=== PATIENT | female | born 1975 | race Hispanic/Latino ===

== ENCOUNTER 2017-09-20 08:55 | Emergency (ER) | payer BC ==
[~2017-09-20] VITALS: Ht 157.5 cm; Wt 117.9 kg
[~2017-09-20 08:55] MED LIST: CLOTRIMAZOLE15 GM TOP; CYMBALTA30 MG PO; Insulin Detemir SQ; LOSARTAN POTAS100 MG PO; LOVASTATIN10 MG PO; METOPROLOL SUCC50 MG PO; NIFEDIPINE ER30 M1 PO; PROTONIX40 MG/ML PO
[2017-09-20] MEDS ORDERED: ONDANSETRON HCL INJ 2 MG/ML VIAL IV STA (08:57)
[2017-09-20] MEDS ORDERED: SODIUM CHLORIDE 0.9% 1000ML 1,000 ML IV STA (08:57)
[2017-09-20] MEDS ORDERED: FAMOTIDINE 20 MG/2 ML VIAL IV STA (08:57)
[2017-09-20] MEDS ORDERED: DONNATAL/LIDOCAINE/MAALOX 30 ML SUSP PO ONE (09:00)
[2017-09-20 09:55] LABS: BASOPHILS % 0.5 % (0.0-1.0); EOSINOPHILS # (AUTO) 0.2 (0.0-0.4); EOSINOPHILS % 2.1 % (0.0-6.0); HEMATOCRIT 42.7 % (34.2-44.1); HEMOGLOBIN 14.6 g/dL (12.0-16.0); LYMPHOCYTES # (AUTO) 1.9 (1.0-3.2); LYMPHOCYTES % 24.4 % (18.0-39.1); MEAN CORPUSCULAR HEMOGLOBIN 31.9 pg (28-32); MEAN CORPUSCULAR HGB CONC 34.2 g/dL (31-35); MEAN CORPUSCULAR VOLUME 93.4 fL (81-99); MONOCYTES # (AUTO) 0.4 (0.2-0.8); MONOCYTES % 4.9 % (4.4-11.3); NEUTROPHILS # (AUTO) 5.2 (2.1-6.9); NEUTROPHILS % 67.5 % (38.7-80.0); PLATELET COUNT 241 x10e3/uL (140-360); RED BLOOD COUNT 4.57 x10e6/uL (3.6-5.1); RED CELL DISTRIBUTION WIDTH 13.2 % (11.7-14.4)
[2017-09-20 10:16] LABS: ALBUMIN/GLOBULIN RATIO 0.7 (0.8-2.0); ANION GAP 26.5 mmol/L (8-16); CALCIUM 8.9 mg/dL (8.4-10.2); CREATININE, SERUM 1.09 mg/dL (0.57-1.11); POTASSIUM 3.5 mmol/L (3.5-5.1)
[2017-09-20 10:42] LABS: BILIRUBIN,URINE NEGATIVE (NEGATIVE); CLARITY,URINE CLEAR (CLEAR); COLOR,URINE YELLOW (YELLOW); KETONES,URINE NEGATIVE (NEGATIVE); LEUKOCYTE ESTERASE ,URINE NEGATIVE (NEGATIVE); NITRITE,URINE NEGATIVE (NEGATIVE); PROTEIN,URINE DIPSTICK 2+ (NEGATIVE); URINE UROBILINOGEN 0.2 mg/dL (0.2 - 1)
[2017-09-20 10:43] LABS: PREGNANCY TEST, URINE NEGATIVE (NEGATIVE)
[2017-09-20 10:48] LABS: BACTERIA,URINE FEW /HPF; EPITHELIAL CELLS,URINE MODERATE /LPF; WBC,URINE (MAN) 0-5 /HPF (0-5)
[2017-09-20] MEDS ORDERED: PEPCID20 MG PO (10:52)
[2017-09-20 11:18] VITALS: BP 199/101
== END 2017-09-20 11:15 | disposition home or self-care (01) ==
LOC: ER 10:51
DX: R10.13 Epigastric pain (principal); R11.0 Nausea
CPT/HCPCS: 36415; 80053; 81001; 81025; 83690; 85025; 99283; J2405; J7030

== ENCOUNTER 2017-11-24 23:20 | Emergency (ER) | payer BC, OTHER ==
[~2017-11-24] VITALS: Ht 157.5 cm; Wt 117.9 kg
[~2017-11-24 23:20] MED LIST changes: +PEPCID20 MG PO
--- OUTSIDE RECORDS SUMMARY | 2017-11-24 23:23 | XMS REPORT | Clinical Summary ---
Author Author [facility] Organization [facility] Address Unknown Phone Unavailable Care Team Providers Care Dna Analyst Name Role Phone Asked, No Pcp PCP Unavailable Allergies Active Allergy Reactions Severity Noted Date Comments Fish Containing Products Rash Low 03/23/2017 Grapefruit Swelling 03/23/2017 Tongue and body swelling Shellfish Derived 01/10/2017 Tomato Hives 11/24/2017 Current Medications Prescription Sig. Disp. Refills Start End Date Status Date metoprolol succinate XL Take 50 mg by mouth Active (TOPROL-XL) 50 mg 24 hr daily. tablet losartan (COZAAR) 100 MG Take 100 mg by mouth Active tablet daily. lovastatin (MEVACOR) 20 Take 60 mg by mouth Active MG tablet daily. insulin regular Infuse 10 Units into a Active (HumuLIN-R, NovoLIN-R) venous catheter 3 (three) 100 unit/mL injection times a day before meals. metFORMIN (GLUCOPHAGE) Take 500 mg by mouth 2 Active 500 mg tablet (two) times a day with meals. FLUoxetine (PROzac) 10 MG Take 20 mg by mouth Active capsule daily. insulin detemir U-100 Inject 15 Units under the 9 mL 6 11/09/19 12/09/19 Active (LEVEMIR) 100 unit/mL skin 2 (two) times a day 18 18 injection for 30 days. Morning and night NIFEdipine XL (PROCARDIA Take 1 tablet (60 mg 60 tablet 3 11/09/19 12/09/19 Active XL) 60 MG 24 hr tablet total) by mouth 2 (two) 18 18 times a day for 30 days. sucralfate (CARAFATE) 1 Take 1 tablet (1 g total) 120 tablet 0 11/09/19 12/09/19 Active gram tablet by mouth 4 (four) times a 18 18 day before meals and nightly for 30 days. pantoprazole (PROTONIX) Take 1 tablet (40 mg 30 tablet 0 11/09/19 12/09/19 Active 40 MG EC tablet total) by mouth daily for 18 18 30 days. traMADol (ULTRAM) 50 mg Take 1 tablet (50 mg 60 tablet 0 11/09/19 11/29/19 Active tablet total) by mouth every 8 18 18 (eight) hours as needed for moderate pain for up to 20 days. etodolac (LODINE) 500 MG Take 1 tablet (500 mg 20 tablet 0 01/11/20 01/21/20 tablet total) by mouth 2 (two) 17 17 times a day as needed (pain) for up to 10 days. cyclobenzaprine Take 10 mg by mouth 04/10/19 Discontin (FLEXERIL) 10 mg tablet nightly. 18 ued traMADol (ULTRAM) 50 mg Take 50 mg by mouth 2 04/07/19 Discontin tablet (two) times a day as 18 ued needed for moderate pain. NIFEdipine CC (ADALAT CC) Take 60 mg by mouth 11/09/19 Discontin 60 MG 24 hr tablet daily. 18 ued insulin detemir (LEVEMIR) Inject 12 Units under the 11/09/19 Discontin 100 unit/mL injection skin 2 (two) times a day. 18 ued Morning and night traMADol (ULTRAM) 50 mg Take 1 tablet (50 mg 60 tablet 0 04/07/19 04/21/19 tablet total) by mouth every 6 18 18 (six) hours as needed for moderate pain for up to 14 days. acetaminophen-codeine Take 1-2 tablets by mouth 60 tablet 0 04/07/19 04/21/19 (TYLENOL WITH CODEINE #3) every 4 (four) hours as 18 18 300-30 mg per tablet needed for moderate pain for up to 14 days. celecoxib (CeleBREX) 100 Take 1 capsule (100 mg 60 capsule 0 04/07/19 05/07/19 MG capsule total) by mouth 2 (two) 18 18 times a day for 30 days. traMADol (ULTRAM) 50 mg Take 2 tablets (100 mg 60 tablet 0 04/10/19 04/24/19 Discontin tablet total) by mouth every 6 18 18 ued (six) hours as needed for moderate pain for up to 14 days. acetaminophen-codeine Take 1-2 tablets by mouth 60 tablet 0 04/10/19 04/24/19 Discontin (TYLENOL WITH CODEINE #3) every 4 (four) hours as 18 18 ued 300-30 mg per tablet needed for moderate pain for up to 14 days. celecoxib (CeleBREX) 100 Take 1 capsule (100 mg 28 capsule 0 04/10/19 04/24/19 MG capsule total) by mouth 2 (two) 18 18 times a day for 14 days. methocarbamol (ROBAXIN) Take 1 tablet (500 mg 60 tablet 0 04/10/19 04/24/19 500 MG tablet total) by mouth 4 (four) 18 18 times a day as needed for muscle spasms for up to 14 days. traMADol (ULTRAM) 50 mg Take 2 tablets (100 mg 60 tablet 0 04/24/19 04/24/19 Discontin tabletIndications: Acute total) by mouth every 6 18 18 ued pain of right shoulder (six) hours as needed for moderate pain for up to 14 days. acetaminophen-codeine Take 1-2 tablets by mouth 60 tablet 0 04/24/19 04/24/19 Discontin (TYLENOL WITH CODEINE #3) every 4 (four) hours as 18 18 ued 300-30 mg per needed for moderate pain tabletIndications: Acute for up to 14 days. pain of right shoulder acetaminophen-codeine Take 1-2 tablets by mouth 60 tablet 0 04/24/19 04/25/19 Discontin (TYLENOL WITH CODEINE #3) every 4 (four) hours as 18 18 ued 300-30 mg per needed for moderate pain tabletIndications: Acute for up to 14 days. pain of right shoulder traMADol (ULTRAM) 50 mg Take 2 tablets (100 mg 60 tablet 0 04/24/19 04/25/19 Discontin tabletIndications: Acute total) by mouth every 6 18 18 ued pain of right shoulder (six) hours as needed for moderate pain for up to 14 days. acetaminophen-codeine Take 1-2 tablets by mouth 60 tablet 0 04/25/19 05/06/19 Discontin (TYLENOL WITH CODEINE #3) every 4 (four) hours as 18 18 ued 300-30 mg per needed for moderate pain tabletIndications: Acute for up to 14 days. pain of right shoulder traMADol (ULTRAM) 50 mg Take 2 tablets (100 mg 60 tablet 0 04/25/19 05/10/19 Discontin tabletIndications: Acute total) by mouth every 6 18 18 ued pain of right shoulder (six) hours as needed for moderate pain for up to 14 days. acetaminophen-codeine Take 2 tablets by mouth 60 tablet 0 20 05/08/19 Discontin (TYLENOL WITH CODEINE #3) every 4 (four) hours as 18 18 ued 300-30 mg per needed for moderate pain tabletIndications: Acute for up to 60 days. pain of right shoulder acetaminophen-codeine Take 2 tablets by mouth 60 tablet 0 05/08/19 05/29/19 Discontin (TYLENOL WITH CODEINE #3) every 4 (four) hours as 18 18 ued 300-30 mg per needed for moderate pain tabletIndications: Acute for up to 60 days. pain of right shoulder traMADol (ULTRAM) 50 mg TAKE 2 TABLETS BY MOUTH 60 tablet 0 07/01/19 08/30/19 tabletIndications: Acute EVERY 6 HOURS NEEDED 18 18 pain of right shoulder FOR MODERATE PAIN FOR UP TO 14 DAYS traMADol (ULTRAM) 50 mg Take 1 tablet (50 mg 70 tablet 0 05/12/19 05/29/19 Discontin tabletIndications: Acute total) by mouth every 4 18 18 ued pain of right shoulder (four) hours as needed for moderate pain for up to 30 days. acetaminophen-codeine TAKE 2 TABLETS BY MOUTH 60 tablet 0 07/01/19 07/31/19 (TYLENOL WITH CODEINE #3) EVERY 4 HOURS NEEDED 18 18 300-30 mg per FOR MODERATE RODRIGUEZ FOR tabletIndications: Acute UP TO 60 DAYS pain of right shoulder acetaminophen-codeine Take 2 tablets by mouth 60 tablet 0 05/29/19 06/07/19 Discontin (TYLENOL WITH CODEINE #3) every 4 (four) hours as 18 18 ued 300-30 mg per needed for moderate pain tabletIndications: Acute for up to 60 days. pain of right shoulder traMADol (ULTRAM) 50 mg Take 1 tablet (50 mg 70 tablet 0 05/29/19 06/07/19 Discontin tabletIndications: Acute total) by mouth every 4 18 18 ued pain of right shoulder (four) hours as needed for moderate pain for up to 30 days. acetaminophen-codeine Take 2 tablets by mouth 60 tablet 0 06/07/19 06/28/19 Discontin (TYLENOL WITH CODEINE #3) every 4 (four) hours as 18 18 ued 300-30 mg per needed for moderate pain tabletIndications: Acute for up to 60 days. pain of right shoulder traMADol (ULTRAM) 50 mg Take 1 tablet (50 mg 70 tablet 0 06/07/19 06/28/19 Discontin tabletIndications: Acute total) by mouth every 4 18 18 ued pain of right shoulder (four) hours as needed for moderate pain for up to 30 days. acetaminophen-codeine Take 2 tablets by mouth 60 tablet 0 06/28/19 07/18/19 Discontin (TYLENOL WITH CODEINE #3) every 4 (four) hours as 18 18 ued 300-30 mg per needed for moderate pain tabletIndications: Acute for up to 60 days. pain of right shoulder traMADol (ULTRAM) 50 mg Take 1 tablet (50 mg 70 tablet 0 06/28/19 07/18/19 Discontin tabletIndications: Acute total) by mouth every 4 18 18 ued pain of right shoulder (four) hours as needed for moderate pain for up to 30 days. traMADol (ULTRAM) 50 mg Take 1 tablet (50 mg 70 tablet 0 07/18/19 08/02/19 Discontin tabletIndications: Acute total) by mouth every 4 18 18 ued pain of right shoulder (four) hours as needed for moderate pain for up to 30 days. acetaminophen-codeine Take 2 tablets by mouth 60 tablet 0 07/18/19 08/02/19 Discontin (TYLENOL WITH CODEINE #3) every 4 (four) hours as 18 18 ued 300-30 mg per needed for moderate pain tabletIndications: Acute for up to 60 days. pain of right shoulder acetaminophen-codeine Take 2 tablets by mouth 60 tablet 0 08/02/19 10/01/19 (TYLENOL WITH CODEINE #3) every 4 (four) hours as 18 18 300-30 mg per needed for moderate pain tabletIndications: Acute for up to 60 days. pain of right shoulder traMADol (ULTRAM) 50 mg Take 1 tablet (50 mg 70 tablet 0 08/02/19 09/01/19 tabletIndications: Acute total) by mouth every 4 18 18 pain of right shoulder (four) hours as needed for moderate pain for up to 30 days. traMADol (ULTRAM) 50 mg Take 1 tablet (50 mg 70 tablet 0 09/07/19 10/07/19 tabletIndications: Acute total) by mouth every 4 18 18 pain of right shoulder (four) hours as needed for moderate pain for up to 30 days. Active Problems Problem Noted Date Hypertension 11/07/2017 Dyspnea 04/06/2017 Encounters Date Type Specialty Care Team Description 11/24/2017 Emergency Emergency Medicine Senthil Mcgrath, 11/06/2017 Emergency General Internal Medicine Jett Booth Hypertension, unspecified - MD Jeremie type (Primary Dx); 11/08/2017 Xavier Gomez MD Epigastric pain Hari Rivas MD 09/06/2017 Orders Only Orthopedic Surgery Amy Ocasio MA Acute pain of right shoulder (Primary Dx) 08/02/2017 Telephone Orthopedic Joby Walsh MD 08/02/2017 Telephone Orthopedic Surgery Joby Ramos MD 08/01/2017 Orders Only Orthopedic Surgery Amy Ocasio MA Acute pain of right shoulder 07/30/2017 Telephone Orthopedic Joyb Walsh MD 07/17/2017 Abstract Orthopedic Joby Walsh MD 07/17/2017 Orders Only Orthopedic Surgery Amy Ocasio MA Acute pain of right shoulder 07/16/2017 Telephone Orthopedic Joby Walsh MD 06/27/2017 Orders Only Orthopedic Surgery Amy Ocasio MA Acute pain of right shoulder 06/26/2017 Refill Orthopedic Joby Walsh MD Acute pain of right shoulder 06/25/2017 Telephone Orthopedic Joby Walsh MD 06/06/2017 Orders Only Orthopedic Surgery Amy Ocasio MA Acute pain of right shoulder 06/06/2017 Telephone Orthopedic Joby Walsh MD 05/28/2017 Refill Orthopedic Joby Walsh MD Acute pain of right shoulder 05/28/2017 Orders Only Orthopedic Surgery Amy Ocasio MA Acute pain of right shoulder 05/23/2017 Telephone Orthopedic Joby Walsh MD 05/21/2017 Refill Orthopedic Surgery Joby Ramos MD Acute pain of right shoulder 05/11/2017 Orders Only Orthopedic Surgery Amy Ocasio MA Acute pain of right shoulder (Primary Dx) 05/10/2017 Telephone Orthopedic Surgery Joby Ramos MD 05/09/2017 Refill Orthopedic Surgery Joby Ramos MD Acute pain of right shoulder 05/07/2017 Orders Only Orthopedic Surgery Amy Ocasio MA 05/07/2017 Orders Only Orthopedic Surgery Amy Ocasio MA Acute pain of right shoulder 05/07/2017 Telephone Orthopedic Joby Walsh MD 05/05/2017 Refill Orthopedic Surgery Joby Ramos MD Acute pain of right shoulder 04/25/2017 Telephone Orthopedic Joby Walsh MD 04/24/2017 Abstract Orthopedic Surgery Joby Ramos MD 04/24/2017 Orders Only Orthopedic Surgery Amy Ocasio MA Acute pain of right shoulder 04/23/2017 Orders Only Orthopedic Surgery Amy Ocasio MA Acute pain of right shoulder (Primary Dx) 04/10/2017 Abstract Orthopedic Surgery Joby Ramos MD 04/10/2017 Telephone Orthopedic Surgery Joby Ramos MD 04/07/2017 Procedure Pass Orthopedic Surgery 04/06/2017 Hospital Orthopedic Surgery Joby Ramos MD - Encounter 04/09/2017 04/06/2017 Procedure Pass Orthopedic Surgery 04/06/2017 Surgery Orthopedic Surgery Joby Ramos MD RIGHT SHOULDER ARTHROSCOPY, ROTATOR CUFF REPAIR, SUBACROMIAL DECOMPRESSION, Biceps tenodesis 03/23/2017 Pre-Admit Pre-Admission Testing Joby Ramos MD Preop testing (Primary Testing Dx) Appointment 03/23/2017 Anesthesia Orthopedic Surgery Hugo Ramirez APRN Event 03/22/2017 Abstract Orthopedic Surgery Joby Ramos MD 01/10/2017 Emergency Emergency Medicine Bolivar Jennings III, Shoulder right fisher MD initial encounter (Primary Dx) after 11/23/2016 Immunizations Name Dates Previously Given Next Due Pneumococcal 11/07/2017 Polysaccharide Social History Tobacco Use Types Packs/Day Years Used Date Former Smoker Cigarettes 2 10 Quit: 2008 Smokeless Tobacco: Never Used Alcohol Use Drinks/Week oz/Week Comments No Sex Assigned at Date Recorded Not on file Last Filed Vital Signs Vital Sign Reading Time Taken Blood Pressure 202/112 11/24/2017 7:56 PM CDT Pulse 75 11/24/2017 7:56 PM CDT Temperature 36.9 C (98.4 F) 11/24/2017 7:56 PM CDT Respiratory Rate 22 11/24/2017 7:56 PM CDT Oxygen Saturation 96% 11/24/2017 7:56 PM CDT Inhaled Oxygen - - Concentration Weight 119 kg (262 lb 12.8 oz) 11/08/2017 4:04 AM CDT Height 160 cm (5' 3") 11/24/2017 7:56 PM CDT Body Mass Index 46.55 11/08/2017 4:04 AM CDT Plan of Treatment Health Maintenance Due Date Last Done Comments CERVICAL CANCER SCREENING 1994 INFLUENZA VACCINE 09/05/2017 Implants Implanted Type Area Salesperson Burial Plots Device Expiration Model / Identifier Date Serial / Lot Mini Open Kit Implant, Cannula, And Arthroscop Right: [employer] 08/29/2021 [id number] Drill Bit y System & Shoulder / Implanted: Qty: 1 on 04/06/2017 by Roberto [id number] / Joby Ramos MD s [id number] Iconix 2 Tape With Intellibrai - IPM Right: JAIRON 01/10/2019 [id number] IMPLANT Shoulder ORTHOPEDICS / Implanted: 04/06/2017 (Quantity not DEVICES / on file) [id number] 4.5 [employer]x Peek Robbins - [id number] IPM Right: JAIRON 02/19/2019 [id number] Implanted: 04/06/2017 (Quantity not IMPLANT Shoulder ORTHOPEDICS 062 / on file) DEVICES / [id number] 4.5 [employer]elx Peek Robbins - [id number] IPM Right: JAIRON 02/19/2019 [id number] Implanted: 04/06/2017 (Quantity not IMPLANT Shoulder ORTHOPEDICS 062 / on file) DEVICES / [id number] Procedures Procedure Name Priority Date/Time Associated Diagnosis Comments HCG QUALITATIVE, URINE STAT 11/24/2017 Results for this SCREEN 8:03 PM CDT procedure are in the results section. URINALYSIS SCREEN AND STAT 11/24/2017 Results for this MICROSCOPY, WITH REFLEX 8:03 PM CDT procedure are in the TO CULTURE results section. URINE CULTURE STAT 11/24/2017 Results for this 8:03 PM CDT procedure are in the results section. POC GLUCOSE Routine 11/08/2017 Results for this 12:04 PM CDT procedure are in the results section. POC GLUCOSE Routine 11/08/2017 Results for this 8:30 AM CDT procedure are in the results section. AMYLASE LEVEL Routine 11/08/2017 Results for this 4:30 AM CDT procedure are in the results section. ESTIMATED GFR Routine 11/08/2017 Results for this 4:30 AM CDT procedure are in the results section. LIPASE LEVEL Routine 11/08/2017 Results for this 4:30 AM CDT procedure are in the results section. HEPATIC FUNCTION PANEL Routine 11/08/2017 Results for this 4:30 AM CDT procedure are in the results section. PHOSPHORUS LEVEL Routine 11/08/2017 Results for this 4:30 AM CDT procedure are in the results section. MAGNESIUM LEVEL Routine 11/08/2017 Results for this 4:30 AM CDT procedure are in the results section. BASIC METABOLIC PANEL Routine 11/08/2017 Results for this 4:30 AM CDT procedure are in the results section. C-REACTIVE PROTEIN Routine 11/08/2017 Results for this 4:30 AM CDT procedure are in the results section. HC COMPLETE BLD COUNT Routine 11/08/2017 Results for this W/AUTO DIFF 4:30 AM CDT procedure are in the results section. TOTAL BILIRUBIN Routine 11/08/2017 Results for this 12:30 AM CDT procedure are in the results section. AST (SGOT) Routine 11/08/2017 Results for this 12:30 AM CDT procedure are in the results section. ALKALINE PHOSPHATASE Routine 11/08/2017 Results for this 12:30 AM CDT procedure are in the results section. POTASSIUM LEVEL Routine 11/08/2017 Results for this 12:30 AM CDT procedure are in the results section. ALT (SGPT) Routine 11/08/2017 Results for this 12:30 AM CDT procedure are in the results section. POC GLUCOSE Routine 11/07/2017 Results for this 8:52 PM CDT procedure are in the results section. US HEPATIC Today 11/07/2017 Results for this 8:15 PM CDT procedure are in the results section. POC GLUCOSE Routine 11/07/2017 Results for this 5:29 PM CDT procedure are in the results section. POC GLUCOSE Routine 11/07/2017 Results for this 12:16 PM CDT procedure are in the results section. POC GLUCOSE Routine 11/07/2017 Results for this 8:14 AM CDT procedure are in the results section. ESTIMATED GFR Routine 11/07/2017 Results for this 4:00 AM CDT procedure are in the results section. TROPONIN Routine 11/07/2017 Results for this 4:00 AM CDT procedure are in the results section. HEMOGLOBIN A1C Routine 11/07/2017 Results for this 4:00 AM CDT procedure are in the results section. HC COMPLETE BLD COUNT Routine 11/07/2017 Results for this W/AUTO DIFF 4:00 AM CDT procedure are in the results section. HEPATITIS ACUTE PANEL Routine 11/07/2017 Results for this 4:00 AM CDT procedure are in the results section. AMYLASE LEVEL Routine 11/07/2017 Results for this 4:00 AM CDT procedure are in the results section. LIPASE LEVEL Routine 11/07/2017 Results for this 4:00 AM CDT procedure are in the results section. COMPREHENSIVE METABOLIC Routine 11/07/2017 Results for this PANEL 4:00 AM CDT procedure are in the results section. POC GLUCOSE Routine 11/07/2017 Results for this 2:20 AM CDT procedure are in the results section. CT ABDOMEN PELVIS W STAT 11/07/2017 Results for this CONTRAST 1:11 AM CDT procedure are in the results section. HCG QUALITATIVE, URINE STAT 11/06/2017 Results for this SCREEN 10:43 PM CDT procedure are in the results section. URINALYSIS SCREEN AND STAT 11/06/2017 Results for this MICROSCOPY, WITH REFLEX 10:43 PM CDT procedure are in the TO CULTURE results section. URINE CULTURE STAT 11/06/2017 Results for this 10:43 PM CDT procedure are in the results section. ESTIMATED GFR STAT 11/06/2017 Results for this 9:32 PM CDT procedure are in the results section. LIPASE LEVEL STAT 11/06/2017 Results for this 9:32 PM CDT procedure are in the results section. COMPREHENSIVE METABOLIC STAT 11/06/2017 Results for this PANEL 9:32 PM CDT procedure are in the results section. HC COMPLETE BLD COUNT STAT 11/06/2017 Results for this W/AUTO DIFF 9:32 PM CDT procedure are in the results section. POC GLUCOSE Routine 04/09/2017 Results for this 11:49 AM AGRICULTURE TEACHER procedure are in the results section. POC GLUCOSE Routine 04/09/2017 Results for this 7:09 AM AGRICULTURE TEACHER procedure are in the results section. POC GLUCOSE Routine 04/08/2017 Results for this 8:14 PM AGRICULTURE TEACHER procedure are in the results section. POC GLUCOSE Routine 04/08/2017 Results for this 5:47 PM AGRICULTURE TEACHER procedure are in the results section. POC GLUCOSE Routine 04/08/2017 Results for this 11:00 AM AGRICULTURE TEACHER procedure are in the results section. MRI LUMBAR SPINE WO Routine 04/08/2017 Results for this CONTRAST 9:47 AM AGRICULTURE TEACHER procedure are in the results section. POC GLUCOSE Routine 04/08/2017 Results for this 7:57 AM AGRICULTURE TEACHER procedure are in the results section. POC GLUCOSE Routine 04/07/2017 Results for this 5:47 PM AGRICULTURE TEACHER procedure are in the results section. POC GLUCOSE Routine 04/07/2017 Results for this 11:29 AM AGRICULTURE TEACHER procedure are in the results section. POC GLUCOSE Routine 04/07/2017 Results for this 8:00 AM AGRICULTURE TEACHER procedure are in the results section. HC COMPLETE BLD COUNT Routine 04/07/2017 Results for this W/AUTO DIFF 5:15 AM AGRICULTURE TEACHER procedure are in the results section. ZZESTIMATED GFR Routine 04/07/2017 Results for this 4:00 AM AGRICULTURE TEACHER procedure are in the results section. BASIC METABOLIC PANEL Routine 04/07/2017 Results for this 4:00 AM AGRICULTURE TEACHER procedure are in the results section. POC GLUCOSE Routine 04/06/2017 Results for this 8:00 PM AGRICULTURE TEACHER procedure are in the results section. XR CHEST 1 VW PORTABLE Routine 04/06/2017 Results for this 7:22 PM AGRICULTURE TEACHER procedure are in the results section. POC GLUCOSE Routine 04/06/2017 Results for this 6:32 PM AGRICULTURE TEACHER procedure are in the results section. REPAIR, ROTATOR CUFF, 04/06/2017 RIGHT SHOULDER ROTATOR ARTHROSCOPIC 2:35 PM AGRICULTURE TEACHER CUFF TEAR M75.101, ROTATOR CUFF IMPINGEMENT Special Needs EST 1.5HRS, INTERSCALE NE BLOCK WITH PAIN PUMP, BEACH CHAIR POSITION, SHOULDER ULTRASLING Jose texted-MR TX AN PERIPHERAL BLOCK Routine 04/06/2017 POST-OP PAIN 12:27 PM AGRICULTURE TEACHER Procedure Note - Marlene Mccallum MD - 04/06/2017 12:27 PM AGRICULTURE TEACHER Peripheral Block Performed by: MARLENE MCCALLUM Authorized by: MARLENE MCCALLUM Patient Location: Pre-op Start Time: 04/06/2017 12:18 PM End Time: 04/06/2017 12:25 PM Reason for Block: at surgeon's request, post-op pain management Staff: Anesthesio logist: MARLENE MCCALLUM Performed by: Anesthesio logist Preprocedu re: patient identified , IV checked, site and side verified, risks and benefits discussed, procedure verified, surgical consent complete, patient position confirmed, monitors and equipment checked, pre-op evaluation complete and site marked Time Out Performed: 04/06/2017 12:05 PM Peripheral Nerve Block: Patient Position: Left lateral decubitus Prep: ChloraPrep Monitoring : Blood pressure monitoring , continuous pulse oximetry and heart rate Block Type: Brachial plexus and interscale ne Laterality : Right Injection Technique: Catheter insertion Procedures : ultrasound guided and nerve stimulator Ultrasound documentat ion: Images saved on hard disk and printed/pl aced in chart Local Infiltrati on (See MAR for details): Lidocaine Loss of Twitch: 0.4 mA Needle: Needle Type: Pajunk Needle Gauge: 19 G Needle Length: 10 cm Catheter at Skin Depth: 8 cm Assessment : Injection Assessment : Visualized needle/loc al anesthetic surroundin g nerve, intermitte nt aspiration during local anesthetic administra tion, visualized pertinent vascular structures and nerves, no symptoms of intraneura l/intraven ous injection and needle tip visualized at all times during injection of medication Paresthesi a Pain: None Heart Rate Change: No Slow Fractionat ed Injection: Yes Block outcome: No apparent complicati ons, patient comfortabl e and patient tolerated procedure well TYPE AND SCREEN Routine 04/06/2017 Results for this 10:10 AM AGRICULTURE TEACHER procedure are in the results section. POC GLUCOSE Routine 04/06/2017 Results for this 10:07 AM AGRICULTURE TEACHER procedure are in the results section. PARTIAL THROMBOPLASTIN Routine 03/23/2017 Preop testing Results for this TIME (PTT) 2:30 PM A[employer]ICULTURE TEACHER procedure are in the results section. PROTHROMBIN TIME WITH INR Routine 03/23/2017 Preop testing Results for this 2:30 PM AGRICULTURE TEACHER procedure are in the results section. HC COMPLETE BLD COUNT Routine 03/23/2017 Preop testing Results for this W/AUTO DIFF 2:30 PM A[employer]ICULTURE TEACHER procedure are in the results section. URINALYSIS SCREEN AND Routine 03/23/2017 Preop testing Results for this MICROSCOPY, WITH REFLEX 2:25 PM AGRICULTURE TEACHER procedure are in the TO CULTURE results section. URINE CULTURE Routine 03/23/2017 Results for this 2:25 PM AGRICULTURE TEACHER procedure are in the results section. ECG 12-LEAD Routine 03/23/2017 Preop testing Results for this 2:23 PM AGRICULTURE TEACHER procedure are in the results section. ZZESTIMATED GFR Routine 03/23/2017 Results for this 2:05 PM A[employer]ICULTURE TEACHER procedure are in the results section. COMPREHENSIVE METABOLIC Routine 03/23/2017 Preop testing Results for this PANEL 2:05 PM AGRICULTURE TEACHER procedure are in the results section. SPLINT APPLICATION Routine 01/10/2017 Results for this 11:15 PM AGRICULTURE TEACHER procedure are in the results section. after 11/23/2016 Results * Urinalysis screen and microscopy, with reflex to culture (11/24/2017 8:03 PM) Only the most recent of 3 results within the time period is included. Specimen site Clean catch [facility] DEPARTMENT OF PATHOLOGY AND GENOMIC MEDICINE Color, UA Straw [facility] DEPARTMENT OF PATHOLOGY AND GENOMIC MEDICINE Appearance, [facility] Clear [facility] [facility] DEPARTMENT OF PATHOLOGY AND GENOMIC MEDICINE Specific gravity, UA 1.014 1.001 - 1.035 [facility] DEPARTMENT OF PATHOLOGY AND GENOMIC MEDICINE pH, UA 6.0 5.0 - 8.5 [facility] DEPARTMENT OF PATHOLOGY AND GENOMIC MEDICINE Protein, UA 2+ (A) Negative [facility] DEPARTMENT OF PATHOLOGY AND GENOMIC MEDICINE Glucose, UA 3+ (A) Negative [facility] DEPARTMENT OF PATHOLOGY AND GENOMIC MEDICINE Ketones, UA Negative Negative [facility] DEPARTMENT OF PATHOLOGY AND GENOMIC MEDICINE Bilirubin, UA Negative Negative [facility] DEPARTMENT OF PATHOLOGY AND GENOMIC MEDICINE Blood, UA Negative Negative [facility] DEPARTMENT OF PATHOLOGY AND GENOMIC MEDICINE Nitrite, UA Negative Negative [facility] DEPARTMENT OF PATHOLOGY AND GENOMIC MEDICINE Urobilinogen, UA <2.0 <2.0 [facility] DEPARTMENT OF PATHOLOGY AND GENOMIC MEDICINE Leukocyte esterase, UA Negative Negative [facility] DEPARTMENT OF PATHOLOGY AND GENOMIC MEDICINE Epithelial cells, UA 5 /HPF [facility] DEPARTMENT OF PATHOLOGY AND GENOMIC MEDICINE WBC, UA 1 0 - 4 /HPF [facility] DEPARTMENT OF PATHOLOGY AND GENOMIC MEDICINE RBC, UA 1 0 - 5 /HPF [facility] DEPARTMENT OF PATHOLOGY AND GENOMIC MEDICINE Bacteria, UA None seen None seen [facility] DEPARTMENT OF PATHOLOGY AND GENOMIC MEDICINE Yeast, UA None seen [facility] DEPARTMENT OF PATHOLOGY AND GENOMIC MEDICINE Yeast with pseudohyphae, None seen [facility] DEPARTMENT OF UA PATHOLOGY AND GENOMIC MEDICINE Specimen Urine Performing Organization Address City/State/Zipcode Phone Number [facility] DEPARTMENT OF [address] [place] [address] PATHOLOGY AND GENOMIC MEDICINE * hCG qualitative, urine screen (11/24/2017 8:03 PM) Only the most recent of 2 results within the time period is included. [facility] qualitative, urine NegativeComment: Sensitivity [facility] DEPARTMENT OF of HCG test: 25 mIU/mL PATHOLOGY AND GENOMIC MEDICINE Specimen Urine Performing Organization Address City/[facility] [place] [address] PATHOLOGY AND GENOMIC MEDICINE * Urine culture (11/24/2017 8:03 PM) Only the most recent of 3 results within the time period is included. Urine culture SEE COMMENTComment: [facility] DEPARTMENT OF Bacteriuria screen negative. PATHOLOGY AND GENOMIC MEDICINE Performing Organization Address City/[facility] [place] [address] PATHOLOGY AND GENOMIC MEDICINE * POC glucose (11/08/2017 12:04 PM) Only the most recent of 19 results within the time period is included. POC glucose 179 (H) 65 - 99 mg/dL [facility] DEPARTMENT OF Comment: PATHOLOGY AND [facility] Notified RN GENOMIC MEDICINE Meter ID: [id number] Dock Loader: Anisha Quinteros Performing Organization Address City/[facility] Centercode Phone Number [facility] [place] [place] [address] PATHOLOGY AND GENOMIC MEDICINE * Estimated GFR (11/08/2017 4:30 AM) Only the most recent of 3 results within the time period is included. Estimated GFR 62 mL/min/1.73 m2 [facility] DEPARTMENT OF Comment: PATHOLOGY AND CatergoryUnitsInte GENOMIC MEDICINE rpretation G1 >=90 Normal or high G2 60-89Mildly decreased [id number] Mildly to moderately decreased [id number] Moderately to severely decreased G4 15-29Severely decreased G5 <15Kidney failure The eGFR was calculated using the Chronic Kidney Disease Epidemiology Collaboration (CKD-EPI) equation. Interpretation is based on recommendations of the National Kidney Foundation-Kidney Disease Outcomes Quality Initiative (NKF-KDOQI) published in 2014. Specimen Plasma specimen Performing Organization Address City/[facility]ode Phone Number [facility] [place] [place] [address] PATHOLOGY AND GENOMIC MEDICINE * CBC with platelet and differential (11/08/2017 4:30 AM) Only the most recent of 5 results within the time period is included. WBC 8.12 4.50 - 11.00 k/uL [facility] DEPARTMENT OF PATHOLOGY AND GENOMIC MEDICINE RBC 4.32 4.20 - 5.50 m/uL [facility] DEPARTMENT OF PATHOLOGY AND GENOMIC MEDICINE HGB 14.4 12.0 - 16.0 g/dL [facility] DEPARTMENT OF PATHOLOGY AND GENOMIC MEDICINE HCT 40.2 37.0 - 47.0 % [facility] DEPARTMENT OF PATHOLOGY AND GENOMIC MEDICINE MCV 93.1 82.0 - 100.0 fL [facility] DEPARTMENT OF PATHOLOGY AND GENOMIC MEDICINE MCH 33.3 27.0 - 34.0 pg [facility] DEPARTMENT OF PATHOLOGY AND GENOMIC MEDICINE MCHC 35.8 31.0 - 37.0 g/dL [facility] DEPARTMENT OF PATHOLOGY AND GENOMIC MEDICINE RDW - SD 45.5 37.0 - 55.0 fL [facility] DEPARTMENT OF PATHOLOGY AND GENOMIC MEDICINE MPV 11.8 8.8 - 13.2 fL [facility] DEPARTMENT OF PATHOLOGY AND GENOMIC MEDICINE Platelet count 272 150 - 400 k/uL [facility] DEPARTMENT OF PATHOLOGY AND GENOMIC MEDICINE Nucleated RBC 0.00 /100 WBC [facility] DEPARTMENT OF PATHOLOGY AND GENOMIC MEDICINE Neutrophils 60.1 39.0 - 69.0 % [facility] DEPARTMENT OF PATHOLOGY AND GENOMIC MEDICINE Lymphocytes 31.8 25.0 - 45.0 % [facility] DEPARTMENT OF PATHOLOGY AND GENOMIC MEDICINE Monocytes 4.8 0.0 - 10.0 % [facility] DEPARTMENT OF PATHOLOGY AND GENOMIC MEDICINE Eosinophils 2.2 0.0 - 5.0 % [facility] DEPARTMENT OF PATHOLOGY AND GENOMIC MEDICINE Basophils 0.5 0.0 - 1.0 % [facility] DEPARTMENT OF PATHOLOGY AND GENOMIC MEDICINE Immature granulocytes 0.6Comment: "Immature 0.0 - 1.0 % [facility] DEPARTMENT OF granulocytes" (promyelocytes, PATHOLOGY AND myelocytes, metamyelocytes) GENOMIC MEDICINE Specimen Blood Performing Organization Address City/[facility] [place] [address] PATHOLOGY AND GENOMIC MEDICINE * C-reactive protein (11/08/2017 4:30 AM) CRP 1.77 (H) 0.00 - 0.50 mg/dL [facility] DEPARTMENT OF PATHOLOGY AND GENOMIC MEDICINE Specimen Plasma specimen Performing Organization Address City/[facility] [place] [address] PATHOLOGY AND GENOMIC MEDICINE * Phosphorus level (11/08/2017 4:30 AM) Phosphorus 3.7 2.4 - 4.5 mg/dL [facility] DEPARTMENT OF PATHOLOGY AND GENOMIC MEDICINE Specimen Plasma specimen Performing Organization Address City/[facility] [place] [address] PATHOLOGY AND GENOMIC MEDICINE * Magnesium level (11/08/2017 4:30 AM) Magnesium 2.0 1.6 - 2.6 mg/dL [facility] DEPARTMENT OF PATHOLOGY AND GENOMIC MEDICINE Specimen Plasma specimen Performing Organization Address [facility] Phone Number [facility] [place] [place] [address] PATHOLOGY AND GENOMIC MEDICINE * Lipase level (11/08/2017 4:30 AM) Only the most recent of 3 results within the time period is included. Lipase 40 13 - 60 U/L [facility] DEPARTMENT OF PATHOLOGY AND GENOMIC MEDICINE Specimen Plasma specimen Performing Organization Address [facility] Phone Number [facility] [place] [place] [address] PATHOLOGY AND GENOMIC [facility] * Amylase level (11/08/2017 4:30 AM) Only the most recent of 2 results within the time period is included. Amylase 40 28 - 100 U/L [facility] DEPARTMENT OF PATHOLOGY AND GENOMIC MEDICINE Specimen Plasma specimen Performing Organization Address [facility] Phone Number [facility] [place] [address] PATHOLOGY AND GENOMIC MEDICINE * Hepatic function panel (11/08/2017 4:30 AM) Albumin 2.8 (L) 3.5 - 5.0 g/dL [facility] DEPARTMENT OF PATHOLOGY AND GENOMIC MEDICINE Total bilirubin <0.2 0.0 - 1.2 mg/dL [facility] DEPARTMENT OF PATHOLOGY AND GENOMIC MEDICINE Bilirubin direct Footnote 0.0 - 0.3 mg/dL [facility] DEPARTMENT OF PATHOLOGY AND GENOMIC MEDICINE Alkaline phosphatase Footnote 35 - 104 U/L [facility] DEPARTMENT OF PATHOLOGY AND GENOMIC MEDICINE Protein 6.5 6.3 - 8.3 g/dL [facility] DEPARTMENT OF Comment: PATHOLOGY AND GENOMIC MEDICINE 4.6-7.0 g/dL 1 week 4.4-7.6 g/dL 7 months-1year 5.1-7.3 g/dL 1-2 years5.6-7 .5 g/dL >3 years6.0-8 .0 g/dL 18-150 6.3-8.3 g/dL ALT Footnote 5 - 50 U/L [facility] DEPARTMENT OF PATHOLOGY AND GENOMIC MEDICINE AST Footnote 10 - 35 U/L [facility] DEPARTMENT OF PATHOLOGY AND GENOMIC MEDICINE Specimen Plasma specimen Performing Organization Address City/[facility]/Zipcode Phone Number [facility] OF [address] [phone] PATHOLOGY AND GENOMIC MEDICINE * Basic metabolic panel (11/08/2017 4:30 AM) Only the most recent of 2 results within the time period is included. Sodium 130 (L) 135 - 148 mEq/L [facility] DEPARTMENT OF PATHOLOGY AND GENOMIC MEDICINE Potassium Footnote 3.5 - 5.0 mEq/L [facility] DEPARTMENT OF Comment: PATHOLOGY AND _K\\AST\\ALT\\DBILI\\ALP results GENOMIC MEDICINE called to and read back by SAMINA CULP\\[email or web address] (name/location) at105:58 ___ (date/time) by _LSB. Chloride 95 (L) 98 - 112 mEq/L [facility] DEPARTMENT OF PATHOLOGY AND GENOMIC MEDICINE CO2 19 (L) 24 - 31 mEq/L [facility] DEPARTMENT OF PATHOLOGY AND GENOMIC MEDICINE Anion gap 16@ANIO (H) 7 - 15 mEq/L [facility] DEPARTMENT OF PATHOLOGY AND GENOMIC MEDICINE BUN 23 (H) 6 - 20 mg/dL [facility] DEPARTMENT OF PATHOLOGY AND GENOMIC MEDICINE Creatinine 1.09 (H) 0.50 - 0.90 mg/dL [facility] DEPARTMENT OF PATHOLOGY AND GENOMIC MEDICINE Glucose 266 (H) 65 - 99 mg/dL [facility] DEPARTMENT OF PATHOLOGY AND GENOMIC MEDICINE Calcium 8.5 8.3 - 10.2 mg/dL [facility] DEPARTMENT OF PATHOLOGY AND GENOMIC MEDICINE Specimen Plasma specimen Performing Organization Address City/[facility]/Zipcode Phone Number [facility] DEPARTMENT OF [address] [place] [address] PATHOLOGY AND GENOMIC MEDICINE * ALT (SGPT) (11/08/2017 12:30 AM) ALT SEE COMMENTComment: 5 - 50 U/L [facility] DEPARTMENT OF Footnote--------- PATHOLOGY AND GENOMIC MEDICINE Specimen Plasma specimen Narrative Performed At Unable to perform testing, specimen is HEMOLYZED.Recollect [facility] DEPARTMENT OF requested for K/AST/ALT/ALP(tests). CALOS COREAS/Davy(name/location) notified PATHOLOGY AND by 11/08/201707:59 (tech ID) at LS2(date/time). Credit issued. GENOMIC MEDICINE Performing Organization Address City/State/Zipcode Phone Number [facility] [place] [address] PATHOLOGY AND GENOMIC MEDICINE * AST (SGOT) (11/08/2017 12:30 AM) AST SEE COMMENTComment: 10 - 35 U/L [facility] DEPARTMENT OF Footnote--------- PATHOLOGY AND GENOMIC MEDICINE Specimen Plasma specimen Narrative Performed At Unable to perform testing, specimen is HEMOLYZED.Recollect [facility] DEPARTMENT OF requested for K/AST/ALT/ALP(tests). CALOS COREAS/Davy(name/location) notified PATHOLOGY AND by 11/08/201707:59 (tech ID) at LS2(date/time). Credit issued. GENOMIC MEDICINE Performing Organization Address [facility] Phone Number [facility] [place] [address] PATHOLOGY AND GENOMIC MEDICINE * Potassium level (11/08/2017 12:30 AM) Potassium SEE COMMENT 3.5 - 5.0 mEq/L [facility] DEPARTMENT OF Comment: PATHOLOGY AND Footnote--------- GENOMIC MEDICINE Unable to perform testing, specimen is HEMOLYZED.Recollect requested for K/AST/ALT/ALP(tests). CALOS JOSS/Davy(name/location) notified by 11/08/201707:59 (tech ID) at LS2(date/time). Credit issued. Specimen Plasma specimen Narrative Performed At Unable to perform testing, specimen is HEMOLYZED.Recollect [facility] DEPARTMENT OF requested for K/AST/ALT/ALP(tests). CALOS COREAS/Davy(name/location) notified PATHOLOGY AND by 11/08/201707:59 (tech ID) at LS2(date/time). Credit issued. GENOMIC MEDICINE Performing Organization Address City/State/Zipcode Phone Number [facility] [place] [address] PATHOLOGY AND GENOMIC MEDICINE * Alkaline phosphatase (11/08/2017 12:30 AM) Alkaline phosphatase SEE COMMENTComment: 35 - 104 U/L [facility] DEPARTMENT OF Footnote--------- PATHOLOGY AND GENOMIC MEDICINE Specimen Plasma specimen Narrative Performed At Unable to perform testing, specimen is HEMOLYZED.Recollect [facility] DEPARTMENT OF requested for K/AST/ALT/ALP(tests). CALOS COREAS/J11(name/location) notified PATHOLOGY AND by 11/08/201707:59 (tech ID) at LS2(date/time). Credit issued. GENOMIC MEDICINE Performing Organization Address [facility]/Zipcode Phone Number [facility] DEPARTMENT OF [address] [place] [address] PATHOLOGY AND GENOMIC MEDICINE * Total bilirubin (11/08/2017 12:30 AM) Total bilirubin <0.2 0.0 - 1.2 mg/dL [facility] DEPARTMENT OF PATHOLOGY AND GENOMIC MEDICINE Specimen Plasma specimen Performing Organization Address [facility] Phone Number [facility] DEPARTMENT OF [address] [place] [phone] PATHOLOGY AND GENOMIC MEDICINE * US Hepatic (11/07/2017 8:15 PM) Narrative Performed At EXAMINATION:US HEPATIC [facility] CLINICAL HISTORY:acute pancreatitis COMPARISON:None. FINDINGS: 1.Liver is enlarged measuring 21 cm in length and appears somewhat heterogeneous and increasing echogenicity. No definite focal hepatic lesions are seen. Portal vein is patent measuring 1 cm with antegrade flow. Status post cholecystectomy. Common duct is 7 mm. IMPRESSION: Hepatomegaly with fatty infiltration. [facility]-[id number] Procedure Note Interface, Radiology Results Incoming - 11/07/2017 11:10 PM CDT EXAMINATION: US HEPATIC CLINICAL HISTORY: acute pancreatitis COMPARISON: None. FINDINGS: 1. Liver is enlarged measuring 21 cm in length and appears somewhat heterogeneous and increasing echogenicity. No definite focal hepatic lesions are seen. Portal vein is patent measuring 1 cm with antegrade flow. Status post cholecystectomy. Common duct is 7 mm. IMPRESSION: Hepatomegaly with fatty infiltration. [facility]-[id number] Performing Organization Address [facility]/Zipcode Phone Number [facility] [address] [place] [phone] * Troponin (11/07/2017 4:00 AM) Troponin <0.30 0.00 - 0.30 ng/mL [facility] DEPARTMENT OF Comment: PATHOLOGY AND 0.30 - 1.49 GENOMIC MEDICINE ng/mlMay indicate increased risk of acute coronary syndrome. >=1.5 ng/ml Consistent with acute myocardial infarction. The diagnostic value of a single normal or non-diagnostic result is questionable.Serial samples at 2-6 hour intervals are required to rule out acute myocardial injury. Specimen Plasma specimen Performing Organization Address City/[facility] [place] [address] PATHOLOGY AND [employer] MEDICINE * Hepatitis acute panel (11/07/2017 4:00 AM) Hepatitis A IgM Non-reactive Non-reactive [facility] DEPARTMENT OF PATHOLOGY AND GENOMIC MEDICINE Hepatitis B core IgM Non-reactive Non-reactive [facility] DEPARTMENT OF PATHOLOGY AND GENOMIC MEDICINE Hepatitis B surface Ag Non-reactive Non-reactive [facility] DEPARTMENT OF PATHOLOGY AND [employer] MEDICINE Hepatitis C Ab Non-reactive Non-reactive [facility] DEPARTMENT OF PATHOLOGY AND [employer] MEDICINE Specimen Serum Performing Organization Address [facility] [place] [address] PATHOLOGY AND [employer] MEDICINE * Hemoglobin A1c (11/07/2017 4:00 AM) Hemoglobin A1C 8.6 (H) 4.0 - 5.6 % [facility] DEPARTMENT OF Comment: PATHOLOGY AND HbA1c cutoffs for diagnosing [facility] MEDICINE diabetes: 4.0% - 5.6%=normal 5.7% - 6.4%=increased risk for diabetes (prediabetes) >=6.5%=diabetes Goals for glycemic control (ADA 2016) < 7.0%Target for non adults with diabetes. More or less stringent targets may be appropriate for individual patients. <7.5% Target for Children and adolescents with type 1 diabetes. Specimen Blood Performing Organization Address City/[facility] [place] [address] PATHOLOGY AND [employer] [facility] * Comprehensive metabolic panel (11/07/2017 4:00 AM) Only the most recent of 3 results within the time period is included. Sodium 135 135 - 148 mEq/L [facility] DEPARTMENT OF PATHOLOGY AND GENOMIC MEDICINE Potassium 3.9 3.5 - 5.0 mEq/L [facility] DEPARTMENT OF PATHOLOGY AND GENOMIC MEDICINE Chloride 98 98 - 112 mEq/L [facility] DEPARTMENT OF PATHOLOGY AND GENOMIC MEDICINE CO2 19 (L) 24 - 31 mEq/L [facility] DEPARTMENT OF PATHOLOGY AND GENOMIC MEDICINE Anion gap 18@ANIO (H) 7 - 15 mEq/L [facility] DEPARTMENT OF PATHOLOGY AND GENOMIC MEDICINE BUN 21 (H) 6 - 20 mg/dL [facility] DEPARTMENT OF PATHOLOGY AND GENOMIC MEDICINE Creatinine 0.99 (H) 0.50 - 0.90 mg/dL [facility] DEPARTMENT OF PATHOLOGY AND GENOMIC MEDICINE Glucose 160 (H) 65 - 99 mg/dL [facility] DEPARTMENT OF PATHOLOGY AND GENOMIC MEDICINE Calcium 9.1 8.3 - 10.2 mg/dL [facility] DEPARTMENT OF PATHOLOGY AND GENOMIC MEDICINE Protein 6.9 6.3 - 8.3 g/dL [facility] DEPARTMENT OF Comment: PATHOLOGY AND GENOMIC MEDICINE 4.6-7.0 g/dL 1 week 4.4-7.6 g/dL 7 months-1year 5.1-7.3 g/dL 1-2 years5.6-7 .5 g/dL >3 years6.0-8 .0 g/dL 18-150 6.3-8.3 g/dL Albumin 3.2 (L) 3.5 - 5.0 g/dL [facility] DEPARTMENT OF PATHOLOGY AND GENOMIC MEDICINE A/G ratio 0.9 0.7 - 3.8 [facility] DEPARTMENT OF PATHOLOGY AND GENOMIC MEDICINE Alkaline phosphatase 95 35 - 104 U/L [facility] DEPARTMENT OF PATHOLOGY AND GENOMIC MEDICINE AST 19 10 - 35 U/L [facility] DEPARTMENT OF PATHOLOGY AND GENOMIC MEDICINE ALT 18 5 - 50 U/L [facility] DEPARTMENT OF PATHOLOGY AND GENOMIC MEDICINE Total bilirubin <0.2 0.0 - 1.2 mg/dL [facility] DEPARTMENT OF PATHOLOGY AND GENOMIC MEDICINE Specimen Plasma specimen Performing Organization Address City/State/Zipcode Phone Number [facility] DEPARTMENT OF [address] [place] [address] PATHOLOGY AND GENOMIC MEDICINE * CT Abdomen Pelvis W Contrast (11/07/2017 1:11 AM) Narrative Performed At Examination:CT ABDOMEN PELVIS W CONTRAST [facility] Clinical History: Abd painunspecified, epigastric Comparison: None. Findings: CT scans are performed using radiation dose reduction techniques.Technical factors are evaluated and adjusted to ensure appropriate moderation of exposure.Automated dose management technology is applied to adjust radiation exposure while achieving a diagnostic quality image. CT scan of abdomen and pelvis was performed after intravenous contrast. The liver is slightly low in density. The spleen, pancreas, and adrenal glands are unremarkable. The patient is status post cholecystectomy. The kidneys are within normal limits without hydronephrosis. The appendix is visualized and unremarkable. Anterior abdominal wall umbilical hernia is noted which contains only fat. The hernia extends inferiorly. There is mild bowel wall prominence or thickening noted of the proximal small bowel loops but are not grossly distended. No bowel thickening or fat stranding is seen. No bowel dilatation is seen. No free air or fluid is seen. Urinary bladder is unremarkable. The graft the visualized lung bases are clear. IMPRESSION: 1. Mild fatty liver. 2. Umbilical hernia contains only fat. 3. There is mild bowel wall prominence with thickening noted of the proximal small bowel loops may represent gastroenteritis. [facility]-[id number] Procedure Note Interface, Radiology Results Incoming - 11/07/2017 1:30 AM CDT Examination: CT ABDOMEN PELVIS W CONTRAST Clinical History: Abd pain unspecified, epigastric Comparison: None. Findings: CT scans are performed using radiation dose reduction techniques. Technical factors are evaluated and adjusted to ensure appropriate moderation of exposure. Automated dose management technology is applied to adjust radiation exposure while achieving a diagnostic quality image. CT scan of abdomen and pelvis was performed after intravenous contrast. The liver is slightly low in density. The spleen, pancreas, and adrenal glands are unremarkable. The patient is status post cholecystectomy. The kidneys are within normal limits without hydronephrosis. The appendix is visualized and unremarkable. Anterior abdominal wall umbilical hernia is noted which contains only fat. The hernia extends inferiorly. There is mild bowel wall prominence or thickening noted of the proximal small bowel loops but are not grossly distended. No bowel thickening or fat stranding is seen. No bowel dilatation is seen. No free air or fluid is seen. Urinary bladder is unremarkable. The graft the visualized lung bases are clear. IMPRESSION: 1. Mild fatty liver. 2. Umbilical hernia contains only fat. 3. There is mild bowel wall prominence with thickening noted of the proximal small bowel loops may represent gastroenteritis. [facility]-[id number] Performing Organization Address City/State/Zipcode Phone Number [facility] [address] [place] [address] * MRI Lumbar Spine Wo Contrast (04/08/2017 9:47 AM) Narrative Performed At [facility] EXAM:MRI LUMBAR SPINE WO CONTRAST COMPARISON: None. CLINICAL HISTORY: right leg weaknessparesthesias TECHNIQUE: Multiplanar multisequence examination was performedWithout contrast. FINDINGS: Sagittal images demonstrate mild degenerative desiccation of the L5-S1 disc. There is relative preservation of the disc space height. L5-S1: There is a broad-based left paracentral/subarticular disc protrusion impinging on the thecal sac and left S1 nerve root. There is no significant stenosis. L4-5: There are minimal facet joint degenerative changes. L3-4: There is no significant abnormality. L2-3: There is no significant abnormality. L1-2: There is no significant abnormality. IMPRESSION: Left paracentral/subarticular disc protrusion at L5-S1 impinging on the thecal sac and the left S1 nerve root. 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 CLINICAL HISTORY: right leg weakness paresthesias TECHNIQUE: Multiplanar multisequence examination was performed Without contrast. FINDINGS: Sagittal images demonstrate mild degenerative desiccation of the L5-S1 disc. There is relative preservation of the disc space height. L5-S1: There is a broad-based left paracentral/subarticular disc protrusion impinging on the thecal sac and left S1 nerve root. There is no significant stenosis. L4-5: There are minimal facet joint degenerative changes. L3-4: There is no significant abnormality. L2-3: There is no significant abnormality. L1-2: There is no significant abnormality. IMPRESSION: Left paracentral/subarticular disc protrusion at L5-S1 impinging on the thecal sac and the left S1 nerve root. [facility]-[id number] Performing Organization Address City/State/Zipcode Phone Number [facility] [address] [place] [address] * Estimated GFR (04/07/2017 4:00 AM) Only the most recent of 2 results within the time period is included. GFR Non Af Amer 60 mL/min/1.73 m2 [facility] DEPARTMENT OF PATHOLOGY AND GENOMIC MEDICINE GFR Af Amer 73 mL/min/1.73 m2 [facility] DEPARTMENT OF Comment: PATHOLOGY AND Chronic kidney disease: <60 GENOMIC MEDICINE mL/min/1.73m2 Kidney failure: <15 mL/min/1.73m2 The estimated GFR is calculated from the IDMS-traceable Modification of Diet in Renal Disease Equation. The accuracy of the calculation is poor when the creatinine is normal. Calculated values >90 mL/min/1.73m2 are not reported. This equation has not been validated in children (<18 years), women, the elderly (>70 years), or ethnic groups other than Caucasians and Americans. Specimen Plasma specimen Performing Organization Address City/[facility]/Zipcode Phone Number [facility] [place] [address] PATHOLOGY AND GENOMIC MEDICINE * XR Chest 1 Vw Portable (04/06/2017 7:22 PM) Narrative Performed At EXAMINATION:XR CHEST 1 VW PORTABLE [facility] CLINICAL HISTORY:SHORTNESS OF BREATH COMPARISON:December 04, 2014 chest IMPRESSION: Moderate patchy atelectasis right base with mild elevation right hemidiaphragm Overall hypoinflation compared to previous Cardiac silhouette top normal size. No congestion or effusion. 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 No congestion or effusion. No pneumothorax Single view chest [facility]-[id number] Performing Organization Address [facility] [place] [facility]/Zipcode Phone Number [facility] [address] [place] [address] * Type and screen (04/06/2017 10:10 AM) ABO grouping O [facility] DEPARTMENT OF PATHOLOGY AND GENOMIC MEDICINE Rh type POS [facility] DEPARTMENT OF PATHOLOGY AND GENOMIC MEDICINE Antibody screen (gel) NEG [facility] DEPARTMENT OF PATHOLOGY AND GENOMIC MEDICINE Specimen Blood Performing Organization Address [facility] [place] [address] PATHOLOGY AND GENOMIC MEDICINE * Partial thromboplastin time, activated (03/23/2017 2:30 PM) PTT 27.7 23.0 - 36.0 sec [facility] DEPARTMENT OF Comment: PATHOLOGY AND PTT therapeutic range for [facility] MEDICINE unfractionated heparin is 61.0-112.0 seconds which corresponds to Anti-Xa 0.3-0.7 U/ml. Specimen Blood Performing Organization Address [facility] [place] [facility]/[place] [address] PATHOLOGY AND GENOMIC MEDICINE * Prothrombin time with INR (03/23/2017 2:30 PM) Prothrombin time 12.7 12.0 - 15.0 sec [facility] DEPARTMENT OF PATHOLOGY AND GENOMIC MEDICINE INR 0.9 [facility] DEPARTMENT OF Comment: PATHOLOGY AND The International Normalized GENOMIC MEDICINE Ratio (INR) is a therapeutic monitoring tool for patients who are stable on oral anticoagulant therapy. An INR of 2.0-3.0 is suggested for deep vein thrombosis/pulmonary embolism. Specimen Blood Performing Organization Address [facility] [place] [facility] Cent[facility]ode Phone Number [facility] DEPARTMENT OF [address] [place] [address] PATHOLOGY AND GENOMIC MEDICINE * ECG 12 lead (03/23/2017 2:23 PM) Ventricular rate 82 [facility] MUSE Atrial rate 82 [facility] MUSE TX interval 162 [facility] MUSE QRSD interval 102 [facility] MUSE QT interval 394 [facility] MUSE QTC interval 460 [facility] MUSE P axis 1 6 [facility] MUSE QRS axis 1 89 [facility] MUSE T wave axis 26 [facility] MUSE EKG impression Normal sinus rhythm-Normal [facility] MUSE ECG-In automated comparison with ECG of 04-DEC-2014 20:10,-Criteria for Septal infarct are no longer present- Performing Organization Address [facility] [place] [facility] Phone Number [facility] [address] [place] [address] * SPLINT APPLICATION (01/10/2017 11:15 PM) Narrative Performed At Bolivar Jennings MD 01/10/2017 11:15 PM Splint Application Performed by: CELESTINE MORA Authorized by: BOLIVAR JENNINGS Consent: Consent obtained:Verbal Consent given by:Patient Alternatives discussed:No treatment Pre-procedure details: Sensation:Normal Procedure details: Laterality:Right Location:Arm Supplies:Sling Post-procedure details: Pain:Improved Sensation:Normal Patient tolerance of procedure:Tolerated well, no immediate complications after 11/23/2016 Insurance Payer Benefit Subscriber ID Type Phone Address Plan / Group [facility] xxxxxxxxx HMO PLAN [facility] ANI WORKERS COMP MISC xxxxxx Workers WORKER'S Comp COMP BCBS ANTHEM xxxxxxxxxxxx PPO BLUE CROSS [id number] Workers Employer Home: [address] [place] [address]
[2017-11-24] MEDS ORDERED: SODIUM CHLORIDE 0.9% 1000ML 1,000 ML IV STA (23:48)
[2017-11-24 23:56] LABS: BASOPHILS # (AUTO) 0.1 (0.0-0.1); BASOPHILS % 0.7 % (0.0-1.0); EOSINOPHILS # (AUTO) 0.3 (0.0-0.4); EOSINOPHILS % 2.6 % (0.0-6.0); HEMATOCRIT 43.5 % (34.2-44.1); HEMOGLOBIN 14.8 g/dL (12.0-16.0); LYMPHOCYTES # (AUTO) 3.7 (1.0-3.2); LYMPHOCYTES % 35.3 % (18.0-39.1); MEAN CORPUSCULAR HEMOGLOBIN 31.4 pg (28-32); MEAN CORPUSCULAR VOLUME 92.4 fL (81-99); MONOCYTES # (AUTO) 0.5 (0.2-0.8); MONOCYTES % 4.9 % (4.4-11.3); NEUTROPHILS # (AUTO) 5.8 (2.1-6.9); NEUTROPHILS % 55.7 % (38.7-80.0); PLATELET COUNT 321 x10e3/uL (140-360); RED BLOOD COUNT 4.71 x10e6/uL (3.6-5.1); RED CELL DISTRIBUTION WIDTH 13.2 % (11.7-14.4)
[2017-11-25 00:10] LABS: ALANINE AMINOTRANSFERASE 20 IU/L (0-55); ALBUMIN 3.5 g/dL (3.5-5.0); ALBUMIN/GLOBULIN RATIO 0.7 (0.8-2.0); ALKALINE PHOSPHATASE 91 IU/L (40-150); AMYLASE 31 U/L (25-125); ANION GAP 20.6 mmol/L (8-16); BLOOD UREA NITROGEN 21 mg/dL (7-26); BUN/CREATININE RATIO 21 (6-25); CALCIUM 8.7 mg/dL (8.4-10.2); CARBON DIOXIDE 15 mmol/L (22-29); CHLORIDE 103 mmol/L (98-107); CREATININE, SERUM 0.98 mg/dL (0.57-1.11); EST GLOMERULAR FILTRATION RATE > 60 ML/MIN (60-); GLUCOSE 189 mg/dL (74-118); LIPASE 35 U/L (8-78); SODIUM 133 mmol/L (136-145)
[2017-11-25 00:12] LABS: POTASSIUM 5.6 mmol/L (3.5-5.1)
[2017-11-25] MEDS ORDERED: PANTOPRAZOLE 40 MG 10ML VIAL IV STA (00:22)
[2017-11-25] MEDS ORDERED: BELLADONNA ALK/PHENOBARBITAL 5 ML UDC PO STA (00:22)
[2017-11-25] MEDS ORDERED: MAGNESIUM/ALUMINUM/SIMETHICONE 30 ML UDC PO ONE (00:30)
[2017-11-25] MEDS ORDERED: LIDOCAINE VISC 2% SOLN 15 ML UDC PO ONE (00:30)
[2017-11-25] MEDS ORDERED: MORPHINE SULFATE 2 MG/ML SYR IV STA (01:24)
[2017-11-25] MEDS ORDERED: ONDANSETRON HCL INJ 2 MG/ML VIAL IV STA (01:24)
== END 2017-11-25 02:01 | disposition home or self-care (01) ==
LOC: ER 23:20
DX: R10.13 Epigastric pain (principal); R11.0 Nausea; K29.50 Unspecified chronic gastritis without bleeding
CPT/HCPCS: 36415; 80053; 82150; 83605; 83690; 85025; 96374; 99284; J2270; J2405; J7030

== ENCOUNTER 2017-12-19 12:38 | Emergency (ER) | payer OTHER ==
[~2017-12-19] VITALS: Ht 157.5 cm; Wt 113.4 kg
--- OUTSIDE RECORDS SUMMARY | 2017-12-19 12:42 | XMS REPORT | Clinical Summary ---
Author Author [facility] Organization [facility] Address Unknown Phone Unavailable Care Team Providers Care Lumber Loader Name Role Phone Asked, No Pcp PCP Unavailable Allergies Comments Active Allergy Reactions Severity Noted Date itching Fish Containing Products Hives, Rash Low 03/23/2017 Tongue and body swelling and shortness of breath Grapefruit Anaphylaxis High 03/23/2017 Shellfish Derived Hives 01/10/2017 Tomato sauce, tongue and lips swelling Tomato Swelling 11/24/2017 Medications End Date Status Medication Sig Dispensed Refills Start Date Active metoprolol succinate XL Take 50 mg by 0 (TOPROL-XL) 50 mg 24 hr mouth daily. tablet Active losartan (COZAAR) 100 MG Take 100 mg 0 tablet by mouth daily. Active lovastatin (MEVACOR) 20 Take 60 mg by 0 MG tablet mouth daily. Active metFORMIN (GLUCOPHAGE) Take 500 mg 0 500 mg tablet by mouth 2 (two) times a day with meals. Active FLUoxetine (PROzac) 10 MG Take 20 mg by 0 capsule mouth nightly. Active empagliflozin (JARDIANCE) Take 25 mg by 0 25 mg tablet mouth daily. 01/03/2018 Active metoclopramide (REGLAN) Take 1 tablet 30 tablet 0 10 MG tablet (10 mg total) 8 by mouth every 6 (six) hours for 30 days. 01/20/2017 etodolac (LODINE) 500 MG Take 1 tablet 20 tablet 0 tablet (500 mg 7 total) by mouth 2 (two) times a day as needed (pain) for up to 10 days. 04/09/2017 Discontinued cyclobenzaprine Take 10 mg by 0 (FLEXERIL) 10 mg tablet mouth nightly. 04/06/2017 Discontinued traMADol (ULTRAM) 50 mg Take 50 mg by 0 tablet mouth 2 (two) times a day as needed for moderate pain. 11/08/2017 Discontinued NIFEdipine CC (ADALAT CC) Take 60 mg by 0 60 MG 24 hr tablet mouth daily. 11/08/2017 Discontinued insulin detemir (LEVEMIR) Inject 12 0 100 unit/mL injection Units under the skin 2 (two) times a day. Morning and night 12/04/2017 Discontinued insulin regular Infuse 10 0 (HumuLIN-R, NovoLIN-R) Units into a 100 unit/mL injection venous catheter 3 (three) times a day before meals. 04/20/2017 traMADol (ULTRAM) 50 mg Take 1 tablet 60 tablet 0 04/06/ tablet (50 mg total) 8 by mouth every 6 (six) hours as needed for moderate pain for up to 14 days. 04/20/2017 acetaminophen-codeine Take 1-2 60 tablet 0 (TYLENOL WITH CODEINE #3) tablets by 8 300-30 mg per tablet mouth every 4 (four) hours as needed for moderate pain for up to 14 days. 05/06/2017 celecoxib (CeleBREX) 100 Take 1 60 capsule 0 201 MG capsule capsule (100 8 mg total) by mouth 2 (two) times a day for 30 days. 04/23/2017 Discontinued traMADol (ULTRAM) 50 mg Take 2 60 tablet 0 04/09/201 tablet tablets (100 8 mg total) by mouth every 6 (six) hours as needed for moderate pain for up to 14 days. 04/23/2017 Discontinued acetaminophen-codeine Take 1-2 60 tablet 0 (TYLENOL WITH CODEINE #3) tablets by 8 300-30 mg per tablet mouth every 4 (four) hours as needed for moderate pain for up to 14 days. 04/23/2017 celecoxib (CeleBREX) 100 Take 1 28 capsule 0 201 MG capsule capsule (100 8 mg total) by mouth 2 (two) times a day for 14 days. 04/23/2017 methocarbamol (ROBAXIN) Take 1 tablet 60 tablet 0 500 MG tablet (500 mg 8 total) by mouth 4 (four) times a day as needed for muscle spasms for up to 14 days. 04/23/2017 Discontinued traMADol (ULTRAM) 50 mg Take 2 60 tablet 0 tabletIndications: Acute tablets (100 8 pain of right shoulder mg total) by mouth every 6 (six) hours as needed for moderate pain for up to 14 days. 04/23/2017 Discontinued acetaminophen-codeine Take 1-2 60 tablet 0 (TYLENOL WITH CODEINE #3) tablets by 8 300-30 mg per mouth every 4 tabletIndications: Acute (four) hours pain of right shoulder as needed for moderate pain for up to 14 days. 04/24/2017 Discontinued acetaminophen-codeine Take 1-2 60 tablet 0 (TYLENOL WITH CODEINE #3) tablets by 8 300-30 mg per mouth every 4 tabletIndications: Acute (four) hours pain of right shoulder as needed for moderate pain for up to 14 days. 04/24/2017 Discontinued traMADol (ULTRAM) 50 mg Take 2 60 tablet 0 tabletIndications: Acute tablets (100 8 pain of right shoulder mg total) by mouth every 6 (six) hours as needed for moderate pain for up to 14 days. 05/05/2017 Discontinued acetaminophen-codeine Take 1-2 60 tablet 0 (TYLENOL WITH CODEINE #3) tablets by 8 300-30 mg per mouth every 4 tabletIndications: Acute (four) hours pain of right shoulder as needed for moderate pain for up to 14 days. 05/09/2017 Discontinued traMADol (ULTRAM) 50 mg Take 2 60 tablet 0 tabletIndications: Acute tablets (100 8 pain of right shoulder mg total) by mouth every 6 (six) hours as needed for moderate pain for up to 14 days. 05/07/2017 Discontinued acetaminophen-codeine Take 2 60 tablet 0 (TYLENOL WITH CODEINE #3) tablets by 8 300-30 mg per mouth every 4 tabletIndications: Acute (four) hours pain of right shoulder as needed for moderate pain for up to 60 days. 05/28/2017 Discontinued acetaminophen-codeine Take 2 60 tablet 0 (TYLENOL WITH CODEINE #3) tablets by 8 300-30 mg per mouth every 4 tabletIndications: Acute (four) hours pain of right shoulder as needed for moderate pain for up to 60 days. 08/29/2017 traMADol (ULTRAM) 50 mg TAKE 2 60 tablet 0 tabletIndications: Acute TABLETS BY 8 pain of right shoulder MOUTH EVERY 6 HOURS NEEDED FOR MODERATE PAIN FOR UP TO 14 DAYS 05/28/2017 Discontinued traMADol (ULTRAM) 50 mg Take 1 tablet 70 tablet 0 tabletIndications: Acute (50 mg total) 8 pain of right shoulder by mouth every 4 (four) hours as needed for moderate pain for up to 30 days. 07/30/2017 acetaminophen-codeine TAKE 2 60 tablet 0 (TYLENOL WITH CODEINE #3) TABLETS BY 8 300-30 mg per MOUTH EVERY 4 tabletIndications: Acute HOURS pain of right shoulder NEEDED FOR MODERATE RODRIGUEZ FOR UP TO 60 DAYS 06/06/2017 Discontinued acetaminophen-codeine Take 2 60 tablet 0 (TYLENOL WITH CODEINE #3) tablets by 8 300-30 mg per mouth every 4 tabletIndications: Acute (four) hours pain of right shoulder as needed for moderate pain for up to 60 days. 06/06/2017 Discontinued traMADol (ULTRAM) 50 mg Take 1 tablet 70 tablet 0 tabletIndications: Acute (50 mg total) 8 pain of right shoulder by mouth every 4 (four) hours as needed for moderate pain for up to 30 days. 06/27/2017 Discontinued acetaminophen-codeine Take 2 60 tablet 0 (TYLENOL WITH CODEINE #3) tablets by 8 300-30 mg per mouth every 4 tabletIndications: Acute (four) hours pain of right shoulder as needed for moderate pain for up to 60 days. 06/27/2017 Discontinued traMADol (ULTRAM) 50 mg Take 1 tablet 70 tablet 0 tabletIndications: Acute (50 mg total) 8 pain of right shoulder by mouth every 4 (four) hours as needed for moderate pain for up to 30 days. 07/17/2017 Discontinued acetaminophen-codeine Take 2 60 tablet 0 (TYLENOL WITH CODEINE #3) tablets by 8 300-30 mg per mouth every 4 tabletIndications: Acute (four) hours pain of right shoulder as needed for moderate pain for up to 60 days. 07/17/2017 Discontinued traMADol (ULTRAM) 50 mg Take 1 tablet 70 tablet 0 tabletIndications: Acute (50 mg total) 8 pain of right shoulder by mouth every 4 (four) hours as needed for moderate pain for up to 30 days. 08/01/2017 Discontinued traMADol (ULTRAM) 50 mg Take 1 tablet 70 tablet 0 tabletIndications: Acute (50 mg total) 8 pain of right shoulder by mouth every 4 (four) hours as needed for moderate pain for up to 30 days. 08/01/2017 Discontinued acetaminophen-codeine Take 2 60 tablet 0 (TYLENOL WITH CODEINE #3) tablets by 8 300-30 mg per mouth every 4 tabletIndications: Acute (four) hours pain of right shoulder as needed for moderate pain for up to 60 days. 09/30/2017 acetaminophen-codeine Take 2 60 tablet 0 (TYLENOL WITH CODEINE #3) tablets by 8 300-30 mg per mouth every 4 tabletIndications: Acute (four) hours pain of right shoulder as needed for moderate pain for up to 60 days. 08/31/2017 traMADol (ULTRAM) 50 mg Take 1 tablet 70 tablet 0 tabletIndications: Acute (50 mg total) 8 pain of right shoulder by mouth every 4 (four) hours as needed for moderate pain for up to 30 days. 10/06/2017 traMADol (ULTRAM) 50 mg Take 1 tablet 70 tablet 0 tabletIndications: Acute (50 mg total) 8 pain of right shoulder by mouth every 4 (four) hours as needed for moderate pain for up to 30 days. 12/08/2017 insulin detemir U-100 Inject 15 9 mL 6 (LEVEMIR) 100 unit/mL Units under 8 injection the skin 2 (two) times a day for 30 days. Morning and night 12/08/2017 NIFEdipine XL (PROCARDIA Take 1 tablet 60 tablet 3 XL) 60 MG 24 hr tablet (60 mg total) 8 by mouth 2 (two) times a day for 30 days. 12/08/2017 sucralfate (CARAFATE) 1 Take 1 tablet 120 tablet 0 gram tablet (1 g total) 8 by mouth 4 (four) times a day before meals and nightly for 30 days. 12/08/2017 pantoprazole (PROTONIX) Take 1 tablet 30 tablet 0 40 MG EC tablet (40 mg total) 8 by mouth daily for 30 days. 11/28/2017 traMADol (ULTRAM) 50 mg Take 1 tablet 60 tablet 0 tablet (50 mg total) 8 by mouth every 8 (eight) hours as needed for moderate pain for up to 20 days. 12/14/2017 acetaminophen-codeine Take 1-2 20 tablet 0 (TYLENOL WITH CODEINE #3) tablets by 8 300-30 mg per tablet mouth every 6 (six) hours as needed for moderate pain for up to 10 days. Active Problems Problem Noted Date Hypertension 11/07/2017 Dyspnea 04/06/2017 Encounters Care Team Description Date Type Specialty Kirti Rae MD Gastroparesis (Primary Dx) 12/04/2017 Emergency Emergency Medicine Senthil Mcgrath DO 11/24/2017 Emergency Emergency Medicine Jett Booth MD Arriaga, Michael, MD Thai, Ryan T., MD Hypertension, unspecified type (Primary Dx); Epigastric pain 11/06/2017 Emergency General Internal Medicine - 11/08/2017 Amy Ocasio MA Acute pain of right shoulder (Primary Dx) 09/06/2017 Orders Only Orthopedic Surgery Joby Ramos MD 08/02/2017 Telephone Orthopedic Joby Walsh MD 08/02/2017 Telephone Orthopedic Surgery Amy Ocasio MA Acute pain of right shoulder 08/01/2017 Orders Only Orthopedic Joby Walsh MD 07/30/2017 Telephone Orthopedic Joby Walsh MD 07/17/2017 Abstract Orthopedic Surgery Amy Ocasio MA Acute pain of right shoulder 07/17/2017 Orders Only Orthopedic Joby Walsh MD 07/16/2017 Telephone Orthopedic Surgery Amy Ocasio MA Acute pain of right shoulder 06/27/2017 Orders Only Orthopedic Joby Walsh MD Acute pain of right shoulder 06/26/2017 Refill Orthopedic Joby Walsh MD 06/25/2017 Telephone Orthopedic Surgery Amy Ocasio MA Acute pain of right shoulder 06/06/2017 Orders Only Orthopedic Joby Walsh MD 06/06/2017 Telephone Orthopedic Surgery Joby Ramos MD Acute pain of right shoulder 05/28/2017 Refill Orthopedic Surgery Amy Ocasio MA Acute pain of right shoulder 05/28/2017 Orders Only Orthopedic Surgery Joby Ramos MD 05/23/2017 Telephone Orthopedic Surgery Joby Ramos MD Acute pain of right shoulder 05/21/2017 Refill Orthopedic Surgery Amy Ocasio MA Acute pain of right shoulder (Primary Dx) 05/11/2017 Orders Only Orthopedic Surgery Joby Ramos MD 05/10/2017 Telephone Orthopedic Surgery Joby Ramos MD Acute pain of right shoulder 05/09/2017 Refill Orthopedic Surgery Amy Ocasio MA 05/07/2017 Orders Only Orthopedic Surgery Amy Ocasio MA Acute pain of right shoulder 05/07/2017 Orders Only Orthopedic Surgery Joby Ramos MD 05/07/2017 Telephone Orthopedic Surgery Joby Ramos MD Acute pain of right shoulder 05/05/2017 Refill Orthopedic Surgery Joby Ramos MD 04/25/2017 Telephone Orthopedic Surgery Joby Ramos MD 04/24/2017 Abstract Orthopedic Surgery Amy Ocasio MA Acute pain of right shoulder 04/24/2017 Orders Only Orthopedic Surgery Amy Ocasio MA Acute pain of right shoulder (Primary Dx) 04/23/2017 Orders Only Orthopedic Surgery Joby Ramos MD 04/10/2017 Abstract Orthopedic Surgery Joby Ramos MD 04/10/2017 Telephone Orthopedic Surgery Joby Ramos MD RIGHT SHOULDER ARTHROSCOPY, ROTATOR CUFF REPAIR, SUBACROMIAL DECOMPRESSION, Biceps tenodesis 04/06/2017 Surgery Orthopedic Surgery Hugo aRmirez APRN 04/06/2017 Anesthesia Orthopedic Surgery Event Joby Ramos MD 04/06/2017 Hospital Orthopedic Surgery - Encounter 04/09/2017 Joby Ramos MD Preop testing (Primary Dx) 03/23/2017 Pre-Admit Pre-Admission Testing Testing Appointment Joby Ramos MD 03/22/2017 Abstract Orthopedic Surgery Bolivar Jennings III, MD Shoulder strain, right, initial encounter (Primary Dx) 01/10/2017 Emergency Emergency Medicine after 12/18/2016 Immunizations Name Dates Previously Given Next Due Pneumococcal 11/07/2017 Polysaccharide Social History Date Tobacco Use Types Packs/Day Years Used Quit: 2008 Former Smoker Cigarettes 2 10 Smokeless Tobacco: Never Used Alcohol Use Drinks/Week oz/Week Comments No Sex Assigned at Date Recorded Not on file Industry Job Start Date Occupation Not on file Not on file Not on file Travel End Travel History Travel Start No recent travel history available. Last Filed Vital Signs Time Taken Vital Sign Reading 12/04/2017 4:30 PM CDT Blood Pressure 157/83 12/04/2017 4:30 PM CDT Pulse 76 12/04/2017 12:24 PM CDT Temperature 37.1 C (98.8 F) 12/04/2017 4:30 PM CDT Respiratory Rate 18 12/04/2017 4:30 PM CDT Oxygen Saturation 96% - Inhaled Oxygen - Concentration 11/08/2017 4:04 AM CDT Weight 119 kg (262 lb 12.8 oz) 12/04/2017 12:24 PM CDT Height 160 cm (5' 3") 11/08/2017 4:04 AM CDT Body Mass Index 46.55 Plan of Treatment Health Maintenance Due Date Last Done Comments MMR VACCINES (1 of - 1974 Standard series) VARICELLA VACCINES (1 of 1986 2 - 2-dose adolescent series) CERVICAL CANCER SCREENING 1994 INFLUENZA VACCINE 09/05/2017 HEPATITIS B VACCINES Aged Out No longer eligible based on patient's age to complete this topic IPV VACCINES Aged Out No longer eligible based on patient's age to complete this topic MENINGOCOCCAL VACCINE Aged Out No longer eligible based on patient's age to complete this topic Implants Device Identifier Shelf Expiration Date Model / Serial / Lot Implanted Type Area Manufactur er 08/29/2021 [id number] / [id number] / [id number] Mini Open Kit Implant, Cannula, And Arthroscop Right: Shoulder BIOMET, Drill Bit [employer] Implanted: Qty: 1 on 04/06/2017 by Joby Up MD s 01/10/2019 [id number] / / [id number] Iconix 2 Tape With Intellibrai - IPM Right: Shoulder JAIRON [id number] IMPLANT ORTHOPEDIC Implanted: 04/06/2017 (Quantity not DEVICES S on file) 02/19/2019 [id number] / / [id number] 4.5 [employer] [place] - [id number] IPM Right: Shoulder JAIRON Implanted: 04/06/2017 (Quantity not IMPLANT ORTHOPEDIC on file) DEVICES S 02/19/2019 [id number] / / [id number] 4.5 [employer] [place] - [id number] IPM Right: Shoulder JAIRON Implanted: 04/06/2017 (Quantity not IMPLANT ORTHOPEDIC on file) DEVICES S Procedures Comments Procedure Name Priority Date/Time Associated Diagnosis ECG ED PRELIMINARY Routine 12/04/2017 INTERPRETATION 1:02 PM CDT URINE CULTURE STAT 12/04/2017 12:58 PM CDT HCG QUALITATIVE, URINE STAT 12/04/2017 SCREEN 12:39 PM CDT URINALYSIS SCREEN AND STAT 12/04/2017 MICROSCOPY, WITH REFLEX 12:39 PM CDT TO CULTURE ECG 12-LEAD STAT 12/04/2017 12:29 PM CDT ESTIMATED GFR STAT 12/04/2017 12:26 PM CDT LIPASE LEVEL STAT 12/04/2017 12:26 PM CDT COMPREHENSIVE METABOLIC STAT 12/04/2017 PANEL 12:26 PM CDT HC COMPLETE BLD COUNT STAT 12/04/2017 W/AUTO DIFF 12:26 PM CDT HCG QUALITATIVE, URINE STAT 11/24/2017 SCREEN 8:03 PM CDT URINALYSIS SCREEN AND STAT 11/24/2017 MICROSCOPY, WITH REFLEX 8:03 PM CDT TO CULTURE URINE CULTURE STAT 11/24/2017 8:03 PM CDT POC GLUCOSE Routine 11/08/2017 12:04 PM CDT POC GLUCOSE Routine 11/08/2017 8:30 AM CDT AMYLASE LEVEL Routine 11/08/2017 4:30 AM CDT ESTIMATED GFR Routine 11/08/2017 4:30 AM CDT LIPASE LEVEL Routine 11/08/2017 4:30 AM CDT HEPATIC FUNCTION PANEL Routine 11/08/2017 4:30 AM CDT PHOSPHORUS LEVEL Routine 11/08/2017 4:30 AM CDT MAGNESIUM LEVEL Routine 11/08/2017 4:30 AM CDT BASIC METABOLIC PANEL Routine 11/08/2017 4:30 AM CDT C-REACTIVE PROTEIN Routine 11/08/2017 4:30 AM CDT HC COMPLETE BLD COUNT Routine 11/08/2017 W/AUTO DIFF 4:30 AM CDT TOTAL BILIRUBIN Routine 11/08/2017 12:30 AM CDT AST (SGOT) Routine 11/08/2017 12:30 AM CDT ALKALINE PHOSPHATASE Routine 11/08/2017 12:30 AM CDT POTASSIUM LEVEL Routine 11/08/2017 12:30 AM CDT ALT (SGPT) Routine 11/08/2017 12:30 AM CDT POC GLUCOSE Routine 11/07/2017 8:52 PM CDT US HEPATIC Today 11/07/2017 8:15 PM CDT POC GLUCOSE Routine 11/07/2017 5:29 PM CDT POC GLUCOSE Routine 11/07/2017 12:16 PM CDT POC GLUCOSE Routine 11/07/2017 8:14 AM CDT ESTIMATED GFR Routine 11/07/2017 4:00 AM CDT TROPONIN Routine 11/07/2017 4:00 AM CDT HEMOGLOBIN A1C Routine 11/07/2017 4:00 AM CDT HC COMPLETE BLD COUNT Routine 11/07/2017 W/AUTO DIFF 4:00 AM CDT HEPATITIS ACUTE PANEL Routine 11/07/2017 4:00 AM CDT AMYLASE LEVEL Routine 11/07/2017 4:00 AM CDT LIPASE LEVEL Routine 11/07/2017 4:00 AM CDT COMPREHENSIVE METABOLIC Routine 11/07/2017 PANEL 4:00 AM CDT POC GLUCOSE Routine 11/07/2017 2:[address] ABDOMEN PELVIS W STAT 11/07/2017 CONTRAST 1:11 AM CDT HCG QUALITATIVE, URINE STAT 11/06/2017 SCREEN 10:43 PM CDT URINALYSIS SCREEN AND STAT 11/06/2017 MICROSCOPY, WITH REFLEX 10:43 PM CDT TO CULTURE URINE CULTURE STAT 11/06/2017 10:43 PM CDT ESTIMATED GFR STAT 11/06/2017 9:32 PM CDT LIPASE LEVEL STAT 11/06/2017 9:32 PM CDT COMPREHENSIVE METABOLIC STAT 11/06/2017 PANEL 9:32 PM CDT HC COMPLETE BLD COUNT STAT 11/06/2017 W/AUTO DIFF 9:32 PM CDT POC GLUCOSE Routine 04/09/2017 11:49 AM AUTO CRANE DRIVER POC GLUCOSE Routine 04/09/2017 7:09 AM AUTO CRANE DRIVER POC GLUCOSE Routine 04/08/2017 8:14 PM AUTO CRANE DRIVER POC GLUCOSE Routine 04/08/2017 5:47 PM AUTO CRANE DRIVER POC GLUCOSE Routine 04/08/2017 11:00 AM AUTO CRANE DRIVER MRI LUMBAR SPINE WO Routine 04/08/2017 CONTRAST 9:47 AM AUTO CRANE DRIVER POC GLUCOSE Routine 04/08/2017 7:57 AM AUTO CRANE DRIVER POC GLUCOSE Routine 04/07/2017 5:47 PM AUTO CRANE DRIVER POC GLUCOSE Routine 04/07/2017 11:29 AM AUTO CRANE DRIVER POC GLUCOSE Routine 04/07/2017 8:00 AM AUTO CRANE DRIVER HC COMPLETE BLD COUNT Routine 04/07/2017 W/AUTO DIFF 5:15 AM AUTO CRANE DRIVER ZZESTIMATED GFR Routine 04/07/2017 4:00 AM AUTO CRANE DRIVER BASIC METABOLIC PANEL Routine 04/07/2017 4:00 AM AUTO CRANE DRIVER POC GLUCOSE Routine 04/06/2017 8:00 PM AUTO CRANE DRIVER XR CHEST 1 VW PORTABLE Routine 04/06/2017 7:22 PM AUTO CRANE DRIVER POC GLUCOSE Routine 04/06/2017 6:32 PM AUTO CRANE DRIVER REPAIR, ROTATOR CUFF, 04/06/2017 RIGHT SHOULDER ROTATOR ARTHROSCOPIC 2:35 PM AUTO CRANE DRIVER CUFF TEAR M75.101, ROTATOR CUFF IMPINGEMENT Special Needs EST 1.5HRS, INTERSCALE NE BLOCK WITH PAIN PUMP, BEACH CHAIR POSITION, SHOULDER ULTRASLING Jose texted-MR [place] AN PERIPHERAL BLOCK Routine 04/06/2017 POST-OP PAIN 12:27 PM AUTO CRANE DRIVER Procedure Note - Marlene Mccallum MD - 04/06/2017 12:27 PM AUTO CRANE DRIVER Peripheral Block Performed by: MARLENE MCCALLUM Authorized [...] procedure well TYPE AND SCREEN Routine 04/06/2017 10:10 AM AUTO CRANE DRIVER POC GLUCOSE Routine 04/06/2017 10:07 AM AUTO CRANE DRIVER PARTIAL THROMBOPLASTIN Routine 03/23/2017 Preop testing TIME (PTT) 2:30 PM AUTO CRANE DRIVER PROTHROMBIN TIME WITH INR Routine 03/23/2017 Preop testing 2:30 PM AUTO CRANE DRIVER HC COMPLETE BLD COUNT Routine 03/23/2017 Preop testing W/AUTO DIFF 2:30 PM AUTO CRANE DRIVER URINALYSIS SCREEN AND Routine 03/23/2017 Preop testing MICROSCOPY, WITH REFLEX 2:25 PM AUTO CRANE DRIVER TO CULTURE URINE CULTURE Routine 03/23/2017 2:25 PM AUTO CRANE DRIVER ECG 12-LEAD Routine 03/23/2017 Preop testing 2:23 PM AUTO CRANE DRIVER ZZESTIMATED GFR Routine 03/23/2017 2:05 PM AUTO CRANE DRIVER COMPREHENSIVE METABOLIC Routine 03/23/2017 Preop testing PANEL 2:05 PM AUTO CRANE DRIVER SPLINT APPLICATION Routine 01/10/2017 11:15 PM AUTO CRANE DRIVER after 12/18/2016 Results * ECG ED Preliminary Interpretation - NOT AN ORDER (12/04/2017 1:02 PM CDT) Narrative Performed At Kirti Rae MD 12/04/20178:41 PM ECG ED Preliminary Interpretation - Not an Order Performed by: KIRTI RAE Authorized by: KIRTI RAE ECG reviewed by ED Physician in the absence of a estate agent: yes Previous ECG: Previous ECG:Compared to current Comparison ECG info:03/23/2017 Similarity:No change Interpretation: Interpretation: normal Rate: ECG rate:87 ECG rate assessment: normal Rhythm: Rhythm: sinus rhythm Ectopy: Ectopy: none QRS: QRS axis:Normal QRS intervals:Normal Conduction: Conduction: normal ST segments: ST segments:Normal T waves: T waves: normal * Urine culture (12/04/2017 12:58 PM CDT) Only the most recent of 4 results within the time period is included. Urine culture SEE COMMENTComment: [facility] Bacteriuria screen negative. PATHOLOGY AND GENOMIC MEDICINE Performing Organization Address City/State/[facility] Phone Number [facility] [address] [place] [address] PATHOLOGY AND GENOMIC MEDICINE * Urinalysis screen and microscopy, with reflex to culture (12/04/2017 12:39 PM CDT) Only the most recent of 4 results within the time period is included. Specimen site Clean catch [facility] OF PATHOLOGY AND GENOMIC MEDICINE Color, UA Yellow [facility] PATHOLOGY AND GENOMIC MEDICINE Appearance, UA Clear [facility] PATHOLOGY AND GENOMIC MEDICINE Specific gravity, UA 1.032 1.001 - 1.035 [facility] PATHOLOGY AND GENOMIC MEDICINE pH, UA 6.0 5.0 - 8.5 [facility] PATHOLOGY AND GENOMIC MEDICINE Protein, UA 3+ (A) Negative [facility] PATHOLOGY AND GENOMIC MEDICINE Glucose, UA 3+ (A) Negative [facility] PATHOLOGY AND GENOMIC MEDICINE Ketones, UA Negative Negative [facility] PATHOLOGY AND GENOMIC MEDICINE Bilirubin, UA Negative Negative [facility] PATHOLOGY AND GENOMIC MEDICINE Blood, UA Small (A) Negative [facility] OF PATHOLOGY AND GENOMIC MEDICINE Nitrite, UA Negative Negative [facility] OF PATHOLOGY AND GENOMIC MEDICINE Urobilinogen, UA <2.0 <[address]0 [facility] OF PATHOLOGY AND GENOMIC MEDICINE Leukocyte esterase, UA Negative Negative [facility] OF PATHOLOGY AND GENOMIC MEDICINE Epithelial cells, UA 7 /HPF [facility] OF PATHOLOGY AND GENOMIC MEDICINE WBC, UA 3 0 - 4 /HPF [facility] OF PATHOLOGY AND GENOMIC MEDICINE RBC, UA 2 0 - 5 /HPF [facility] OF PATHOLOGY AND GENOMIC MEDICINE Bacteria, UA None seen None seen [facility] OF PATHOLOGY AND GENOMIC MEDICINE Yeast, UA None seen [facility] OF PATHOLOGY AND GENOMIC MEDICINE Yeast with pseudohyphae, None seen [facility] OF UA PATHOLOGY AND GENOMIC MEDICINE Hyaline casts, UA 5 /LPF [facility] OF PATHOLOGY AND GENOMIC MEDICINE Specimen Urine Performing Organization Address City/[facility] [place] [address] PATHOLOGY AND GENOMIC MEDICINE * hCG qualitative, urine screen (12/04/2017 12:39 PM CDT) Only the most recent of 3 results within the time period is included. hCG qualitative, urine NegativeComment: Sensitivity [facility] OF of HCG test: 25 mIU/mL PATHOLOGY AND GENOMIC MEDICINE Specimen Urine Performing Organization Address City/[facility] Centercode Phone Number [facility] DEPART[facility] OF [address] [place] [address] PATHOLOGY AND GENOMIC MEDICINE * ECG 12 lead (12/04/2017 12:29 PM CDT) Only the most recent of 2 results within the time period is included. Ventricular rate 87 [facility] Atrial rate 87 [facility] [place] interval 154 [facility] QRSD interval 106 [facility] MUSE QT interval 392 [facility] QTC interval [address] [facility] P axis 1 13 [facility] QRS axis [address] [facility] T wave axis 37 [facility] EKG impression Normal sinus rhythm-Normal [facility] ECG-In automated comparison with ECG of -MAR-2017 14:23,-No significant change was found- Performing Organization Address City/[facility] Centercode Phone Number [address] [phone] * Estimated GFR (12/04/2017 12:26 PM CDT) Only the most recent of 4 results within the time period is included. Estimated GFR 63 mL/min/1.[address] [facility] DEPARTMENT OF Comment: PATHOLOGY AND [employer]oryUnitsInte GENOMIC MEDICINE rpretation G1 >=90 Normal or high G2 60-89Mildly decreased [id number] Mildly to moderately decreased N2e69-90 Moderately to severely decreased G4 15-29Severely decreased G5 <15Kidney failure The eGFR was calculated using the Chronic Kidney Disease Epidemiology Collaboration (CKD-EPI) equation. Interpretation is based on recommendations of the National Kidney Foundation-Kidney Disease Outcomes Quality Initiative (NKF-KDOQI) published in 2014. Specimen Plasma specimen Performing Organization Address City/State/Zipcode Phone Number [facility] DEPARTMENT OF [address] [place] [address] PATHOLOGY AND GENOMIC MEDICINE * CBC with platelet and differential (12/04/2017 12:26 PM CDT) Only the most recent of 6 results within the time period is included. WBC 8.85 4.50 - 11.00 k/uL [facility] DEPARTMENT OF PATHOLOGY AND GENOMIC MEDICINE RBC 4.79 4.20 - 5.50 m/uL [facility] DEPARTMENT OF PATHOLOGY AND GENOMIC MEDICINE HGB 14.7 12.0 - 16.0 g/dL [facility] DEPARTMENT OF PATHOLOGY AND GENOMIC MEDICINE HCT 43.8 37.0 - 47.0 % [facility] DEPARTMENT OF PATHOLOGY AND GENOMIC MEDICINE MCV 91.4 82.0 - 100.[address] [facility] DEPARTMENT OF PATHOLOGY AND GENOMIC MEDICINE MCH 30.7 27.0 - 34.[address] [facility] DEPARTMENT OF PATHOLOGY AND GENOMIC MEDICINE MCHC 33.6 31.0 - 37.0 g/dL [facility] DEPARTMENT OF PATHOLOGY AND GENOMIC MEDICINE RDW - SD 43.5 37.0 - 55.[address] [facility] DEPARTMENT OF PATHOLOGY AND GENOMIC MEDICINE MPV 10.4 8.8 - 13.[address] [facility] DEPARTMENT OF PATHOLOGY AND GENOMIC MEDICINE Platelet count 275 150 - 400 k/uL [facility] DEPARTMENT OF PATHOLOGY AND GENOMIC MEDICINE Nucleated RBC 0.00 /[address] [facility] DEPARTMENT OF PATHOLOGY AND GENOMIC MEDICINE Neutrophils 63.7 39.0 - 69.0 % [facility] DEPARTMENT OF PATHOLOGY AND GENOMIC MEDICINE Lymphocytes 27.6 25.0 - 45.0 % [facility] DEPARTMENT OF PATHOLOGY AND GENOMIC MEDICINE Monocytes 5.1 0.0 - 10.0 % [facility] DEPARTMENT OF PATHOLOGY AND GENOMIC MEDICINE Eosinophils 2.3 0.0 - 5.0 % [facility] DEPARTMENT OF PATHOLOGY AND GENOMIC MEDICINE Basophils 0.3 0.0 - 1.0 % [facility] DEPARTMENT OF PATHOLOGY AND GENOMIC MEDICINE Immature granulocytes 1.0Comment: "Immature 0.0 - 1.0 % [facility] DEPARTMENT OF granulocytes" (promyelocytes, PATHOLOGY AND myelocytes, metamyelocytes) GENOMIC MEDICINE Specimen Blood Performing Organization Address City/State/[place] [address] PATHOLOGY AND GENOMIC MEDICINE * Lipase level (12/04/2017 12:26 PM CDT) Only the most recent of 4 results within the time period is included. Lipase 36 13 - 60 U/L [facility] DEPARTMENT OF PATHOLOGY AND GENOMIC MEDICINE Specimen Plasma specimen Performing Organization Address City/[facility]/[place] [address] PATHOLOGY AND GENOMIC MEDICINE * Comprehensive metabolic panel (12/04/2017 12:26 PM CDT) Only the most recent of 4 results within the time period is included. Sodium 139 135 - 148 mEq/L [facility] DEPARTMENT OF PATHOLOGY AND GENOMIC MEDICINE Potassium 3.5 3.5 - 5.0 mEq/L [facility] DEPARTMENT OF PATHOLOGY AND GENOMIC MEDICINE Chloride 104 98 - 112 mEq/L [facility] DEPARTMENT OF PATHOLOGY AND GENOMIC MEDICINE CO2 19 (L) 24 - 31 mEq/L [facility] DEPARTMENT OF PATHOLOGY AND GENOMIC MEDICINE Anion gap 16@ANIO (H) 7 - 15 mEq/L [facility] DEPARTMENT OF PATHOLOGY AND GENOMIC MEDICINE BUN 21 (H) 6 - 20 mg/dL [facility] DEPARTMENT OF PATHOLOGY AND GENOMIC MEDICINE Creatinine 1.07 (H) 0.50 - 0.90 mg/dL [facility] DEPARTMENT OF PATHOLOGY AND GENOMIC MEDICINE Glucose 210 (H) 65 - 99 mg/dL [facility] DEPARTMENT OF PATHOLOGY AND GENOMIC MEDICINE Calcium 9.1 8.3 - 10.2 mg/dL [facility] DEPARTMENT OF PATHOLOGY AND GENOMIC MEDICINE Protein 6.7 6.3 - 8.3 g/dL [facility] DEPARTMENT OF Comment: PATHOLOGY AND [place] GENOMIC MEDICINE 4.6-7.0 g/dL 1 week 4.4-7.6 g/dL 7 months-1year 5.1-7.3 g/dL 1-2 years5.6-7 .5 g/dL >3 years6.0-8 .0 g/dL 18-150 6.3-8.3 g/dL Albumin 3.3 (L) 3.5 - 5.0 g/dL [facility] DEPARTMENT OF PATHOLOGY AND GENOMIC MEDICINE A/G ratio 1.0 0.7 - 3.8 [facility] DEPARTMENT OF PATHOLOGY AND GENOMIC MEDICINE Alkaline phosphatase 93 35 - 104 U/L [facility] DEPARTMENT OF PATHOLOGY AND GENOMIC MEDICINE AST 16 10 - 35 U/L [facility] DEPARTMENT OF PATHOLOGY AND GENOMIC MEDICINE ALT 13 5 - 50 U/L [facility] DEPARTMENT OF PATHOLOGY AND GENOMIC MEDICINE Total bilirubin 0.3 0.0 - 1.2 mg/dL [facility] DEPARTMENT OF PATHOLOGY AND GENOMIC MEDICINE Specimen Plasma specimen Performing Organization Address City/[facility] Cent[facility]ode Phone Number [place] [place] [address] PATHOLOGY AND GENOMIC MEDICINE * POC glucose (11/08/2017 12:04 PM CDT) Only the most recent of 19 results within the time period is included. POC glucose 179 (H) 65 - 99 mg/dL [facility] DEPARTMENT OF Comment: PATHOLOGY AND [facility] Notified RN GENOMIC MEDICINE Meter ID: [id number] Psychiatric Orderly: Anisha Quinteros Performing Organization Address City/[facility] Centercode Phone Number [place] [place] [address] PATHOLOGY AND GENOMIC MEDICINE * C-reactive protein (11/08/2017 4:30 AM CDT) CRP 1.77 (H) 0.00 - 0.50 mg/dL [facility] DEPARTMENT OF PATHOLOGY AND GENOMIC MEDICINE Specimen Plasma specimen Performing Organization Address [facility] [place] [address] PATHOLOGY AND GENOMIC MEDICINE * Phosphorus level (11/08/2017 4:30 AM CDT) Phosphorus 3.7 2.4 - 4.5 mg/dL [facility] DEPARTMENT OF PATHOLOGY AND GENOMIC MEDICINE Specimen Plasma specimen Performing Organization Address City/[facility] [place] [address] PATHOLOGY AND GENOMIC MEDICINE * Magnesium level (11/08/2017 4:30 AM CDT) Magnesium 2.0 1.6 - 2.6 mg/dL [facility] DEPARTMENT OF PATHOLOGY AND GENOMIC MEDICINE Specimen Plasma specimen Performing Organization Address City/[facility] Cent[facility]ode Phone Number [place] [place] [address] PATHOLOGY AND GENOMIC MEDICINE * Amylase level (11/08/2017 4:30 AM CDT) Only the most recent of 2 results within the time period is included. Amylase 40 28 - 100 U/L [facility] DEPARTMENT OF PATHOLOGY AND GENOMIC MEDICINE Specimen Plasma specimen Performing Organization Address City/[facility] [place] [address] PATHOLOGY AND GENOMIC MEDICINE * Hepatic function panel (11/08/2017 4:30 AM CDT) Albumin 2.8 (L) 3.5 - 5.0 g/dL [facility] DEPARTMENT OF PATHOLOGY AND GENOMIC MEDICINE Total bilirubin <0.2 0.0 - 1.2 mg/dL [facility] DEPARTMENT OF PATHOLOGY AND GENOMIC MEDICINE Bilirubin direct Footnote 0.0 - 0.3 mg/dL [facility] DEPARTMENT OF PATHOLOGY AND GENOMIC MEDICINE Alkaline phosphatase Footnote 35 - 104 U/L [facility] DEPARTMENT OF PATHOLOGY AND GENOMIC MEDICINE Protein 6.5 6.3 - 8.3 g/dL [facility] DEPARTMENT OF Comment: PATHOLOGY AND GENOMIC MEDICINE 4.6-7.0 g/dL 1 week 4.4-7.6 g/dL 7 months-1year 5.1-7.3 g/dL 1-2 years5.6-7 .5 g/dL >3 years6.0-8 .0 g/dL 18-150 6.3-8.3 g/dL ALT Footnote 5 - 50 U/L [facility] DEPARTMENT OF PATHOLOGY AND GENOMIC MEDICINE AST Footnote 10 - 35 U/L [facility] DEPARTMENT OF PATHOLOGY AND GENOMIC MEDICINE Specimen Plasma specimen Performing Organization Address [facility] [place] [address] PATHOLOGY AND GENOMIC MEDICINE * Basic metabolic panel (11/08/2017 4:30 AM CDT) Only the most recent of 2 results within the time period is included. Sodium 130 (L) 135 - 148 mEq/L [facility] DEPARTMENT OF PATHOLOGY AND GENOMIC MEDICINE Potassium Footnote 3.5 - 5.0 mEq/L [facility] DEPARTMENT OF Comment: PATHOLOGY AND _K\\AST\\ALT\\DBILI\\ALP results [facility] MED[facility] called to and read back by RN SHIRIN [email or web address] (name/location) 11/08/201705:58 ___ (date/time) by _LSB. Chloride 95 (L) 98 - 112 mEq/L [facility] DEPARTMENT OF PATHOLOGY AND GENOMIC MEDICINE CO2 19 (L) 24 - 31 mEq/L [facility] DEPARTMENT OF PATHOLOGY AND GENOMIC MEDICINE Anion gap 16@ANIO (H) 7 - 15 mEq/L [facility] DEPARTMENT OF PATHOLOGY AND GENOMIC MEDICINE BUN 23 (H) 6 - 20 mg/dL [facility] DEPARTMENT OF PATHOLOGY AND GENOMIC MEDICINE Creatinine 1.09 (H) 0.50 - 0.90 mg/dL [facility] DEPARTMENT OF PATHOLOGY AND GENOMIC MEDICINE Glucose 266 (H) 65 - 99 mg/dL [facility] DEPARTMENT OF PATHOLOGY AND GENOMIC MEDICINE Calcium 8.5 8.3 - 10.2 mg/dL [facility] DEPARTMENT OF PATHOLOGY AND GENOMIC MEDICINE Specimen Plasma specimen Performing Organization Address City/State/Zipcode Phone Number [place] [place] [address] PATHOLOGY AND GENOMIC MEDICINE * ALT (SGPT) (11/08/2017 12:30 AM CDT) ALT SEE COMMENTComment: 5 - 50 U/L [facility] DEPARTMENT OF Footnote--------- PATHOLOGY AND GENOMIC MEDICINE Specimen Plasma specimen Narrative Performed At Unable to perform testing, specimen is HEMOLYZED.Recollect [facility] DEPARTMENT OF requested for K/AST/ALT/ALP(tests). CALOS COREAS/Davy(name/location) notified PATHOLOGY AND by 11/08/201707:59 (tech ID) at LS2(date/time). Credit issued. GENOMIC MEDICINE Performing Organization Address City/[facility]/Zipcode Phone Number [facility] DEPARTMENT OF [address] [place] [address] PATHOLOGY AND GENOMIC MEDICINE * AST (SGOT) (11/08/2017 12:30 AM CDT) AST SEE COMMENTComment: 10 - 35 U/L [facility] DEPARTMENT OF Footnote--------- PATHOLOGY AND GENOMIC MEDICINE Specimen Plasma specimen Narrative Performed At Unable to perform testing, specimen is HEMOLYZED.Recollect [facility] DEPARTMENT OF requested for K/AST/ALT/ALP(tests). CALOS COREAS/[email or web address](name/location) notified PATHOLOGY AND by 11/08/201707:59 (tech ID) at LS2(date/time). Credit issued. GENOMIC MEDICINE Performing Organization Address [facility]/State/Zipcode Phone Number [place] [place] [address] PATHOLOGY AND GENOMIC MEDICINE * Potassium level (11/08/2017 12:30 AM CDT) Potassium SEE COMMENT 3.5 - 5.0 mEq/L [facility] DEPARTMENT OF Comment: PATHOLOGY AND Footnote--------- GENOMIC MEDICINE Unable to perform testing, specimen is HEMOLYZED.Recollect requested for K/AST/ALT/ALP(tests). CALOS DOSHI(name/location) notified by 11/08/201707:59 (tech ID) at LS2(date/time). Credit issued. Specimen Plasma specimen Narrative Performed At Unable to perform testing, specimen is HEMOLYZED.Recollect [facility] DEPARTMENT OF requested for K/AST/ALT/ALP(tests). CALOS DOSHI(name/location) notified PATHOLOGY AND by 11/08/201707:59 (tech ID) at LS2(date/time). Credit issued. GENOMIC MEDICINE Performing Organization Address City/[facility]/Zipcode Phone Number [place] [address] PATHOLOGY AND GENOMIC MEDICINE * Alkaline phosphatase (11/08/2017 12:30 AM CDT) Alkaline phosphatase SEE COMMENTComment: 35 - 104 U/L [facility] DEPARTMENT OF Footnote--------- PATHOLOGY AND GENOMIC MEDICINE Specimen Plasma specimen Narrative Performed At Unable to perform testing, specimen is HEMOLYZED.Recollect [facility] DEPARTMENT OF requested for K/AST/ALT/ALP(tests). CALOS DOSHI(name/location) notified PATHOLOGY AND by 11/08/201707:59 (tech ID) at LS2(date/time). Credit issued. GENOMIC MEDICINE Performing Organization Address City/State/[place] [address] PATHOLOGY AND GENOMIC MEDICINE * Total bilirubin (11/08/2017 12:30 AM CDT) Total bilirubin <0.2 0.0 - 1.2 mg/dL [facility] DEPARTMENT OF PATHOLOGY AND GENOMIC MEDICINE Specimen Plasma specimen Performing Organization Address City/State/Zipcode Phone Number [place] [address] PATHOLOGY AND GENOMIC MEDICINE * US Hepatic (11/07/2017 8:15 PM CDT) Narrative Performed At EXAMINATION:US HEPAT[facility] CLINICAL HISTORY:acute pancreatitis COMPARISON:None. FINDINGS: 1.Liver is enlarged measuring 21 cm in length and appears somewhat heterogeneous and increasing echogenicity. No definite focal hepatic lesions are seen. Portal vein is patent measuring 1 cm with antegrade flow. Status post cholecystectomy. Common duct is 7 mm. IMPRESSION: Hepatomegaly with fatty infiltration. [facility]-[id number] Procedure Note Hm Interface, Radiology Results Incoming - 11/07/2017 11:10 [...] 7 mm. IMPRESSION: Hepatomegaly with fatty infiltration. [facility]-[id number] Performing Organization Address [facility] [place] [address] * Troponin (11/07/2017 4:00 AM CDT) Troponin <0.30 0.00 - 0.30 ng/mL [facility] DEPARTMENT OF Comment: PATHOLOGY AND 0.30 - 1.49 GENOMIC MEDICINE ng/mlMay indicate increased risk of acute coronary syndrome. >=1.5 ng/ml Consistent with acute myocardial infarction. The diagnostic value of a single normal or non-diagnostic result is questionable.Serial samples at 2-6 hour intervals are required to rule out acute myocardial injury. Specimen Plasma specimen Performing Organization Address City/[facility]/[place] [address] PATHOLOGY AND GENOMIC MEDICINE * Hepatitis acute panel (11/07/2017 4:00 AM CDT) Hepatitis A IgM Non-reactive Non-reactive [facility] DEPARTMENT OF PATHOLOGY AND GENOMIC MEDICINE Hepatitis B core IgM Non-reactive Non-reactive [facility] DEPARTMENT OF PATHOLOGY AND GENOMIC MEDICINE Hepatitis B surface Ag Non-reactive Non-reactive [facility] DEPARTMENT OF PATHOLOGY AND GENOMIC MEDICINE Hepatitis C Ab Non-reactive Non-reactive [facility] DEPARTMENT OF PATHOLOGY AND GENOMIC MEDICINE Specimen Serum Performing Organization Address [facility]/Zipcode Phone Number [place] [phone] [place] [address] PATHOLOGY AND GENOMIC MEDICINE * Hemoglobin A1c (11/07/2017 4:00 AM CDT) Hemoglobin A1C 8.6 (H) 4.0 - 5.6 % [facility] DEPARTMENT OF Comment: PATHOLOGY AND HbA1c cutoffs for diagnosing GENOMIC MEDICINE diabetes: 4.0% - 5.6%=normal 5.7% - 6.4%=increased risk for diabetes (prediabetes) >=6.5%=diabetes Goals for glycemic control (ADA 2016) < 7.0%Target for non adults with diabetes. More or less stringent targets may be appropriate for individual patients. <7.5% Target for Children and adolescents with type 1 diabetes. Specimen Blood Performing Organization Address City/State/Zipcode Phone Number [place] [phone] [place] [address] PATHOLOGY AND GENOMIC MEDICINE * CT Abdomen Pelvis W Contrast (11/07/2017 1:11 AM CDT) Narrative Performed At Examination:CT ABDOMEN PELVIS W [...] proximal small bowel loops may represent gastroenteritis. [facility]-[id number] Procedure Note Hm Interface, Radiology Results Incoming - 11/07/2017 1:30 [...] proximal small bowel loops may represent gastroenteritis. [facility]-[id number] Performing Organization Address City/State/Zipcode Phone Number [facility] [address] [place] [address] * MRI Lumbar Spine Wo Contrast (04/08/2017 9:47 AM AUTO CRANE DRIVER) Narrative Performed At [facility] EXAM:MRI LUMBAR SPINE [...] sac and the left S1 nerve root. [facility]-[id number] Procedure Note Interface, Radiology Results Incoming - 04/08/2017 10:52 AM AUTO CRANE DRIVER EXAM: MRI LUMBAR SPINE WO CONTRAST COMPARISON: [...] sac and the left S1 nerve root. [facility]-[id number] Performing Organization Address City/[facility]/Zipcode Phone Number [employer] [address] [place] [address] * Estimated GFR (04/07/2017 4:00 AM AUTO CRANE DRIVER) Only the most recent of 2 results within the time period is included. GFR Non Af Amer 60 mL/min/1.[address] [facility] DEPARTMENT OF PATHOLOGY AND GENOMIC MEDICINE GFR Af Amer 73 mL/min/1.[address] [facility] DEPARTMENT OF Comment: PATHOLOGY AND Chronic kidney [...] Americans. Specimen Plasma specimen Performing Organization Address City/[facility]/Zipcode Phone Number [facility] DEPARTMENT OF [address] [place] [address] PATHOLOGY AND GENOMIC MEDICINE * XR Chest 1 Vw Portable (04/06/2017 7:22 PM AUTO CRANE DRIVER) Narrative Performed At EXAMINATION:XR CHEST 1 VW PORTABLE [employer] CLINICAL HISTORY:SHORTNESS OF BREATH COMPARISON:December 04, 2014 chest IMPRESSION: Moderate patchy atelectasis right base with mild elevation right hemidiaphragm Overall hypoinflation compared to previous Cardiac silhouette top normal size. No congestion or effusion. No pneumothorax Single view chest [facility]-[id number] Procedure Note Interface, Radiology Results Incoming - 04/06/2017 7:39 PM AUTO CRANE DRIVER EXAMINATION: XR CHEST 1 VW PORTABLE CLINICAL HISTORY: SHORTNESS OF BREATH COMPARISON: December 04, 2014 chest IMPRESSION: Moderate patchy atelectasis right base with mild elevation right hemidiaphragm Overall hypoinflation compared to previous Cardiac silhouette top normal size. No congestion or effusion. No pneumothorax Single view chest [facility]-[id number] Performing Organization Address City/[facility]/[place] [address] * Type and screen (04/06/2017 10:10 AM AUTO CRANE DRIVER) ABO grouping O [facility] DEPARTMENT OF PATHOLOGY AND GENOMIC MEDICINE Rh type POS [facility] DEPARTMENT OF PATHOLOGY AND GENOMIC MEDICINE Antibody screen (gel) NEG [facility] DEPARTMENT OF PATHOLOGY AND GENOMIC MEDICINE Specimen Blood Performing Organization Address [facility] Phone Number [facility] DEPARTMENT [address] [address] PATHOLOGY AND GENOMIC MEDICINE * Partial thromboplastin time, activated (03/23/2017 2:30 PM AUTO CRANE DRIVER) PTT 27.7 23.0 - 36.[address] [facility] DEPARTMENT OF Comment: PATHOLOGY AND PTT therapeutic range for GENOMIC MEDICINE unfractionated heparin is 61.0-112.0 seconds which corresponds to Anti-Xa 0.3-0.7 U/ml. Specimen Blood Performing Organization Address City/[facility] Centercode Phone Number [address] [address] PATHOLOGY AND GENOMIC MEDICINE * Prothrombin time with INR (03/23/2017 2:30 PM AUTO CRANE DRIVER) Prothrombin time 12.7 12.0 - 15.[address] [facility] DEPARTMENT OF PATHOLOGY AND GENOMIC MEDICINE INR 0.9 [facility] DEPARTMENT OF Comment: PATHOLOGY AND The International Normalized GENOMIC MEDICINE Ratio (INR) is a therapeutic monitoring tool for patients who are stable on oral anticoagulant therapy. An INR of 2.0-3.0 is suggested for deep vein thrombosis/pulmonary embolism. Specimen Blood Performing Organization Address City/[facility] Cent[facility]ode Phone Number [address] [address] PATHOLOGY AND GENOMIC MEDICINE * SPLINT APPLICATION (01/10/2017 11:15 PM AUTO CRANE DRIVER) Narrative Performed At Bolivar Jennings MD 01/10/2017 11:15 PM Splint Application Performed by: CELESTINE MORA Authorized by: BOLIVAR JENNINGS Consent: Consent obtained:Verbal Consent given by:Patient Alternatives discussed:No treatment Pre-procedure details: Sensation:Normal Procedure details: Laterality:Right Location:Arm Supplies:Sling Post-procedure details: Pain:Improved Sensation:Normal Patient tolerance of procedure:Tolerated well, no immediate complications after 12/18/2016 Insurance Payer Benefit Subscriber ID Type Phone Address Plan / Group [facility] xxxxxxxxx HMO PLAN [facility] ANI WORKERS COMP MISC xxxxxx Workers WORKER'S Comp COMP BCBS ANTHEM xxxxxxxxxxxx PPO BLUE CROSS [id number] Workers Employer [birth year][phone] ([address]) [address] [place] [address] Advance Directives Patient has advance care planning documents on file. For more information, best bansal contact: Eran Zamora [address] [place] [address]
[2017-12-19] MEDS ORDERED: KETOROLAC TROMETHAMINE 60 MG/2 ML VIAL IM ONE (13:15)
[2017-12-19] MEDS ORDERED: HYDROCODONE/APAP 5MG-325MG TAB PO ONE (13:15)
[2017-12-19] MEDS ORDERED: ONDANSETRON HCL 4 MG ORAL DISINTEGRATING TAB PO ONE (13:15)
[2017-12-19] MEDS ORDERED: SODIUM CHLORIDE 0.9% 1000ML 1,000 ML IV STA (13:36)
[2017-12-19] MEDS ORDERED: MORPHINE SULFATE INJ 4 MG/ML INJ IV STA (13:36)
[2017-12-19] MEDS ORDERED: ONDANSETRON HCL INJ 2 MG/ML VIAL IV ONE (13:45)
[2017-12-19] MEDS ORDERED: KETOROLAC TROMETHAMINE 30 MG/ML VIAL IV ONE (13:45)
[2017-12-19] MEDS ORDERED: FAMOTIDINE 20 MG/2 ML VIAL IV ONE (13:45)
[2017-12-19 14:39] LABS: BILIRUBIN,URINE NEGATIVE (NEGATIVE); CLARITY,URINE SL CLOUDY (CLEAR); COLOR,URINE YELLOW (YELLOW); KETONES,URINE NEGATIVE (NEGATIVE); LEUKOCYTE ESTERASE ,URINE NEGATIVE (NEGATIVE); NITRITE,URINE NEGATIVE (NEGATIVE); PROTEIN,URINE DIPSTICK 2+ (NEGATIVE); URINE UROBILINOGEN 0.2 mg/dL (0.2 - 1)
[2017-12-19 14:43] LABS: AMPHETAMINES SCREEN,URINE NEGATIVE (NEGATIVE); BENZODIAZEPINES SCREEN,URINE NEGATIVE (NEGATIVE); PHENCYCLIDINE SCREEN,URINE NEGATIVE (NEGATIVE)
[2017-12-19 14:48] LABS: MAGNESIUM 1.9 MG/DL (1.3-2.1)
[2017-12-19 14:52] LABS: RBC,URINE 0-5 /HPF (0-5)
[2017-12-19 14:53] LABS: BACTERIA,URINE FEW /HPF
[2017-12-19 14:54] LABS: EPITHELIAL CELLS,URINE MANY /LPF; TRANSITIONAL EPI CELLS,URINE MODERATE
[2017-12-19 15:53] LABS: BASOPHILS % 0.5 % (0.0-1.0); EOSINOPHILS # (AUTO) 0.2 (0.0-0.4); EOSINOPHILS % 2.4 % (0.0-6.0); HEMATOCRIT 45.9 % (34.2-44.1); HEMOGLOBIN 15.2 g/dL (12.0-16.0); LYMPHOCYTES # (AUTO) 2.1 (1.0-3.2); LYMPHOCYTES % 28.5 % (18.0-39.1); MEAN CORPUSCULAR HEMOGLOBIN 30.3 pg (28-32); MEAN CORPUSCULAR HGB CONC 33.1 g/dL (31-35); MEAN CORPUSCULAR VOLUME 91.6 fL (81-99); MONOCYTES # (AUTO) 0.4 (0.2-0.8); MONOCYTES % 5.8 % (4.4-11.3); NEUTROPHILS # (AUTO) 4.7 (2.1-6.9); NEUTROPHILS % 62.4 % (38.7-80.0); PLATELET COUNT 273 x10e3/uL (140-360); RED BLOOD COUNT 5.01 x10e6/uL (3.6-5.1)
[2017-12-19 16:06] LABS: ALBUMIN 3.5 g/dL (3.5-5.0); ALBUMIN/GLOBULIN RATIO 1.1 (0.8-2.0); ANION GAP 19.1 mmol/L (8-16); CALCIUM 8.5 mg/dL (8.4-10.2); CREATININE, SERUM 1.14 mg/dL (0.57-1.11); POTASSIUM 3.1 mmol/L (3.5-5.1)
--- NOTE | 2017-12-19 17:02 | Diagnostic Imaging Report ---
EXAMINATION: CT of the abdomen with contrast. TECHNIQUE: Spiral CT images of the abdomen and pelvis were performed from the lung bases to the iliac crests. No intravenous contrast was administered per referring physician request. Coronal and sagittal reformatted images were obtained. COMPARISON: None. CLINICAL HISTORY:Abdominal pain, concern for herniated disc, stone, pyelonephritis. Patient reports history of chronic pancreatitis DISCUSSION: LOWER THORAX:Unremarkable. HEPATOBILIARY: Hepatomegaly without focal hepatic lesion. The gallbladder has been removed. SPLEEN: No splenomegaly. PANCREAS: No focal masses or ductal dilatation. ADRENALS: No adrenal nodules. KIDNEYS/URETERS: No hydronephrosis, stones, or solid mass lesions. PERITONEUM/RETROPERITONEUM: No free air or fluid. Pelvic organs: The urinary bladder is unremarkable. Uterus is anteflexed and appears normal. No adnexal mass. LYMPH NODES: No pelvic sidewall, retroperitoneal, or mesenteric lymphadenopathy. VESSELS: Limited evaluation without intravenous contrast. The abdominal aorta is nonaneurysmal. Atherosclerotic calcification of the aorta and iliac arterial systems. GI TRACT: The large bowel shows no evidence of distention or wall thickening. Gas and fecal material are noted throughout. The appendix is normal. There is no small bowel dilatation to suggest obstruction. BONES AND SOFT TISSUE: Large midline umbilical-incisional hernia contains omental fat and measures approximately 9 cm in greatest transverse dimension. No significant inflammatory change within the herniated fat. No herniated loops of bowel. No osseous destructive lesions. Mild degenerative disc changes of the upper lumbar spine. IMPRESSION: Sensitivity and specificity of the examination are reduced in the absence of intravenous contrast. Evaluation is further limited by patient body habitus and contact with the scan gantry. In spite of these limitations, no acute intra-abdominal or pelvic CT abnormality. Hepatomegaly without focal mass lesion. Ventral abdominal wall hernia contains omental fat without inflammatory change. Signed by: Dr. Burton Dodd M.D. on 12/19/2017 4:59 PM
[2017-12-19 17:36] VITALS: BP 151/92
== END 2017-12-19 18:00 | disposition home or self-care (01) ==
LOC: ER 12:38
DX: R10.33 Periumbilical pain (principal); R11.0 Nausea; R16.0 Hepatomegaly, not elsewhere classified
CPT/HCPCS: 36415; 74176; 80053; 80307; 81001; 81025; 82150; 83690; 83735; 85025; 99284; J1885; J2270; J2405; J7030

== ENCOUNTER 2018-01-08 23:13 | Emergency (ER) | payer OTHER ==
[~2018-01-08] VITALS: Ht 157.5 cm; Wt 113.4 kg
--- OUTSIDE RECORDS SUMMARY | 2018-01-08 23:17 | XMS REPORT | Clinical Summary ---
Author Author [facility] Organization [facility] Address Unknown Phone Unavailable Care Team Providers Care Construction Trades Teacher Name Role Phone Asked, No Pcp PCP [...] by 0 25 mg tablet mouth daily. 01/08/2018 Active traMADol (ULTRAM) 50 mg Take 1 tablet 15 tablet 0 tablet (50 mg total) 8 by mouth every 6 (six) hours as needed for moderate pain for up to 5 days. 01/20/2017 etodolac (LODINE) 500 MG Take [...] (CeleBREX) 100 Take 1 60 capsule 0 04/06/201 MG capsule capsule (100 8 mg total) by mouth 2 (two) times a day for 30 days. 04/23/2017 Discontinued traMADol (ULTRAM) 50 mg Take 2 60 tablet 0 04/09/201 tablet tablets (100 8 mg total) by mouth every 6 (six) hours as needed for moderate pain for up to 14 days. 04/23/2017 Discontinued acetaminophen-codeine Take 1-2 60 tablet 0 04/09/201 (TYLENOL WITH CODEINE #3) tablets by 8 300-30 mg per tablet mouth every 4 (four) hours as needed for moderate pain for up to 14 days. 04/23/2017 celecoxib (CeleBREX) 100 Take 1 28 capsule 0 04/09/201 MG capsule capsule (100 8 mg total) by mouth 2 (two) times a day for 14 days. 04/23/2017 methocarbamol (ROBAXIN) Take 1 tablet 60 tablet 0 201 500 MG tablet (500 mg 8 total) [...] moderate pain for up to 20 days. 01/03/2018 metoclopramide (REGLAN) Take 1 tablet 30 tablet 0 10 MG tablet (10 mg total) 8 by mouth every 6 (six) hours for 30 days. 12/14/2017 acetaminophen-codeine Take 1-2 20 tablet 0 (TYLENOL WITH CODEINE #3) tablets by 8 300-30 mg per tablet mouth every 6 (six) hours as needed for moderate pain for up to 10 days. Active Problems Problem Noted Date Hypertension 11/07/2017 Dyspnea 04/06/2017 Encounters Care Team Description Date Type Specialty Salvador Ornelas MD Abdominal pain, unspecified abdominal location (Primary Dx); Elevated blood pressure reading 01/03/2018 Emergency Emergency Medicine 01/03/2018 Travel Kirti Saba MD Gastroparesis (Primary Dx) 12/04/2017 Emergency Emergency Medicine Senthil Mcgrath DO 11/24/2017 Emergency Emergency Medicine Jett Booth MD Arriaga, Michael, MD Thai, Ryan T., MD Hypertension, unspecified type (Primary Dx); Epigastric pain 11/06/2017 Emergency General Internal Medicine - 11/08/2017 Amy Ocasio MA Acute pain of right shoulder (Primary Dx) 09/06/2017 Orders Only Orthopedic Joby Walsh MD 08/02/2017 Telephone Orthopedic Surgery Joby Ramos MD 08/02/2017 Telephone Orthopedic Surgery Amy Ocasio MA Acute pain of right shoulder 08/01/2017 Orders Only Orthopedic Surgery Joby Ramos MD 07/30/2017 Telephone Orthopedic Joby Walsh MD 07/17/2017 Abstract Orthopedic Surgery Amy Ocasio MA Acute pain of right shoulder 07/17/2017 Orders Only Orthopedic Surgery Joby Ramos MD 07/16/2017 Telephone Orthopedic Surgery Amy Ocasio MA Acute pain of right shoulder 06/27/2017 Orders Only Orthopedic Surgery Joby Ramos MD Acute pain of right shoulder 06/26/2017 Refill Orthopedic Surgery Joby Ramos MD 06/25/2017 Telephone Orthopedic Surgery Amy Ocasio MA Acute pain of right shoulder 06/06/2017 Orders Only Orthopedic Surgery Joby Ramos MD 06/06/2017 Telephone Orthopedic Surgery Joby Ramos [...] pain of right shoulder 05/05/2017 Refill Orthopedic Joby Walsh MD 04/25/2017 Telephone Orthopedic Surgery Joby Ramos [...] Biceps tenodesis 04/06/2017 Surgery Orthopedic Surgery Hugo Ramirez APRN 04/06/2017 Anesthesia Orthopedic Surgery Event Joby Ramos MD 04/06/2017 Hospital Orthopedic Surgery - Encounter 04/09/2017 Joby Ramos MD Preop testing (Primary Dx) 03/23/2017 Pre-Admit Pre-Admission Testing Testing Appointment Joby Ramos MD 03/22/2017 Abstract Orthopedic Surgery Bolivar Jennings III, MD Shoulder strain, right, initial encounter (Primary Dx) 01/10/2017 Emergency Emergency Medicine after 01/07/2017 Immunizations Name Dates Previously Given Next Due [...] Vital Signs Time Taken Vital Sign Reading 01/03/2018 4:03 PM OCCUPATIONAL HEALTH AND SAFETY MANAGER Blood Pressure 170/101 01/03/2018 4:03 PM OCCUPATIONAL HEALTH AND SAFETY MANAGER Pulse 74 01/03/2018 4:03 PM OCCUPATIONAL HEALTH AND SAFETY MANAGER Temperature 36.8 C (98.3 F) 01/03/2018 4:03 PM OCCUPATIONAL HEALTH AND SAFETY MANAGER Respiratory Rate 18 01/03/2018 4:03 PM OCCUPATIONAL HEALTH AND SAFETY MANAGER Oxygen Saturation 96% - Inhaled Oxygen - Concentration 11/08/2017 4:04 AM CDT Weight 119 kg (262 lb 12.8 oz) 01/03/2018 11:27 AM OCCUPATIONAL HEALTH AND SAFETY MANAGER Height 160 cm (5' 3") 11/08/2017 4:04 [...] Lot Implanted Type Area Manufactur er 08/29/2021 [id number] / [id number] Mini Open Kit Implant, Cannula, And Arthroscop Right: Shoulder BIOMET, Drill Bit [employer] Implanted: Qty: 1 on 04/06/2017 by Joby Up MD s 01/10/2019 [id number] / [id number] Iconix 2 Tape With Intellibrai - IPM Right: Shoulder JAIRON [id number] IMPLANT ORTHOPEDIC Implanted: 04/06/2017 (Quantity not DEVICES S on file) 02/19/2019 [id number] / / [id number] 4.5 [employer]x Peek [place] - [id number] IPM Right: Shoulder JAIRON Implanted: 04/06/2017 (Quantity not IMPLANT ORTHOPEDIC on file) DEVICES S 02/19/2019 [id number] / / [id number] 4.5 [employer] [place] - [id number] IPM Right: Shoulder JAIRON Implanted: 04/06/2017 (Quantity not IMPLANT ORTHOPEDIC on file) DEVICES S Procedures Comments Procedure Name Priority Date/Time Associated Diagnosis CT ABDOMEN PELVIS W STAT 01/03/2018 CONTRAST 3:42 PM OCCUPATIONAL HEALTH AND SAFETY MANAGER ECG 12-LEAD STAT 01/03/2018 12:07 PM OCCUPATIONAL HEALTH AND SAFETY MANAGER ECG ED PRELIMINARY Routine 01/03/2018 INTERPRETATION 11:48 AM OCCUPATIONAL HEALTH AND SAFETY MANAGER TROPONIN STAT 01/03/2018 11:30 AM OCCUPATIONAL HEALTH AND SAFETY MANAGER ESTIMATED GFR STAT 01/03/2018 11:30 AM OCCUPATIONAL HEALTH AND SAFETY MANAGER LIPASE LEVEL STAT 01/03/2018 11:30 AM OCCUPATIONAL HEALTH AND SAFETY MANAGER AMYLASE LEVEL STAT 01/03/2018 11:30 AM OCCUPATIONAL HEALTH AND SAFETY MANAGER COMPREHENSIVE METABOLIC STAT 01/03/2018 PANEL 11:30 AM OCCUPATIONAL HEALTH AND SAFETY MANAGER HC COMPLETE BLD COUNT STAT 01/03/2018 W/AUTO DIFF 11:30 AM OCCUPATIONAL HEALTH AND SAFETY MANAGER HCG QUALITATIVE, URINE STAT 01/03/2018 SCREEN 10:32 AM OCCUPATIONAL HEALTH AND SAFETY MANAGER URINALYSIS SCREEN AND STAT 01/03/2018 MICROSCOPY, WITH REFLEX 10:32 AM OCCUPATIONAL HEALTH AND SAFETY MANAGER TO CULTURE GRAM STAIN ONLY STAT 01/03/2018 10:32 AM OCCUPATIONAL HEALTH AND SAFETY MANAGER URINE CULTURE STAT 01/03/2018 10:32 AM OCCUPATIONAL HEALTH AND SAFETY MANAGER ECG ED PRELIMINARY Routine 12/04/2017 INTERPRETATION 1:02 [...] CDT POC GLUCOSE Routine 04/09/2017 11:49 AM OCCUPATIONAL HEALTH AND SAFETY MANAGER POC GLUCOSE Routine 04/09/2017 7:09 AM OCCUPATIONAL HEALTH AND SAFETY MANAGER POC GLUCOSE Routine 04/08/2017 8:14 PM OCCUPATIONAL HEALTH AND SAFETY MANAGER POC GLUCOSE Routine 04/08/2017 5:47 PM OCCUPATIONAL HEALTH AND SAFETY MANAGER POC GLUCOSE Routine 04/08/2017 11:00 AM OCCUPATIONAL HEALTH AND SAFETY MANAGER MRI LUMBAR SPINE WO Routine 04/08/2017 CONTRAST 9:47 AM OCCUPATIONAL HEALTH AND SAFETY MANAGER POC GLUCOSE Routine 04/08/2017 7:57 AM OCCUPATIONAL HEALTH AND SAFETY MANAGER POC GLUCOSE Routine 04/07/2017 5:47 PM OCCUPATIONAL HEALTH AND SAFETY MANAGER POC GLUCOSE Routine 04/07/2017 11:29 AM OCCUPATIONAL HEALTH AND SAFETY MANAGER POC GLUCOSE Routine 04/07/2017 8:00 AM OCCUPATIONAL HEALTH AND SAFETY MANAGER HC COMPLETE BLD COUNT Routine 04/07/2017 W/AUTO DIFF 5:15 AM OCCUPATIONAL HEALTH AND SAFETY MANAGER ZZESTIMATED GFR Routine 04/07/2017 4:00 AM OCCUPATIONAL HEALTH AND SAFETY MANAGER BASIC METABOLIC PANEL Routine 04/07/2017 4:00 AM OCCUPATIONAL HEALTH AND SAFETY MANAGER POC GLUCOSE Routine 04/06/2017 8:00 PM OCCUPATIONAL HEALTH AND SAFETY MANAGER XR CHEST 1 VW PORTABLE Routine 04/06/2017 7:22 PM OCCUPATIONAL HEALTH AND SAFETY MANAGER POC GLUCOSE Routine 04/06/2017 6:32 PM OCCUPATIONAL HEALTH AND SAFETY MANAGER REPAIR, ROTATOR CUFF, 04/06/2017 RIGHT SHOULDER ROTATOR ARTHROSCOPIC 2:35 PM OCCUPATIONAL HEALTH AND SAFETY MANAGER CUFF TEAR M75.101, ROTATOR CUFF IMPINGEMENT Special Needs EST 1.5HRS, INTERSCALE NE BLOCK WITH PAIN PUMP, BEACH CHAIR POSITION, SHOULDER ULTRASLING Jose texted-MR SC AN PERIPHERAL BLOCK Routine 04/06/2017 POST-OP PAIN 12:27 PM OCCUPATIONAL HEALTH AND SAFETY MANAGER Procedure Note - Marlene Mccallum MD - 04/06/2017 12:27 PM OCCUPATIONAL HEALTH AND SAFETY MANAGER Peripheral Block Performed by: MARLENE MCCALLUM Authorized [...] TYPE AND SCREEN Routine 04/06/2017 10:10 AM OCCUPATIONAL HEALTH AND SAFETY MANAGER POC GLUCOSE Routine 04/06/2017 10:07 AM OCCUPATIONAL HEALTH AND SAFETY MANAGER PARTIAL THROMBOPLASTIN Routine 03/23/2017 Preop testing TIME (PTT) 2:30 PM OCCUPATIONAL HEALTH AND SAFETY MANAGER PROTHROMBIN TIME WITH INR Routine 03/23/2017 Preop testing 2:30 PM OCCUPATIONAL HEALTH AND SAFETY MANAGER HC COMPLETE BLD COUNT Routine 03/23/2017 Preop testing W/AUTO DIFF 2:30 PM OCCUPATIONAL HEALTH AND SAFETY MANAGER URINALYSIS SCREEN AND Routine 03/23/2017 Preop testing MICROSCOPY, WITH REFLEX 2:25 PM OCCUPATIONAL HEALTH AND SAFETY MANAGER TO CULTURE URINE CULTURE Routine 03/23/2017 2:25 PM OCCUPATIONAL HEALTH AND SAFETY MANAGER ECG 12-LEAD Routine 03/23/2017 Preop testing 2:23 PM OCCUPATIONAL HEALTH AND SAFETY MANAGER ZZESTIMATED GFR Routine 03/23/2017 2:05 PM OCCUPATIONAL HEALTH AND SAFETY MANAGER COMPREHENSIVE METABOLIC Routine 03/23/2017 Preop testing PANEL 2:05 PM OCCUPATIONAL HEALTH AND SAFETY MANAGER SPLINT APPLICATION Routine 01/10/2017 11:15 PM OCCUPATIONAL HEALTH AND SAFETY MANAGER after 01/07/2017 Results * CT Abdomen Pelvis W Contrast (01/03/2018 3:42 PM OCCUPATIONAL HEALTH AND SAFETY MANAGER) Only the most recent of 2 results within the time period is included. Narrative Performed At EXAMINATION:CT ABDOMEN PELVIS W CONTRAST HM [facility]IANT CLINICAL HISTORY:abdominal painflank pain TECHNIQUE: Multiple axial images of the abdomen and pelvis were obtained following intravenous administration of iodinated contrast. Sagittal and coronal computerized reformatted images were also obtained. Approximately 100 cc of Omnipaque [address] scan performed using radiation dose reduction techniques. Technical factors are evaluated and adjusted to ensure appropriate moderation of exposure. Automated dose management technology is applied to adjust the radiation dose to minimize expose whileachieving a diagnostic quality image. COMPARISON:None. FINDINGS: Lung bases: The lung bases are unremarkable. Liver: There is no intrahepatic biliary dilatation or mass. Fatty infiltration of the liver is seen. The liver is normal in contour and size. Gallbladder: Surgically absent. Pancreas: The pancreas is normal in caliber and attenuation. No inflammatory process. The pancreatic duct is within normal limits. Spleen: The spleen is normal in appearance.. Kidneys and ureters: The kidneys function symmetrically. An approximately 8.4 mm low-density is seen within the posterior lateral aspect of the upper pole of the left kidney, probably representing a small cyst. There is no enhancing renal lesion. No hydronephrosis or renal stone. The ureters are normal in course and caliber. Adrenal glands: Unremarkable. GI tract: The small bowel is normal in course and caliber. Fluid distention of the descending colon is seen. The colon is otherwise unremarkable. No bowel wall thickening is identified. There is no acute inflammatory process. The appendix is not seen. No right lower quadrant inflammation is seen. The stomach is unremarkable. Fluid: None. Pelvis: Bladder: The urinary bladder is unremarkable. Genitalia: Limited evaluation of the uterus is unremarkable.. Fluid: None. Bones: Unremarkable. Retroperitoneum/intraperitoneum: No retroperitoneal or mesenteric pathologic lymphadenopathy is seen. Vasculature: Scattered atherosclerotic calcifications of the abdominal aorta and iliac arteries are noted. No evidence of aortic aneurysm or dissection.The mesenteric vessels and visceral vessel are patent. Abdominal wall: An approximately 5.2 x 9 cm umbilical hernia with fat is seen.. IMPRESSION: No CT evidence of acute findings. No CT evidence of colitis or bowel obstruction. A moderate umbilical hernia with fat. Mild to moderate hepatitic steatosis. Probable small left renal cyst. [id number] Procedure Note Hm Interface, Radiology Results Incoming - 01/03/2018 3:58 PM OCCUPATIONAL HEALTH AND SAFETY MANAGER EXAMINATION: CT ABDOMEN PELVIS W CONTRAST CLINICAL HISTORY: abdominal pain flank pain TECHNIQUE: Multiple axial images of the abdomen and pelvis were obtained following intravenous administration of iodinated contrast. Sagittal and coronal computerized reformatted images were also obtained. Approximately 100 cc of Omnipaque [address] scan performed using radiation dose reduction techniques. Technical factors are evaluated and adjusted to ensure appropriate moderation of exposure. Automated dose management technology is applied to adjust the radiation dose to minimize expose while achieving a diagnostic quality image. COMPARISON: None. FINDINGS: Lung bases: The lung bases are unremarkable. Liver: There is no intrahepatic biliary dilatation or mass. Fatty infiltration of the liver is seen. The liver is normal in contour and size. Gallbladder: Surgically absent. Pancreas: The pancreas is normal in caliber and attenuation. No inflammatory process. The pancreatic duct is within normal limits. Spleen: The spleen is normal in appearance.. Kidneys and ureters: The kidneys function symmetrically. An approximately 8.4 mm low-density is seen within the posterior lateral aspect of the upper pole of the left kidney, probably representing a small cyst. There is no enhancing renal lesion. No hydronephrosis or renal stone. The ureters are normal in course and caliber. Adrenal glands: Unremarkable. GI tract: The small bowel is normal in course and caliber. Fluid distention of the descending colon is seen. The colon is otherwise unremarkable. No bowel wall thickening is identified. There is no acute inflammatory process. The appendix is not seen. No right lower quadrant inflammation is seen. The stomach is unremarkable. Fluid: None. Pelvis: Bladder: The urinary bladder is unremarkable. Genitalia: Limited evaluation of the uterus is unremarkable.. Fluid: None. Bones: Unremarkable. Retroperitoneum/intraperitoneum: No retroperitoneal or mesenteric pathologic lymphadenopathy is seen. Vasculature: Scattered atherosclerotic calcifications of the abdominal aorta and iliac arteries are noted. No evidence of aortic aneurysm or dissection. The mesenteric vessels and visceral vessel are patent. Abdominal wall: An approximately 5.2 x 9 cm umbilical hernia with fat is seen.. IMPRESSION: No CT evidence of acute findings. No CT evidence of colitis or bowel obstruction. A moderate umbilical hernia with fat. Mild to moderate hepatitic steatosis. Probable small left renal cyst. [id number] Performing Organization Address City/State/Zipcode Phone Number [facility] [address] [place] [address] * ECG 12 lead (01/03/2018 12:07 PM OCCUPATIONAL HEALTH AND SAFETY MANAGER) Only the most recent of 3 results within the time period is included. Ventricular rate 80 [facility] Atrial rate 80 [facility] SC interval 154 [facility] QRSD interval 90 [facility] QT interval 398 [facility] QTC interval 459 [facility] P axis 1 0 [facility] QRS axis 1 23 [facility] T wave axis 42 [facility] EKG impression Normal sinus rhythm-Cannot [facility] rule out Anterior infarct , age undetermined-Abnormal ECG-In automated comparison with ECG of 04-DEC-2017 12:29,-QRS duration has decreased- Narrative Performed At Performing Organization Address City/[facility] Phone Number [facility] MUSE [address] [place] [address] * ECG ED Preliminary Interpretation - Not an Order (01/03/2018 11:48 AM OCCUPATIONAL HEALTH AND SAFETY MANAGER) Only the most recent of 2 results within the time period is included. Narrative Performed At Candelaria Callahan PA-C 01/03/20185:08 PM ECG ED Preliminary Interpretation - Not an Order Performed by: Candelaria Callahan PA-C Authorized by: Salvador Ornelas MD ECG reviewed by ED Physician in the absence of a pole lift operator: yes Rate: ECG rate:80 ECG rate assessment: normal Rhythm: Rhythm: sinus rhythm QRS: QRS intervals:Normal Conduction: Conduction: normal ST segments: ST segments:Normal T waves: T waves: normal * Estimated GFR (01/03/2018 11:30 AM OCCUPATIONAL HEALTH AND SAFETY MANAGER) Only the most recent of 5 results within the time period is included. Estimated GFR 83 mL/min/1.73 m2 ERAN ZAMORA Comment: [facility] CatergoryUnitsInte rpretation G1 >=90 Normal or high G2 60-89Mildly decreased [id number] Mildly to moderately decreased [id number] Moderately to severely decreased G4 15-29Severely decreased G5 <15Kidney failure The eGFR was calculated using the Chronic Kidney Disease Epidemiology Collaboration (CKD-EPI) equation. Interpretation is based on recommendations of the National Kidney Foundation-Kidney Disease Outcomes Quality Initiative (NKF-KDOQI) published in 2014. Specimen Plasma specimen Performing Organization Address City/[facility]/Zipcode Phone Number [facility] [address] [place] [address] PATHOLOGY AND GENOMIC MEDICINE [place] [facility] [place] [address] * Troponin (01/03/2018 11:30 AM OCCUPATIONAL HEALTH AND SAFETY MANAGER) Only the most recent of 2 results within the time period is included. Troponin <0.30 0.00 - 0.30 ng/mL [facility] Comment: [facility] 0.11 - 1.49 ng/mlMay indicate increased risk of acute coronary syndrome. >=1.5 ng/ml Consistent with acute myocardial infarction. The diagnostic value of a single normal or non-diagnostic result is questionable.Serial samples at 2-6 hour intervals are required to rule out acute myocardial injury. Specimen Plasma specimen Performing Organization Address City/State/Zipcode Phone Number [place] [address] [place] [address] PATHOLOGY AND GENOMIC MEDICINE [facility] [address] * CBC with platelet and differential (01/03/2018 11:30 AM OCCUPATIONAL HEALTH AND SAFETY MANAGER) Only the most recent of 7 results within the time period is included. WBC 8.9 4.5 - 11.0 k/uL [facility] RBC 5.06 4.20 - 5.50 m/uL [facility] HGB 15.1 12.0 - 16.0 g/dL [facility] HCT 46.9 37.0 - 47.0 % [facility] MCV 92.7 82.0 - 100.0 fL [facility] MCH 29.8 27.0 - 34.0 pg [facility] MCHC 32.2 31.0 - 37.0 g/dL [facility] RDW - SD 44.5 37.0 - 55.0 fL [facility] MPV 11.0 6.9 - 11.0 fL [facility] Platelet count 316 150 - 400 K/uL [facility] Nucleated RBC 0.00 /100 WBC [facility] Neutrophils 67.8 39.0 - 69.0 % [facility] Lymphocytes 25.6 25.0 - 45.0 % [facility] Monocytes 4.1 0.0 - 10.0 % [facility] Eosinophils 1.7 0.0 - 5.0 % [facility] Basophils 0.3 0.0 - 1.0 % [facility] Immature granulocytes 0.5 0.0 - 1.0 % [facility] Specimen Blood Performing Organization Address City/State/[place] [address] PATHOLOGY AND GENOMIC MEDICINE [address] * Lipase level (01/03/2018 11:30 AM OCCUPATIONAL HEALTH AND SAFETY MANAGER) Only the most recent of 5 results within the time period is included. Lipase 33 13 - 60 U/L [facility] Specimen Plasma specimen Performing Organization Address City/[facility]/[place] [address] PATHOLOGY AND GENOMIC MEDICINE [address] * Amylase level (01/03/2018 11:30 AM OCCUPATIONAL HEALTH AND SAFETY MANAGER) Only the most recent of 3 results within the time period is included. Amylase 21 13 - 73 U/L [facility] Specimen Plasma specimen Performing Organization Address City/[facility] [place] [address] PATHOLOGY AND [facility] MEDICINE [address] * Comprehensive metabolic panel (01/03/2018 11:30 AM OCCUPATIONAL HEALTH AND SAFETY MANAGER) Only the most recent of 5 results within the time period is included. Sodium 140 135 - 148 mEq/L [facility] Potassium 3.9 3.5 - 5.0 mEq/L [facility] Chloride 105 98 - 112 mEq/L [facility] CO2 20 (L) 24 - 31 mEq/L [facility] Anion gap 15@ANIO 7 - 15 mEq/L [facility] BUN 13 6 - 20 mg/dL [facility] Creatinine 0.85 0.50 - 0.90 mg/dL [facility] Glucose 214 (H) 65 - 99 mg/dL [facility] Calcium 8.9 8.3 - 10.2 mg/dL [facility] Protein 7.7 6.3 - 8.3 g/dL [facility] Albumin 4.2 3.5 - 5.0 g/dL [facility] A/G ratio 1.2 0.7 - 3.8 [facility] Alkaline phosphatase 118 (H) 35 - 104 U/L [facility] AST 17 10 - 35 U/L [facility] ALT 14 5 - 50 U/L [facility] Total bilirubin <0.2 0.2 - 1.2 mg/dL [facility] Specimen Plasma specimen Performing Organization Address [facility] Phone Number [facility] [place] [address] PATHOLOGY AND GENOMIC MEDICINE [address] * Gram stain only (01/03/2018 10:32 AM OCCUPATIONAL HEALTH AND SAFETY MANAGER) Gram stain result Rare Gram negative rods [facility] WBC's [facility] Comment: Specimen Information Specimen Source: Urine Specimen Site: Clean catch Specimen Urine Performing Organization Address [facility] [place] [address] PATHOLOGY AND GENOMIC MEDICINE [address] * Urinalysis screen and microscopy, with reflex to culture (01/03/2018 10:32 AM OCCUPATIONAL HEALTH AND SAFETY MANAGER) Only the most recent of 5 results within the time period is included. Specimen site Clean catch [facility] Color, UA Yellow [facility] Appearance, UA Sl Cloudy [facility] Specific gravity, UA 1.027 1.001 - 1.030 [facility] pH, UA 5.0 5.0 - 9.0 [facility] Protein, UA 2+ (A) Negative [facility] Glucose, UA 3+ (A) Negative [facility] Ketones, UA Negative Negative [facility] Bilirubin, UA Negative Negative [facility] Blood, UA Negative Negative [facility] Nitrite, UA Negative Negative [facility] Urobilinogen, UA <2.0 <2.0 E.U./dL [facility] Leukocyte esterase, UA Negative Negative [facility] Epithelial cells, UA 5 /HPF [facility] WBC, UA 2 0 - 4 /HPF [facility] RBC, UA 5 0 - 5 /HPF [facility] Bacteria, UA Few None seen [facility] Yeast, UA Moderate (A) [facility] Yeast with pseudohyphae, None seen [facility] Specimen Urine Performing Organization Address City/[facility] Phone Number [facility] [id number] [place] [address] PATHOLOGY AND GENOMIC MEDICINE [facility] [id number] [place] [address] * hCG qualitative, urine screen (01/03/2018 10:32 AM OCCUPATIONAL HEALTH AND SAFETY MANAGER) Only the most recent of 4 results within the time period is included. hCG qualitative, urine NegativeComment: Sensitivity [facility] of HCG test: 25 mIU/ml [facility] Specimen Urine Performing Organization Address City/[facility] Phone Number [facility] [place] [address] PATHOLOGY AND GENOMIC MEDICINE [facility] [id number] [place] [address] * Urine culture (01/03/2018 10:32 AM OCCUPATIONAL HEALTH AND SAFETY MANAGER) Only the most recent of 5 results within the time period is included. Urine culture isolate susceptibility [facility].Culture is being HOSPITAL reincubated for additional growth. Mixed isiah <=10-3 col/cc Comment: Specimen Information Specimen Source: Urine Specimen Site: Clean catch Specimen Urine Performing Organization Address City/[facility] Phone Number [facility] [place] [address] PATHOLOGY [place] [address] HOSPITAL * POC glucose (11/08/2017 12:04 PM CDT) Only the most recent of 19 results within the time period is included. POC glucose 179 (H) 65 - 99 mg/dL [facility] DEPARTMENT OF Comment: PATHOLOGY AND [facility] Notified RN GENOMIC MEDICINE Meter ID: [id number] Home Appliances Mechanic: Anisha Quinteros Performing Organization Address City/[facility]/Zipcode Phone Number [facility] DEPARTMENT [place] [phone] PATHOLOGY AND GENOMIC MEDICINE * C-reactive protein (11/08/2017 4:30 AM CDT) CRP 1.77 (H) 0.00 - 0.50 mg/dL [facility] DEPARTMENT OF PATHOLOGY AND GENOMIC MEDICINE Specimen Plasma specimen Performing Organization Address City/[facility] [address] PATHOLOGY AND GENOMIC MEDICINE * Phosphorus level (11/08/2017 4:30 AM CDT) Phosphorus 3.7 2.4 - 4.5 mg/dL [facility] DEPARTMENT OF PATHOLOGY AND GENOMIC MEDICINE Specimen Plasma specimen Performing Organization Address City/[facility] [address] PATHOLOGY AND GENOMIC MEDICINE * Magnesium level (11/08/2017 4:30 AM CDT) Magnesium 2.0 1.6 - 2.6 mg/dL [facility] DEPARTMENT OF PATHOLOGY AND GENOMIC MEDICINE Specimen Plasma specimen Performing Organization Address [facility] [place] [address] PATHOLOGY AND GENOMIC MEDICINE * Hepatic function panel (11/08/2017 4:30 AM CDT) Albumin 2.8 (L) 3.5 - 5.0 g/dL [facility] DEPARTMENT OF PATHOLOGY AND GENOMIC MEDICINE Total bilirubin <0.2 0.0 - 1.2 mg/dL [facility] DEPARTMENT OF PATHOLOGY AND GENOMIC MEDICINE Bilirubin direct Footnote 0.0 - 0.3 mg/dL [facility] DEPARTMENT OF PATHOLOGY AND GENOMIC MEDICINE Alkaline phosphatase Footnote 35 - 104 U/L [facility] DEPARTMENT OF PATHOLOGY AND GENOMIC MEDICINE Protein 6.5 6.3 - 8.3 g/dL [facility] DEPARTMENT OF Comment: PATHOLOGY AND GENOMIC MEDICINE 4.6-7.0 g/dL 1 week 4.4-7.6 g/dL 7 months-1year 5.1-7.3 g/dL 1-2 years5.6-7 .5 g/dL >3 years6.0-8 .0 g/dL 18-150 6.3-8.3 g/dL ALT Footnote 5 - 50 U/L [facility] DEPARTMENT OF PATHOLOGY AND GENOMIC MEDICINE AST Footnote 10 - 35 U/L [facility] DEPARTMENT OF PATHOLOGY AND GENOMIC MEDICINE Specimen Plasma specimen Performing Organization Address City/[facility] Phone Number [facility] OF [address] [place] [phone] PATHOLOGY AND GENOMIC MEDICINE * Basic metabolic panel (11/08/2017 4:30 AM CDT) Only the most recent of 2 results within the time period is included. Sodium 130 (L) 135 - 148 mEq/L [facility] DEPARTMENT OF PATHOLOGY AND GENOMIC MEDICINE Potassium Footnote 3.5 - 5.0 mEq/L [facility] DEPARTMENT OF Comment: PATHOLOGY AND _K\\AST\\ALT\\DBILI\\ALP results [facility] MEDICINE called to and read back by RN SHIRIN CULP\\[id number] (name/location) at105:58 ___ (date/time) by _LSB. Chloride 95 (L) 98 - 112 mEq/L [facility] DEPARTMENT OF PATHOLOGY AND GENOMIC MEDICINE CO2 19 (L) 24 - 31 mEq/L [facility] DEPARTMENT OF PATHOLOGY AND GENOMIC MEDICINE Anion gap 16@ANIO (H) 7 - 15 mEq/L [facility] DEPARTMENT OF PATHOLOGY AND GENOMIC MEDICINE BUN 23 (H) 6 - 20 mg/dL [facility] DEPARTMENT OF PATHOLOGY AND GENOMIC MEDICINE Creatinine 1.09 (H) 0.50 - 0.90 mg/dL [facility] DEPARTMENT OF PATHOLOGY AND GENOMIC MEDICINE Glucose 266 (H) 65 - 99 mg/dL [facility] DEPARTMENT OF PATHOLOGY AND GENOMIC MEDICINE Calcium 8.5 8.3 - 10.2 mg/dL [facility] DEPARTMENT OF PATHOLOGY AND GENOMIC MEDICINE Specimen Plasma specimen Performing Organization Address [facility]/Zipcode Phone Number [facility] OF [address] [place] [address] PATHOLOGY AND GENOMIC MEDICINE * ALT (SGPT) (11/08/2017 12:30 AM CDT) ALT SEE COMMENTComment: 5 - 50 U/L [facility] DEPARTMENT OF Footnote--------- PATHOLOGY AND GENOMIC MEDICINE Specimen Plasma specimen Narrative Performed At Unable to perform testing, specimen is HEMOLYZED.Recollect [facility] DEPARTMENT OF requested for K/AST/ALT/ALP(tests). CALOS COREAS/J11(name/location) notified PATHOLOGY AND by 11/08/201707:59 (tech ID) at LS2(date/time). Credit issued. GENOMIC MEDICINE Performing Organization Address City/State/Zipcode Phone Number [facility] DEPARTMENT OF [address] [place] [address] PATHOLOGY AND GENOMIC MEDICINE * AST (SGOT) (11/08/2017 12:30 AM CDT) AST SEE COMMENTComment: 10 - 35 U/L [facility] DEPARTMENT OF Footnote--------- PATHOLOGY AND GENOMIC MEDICINE Specimen Plasma specimen Narrative Performed At Unable to perform testing, specimen is HEMOLYZED.Recollect [facility] DEPARTMENT OF requested for K/AST/ALT/ALP(tests). CALOS DOSHI(name/location) notified PATHOLOGY AND by 11/08/201707:59 (tech ID) at LS2(date/time). Credit issued. GENOMIC MEDICINE Performing Organization Address City/[facility]/Zipcode Phone Number [facility] [place] [address] PATHOLOGY AND GENOMIC MEDICINE * Potassium level (11/08/2017 12:30 AM CDT) Potassium SEE COMMENT 3.5 - 5.0 mEq/L [facility] DEPARTMENT OF Comment: PATHOLOGY AND Footnote--------- GENOMIC MEDICINE Unable to perform testing, specimen is HEMOLYZED.Recollect requested for K/AST/ALT/ALP(tests). CALOS DOSHI(name/location) notified by 11/08/201707:59 (tech ID) at LS2(date/time). Credit issued. Specimen Plasma specimen Narrative Performed At Unable to perform testing, specimen is HEMOLYZED.Recollect [facility] DEPARTMENT OF requested for K/AST/ALT/ALP(tests). CALOS DOSHI(name/location) notified PATHOLOGY AND by 11/08/201707:59 (tech ID) at LS2(date/time). Credit issued. GENOMIC MEDICINE Performing Organization Address City/State/Zipcode Phone Number [facility] [place] [address] PATHOLOGY AND GENOMIC MEDICINE * Alkaline phosphatase (11/08/2017 12:30 AM CDT) Alkaline phosphatase SEE COMMENTComment: 35 - 104 U/L [facility] DEPARTMENT OF Footnote--------- PATHOLOGY AND GENOMIC MEDICINE Specimen Plasma specimen Narrative Performed At Unable to perform testing, specimen is HEMOLYZED.Recollect [facility] DEPARTMENT OF requested for K/AST/ALT/ALP(tests). CALOS COREAS/J11(name/location) notified PATHOLOGY AND by 11/08/201707:59 (tech ID) at LS2(date/time). Credit issued. GENOMIC MEDICINE Performing Organization Address [facility]/Zipcode Phone Number [facility] DEPARTMENT OF [address] [place] [address] PATHOLOGY AND GENOMIC MEDICINE * Total bilirubin (11/08/2017 12:30 AM CDT) Total bilirubin <0.2 0.0 - 1.2 mg/dL [facility] DEPARTMENT OF PATHOLOGY AND GENOMIC MEDICINE Specimen Plasma specimen Performing Organization Address [facility] Phone Number [facility] [address] [place] [address] PATHOLOGY AND GENOMIC MEDICINE * US Hepatic [...] 7 mm. IMPRESSION: Hepatomegaly with fatty infiltration. [facility]-[id number] Procedure Note Hm Interface, Radiology Results Incoming [...] 7 mm. IMPRESSION: Hepatomegaly with fatty infiltration. [facility]-[id number] Performing Organization Address [facility] Phone Number [facility] [address] [place] [address] * Hepatitis acute panel (11/07/2017 4:00 AM CDT) Hepatitis A IgM Non-reactive Non-reactive [facility] DEPARTMENT OF PATHOLOGY AND GENOMIC MEDICINE Hepatitis B core IgM Non-reactive Non-reactive [facility] DEPARTMENT OF PATHOLOGY AND GENOMIC MEDICINE Hepatitis B surface Ag Non-reactive Non-reactive [facility] DEPARTMENT OF PATHOLOGY AND GENOMIC MEDICINE Hepatitis C Ab Non-reactive Non-reactive [facility] DEPARTMENT OF PATHOLOGY AND GENOMIC MEDICINE Specimen Serum Performing Organization Address City/State/Zipcode Phone Number [facility] DEPARTMENT OF [address] [place] [address] PATHOLOGY AND GENOMIC MEDICINE * Hemoglobin A1c (11/07/2017 4:00 AM CDT) Hemoglobin A1C 8.6 (H) 4.0 - 5.6 % [facility] DEPARTMENT OF Comment: PATHOLOGY AND HbA1c cutoffs for diagnosing GENOMIC MEDICINE diabetes: 4.0% - 5.6%=normal 5.7% - 6.4%=increased risk for diabetes (prediabetes) >=6.5%=diabetes Goals for glycemic control (ADA 2016) < 7.0%Target for non adults with diabetes. More or less stringent targets may be appropriate for individual patients. <7.5% Target for Children and adolescents with type 1 diabetes. Specimen Blood Performing Organization Address [facility] Phone Number [facility] DEPARTMENT OF [address] [place] [address] PATHOLOGY AND GENOMIC MEDICINE * MRI Lumbar Spine Wo Contrast (04/08/2017 9:47 AM OCCUPATIONAL HEALTH AND SAFETY MANAGER) Narrative Performed At [facility] EXAM:MRI LUMBAR SPINE [...] sac and the left S1 nerve root. [facility]-[id number] Procedure Note Interface, Radiology Results Incoming - 04/08/2017 10:52 AM OCCUPATIONAL HEALTH AND SAFETY MANAGER EXAM: MRI LUMBAR SPINE WO CONTRAST COMPARISON: [...] sac and the left S1 nerve root. [facility]-[id number] Performing Organization Address [facility] Phone Number [facility] [address] [place] [address] * Estimated GFR (04/07/2017 4:00 AM OCCUPATIONAL HEALTH AND SAFETY MANAGER) Only the most recent of 2 results within the time period is included. GFR Non Af Amer 60 mL/min/1.73 m2 [facility] DEPARTMENT OF PATHOLOGY AND GENOMIC MEDICINE GFR Af Amer 73 mL/min/1.73 m2 [facility] DEPARTMENT OF Comment: PATHOLOGY AND Chronic kidney disease: <60 [facility] MEDICINE mL/min/1.73m2 Kidney failure: <15 mL/min/1.73m2 The [...] Americans. Specimen Plasma specimen Performing Organization Address [facility] Phone Number [facility] DEPARTMENT OF [address] [place] [address] PATHOLOGY AND GENOMIC MEDICINE * XR Chest 1 Vw Portable (04/06/2017 7:22 PM OCCUPATIONAL HEALTH AND SAFETY MANAGER) Narrative Performed At EXAMINATION:XR CHEST 1 VW PORTABLE [facility] CLINICAL HISTORY:SHORTNESS OF BREATH COMPARISON:December 04, 2014 chest IMPRESSION: Moderate patchy atelectasis right base with mild elevation right hemidiaphragm Overall hypoinflation compared to previous Cardiac silhouette top normal size. No congestion or effusion. No pneumothorax Single view chest [facility]-[id number] Procedure Note Interface, Radiology Results Incoming - 04/06/2017 7:39 PM OCCUPATIONAL HEALTH AND SAFETY MANAGER EXAMINATION: XR CHEST 1 VW PORTABLE CLINICAL HISTORY: SHORTNESS OF BREATH COMPARISON: December 04, 2014 chest IMPRESSION: Moderate patchy atelectasis right base with mild elevation right hemidiaphragm Overall hypoinflation compared to previous Cardiac silhouette top normal size. No congestion or effusion. No pneumothorax Single view chest [facility]-[id number] Performing Organization Address City/State/[place] [address] * Type and screen (04/06/2017 10:10 AM OCCUPATIONAL HEALTH AND SAFETY MANAGER) ABO grouping O [facility] DEPARTMENT OF PATHOLOGY AND GENOMIC MEDICINE Rh type POS [facility] DEPARTMENT OF PATHOLOGY AND GENOMIC MEDICINE Antibody screen (gel) NEG [facility] DEPARTMENT OF PATHOLOGY AND GENOMIC MEDICINE Specimen Blood Performing Organization Address City/[facility] Phone Number [facility] [place] [address] PATHOLOGY AND GENOMIC MEDICINE * Partial thromboplastin time, activated (03/23/2017 2:30 PM OCCUPATIONAL HEALTH AND SAFETY MANAGER) PTT 27.7 23.0 - 36.0 sec [facility] DEPARTMENT OF Comment: PATHOLOGY AND PTT therapeutic range for GENOMIC MEDICINE unfractionated heparin is 61.0-112.0 seconds which corresponds to Anti-Xa 0.3-0.7 U/ml. Specimen Blood Performing Organization Address [facility]/Zipcode Phone Number [facility] [place] [address] PATHOLOGY AND GENOMIC MEDICINE * Prothrombin time with INR (03/23/2017 2:30 PM OCCUPATIONAL HEALTH AND SAFETY MANAGER) Prothrombin time 12.7 12.0 - 15.0 sec [facility] DEPARTMENT OF PATHOLOGY AND GENOMIC MEDICINE INR 0.9 [facility] DEPARTMENT OF Comment: PATHOLOGY AND The International Normalized GENOMIC MEDICINE Ratio (INR) is a therapeutic monitoring tool for patients who are stable on oral anticoagulant therapy. An INR of 2.0-3.0 is suggested for deep vein thrombosis/pulmonary embolism. Specimen Blood Performing Organization Address City/[facility]/Zipcode Phone Number [facility] [place] [address] PATHOLOGY AND GENOMIC MEDICINE * SPLINT APPLICATION (01/10/2017 11:15 PM OCCUPATIONAL HEALTH AND SAFETY MANAGER) Narrative Performed At Bolivar Jennings MD 01/10/2017 11:15 PM Splint Application Performed by: CELESTINE MORA Authorized by: BOLIVAR JENNINGS Consent: Consent obtained:Verbal Consent given by:Patient Alternatives discussed:No treatment Pre-procedure details: Sensation:Normal Procedure details: Laterality:Right Location:Arm Supplies:Sling Post-procedure details: Pain:Improved Sensation:Normal Patient tolerance of procedure:Tolerated well, no immediate complications after 01/07/2017 Insurance Payer Benefit Subscriber ID Type Phone Address Plan / Group [facility] xxxxxxxxx HMO PLAN [facility] ANI WORKERS COMP MISC xxxxxx Workers WORKER'S Comp COMP [employer] ANTHEM xxxxxxxxxxxx PPO BLUE CROSS [id number] Workers Employer 02/05/[phone] ([address]) [address] [place] [address] Advance Directives Patient has advance care planning documents on file. For more information, best bansal contact: Eran Zamora [address] [place] [address]
[2018-01-09] MEDS ORDERED: KETOROLAC TROMETHAMINE 60 MG/2 ML VIAL IM ONE (00:15)
--- NOTE | 2018-01-09 01:23 | Diagnostic Imaging Report ---
CHEST 2 VIEWS, Technique: CHEST 2 VIEWS Comparison: 09/19/2016 Clinical history: Right chest pain DISCUSSION: Normal cardiomediastinal silhouette. Low lung volumes without consolidation or edema. No effusion or pneumothorax. Right humeral head anchor screws. IMPRESSION: No acute abnormality Signed by: Dr Kkii Maher MD on 01/09/2018 1:19 AM
[2018-01-09 02:49] VITALS: BP 176/111
== END 2018-01-09 02:50 | disposition home or self-care (01) ==
LOC: ER 23:13
DX: R07.89 Other chest pain (principal); I10 Essential (primary) hypertension; E11.9 Type 2 diabetes mellitus without complications; Z79.4 Long term (current) use of insulin; E78.5 Hyperlipidemia, unspecified; Z91.013 Allergy to seafood; Z91.018 Allergy to other foods
CPT/HCPCS: 71046; 93005; 99284; J1885

== ENCOUNTER 2018-03-17 16:12 | Inpatient (IN) | payer MEDICARE, OTHER ==
[~2018-03-17] VITALS: Ht 157.5 cm; Wt 121.3 kg
--- OUTSIDE RECORDS SUMMARY | 2018-03-17 16:16 | XMS REPORT | Clinical Summary ---
Author Author [facility] Organization [facility] Address Unknown Phone Unavailable Care Team Providers Care Broth Setter Name Role Phone Asked, No Pcp PCP [...] by 0 25 mg tablet mouth daily. 03/17/2018 Active ondansetron (ZOFRAN) 4 MG Take 1 tablet 20 tablet 0 tablet (4 mg total) 9 by mouth every 6 (six) hours for 5 days. 03/17/2018 Active ibuprofen (ADVIL,MOTRIN) Take 1 tablet 20 tablet 0 600 MG tablet (600 mg 9 total) by mouth every 6 (six) hours as needed for mild pain for up to 5 days. 04/09/2017 Discontinued cyclobenzaprine Take 10 mg [...] (CeleBREX) 100 Take 1 60 capsule 0 MG capsule capsule (100 8 mg total) by mouth 2 (two) times a day for 30 days. 04/23/2017 Discontinued traMADol (ULTRAM) 50 mg Take 2 60 tablet 0 201 tablet tablets (100 8 mg total) by [...] moderate pain for up to 10 days. 01/08/2018 traMADol (ULTRAM) 50 mg Take 1 tablet 15 tablet 0 tablet (50 mg total) 8 by mouth every 6 (six) hours as needed for moderate pain for up to 5 days. Active Problems Problem Noted Date Hypertension 11/07/2017 Dyspnea 04/06/2017 Encounters Care Team Description Date Type Specialty Jett Booth MD Acute left flank pain (Primary Dx); Hyperglycemia; Dehydration 03/12/2018 Emergency Emergency Medicine Salvador Ornelas MD Abdominal pain, unspecified abdominal location (Primary Dx); Elevated blood pressure reading 01/03/2018 Emergency Emergency Medicine 01/03/2018 Travel Kirti Saba MD Gastroparesis (Primary Dx) 12/04/2017 Emergency Emergency Medicine Senthil Mcgrath, 11/24/2017 Emergency Emergency Medicine Jett Booth MD Arriaga, Michael, MD Thai, Ryan T., MD Hypertension, unspecified type (Primary Dx); Epigastric pain 11/06/2017 Emergency General Internal Medicine - 11/08/2017 Amy Ocasio MA Acute pain of right shoulder (Primary Dx) 09/06/2017 Orders Only Orthopedic Surgery Joby Ramos MD 08/02/2017 Telephone Orthopedic Surgery Joby Ramos [...] right shoulder 05/07/2017 Orders Only Orthopedic Surgery Joyb Ramos MD 05/07/2017 Telephone Orthopedic Surgery Joby Ramos MD Acute pain of right shoulder 05/05/2017 Refill Orthopedic Joby Walsh MD 04/25/2017 Telephone Orthopedic Joby Walsh MD 04/24/2017 Abstract Orthopedic Surgery Amy Ocasio MA Acute pain of right shoulder 04/24/2017 Orders Only Orthopedic Surgery Amy Ocasio MA Acute pain of right shoulder (Primary Dx) 04/23/2017 Orders Only Orthopedic Joby Walsh MD 04/10/2017 Abstract Orthopedic Surgery Joby Ramos [...] Joby Ramos MD 03/22/2017 Abstract Orthopedic Surgery after 03/16/2017 Immunizations Name Dates Previously Given Next Due [...] Vital Signs Time Taken Vital Sign Reading 03/12/2018 11:19 PM CONVERTING OPERATOR Blood Pressure 171/91 03/12/2018 11:19 PM CONVERTING OPERATOR Pulse 75 03/12/2018 2:47 PM CONVERTING OPERATOR Temperature 36.7 C (98 F) 03/12/2018 11:19 PM CONVERTING OPERATOR Respiratory Rate 18 03/12/2018 11:19 PM CONVERTING OPERATOR Oxygen Saturation 96% - Inhaled Oxygen - Concentration 11/08/2017 4:04 AM CDT Weight 119 kg (262 lb 12.8 oz) 03/12/2018 3:06 PM CONVERTING OPERATOR Height 160 cm (5' 3") 11/08/2017 4:04 AM CDT Body Mass Index 46.55 Plan of Treatment Health Maintenance Due Date Last Done Comments CERVICAL CANCER SCREENING 1994 INFLUENZA VACCINE 09/05/2017 Implants Device Identifier Shelf Expiration Date Model / Serial / Lot Implanted Type Area Manufactur er 08/29/2021 [id number] / [id number] / [id number] Mini Open Kit Implant, Cannula, And Arthroscop Right: Shoulder BIOMET, Drill Bit [employer] Implanted: Qty: 1 on 04/06/2017 by Joby Up MD s 01/10/2019 [id number] / / [id number] Iconix 2 Tape With Intellibrai - IPM Right: Shoulder JAIRON [id number] IMPLANT ORTHOPEDIC Implanted: 04/06/2017 (Quantity not DEVICES S on file) 02/19/2019 [id number] / / [id number] 4.5 Reelx Peek Kirksey - [id number] IPM Right: Shoulder JAIRON Implanted: 04/06/2017 (Quantity not IMPLANT ORTHOPEDIC on file) DEVICES S 02/19/2019 [id number] / / [id number] 4.5 Reelx Peek Kirksey - [id number] IPM Right: Shoulder JAIRON Implanted: 04/06/2017 (Quantity not IMPLANT ORTHOPEDIC on file) DEVICES S Procedures Comments Procedure Name Priority Date/Time Associated Diagnosis ED REFERRAL TO CONCEPCION Routine 03/12/2018 [facility]ANISM PHYSICIAN 10:54 PM CONVERTING OPERATOR ORGANIZATION CT RENAL STONE PROTOCOL STAT 03/12/2018 9:19 PM CONVERTING OPERATOR HCG QUALITATIVE, URINE STAT 03/12/2018 SCREEN 6:26 PM CONVERTING OPERATOR URINALYSIS SCREEN AND STAT 03/12/2018 MICROSCOPY, WITH REFLEX 6:26 PM CONVERTING OPERATOR TO CULTURE URINE CULTURE STAT 03/12/2018 6:23 PM CONVERTING OPERATOR ESTIMATED GFR STAT 03/12/2018 4:57 PM CONVERTING OPERATOR LIPASE LEVEL STAT 03/12/2018 4:57 PM CONVERTING OPERATOR COMPREHENSIVE METABOLIC STAT 03/12/2018 PANEL 4:57 PM CONVERTING OPERATOR HC COMPLETE BLD COUNT STAT 03/12/2018 W/AUTO DIFF 4:[address] ABDOMEN PELVIS W STAT 01/03/2018 CONTRAST 3:42 PM CONVERTING OPERATOR ECG 12-LEAD STAT 01/03/2018 12:07 PM CONVERTING OPERATOR ECG ED PRELIMINARY Routine 01/03/2018 INTERPRETATION 11:48 AM CONVERTING OPERATOR TROPONIN STAT 01/03/2018 11:30 AM CONVERTING OPERATOR ESTIMATED GFR STAT 01/03/2018 11:30 AM CONVERTING OPERATOR LIPASE LEVEL STAT 01/03/2018 11:30 AM CONVERTING OPERATOR AMYLASE LEVEL STAT 01/03/2018 11:30 AM CONVERTING OPERATOR COMPREHENSIVE METABOLIC STAT 01/03/2018 PANEL 11:30 AM CONVERTING OPERATOR HC COMPLETE BLD COUNT STAT 01/03/2018 W/AUTO DIFF 11:30 AM CONVERTING OPERATOR HCG QUALITATIVE, URINE STAT 01/03/2018 SCREEN 10:32 AM CONVERTING OPERATOR URINALYSIS SCREEN AND STAT 01/03/2018 MICROSCOPY, WITH REFLEX 10:32 AM CONVERTING OPERATOR TO CULTURE GRAM STAIN ONLY STAT 01/03/2018 10:32 AM CONVERTING OPERATOR URINE CULTURE STAT 01/03/2018 10:32 AM CONVERTING OPERATOR ECG ED PRELIMINARY Routine 12/04/2017 INTERPRETATION 1:02 [...] CDT POC GLUCOSE Routine 04/09/2017 11:49 AM CONVERTING OPERATOR POC GLUCOSE Routine 04/09/2017 7:09 AM CONVERTING OPERATOR POC GLUCOSE Routine 04/08/2017 8:14 PM CONVERTING OPERATOR POC GLUCOSE Routine 04/08/2017 5:47 PM CONVERTING OPERATOR POC GLUCOSE Routine 04/08/2017 11:00 AM CONVERTING OPERATOR MRI LUMBAR SPINE WO Routine 04/08/2017 CONTRAST 9:47 AM CONVERTING OPERATOR POC GLUCOSE Routine 04/08/2017 7:57 AM CONVERTING OPERATOR POC GLUCOSE Routine 04/07/2017 5:47 PM CONVERTING OPERATOR POC GLUCOSE Routine 04/07/2017 11:29 AM CONVERTING OPERATOR POC GLUCOSE Routine 04/07/2017 8:00 AM CONVERTING OPERATOR HC COMPLETE BLD COUNT Routine 04/07/2017 W/AUTO DIFF 5:15 AM CONVERTING OPERATOR ZZESTIMATED GFR Routine 04/07/2017 4:00 AM CONVERTING OPERATOR BASIC METABOLIC PANEL Routine 04/07/2017 4:00 AM CONVERTING OPERATOR POC GLUCOSE Routine 04/06/2017 8:00 PM CONVERTING OPERATOR XR CHEST 1 VW PORTABLE Routine 04/06/2017 7:22 PM CONVERTING OPERATOR POC GLUCOSE Routine 04/06/2017 6:32 PM CONVERTING OPERATOR REPAIR, ROTATOR CUFF, 04/06/2017 RIGHT SHOULDER ROTATOR ARTHROSCOPIC 2:35 PM CONVERTING OPERATOR CUFF TEAR M75.101, ROTATOR CUFF IMPINGEMENT Special Needs EST 1.5HRS, INTERSCALE NE BLOCK WITH PAIN PUMP, BEACH CHAIR POSITION, SHOULDER ULTRASLING Jose texted-MR MD AN PERIPHERAL BLOCK Routine 04/06/2017 POST-OP PAIN 12:27 PM CONVERTING OPERATOR Procedure Note - Marlene Mccallum MD - 04/06/2017 12:27 PM CONVERTING OPERATOR Peripheral Block Performed by: MARLENE MCCALLUM Authorized by: MARLENE MCCALLUM Patient Location: Pre-op Start Time: 04/06/2017 12:18 PM End Time: 04/06/2017 12:25 PM Reason for Block: at surgeon's request, post-op pain management Staff: Anesthesifernando prado: MARLENE MCCALLUM Performed by: Anesthesio eve Preprocedu re: patient identified , IV checked, [...] TYPE AND SCREEN Routine 04/06/2017 10:10 AM CONVERTING OPERATOR POC GLUCOSE Routine 04/06/2017 10:07 AM CONVERTING OPERATOR PARTIAL THROMBOPLASTIN Routine 03/23/2017 Preop testing TIME (PTT) 2:30 PM CONVERTING OPERATOR PROTHROMBIN TIME WITH INR Routine 03/23/2017 Preop testing 2:30 PM CONVERTING OPERATOR HC COMPLETE BLD COUNT Routine 03/23/2017 Preop testing W/AUTO DIFF 2:30 PM CONVERTING OPERATOR URINALYSIS SCREEN AND Routine 03/23/2017 Preop testing MICROSCOPY, WITH REFLEX 2:25 PM CONVERTING OPERATOR TO CULTURE URINE CULTURE Routine 03/23/2017 2:25 PM CONVERTING OPERATOR ECG 12-LEAD Routine 03/23/2017 Preop testing 2:23 PM CONVERTING OPERATOR ZZESTIMATED GFR Routine 03/23/2017 2:05 PM CONVERTING OPERATOR COMPREHENSIVE METABOLIC Routine 03/23/2017 Preop testing PANEL 2:05 PM CONVERTING OPERATOR after 03/16/2017 Results * CT Renal Stone Protocol (03/12/2018 9:19 PM CONVERTING OPERATOR) Narrative Performed At EXAMINATION:CT RENAL STONE PROTOCOL RADIANT CLINICAL HISTORY:L flank and LLQ pain TECHNIQUE: Multiple axial images of the abdomen and pelvis were obtained without intravenous administration of iodinated contrast. Sagittal and coronal computerized reformatted images were also obtained. The lack of intravenous contrast reduces the sensitivity of detecting solid organ disease. CT imaging was performed with iterative reconstruction technique and/or automated exposure control to reduce radiation dose. COMPARISON:01/03/2018 IMPRESSION: Mild bibasilar atelectasis. In the left lower lobe, there is a groundglass nodule. Liver is enlarged measuring 23.7 cm in length. Diffuse fatty infiltration of the liver is identified. Patient is status post cholecystectomy. Spleen, pancreas, adrenal glands are normal. Kidneys, ureters and bladder are normal. No free intraperitoneal fluid or air. Large fat-containing umbilical region hernia is identified. Atherosclerotic vascular calcifications are seen. Arising from left ovary, there is a 2.7 x 2.5 cm cyst. This would be better assessed with dedicated pelvic ultrasound. A few diverticula are seen without diverticulitis. The appendix is normal. An appendicolith is seen in the appendix. No gastrointestinal tract obstruction. No acute osseous abnormalities. Mild degenerative change of lower thoracic and lumbar spine. CONCLUSION: A 2.7 x 2.5 cm cyst is seen of the left ovary. This would be better assessed with dedicated pelvic ultrasound. [facility]-[id number] Procedure Note Interface, Radiology Results Incoming - 03/12/2018 9:30 PM CONVERTING OPERATOR EXAMINATION: CT RENAL STONE PROTOCOL CLINICAL HISTORY: L flank and LLQ pain TECHNIQUE: Multiple axial images of the abdomen and pelvis were obtained without intravenous administration of iodinated contrast. Sagittal and coronal computerized reformatted images were also obtained. The lack of intravenous contrast reduces the sensitivity of detecting solid organ disease. CT imaging was performed with iterative reconstruction technique and/or automated exposure control to reduce radiation dose. COMPARISON: 01/03/2018 IMPRESSION: Mild bibasilar atelectasis. In the left lower lobe, there is a groundglass nodule. Liver is enlarged measuring 23.7 cm in length. Diffuse fatty infiltration of the liver is identified. Patient is status post cholecystectomy. Spleen, pancreas, adrenal glands are normal. Kidneys, ureters and bladder are normal. No free intraperitoneal fluid or air. Large fat-containing umbilical region hernia is identified. Atherosclerotic vascular calcifications are seen. Arising from left ovary, there is a 2.7 x 2.5 cm cyst. This would be better assessed with dedicated pelvic ultrasound. A few diverticula are seen without diverticulitis. The appendix is normal. An appendicolith is seen in the appendix. No gastrointestinal tract obstruction. No acute osseous abnormalities. Mild degenerative change of lower thoracic and lumbar spine. CONCLUSION: A 2.7 x 2.5 cm cyst is seen of the left ovary. This would be better assessed with dedicated pelvic ultrasound. [facility]-[id number] Performing Organization Address City/State/Zipcode Phone Number [facility] [address] [place] [address] * Urinalysis screen and microscopy, with reflex to culture (03/12/2018 6:26 PM CONVERTING OPERATOR) Only the most recent of 6 results within the time period is included. Specimen site Clean catch [facility] Color, UA Straw [facility] Appearance, UA Clear [facility] Specific gravity, UA 1.028 1.001 - 1.035 [facility] pH, UA 6.0 5.0 - 8.5 [facility] Protein, UA 2+ (A) Negative [facility] Glucose, UA 3+ (A) Negative [facility] Ketones, UA Negative Negative [facility] Bilirubin, UA Negative Negative [facility] Blood, UA Negative Negative [facility] Nitrite, UA Negative Negative [facility] Urobilinogen, UA <2.0 <2.0 [facility] Leukocyte esterase, UA Negative Negative [facility] Epithelial cells, UA 10 /HPF [facility] WBC, UA 2 0 - 4 /HPF [facility] RBC, UA 2 0 - 5 /HPF [facility] Bacteria, UA None seen None seen [facility] Yeast, UA None seen [facility] Yeast with pseudohyphae, None seen [facility] Specimen Urine Performing Organization Address City/[facility]/Zipcode Phone Number [facility] [place] [address] PATHOLOGY AND [facility] [address] * hCG qualitative, urine screen (03/12/2018 6:26 PM CONVERTING OPERATOR) Only the most recent of 5 results within the time period is included. hCG qualitative, urine NegativeComment: Sensitivity [facility] of HCG test: 25 mIU/mL HOSPITAL Specimen Urine Performing Organization Address City/[facility] Cent[facility] Phone Number [facility] [place] [address] PATH[address]Y [address] * Urine culture (03/12/2018 6:23 PM CONVERTING OPERATOR) Only the most recent of 6 results within the time period is included. Urine culture SEE COMMENTComment: [facility] Bacteriuria screen negative. HOSPITAL Performing Organization Address [facility] Phone Number [facility] [place] [address] PATHOLOGY [address] * Estimated GFR (03/12/2018 4:57 PM CONVERTING OPERATOR) Only the most recent of 6 results within the time period is included. Estimated GFR 67 mL/min/1.73 m2 [facility] Comment: HOSPITAL CatergoryUnitsInte rpretation G1 >=90 Normal or high G2 60-89Mildly decreased [id number] Mildly to moderately decreased [id number] Moderately to severely decreased G4 15-29Severely decreased G5 <15Kidney failure The eGFR was calculated using the Chronic Kidney Disease Epidemiology Collaboration (CKD-EPI) equation. Interpretation is based on recommendations of the National Kidney Foundation-Kidney Disease Outcomes Quality Initiative (NKF-KDOQI) published in 2014. Specimen Plasma specimen Performing Organization Address City/[facility] Cent[facility] Phone Number [facility] [place] [address] PATHOLOGY AND GENOMIC MEDICINE [address] * CBC with platelet and differential (03/12/2018 4:57 PM CONVERTING OPERATOR) Only the most recent of 8 results within the time period is included. WBC 8.23 4.50 - 11.00 k/uL [facility] RBC 4.92 4.20 - 5.50 m/uL [facility] HGB 14.8 12.0 - 16.0 g/dL [facility] HCT 45.4 37.0 - 47.0 % [facility] MCV 92.3 82.0 - 100.0 fL [facility] MCH 30.1 27.0 - 34.0 pg [facility] MCHC 32.6 31.0 - 37.0 g/dL [facility] RDW - SD 45.8 37.0 - 55.0 fL [facility] MPV 10.9 8.8 - 13.2 fL [facility] Platelet count 280 150 - 400 k/uL [facility] Nucleated RBC 0.00 /100 WBC [facility] Neutrophils 66.3 39.0 - 69.0 % [facility] Lymphocytes 27.3 25.0 - 45.0 % [facility] Monocytes 3.9 0.0 - 10.0 % [facility] Eosinophils 1.6 0.0 - 5.0 % [facility] Basophils 0.4 0.0 - 1.0 % [facility] Immature granulocytes 0.5Comment: "Immature 0.0 - 1.0 % [facility] granulocytes" (promyelocytes, HOSPITAL myelocytes, metamyelocytes) Specimen Blood Performing Organization Address City/[facility] Cent[facility]ode Phone Number [facility] [place] [address] PATHOLOGY AND [facility]INE [address] * Lipase level (03/12/2018 4:57 PM CONVERTING OPERATOR) Only the most recent of 6 results within the time period is included. Lipase 31 13 - 60 U/L [facility] Specimen Plasma specimen Performing Organization Address City/State/[facility] Cent[facility]ode Phone Number [facility] [place] [address] PATHOLOGY AND GENOMIC MEDICINE [address] * Comprehensive metabolic panel (03/12/2018 4:57 PM CONVERTING OPERATOR) Only the most recent of 6 results within the time period is included. Sodium 136 135 - 148 mEq/L [facility] Potassium 3.7 3.5 - 5.0 mEq/L [facility] Chloride 99 98 - 112 mEq/L [facility] CO2 25 24 - 31 mEq/L [facility] Anion gap 12@ANIO 7 - 15 mEq/L [facility] BUN 21 (H) 6 - 20 mg/dL [facility] Creatinine 1.01 (H) 0.50 - 0.90 mg/dL [facility] Glucose 238 (H) 65 - 99 mg/dL [facility] Calcium 8.7 8.3 - 10.2 mg/dL [facility] Protein 6.7 6.3 - 8.3 g/dL [facility] Comment: HOSPITAL 4.6-7.0 g/dL 1 week 4.4-7.6 g/dL 7 months-1year 5.1-7.3 g/dL 1-2 years5.6-7 .5 g/dL >3 years6.0-8 .0 g/dL 18-150 6.3-8.3 g/dL Albumin 3.1 (L) 3.5 - 5.0 g/dL [facility] A/G ratio 0.9 0.7 - 3.8 [facility] Alkaline phosphatase 85 35 - 104 U/L [facility] AST 15 10 - 35 U/L [facility] ALT 30 5 - 50 U/L [facility] Total bilirubin <0.2 0.0 - 1.2 mg/dL [facility] Specimen Plasma specimen Performing Organization Address City/State/Zipcode Phone Number [facility] DEPARTMENT OF [address] [place] [address] PATHOLOGY AND GENOMIC MEDICINE [address] * CT Abdomen Pelvis W Contrast (01/03/2018 3:42 PM CONVERTING OPERATOR) Only the most recent of 2 results within the time period is included. Narrative Performed At EXAMINATION:CT ABDOMEN PELVIS W CONTRAST RADIANT CLINICAL HISTORY:abdominal painflank pain TECHNIQUE: Multiple [...] small left renal cyst. [id number] Procedure Note Hm Interface, Radiology Results Incoming - 01/03/2018 3:58 PM CONVERTING OPERATOR EXAMINATION: CT ABDOMEN PELVIS W CONTRAST CLINICAL [...] small left renal cyst. [id number] Performing Organization Address City/State/Zipcode Phone Number [facility] [address] [place] [address] * ECG 12 lead (01/03/2018 12:07 PM CONVERTING OPERATOR) Only the most recent of 3 results within the time period is included. Ventricular rate 80 [facility] Atrial rate 80 [facility] MD interval 154 [facility] QRSD interval 90 [facility] QT interval 398 [facility] QTC interval 459 [facility] P axis 1 0 [facility] QRS axis 1 23 [facility] T wave axis 42 [facility] EKG impression Normal sinus rhythm-Cannot [facility] MUSE rule out Anterior infarct , age undetermined-Abnormal ECG-In automated comparison with ECG of 04-DEC-2017 12:29,-QRS duration has decreased- Narrative Performed At Performing Organization Address City/[facility] Centercode Phone Number [facility] MUSE [address] [place] [address] * ECG ED Preliminary Interpretation - Not an Order (01/03/2018 11:48 AM CONVERTING OPERATOR) Only the most recent of 2 results within the time period is included. Narrative Performed At Candelaria Callahan PA-C 01/03/20185:08 PM ECG ED Preliminary Interpretation - Not an Order Performed by: Candelaria Callahan PA-C Authorized by: Salvador Ornelas MD ECG reviewed by ED Physician in the absence of a speeder frame tender: yes Rate: ECG rate:80 ECG rate assessment: normal Rhythm: Rhythm: sinus rhythm QRS: QRS intervals:Normal Conduction: Conduction: normal ST segments: ST segments:Normal T waves: T waves: normal * Troponin (01/03/2018 11:30 AM CONVERTING OPERATOR) Only the most recent of 2 results within the time period is included. Troponin <0.30 0.00 - 0.30 ng/mL [facility] Comment: [facility] 0.11 - 1.49 ng/mlMay indicate increased risk of acute coronary syndrome. >=1.5 ng/ml Consistent with acute myocardial infarction. The diagnostic value of a single normal or non-diagnostic result is questionable.Serial samples at 2-6 hour intervals are required to rule out acute myocardial injury. Specimen Plasma specimen Performing Organization Address City/[facility]/Zipcode Phone Number [facility] [place] [address] [place] [address] PATHOLOGY AND GENOMIC MEDICINE [facility] [address] * Amylase level (01/03/2018 11:30 AM CONVERTING OPERATOR) Only the most recent of 3 results within the time period is included. Amylase 21 13 - 73 U/L [facility] Specimen Plasma specimen Performing Organization Address City/State/Zipcode Phone Number [facility] DEPARTMENT OF [address] [place] [address] PATHOLOGY AND GENOMIC MEDICINE [address] * Gram stain only (01/03/2018 10:32 AM CONVERTING OPERATOR) Gram stain result Rare Gram negative rods [facility] No WBC's [facility] Comment: Specimen Information Specimen Source: Urine Specimen Site: Clean catch Specimen Urine Performing Organization Address City/[facility] Centercode Phone Number [facility] DEPARTMENT OF [address] [place] [address] PATHOLOGY AND GENOMIC MEDICINE [address] * POC glucose (11/08/2017 12:04 PM CDT) Only the most recent of 19 results within the time period is included. POC glucose 179 (H) 65 - 99 mg/dL [facility] DEPARTMENT OF Comment: PATHOLOGY AND [facility] Notified RN GENOMIC MEDICINE Meter ID: [id number] Absorption And Adsorption Engineer: Anisha Quinteros Performing Organization Address [facility] Cent[facility]ode Phone Number [facility] [place] [address] PATHOLOGY AND GENOMIC MEDICINE * C-reactive protein (11/08/2017 4:30 AM CDT) CRP 1.77 (H) 0.00 - 0.50 mg/dL [facility] DEPARTMENT OF PATHOLOGY AND GENOMIC MEDICINE Specimen Plasma specimen Performing Organization Address [facility] Cent[facility]ode Phone Number [facility] [place] [address] PATHOLOGY AND GENOMIC MEDICINE * Phosphorus level (11/08/2017 4:30 AM CDT) Phosphorus 3.7 2.4 - 4.5 mg/dL [facility] DEPARTMENT OF PATHOLOGY AND GENOMIC MEDICINE Specimen Plasma specimen Performing Organization Address City/[facility]/Zipcode Phone Number [facility] [place] [address] PATHOLOGY AND GENOMIC MEDICINE * Magnesium level (11/08/2017 4:30 AM CDT) Magnesium 2.0 1.6 - 2.6 mg/dL [facility] DEPARTMENT OF PATHOLOGY AND GENOMIC MEDICINE Specimen Plasma specimen Performing Organization Address City/[facility]/Zipcode Phone Number [facility] [place] [address] PATHOLOGY AND GENOMIC MEDICINE * Hepatic function panel (11/08/2017 4:30 AM CDT) Albumin 2.8 (L) 3.5 - 5.0 g/dL [facility] DEPARTMENT OF PATHOLOGY AND GENOMIC MEDICINE Total bilirubin <0.2 0.0 - 1.2 mg/dL [facility] DEPARTMENT OF PATHOLOGY AND GENOMIC MEDICINE Bilirubin direct Footnote 0.0 - 0.3 mg/dL [facility] DEPARTMENT OF PATHOLOGY AND GENOMIC MEDICINE Alkaline phosphatase Footnote 35 - 104 U/L [facility] DEPARTMENT OF PATHOLOGY AND GENOMIC MEDICINE Protein 6.5 6.3 - 8.3 g/dL [facility] DEPARTMENT OF Comment: PATHOLOGY AND [place] GENOMIC MEDICINE 4.6-7.0 g/dL 1 week 4.4-7.6 g/dL 7 months-1year 5.1-7.3 g/dL 1-2 years5.6-7 .5 g/dL >3 years6.0-8 .0 g/dL 18-150 6.3-8.3 g/dL ALT Footnote 5 - 50 U/L [facility] DEPARTMENT OF PATHOLOGY AND GENOMIC MEDICINE AST Footnote 10 - 35 U/L [facility] DEPARTMENT OF PATHOLOGY AND GENOMIC MEDICINE Specimen Plasma specimen Performing Organization Address City/State/[place] [address] PATHOLOGY AND GENOMIC MEDICINE * Basic metabolic panel (11/08/2017 4:30 AM CDT) Only the most recent of 2 results within the time period is included. Sodium 130 (L) 135 - 148 mEq/L [facility] DEPARTMENT OF PATHOLOGY AND GENOMIC MEDICINE Potassium Footnote 3.5 - 5.0 mEq/L [facility] DEPARTMENT OF Comment: PATHOLOGY AND _K\\AST\\ALT\\DBILI\\ALP results [facility] called to and read back by RN SHIRIN [email or web address]\\[id number] (name/location) 11/08/201705:58 ___ (date/time) by _STAR. Chloride 95 (L) 98 - 112 mEq/L [facility] DEPARTMENT OF PATHOLOGY AND GENOMIC MEDICINE CO2 19 (L) 24 - 31 mEq/L [facility] DEPARTMENT OF PATHOLOGY AND GENOMIC MEDICINE Anion gap 16@ANIO (H) 7 - 15 mEq/L [facility] DEPARTMENT OF PATHOLOGY AND GENOMIC MEDICINE BUN 23 (H) 6 - 20 mg/dL [facility] DEPARTMENT OF PATHOLOGY AND GENOMIC MEDICINE Creatinine 1.09 (H) 0.50 - 0.90 mg/dL [facility] DEPARTMENT OF PATHOLOGY AND GENOMIC MEDICINE Glucose 266 (H) 65 - 99 mg/dL [facility] DEPARTMENT OF PATHOLOGY AND GENOMIC MEDICINE Calcium 8.5 8.3 - 10.2 mg/dL [facility] DEPARTMENT OF PATHOLOGY AND GENOMIC MEDICINE Specimen Plasma specimen Performing Organization Address City/State/Zipcode Phone Number [facility] [place] [place] [address] PATHOLOGY AND GENOMIC MEDICINE * ALT (SGPT) (11/08/2017 12:30 AM CDT) ALT SEE COMMENTComment: 5 - 50 U/L [facility] DEPARTMENT OF Footnote--------- PATHOLOGY AND GENOMIC MEDICINE Specimen Plasma specimen Narrative Performed At Unable to perform testing, specimen is HEMOLYZED.Recollect [facility] DEPARTMENT OF requested for K/AST/ALT/ALP(tests). CALOS COREAS/Davy(name/location) notified PATHOLOGY AND by 11/08/201707:59 (tech ID) at LS2(date/time). Credit issued. GENOMIC MEDICINE Performing Organization Address City/[facility] Cent[facility]ode Phone Number [facility] [place] [address] PATHOLOGY AND GENOMIC MEDICINE * AST (SGOT) (11/08/2017 12:30 AM CDT) AST SEE COMMENTComment: 10 - 35 U/L [facility] DEPARTMENT OF Footnote--------- PATHOLOGY AND GENOMIC MEDICINE Specimen Plasma specimen Narrative Performed At Unable to perform testing, specimen is HEMOLYZED.Recollect [facility] DEPARTMENT OF requested for K/AST/ALT/ALP(tests). CALOS COREAS/[email or web address](name/location) notified PATHOLOGY AND by 11/08/201707:59 (tech ID) at LS2(date/time). Credit issued. GENOMIC MEDICINE Performing Organization Address City/State/Zipcode Phone Number [facility] [place] [address] PATHOLOGY AND GENOMIC MEDICINE * Potassium level (11/08/2017 12:30 AM CDT) Potassium SEE COMMENT 3.5 - 5.0 mEq/L [facility] DEPARTMENT OF Comment: PATHOLOGY AND Footnote--------- GENOMIC MEDICINE Unable to perform testing, specimen is HEMOLYZED.Recollect requested for K/AST/ALT/ALP(tests). CALOS DOSHI(name/location) notified by 11/08/201707:59 (tech ID) at LS2(date/time). Credit issued. Specimen Plasma specimen Narrative Performed At Unable to perform testing, specimen is HEMOLYZED.Recollect [facility] DEPARTMENT OF requested for K/AST/ALT/ALP(tests). CALOS DOSHI(name/location) notified PATHOLOGY AND by 11/08/201707:59 (tech ID) at LS2(date/time). Credit issued. GENOMIC MEDICINE Performing Organization Address City/State/Zipcode Phone Number [facility] [place] [address] PATHOLOGY AND GENOMIC MEDICINE * Alkaline phosphatase (11/08/2017 12:30 AM CDT) Alkaline phosphatase SEE COMMENTComment: 35 - 104 U/L [facility] DEPARTMENT OF Footnote--------- PATHOLOGY AND GENOMIC MEDICINE Specimen Plasma specimen Narrative Performed At Unable to perform testing, specimen is HEMOLYZED.Recollect [facility] DEPARTMENT OF requested for K/AST/ALT/ALP(tests). CALOS DOSHI(name/location) notified PATHOLOGY AND by 11/08/201707:59 (tech ID) at LS2(date/time). Credit issued. GENOMIC MEDICINE Performing Organization Address [facility]/Zipcode Phone Number [facility] [place] [address] PATHOLOGY AND GENOMIC MEDICINE * Total bilirubin (11/08/2017 12:30 AM CDT) Total bilirubin <0.2 0.0 - 1.2 mg/dL [facility] DEPARTMENT OF PATHOLOGY AND GENOMIC MEDICINE Specimen Plasma specimen Performing Organization Address City/State/Zipcode Phone Number [facility] [place] [address] PATHOLOGY AND GENOMIC MEDICINE * US Hepatic (11/07/2017 8:15 PM CDT) Narrative Performed At EXAMINATION:US HEPATIC [facility] CLINICAL HISTORY:acute pancreatitis COMPARISON:None. FINDINGS: 1.Liver is enlarged measuring 21 cm in length and appears somewhat heterogeneous and increasing echogenicity. No definite focal hepatic lesions are seen. Portal vein is patent measuring 1 cm with antegrade flow. Status post cholecystectomy. Common duct is 7 mm. IMPRESSION: Hepatomegaly with fatty infiltration. [facility]-[id number] Procedure Note Hm Interface, Radiology Results Incoming [...] 7 mm. IMPRESSION: Hepatomegaly with fatty infiltration. [facility]-[id number] Performing Organization Address City/[facility] Centercode Phone Number [facility] [address] [place] [address] * Hepatitis acute panel (11/07/2017 4:00 AM CDT) Hepatitis A IgM Non-reactive Non-reactive [facility] DEPARTMENT OF PATHOLOGY AND GENOMIC MEDICINE Hepatitis B core IgM Non-reactive Non-reactive [facility] DEPARTMENT OF PATHOLOGY AND GENOMIC MEDICINE Hepatitis B surface Ag Non-reactive Non-reactive [facility] DEPARTMENT OF PATHOLOGY AND GENOMIC MEDICINE Hepatitis C Ab Non-reactive Non-reactive [facility] DEPARTMENT OF PATHOLOGY AND GENOMIC MEDICINE Specimen Serum Performing Organization Address [facility] Centerconc Phone Number [facility] DEPARTMENT [facility] [place] [address] PATHOLOGY AND GENOMIC MEDICINE * Hemoglobin A1c (11/07/2017 4:00 AM CDT) Hemoglobin A1C 8.6 (H) 4.0 - 5.6 % [facility] DEPARTMENT OF Comment: PATHOLOGY AND HbA1c cutoffs for diagnosing GENOMIC MEDICINE diabetes: 4.0% - 5.6%=normal 5.7% - 6.4%=increased risk for diabetes (prediabetes) >=6.5%=diabetes Goals for glycemic control (ADA 2016) < 7.0%Target for non adults with diabetes. More or less stringent targets may be appropriate for individual patients. <7.5% Target for Children and adolescents with type 1 diabetes. Specimen Blood Performing Organization Address City/[facility] Centercode Phone Number [facility] DEPARTMENT OF [address] [place] [address] PATHOLOGY AND GENOMIC MEDICINE * MRI Lumbar Spine Wo Contrast (04/08/2017 9:47 AM CONVERTING OPERATOR) Narrative Performed At [facility] EXAM:MRI LUMBAR SPINE [...] sac and the left S1 nerve root. [facility]-[id number] Procedure Note Interface, Radiology Results - 04/08/2017 10:52 AM CONVERTING OPERATOR EXAM: MRI LUMBAR SPINE WO CONTRAST COMPARISON: [...] sac and the left S1 nerve root. [facility]-[id number] Performing Organization Address City/State/Zipcode Phone Number [facility] [address] [place] [address] * Estimated GFR (04/07/2017 4:00 AM CONVERTING OPERATOR) Only the most recent of 2 results within the time period is included. GFR Non Af Amer 60 mL/min/1.73 m2 [facility] DEPARTMENT OF PATHOLOGY AND GENOMIC MEDICINE GFR Af Amer 73 mL/min/1.73 m2 [facility] DEPARTMENT OF Comment: PATHOLOGY AND Chronic kidney [...] Americans. Specimen Plasma specimen Performing Organization Address [facility] Centercode Phone Number [facility] [place] [address] PATHOLOGY AND GENOMIC MEDICINE * XR Chest 1 Vw Portable (04/06/2017 7:22 PM CONVERTING OPERATOR) Narrative Performed At EXAMINATION:XR CHEST 1 [facility]W [facility]:SHORTNESS OF BREATH COMPARISON:December 04, 2014 chest IMPRESSION: Moderate patchy atelectasis right base with mild elevation right hemidiaphragm Overall hypoinflation compared to previous Cardiac silhouette top normal size. No congestion or effusion. No pneumothorax Single view chest [facility]-[id number] Procedure Note Interface, Radiology Results Incoming - 04/06/2017 7:39 PM CONVERTING OPERATOR EXAMINATION: XR CHEST 1 VW PORTABLE CLINICAL HISTORY: SHORTNESS OF BREATH COMPARISON: December 04, 2014 chest IMPRESSION: Moderate patchy atelectasis right base with mild elevation right hemidiaphragm Overall hypoinflation compared to previous Cardiac silhouette top normal size. No congestion or effusion. No pneumothorax Single view chest [facility]-[id number] Performing Organization Address [facility] [place] [address] * Type and screen (04/06/2017 10:10 AM CONVERTING OPERATOR) ABO grouping O [facility] DEPARTMENT OF PATHOLOGY AND GENOMIC MEDICINE Rh type POS [facility] DEPARTMENT OF PATHOLOGY AND GENOMIC MEDICINE Antibody screen (gel) NEG [facility] DEPARTMENT OF PATHOLOGY AND GENOMIC MEDICINE Specimen Blood Performing Organization Address [facility] Centercode Phone Number [address] [address] PATHOLOGY AND GENOMIC MEDICINE * Partial thromboplastin time, activated (03/23/2017 2:30 PM CONVERTING OPERATOR) PTT 27.7 23.0 - 36.0 sec [facility] DEPARTMENT OF Comment: PATHOLOGY AND PTT therapeutic range for GENOMIC MEDICINE unfractionated heparin is 61.0-112.0 seconds which corresponds to Anti-Xa 0.3-0.7 U/ml. Specimen Blood Performing Organization Address City/State/Zipcode Phone Number [place] [id number] [place] [address] PATHOLOGY AND GENOMIC MEDICINE * Prothrombin time with INR (03/23/2017 2:30 PM CONVERTING OPERATOR) Prothrombin time 12.7 12.0 - 15.0 sec [facility] DEPARTMENT OF PATHOLOGY AND GENOMIC MEDICINE INR 0.9 [facility] DEPARTMENT OF Comment: PATHOLOGY AND The International Normalized GENOMIC MEDICINE Ratio (INR) is a therapeutic monitoring tool for patients who are stable on oral anticoagulant therapy. An INR of 2.0-3.0 is suggested for deep vein thrombosis/pulmonary embolism. Specimen Blood Performing Organization Address City/[facility]/Zipcode Phone Number [place] [phone] [place] [address] PATHOLOGY AND GENOMIC MEDICINE after 03/16/2017 Insurance Payer Benefit Subscriber ID Type Phone Address Plan / Group [facility] xxxxxxxxx HMO PLAN [facility] ANI WORKERS COMP MISC xxxxxx Workers WORKER'S Comp COMP BCBS ANTHEM xxxxxxxxxxxx PPO [employer] [id number] Workers Employer 02/05/1902 [address] [facility] Comp (Home) [address] [place] [address] Advance Directives Patient has advance care planning documents on file. For more information, best bansal contact: Eran Zamora [address] [place] [address]
--- OUTSIDE RECORDS SUMMARY | 2018-03-17 16:17 | XMS REPORT ---
[facility] Address Unknown Phone Unavailable Care Team Providers Care Machine Sign Writer Name Role Phone Lala BERMEO Unavailable Unavailable Juan JARRETT Unavailable Unavailable LORIE, DR JACKSON Unavailable Unavailable Kelby CONCEPCION Unavailable Unavailable JUANITO, DR PALOMARES Unavailable Unavailable Annel REDD Unavailable Unavailable YARITZA, DR SAWYER Unavailable Unavailable ESPERANZA VUONG Unavailable Unavailable JESSICA, DR SUMNER Unavailable Unavailable SARAH, DR GUTIERREZ Unavailable Unavailable JUANITO, DR Wiliam MADRIGAL Unavailable Unavailable Payers Payer Name Policy Type Policy Number Effective Date Expiration Date Problems This patient has no known problems. Allergies, Adverse Reactions, Alerts Allergy Name Allergy Type Status Severity Reaction(s) Onset Date Inactive Date Treating Clinician Comments shellfish derived DA Active NE 2018-02-19 00:00:00 Fish Containing Products DA Active SV 2018-01-01 00:00:00 grapefruit DA Active U 2018-01-01 00:00:00 shellfish derived DA Active U 2018-01-01 00:00:00 Fish Containing Products DA Active SV 2017-10-29 00:00:00 grapefruit DA Active U 2017-10-29 00:00:00 shellfish derived DA Active U 2017-10-29 00:00:00 Fish Containing Products DA Active SV 2017-04-30 00:00:00 grapefruit DA Active U 2017-04-30 00:00:00 shellfish derived DA Active U 2017-04-30 00:00:00 Medications This patient has no known medications. Encounters Start Date/Time End Date/Time Encounter Type Admission Type Attending [facility] Care Department Encounter ID 2017-10-04 14:22:00 2017-10-04 15:53:00 Emergency E RENETTA MELO [facility] [id number] 2017-08-24 14:06:00 2017-08-24 16:45:00 Emergency E ELMA CONCEPCION [facility] [id number] 2016-12-11 07:47:00 2016-12-11 09:10:00 Emergency E JELANI SOLOMON [facility] [id number] 2016-10-21 01:46:00 2016-10-21 02:32:00 Emergency E ELMA CONCEPCION [facility] [id number] 2016-07-17 07:27:00 2016-07-17 07:50:00 Emergency E TAISHA LOPEZ [facility] [id number] 2015-12-26 07:23:00 2015-12-26 07:48:00 Emergency E ROHAN SOLOMON [facility] [id number] Results Test Description Test Time Test Comments Text Results Atomic Results Result Comments GLUBED 2018-02-23 22:17:00 GLUBED (test code=GLUBED) 206 mg/dL 74-106 Performed by certified straightening machine operator at [facility] [id number] 16:33:00* Test Item Value Reference Range Comments GLUBED (test code=GLUBED) 188 mg/dL 74-106 Performed by certified straightening machine operator at [facility] - US ABDOMEN [id number] 13:37:00 Name: ALECMELINDACEBHAKTI BRAR [facility] : 1975 Age/S: 42 / F [address] [facility] Unit #: [id number] [place] [address] Phys: Suzette Camarillo DISTRIBUTOR PUBLICATIONS Acct: [id number] Dis Date: Status: ADM IN PHONE #: [phone] Exam Date: 02/23/2018923 FAX #: [phone] Reason: abd pain EXAMS: CPT CODE: [id number] US ABDOMEN COMPLETE 18121 EXAM: Ultrasound of the abdomen; INFORMATION: Abdominal pain; FINDINGS: The liver is enlarged. It shows increased parenchymal echogenicity; no focal lesions. The patient is status post cholecystectomy; no dilatation of intra or extrahepatic bile ducts. The pancreas is partially obscured by bowel gas but shows no obvious abnormalities. The spleen is of normal size and shape and without focal lesions. Both kidneys of normal size and shape; no hydronephrosis, no stones and no parenchymal abnormalities. The right kidney measures 11.2 x 3.4 x 4.6 cm. The left kidney measures 12.8 x 5 x 5 cm. No ascites. Imaged portions of the IVC and abdominal aorta are unremarkable. IMPRESSION: 1. Hepatomegaly and diffuse fatty infiltration of the liver. 2. Otherwise, no abnormal findings. at 1337 Reported and signed by: Jaylon Messina M.D. CC: Vishnu Wilson MD; Suzette Camarillo NP Technologist: MADHURI OMALLEY Trnscb Date/Time: 02/23/2018 (5373) [email or web address] Orig Print D/T: S: 02/23/2018 (7351) Probe: PAGE 1 Signed Report BASIC METABOLIC [id number] 10:46:00* Test Item Value Reference Range Comments SODIUM (test code=NA) 139 mmol/L 136-145 POTASSIUM (test code=K) 3.9 mmol/L 3.5-5.1 CHLORIDE (test code=CL) 107.0 mmol/L 98-107 CARBON DIOXIDE (test code=CO2) 22.0 mmol/L 21-32 ANION GAP (test code=GAP) 13.9 10-20 GLUCOSE (test code=GLU) 187 mg/dL 74-106 BLOOD UREA NITROGEN (test code=BUN) 19 mg/dL 7-18 GLOMERULAR FILTRATION RATE (test code=GFR) 60 mL/min >=60 Estimated GFR by using Modified MDRD formula.Chronic kidney disease is defined as either kidney damageor GFR <60 mL/min/1.73 m2 for >3 months. CREATININE (test code=CREAT) 1.00 mg/dL 0.55-1.02 Note change in reference range due to change in reagent. BUN/CREATININE RATIO (test code=BUN/CREA) 18.1 10-20 CALCIUM (test code=CA) 7.5 mg/dL 8.5-10.1 [id number] 08:19:00* Test Item Value Reference Range Comments GLUBED (test code=GLUBED) 162 mg/dL 74-106 Performed by certified straightening machine operator at [facility] [id number] 06:52:00* Test Item Value Reference Range Comments GLUBED (test code=GLUBED) 186 mg/dL 74-106 [facility] certified straightening machine [facility]~ [id number] 21:29:00* Test Item Value Reference Range Comments GLUBED (test code=GLUBED) 232 mg/dL 74-106 [facility] certified straightening [facility] [id number] 17:22:00* Test Item Value Reference Range Comments GLUBED (test code=GLUBED) 284 mg/dL 74-106 [facility] certified straightening [facility] [id number] 08:43:00* Test Item Value Reference Range Comments GLUBED (test code=GLUBED) 246 mg/dL 74-106 [facility] certified straightening [facility] BASIC METABOLIC [id number] 06:57:00* Test Item Value Reference Range Comments SODIUM (test code=NA) 137 mmol/L 136-145 POTASSIUM (test code=K) 4.1 mmol/L 3.5-5.1 CHLORIDE (test code=CL) 105.0 mmol/L 98-107 CARBON DIOXIDE (test code=CO2) 21.0 mmol/L 21-32 ANION GAP (test code=GAP) 15.1 10-20 GLUCOSE (test code=GLU) 288 mg/dL 74-106 BLOOD UREA NITROGEN (test code=BUN) 18 mg/dL 7-18 GLOMERULAR FILTRATION RATE (test code=GFR) 44 mL/min >=60 Estimated GFR by using Modified MDRD formula.Chronic kidney disease is defined as either kidney damageor GFR <60 mL/min/1.73 m2 for >3 months. CREATININE (test code=CREAT) 1.30 mg/dL 0.55-1.02 Note change in reference range due to change in reagent. BUN/CREATININE RATIO (test code=BUN/CREA) 14.2 10-20 CALCIUM (test code=CA) 8.2 mg/dL 8.5-10.1 CBC W/AUTO [id number] 06:53:00* Test Item Value Reference Range Comments WHITE BLOOD CELL (test code=WBC) 11.9 K/mm3 4.5-12.5 RED BLOOD CELL (test code=RBC) 4.94 mill/mm3 3.7-5.2 HEMOGLOBIN (test code=HGB) 14.3 gram/dL 11.5-15.5 HEMATOCRIT (test code=HCT) 46.5 % 36.0-46.0 MEAN CELL VOLUME (test code=MCV) 94.1 fL 80-98 MEAN CELL HGB (test code=MCH) 28.9 picogram 27.0-33.0 MEAN CELL HGB CONCETRATION (test code=MCHC) 30.8 gram/dL 33.0-36.0 RED CELL DISTRIBUTION WIDTH (test code=RDW) 14.0 % 11.6-16.2 RED CELL DISTRIBUTION WIDTH SD (test code=RDW-SD) 47.6 fL 37.0-51.0 PLATELET COUNT (test code=PLT) 299 K/mm3 150-450 MEAN PLATELET VOLUME (test code=MPV) 11.3 fL 6.7-11.0 NEUTROPHIL % (test code=NT%) 83.1 % 39.0-69.0 IMMATURE GRANULOCYTE % (test code=IG%) 0.8 % 0.0-5.0 LYMPHOCYTE % (test code=LY%) 12.1 % 25.0-55.0 MONOCYTE % (test code=MO%) 3.9 % 0.0-10.0 EOSINOPHIL % (test code=EO%) 0.0 % 0.0-5.0 BASOPHIL % (test code=BA%) 0.1 % 0.0-1.0 NUCLEATED RBC % (test code=NRBC%) 0.0 % 0-0 NEUTROPHIL # (test code=NT#) 9.86 K/mm3 1.8-7.7 IMMATURE GRANULOCYTE # (test code=IG#) 0.09 x10 3/uL 0-0.03 LYMPHOCYTE # (test code=LY#) 1.43 K/mm3 1.0-5.0 MONOCYTE # (test code=MO#) 0.46 K/mm3 0-0.8 EOSINOPHIL # (test code=EO#) 0.00 K/mm3 0.0-0.5 BASOPHIL # (test code=BA#) 0.01 K/mm3 0.0-0.2 NUCLEATED RBC # (test code=NRBC#) 0.00 K/mm3 0.0-0.1 MANUAL DIFF REQUIRED (test code=MDIFF) NO BASIC METABOLIC [id number] 06:52:00* Test Item Value Reference Range Comments SODIUM (test code=NA) 137 mmol/L 136-145 POTASSIUM (test code=K) 4.1 mmol/L 3.5-5.1 CHLORIDE (test code=CL) 105.0 mmol/L 98-107 CARBON DIOXIDE (test code=CO2) mmol/L 21-32 ANION GAP (test code=GAP) 10-20 GLUCOSE (test code=GLU) mg/dL 74-106 BLOOD UREA NITROGEN (test code=BUN) mg/dL 7-18 GLOMERULAR FILTRATION RATE (test code=GFR) mL/min >=60 CREATININE (test code=CREAT) mg/dL 0.55-1.02 BUN/CREATININE RATIO (test code=BUN/CREA) 10-20 CALCIUM (test code=CA) mg/dL 8.5-10.1 [id number] 22:01:00* Test Item Value Reference Range Comments GLUBED (test code=GLUBED) 400 mg/dL 74-106 Performed by certified straightening machine operator at [facility] [id number] 19:00:00* Test Item Value Reference Range Comments GLUBED (test code=GLUBED) 246 mg/dL 74-106 [facility] certified straightening machine [facility] CBC W/AUTO [id number] 17:40:00* Test Item Value Reference Range Comments WHITE BLOOD CELL (test code=WBC) 8.7 K/mm3 4.5-12.5 RED BLOOD CELL (test code=RBC) 5.08 mill/mm3 3.7-5.2 HEMOGLOBIN (test code=HGB) 14.8 gram/dL 11.5-15.5 HEMATOCRIT (test code=HCT) 47.4 % 36.0-46.0 MEAN CELL VOLUME (test code=MCV) 93.3 fL 80-98 MEAN CELL HGB (test code=MCH) 29.1 picogram 27.0-33.0 MEAN CELL HGB CONCETRATION (test code=MCHC) 31.2 gram/dL 33.0-36.0 RED CELL DISTRIBUTION WIDTH (test code=RDW) 14.0 % 11.6-16.2 RED CELL DISTRIBUTION WIDTH SD (test code=RDW-SD) 47.9 fL 37.0-51.0 PLATELET COUNT (test code=PLT) 255 K/mm3 150-450 RESULT VERIFIED BY REPEAT ANALYSIS MEAN PLATELET VOLUME (test code=MPV) 10.8 fL 6.7-11.0 NEUTROPHIL % (test code=NT%) 85.6 % 39.0-69.0 IMMATURE GRANULOCYTE % (test code=IG%) 1.0 % 0.0-5.0 LYMPHOCYTE % (test code=LY%) 11.8 % 25.0-55.0 MONOCYTE % (test code=MO%) 1.0 % 0.0-10.0 EOSINOPHIL % (test code=EO%) 0.3 % 0.0-5.0 BASOPHIL % (test code=BA%) 0.3 % 0.0-1.0 NUCLEATED RBC % (test code=NRBC%) 0.0 % 0-0 NEUTROPHIL # (test code=NT#) 7.45 K/mm3 1.8-7.7 IMMATURE GRANULOCYTE # (test code=IG#) 0.09 x10 3/uL 0-0.03 LYMPHOCYTE # (test code=LY#) 1.03 K/mm3 1.0-5.0 MONOCYTE # (test code=MO#) 0.09 K/mm3 0-0.8 EOSINOPHIL # (test code=EO#) 0.03 K/mm3 0.0-0.5 BASOPHIL # (test code=BA#) 0.03 K/mm3 0.0-0.2 NUCLEATED RBC # (test code=NRBC#) 0.00 K/mm3 0.0-0.1 MANUAL DIFF REQUIRED (test code=MDIFF) NO CHEST 2 [id number] 01:18:00 [place] [address] Patient Name: BHAKTI COLON MR #: [id number] : 1975 Age/Sex: 42/F Req #: [id number] Adm Physician: Ordered by: PATRIC BERMEO MD Report #: [id number] Location: ER Room/Bed: Procedure: [id number] DX/CHEST 2 VIEWS Exam Date: 01/09/18 Exam Time: 54 REPORT STATUS: Signed CHEST 2 VIEWS, Technique: CHEST 2 VIEWS Comparison: 09/19/2016 Clin ical history: Right chest pain DISCUSSION: Normal cardiomediastinal billy houette. Low lung volumes without consolidation or edema. No effusion or pneum othorax. Right humeral head anchor screws. IMPRESSION: No acute abnormali ty Signed by: Dr Danny Jennings MD on 01/09/2018 1:19 AM Dictated By: DANNY JENNINGS MD 23 Transcribed By: MARK on 01/09/18 0119 COPY TO: PATRIC BERMEO MD CT ABDOMEN/PELVIS [id number] 16:51:00 [place] [address] Patient Name: BHAKTI COLON MR #: [id number] : 1975 Age/Sex: 42/F Req #: [id number] Adm Physician: Ordered by: JUANITO JARRETT MD Report #: [id number] Location: ER Room/Bed: Procedure: [id number]/CT ABDOMEN/PELVIS WO Exam Date: 12/19/17 Exam T lobito: 1505 REPORT STATUS: Signed EXAMINATION: CT of the abdomen with contrast. TECHNIQUE: Spiral CT image s of the abdomen and pelvis were performed from the lung bases to the iliac cr ests. No intravenous contrast was administered per referring physician request . Coronal and sagittal reformatted images were obtained. COMPARISON: None. CLINICAL HISTORY:Abdominal pain, concern for herniated disc, stone, pyel onephritis. Patient reports history of chronic pancreatitis DISCUSSION : LOWER THORAX:Unremarkable. HEPATOBILIARY: Hepatomegaly without foca l hepatic lesion. The gallbladder has been removed. SPLEEN: No splenomega ly. PANCREAS: No focal masses or ductal dilatation. ADRENALS: No adren al nodules. KIDNEYS/URETERS: No hydronephrosis, stones, or solid mass lesio ns. PERITONEUM/RETROPERITONEUM: No free air or fluid. Pelvic organs: T he urinary bladder is unremarkable. Uterus is anteflexed and appears normal. N o adnexal mass. LYMPH NODES: No pelvic sidewall, retroperitoneal, or mesent brenda lymphadenopathy. VESSELS: Limited evaluation without intravenous con trast. The abdominal aorta is nonaneurysmal. Atherosclerotic calcification of the aorta and iliac arterial systems. GI TRACT: The large bowel shows no evidence of distention or wall thickening. Gas and fecal material are noted th roughout. The appendix is normal. There is no small bowel dilatation to sugges t obstruction. BONES AND SOFT TISSUE: Large midline umbilical-incisional he rnia contains omental fat and measures approximately 9 cm in greatest transver se dimension. No significant inflammatory change within the herniated fat. No herniated loops of bowel. No osseous destructive lesions. Mild degenerative di sc changes of the upper lumbar spine. IMPRESSION: Sensitivity and s pecificity of the examination are reduced in the absence of intravenous contra st. Evaluation is further limited by patient body habitus and contact with the scan gantry. In spite of these limitations, no acute intra-abdominal or pe lvic CT abnormality. Hepatomegaly without focal mass lesion. Ventral abdominal wall hernia contains omental fat without inflammatory change. Si gned by: Dr. Amanda Dodd M.D. on 12/19/2017 4:59 PM Dictated By: AMANDA DODD MD 58 Transc ribed By: MARK on 12/19/171658 COPY TO: JUANITO JARRETT MD CPK 2017-08-24 15:20:00* Test Item Value Reference Range Comments CPK (test code=32A) 75 IU/L 26-192 AMYLASE AND [id number] 15:20:00* Test Item Value Reference Range Comments AMYLASE (test code=10A) 31 U/L 28-100 LIPASE (test code=60A) 104 IU/L 73-393 COMPREHENSIVE METABOLIC [id number] 15:20:00* Test Item Value Reference Range Comments GLUCOSE (test code=06D) 245 mg/dL 75-100 SODIUM (test code=01A) 138 mmol/L 136-145 POTASSIUM (test code=01B) 3.8 mmol/L 3.6-5.1 CHLORIDE (test code=04A) 99 mmol/L 98-107 CO2 (test code=02A) 28 mmol/L 22-32 ANION GAP (test code=ANG) 14.8 mmol/L BUN (test code=05D) 17 mg/dL 7-18 CREATININE (test code=03E) 1.1 mg/dL 0.4-1.1 BUN/CREA (test code=BCR) 15 12-20 CALCIUM (test code=09D) 8.6 mg/dL 8.3-9.5 BILI TOTAL (test code=11A) 0.3 mg/dL 0.2-1.0 PROTEIN (test code=07D) 7.2 g/dL 6.4-8.2 ALBUMIN (test code=08D) 3.4 g/dL 3.5-4.8 GLOBULIN (test code=GLB) 3.8 g/dL 1.5-3.8 ALB/GLOB (test code=AGRR) 0.9 1.0-2.6 ALK PHOS (test code=35A) 113 IU/L 42-121 AST (test code=30A) 26 IU/L <=42 ALT (test code=31A) 28 IU/L <=78 TROPONIN [id number] 15:19:00* Test Item Value Reference Range Comments TROPONIN I (test code=A84) <0.015 ng/mL 0.000-0.045 SERUM [id number] 15:12:00* Test Item Value Reference Range Comments PREG SRM (test code=PGS) NEGATIVE NEGATIVE CBC (INCLUDES AUTOMATED DIFFERENTIAL)2017-08-24 15:08:00* Test Item Value Reference Range Comments WBC (test code=WBC) 8.1 10\S\3/uL 4.5-11.0 RBC (test code=RBC) 4.64 10\S\6/uL 4.30-5.70 HGB (test code=HBG) 14.2 g/dL 12.0-15.5 HCT (test code=HCT) 42.8 % 35.0-44.0 MCV (test code=MCV) 92.2 fL 81.0-99.0 MCH (test code=MCH) 30.6 pg 27.0-31.0 MCHC (test code=MCHC) 33.2 g/dL 32.0-36.0 RDW (test code=RDW) 13.3 % 11.5-14.5 PLT (test code=PLT) 242 10\S\3/uL 130-400 MPV (test code=MPV) 11.1 fL 9.4-12.4 NEUTROP # (test code=NE#) 5.3 10\S\3/uL 1.6-8.0 LYMPH # (test code=LY#) 2.2 10\S\3/uL 1.1-3.5 MONOCYTE # (test code=MO#) 0.4 10\S\3/uL 0.0-1.1 EOSINOPH # (test code=EO#) 0.1 10\S\3/uL 0.0-0.7 BASOPHIL # (test code=BA#) 0.0 10\S\3/uL 0.0-0.3 IG # (test code=IG#) 0.04 10\S\3/uL 0.00-0.06 NRBC # (test code=NRBC#) 0.00 10\S\3/uL 0.00-0.01 NEUTROPH % (test code=NE%) 65.7 % 35.0-73.0 LYMPH % (test code=LY%) 26.6 % 20.0-55.0 MONO % (test code=MO%) 5.1 % 2.5-10.0 EOSINOPH % (test code=EO%) 1.6 % 0.0-5.0 BASOPHIL % (test code=BA%) 0.5 % 0.0-2.0 IG % (test code=IG%) 0.5 % 0.0-0.8 NRBC% (test code=NRBC%) 0.0 % 0.0-0.2 MANDIFF (test code=MDIFF) NO NO RBC MORPH (test code=RBCMOR) NORMAL MRI SHOULDER JNT RT [id number] 08:04:32CLINICAL INDICATION: M75.101 Unsp rotatr-cuff tear/ruptr of right shoulder, not traumaMODALITY: Hitachi Mcneil 1.2 Rajwinder High Field Open MRITECHNIQUE: Multiplanar multisequence MRI of the right shoulder was performed.IMPRESSION:1. Status post rotator cuff repair, without MR evidence of recurrent rotator cuff tear.2. Small fluid collection in the subacromial subdeltoid bursa.3. Mild acromioclavicular arthrosis.FINDINGS:COMPARISON: None.OSSEOUS ACROMIAL OUTLET: Type 2 acromion is present, with mild lateral downsloping. Mild acromioclavicular arthrosis is present with mild undersurface spurring.ROTATOR CUFF: Status post rotator cuff repair. Metallic suture anchors are evident within the greater tuberosity humerus. The distal anterior portion of supraspinatus tendon is partially obsc ured. Recurrent tear of the supraspinatus tendon is not seen. Infraspinatus, ter es minor and subscapularis tendons appear intact.BICEPS TENDON, LABRUM AND CAPSU LAR STRUCTURES: Irina appear intact. Long head biceps tendon is intact. The inez ps anchor appears unremarkable.OSSEOUS STRUCTURES: No fractures or destructive o sseous lesions are detected. Marrow signal is unremarkable.MISCELLANEOUS FINDIN GS: Small fluid collection localizes to the subacromial subdeltoid bursa.XR SHOULDER RIGHT 2 [id number] 08:29:09Right shoulder, 2 viewsLocation Code: [id number] HISTORY: Right shoulder painCOMMENTS: AP views of the right shoulder in internal and external rotation wereobtained. There is no acute fracture or malalignment. The soft tissues areunremarkable.IMPRESSION: No acute abnormality. AMYLASE AND LIPASE *WW*2016-11-29 13:35:00* Test Item Value Reference Range Comments AMYLASE (test code=10A) 21 U/L 28-100 LIPASE (test code=60A) 133 IU/L 73-393 URINALYSIS WITH MICRO 2016-11-29 13:09:00* Test Item Value Reference Range Comments COLOR (test code=COLU) YELLOW YELLOW CLARITY (test code=CLA) SLT HAZY CLEAR GLUCOSE UR (test code=UA GLUCOSE) 3+ NEGATIVE BILI UR (test code=BILE) NEGATIVE NEGATIVE KETONES UR (test code=GAVI) NEGATIVE NEGATIVE SP GRAVITY (test code=SPGR) 1.020 1.005-1.030 PH UR (test code=PH) 6.0 4.5-8.0 PROTEIN UR (test code=PU) 2+ NEGATIVE UROBIL UR (test code=UROQ) 0.2 EU/dL 0.2-1.0 NITRITE UR (test code=NITRITE) NEGATIVE NEGATIVE BLOOD UR (test code=UA BLOOD) TRACE-INTACT NEGATIVE LEUK ES UR (test code=LEUK) NEGATIVE NEGATIVE WBC UR (test code=UWBC) 3 /HPF 0-5 RBC UR (test code=URBC) 1 /HPF 0-2 EPITH UR (test code=UEPC) FEW /LPF FEW BACTERIA UR (test code=UBACT) FEW /HPF NONE CAST UR (test code=CAST) /LPF NONE CRYSTAL UR (test code=CRYU) / LPF NONE MUCUS UR (test code=MUC) / HPF NONE AMORPH UR (test code=GUILLAUME) / HPF NONE TRICH UR (test code=UTRICH) /HPF NONE YEAST UR (test code=UY) /HPF NONE SPERM UR (test code=USPERM) /HPF NONE GLUCOMETER GLUCOSE- LAB USE [id number] 11:58:00* Test Item Value Reference Range Comments GLUCOMETER (test code=GMG) 168 mg/dL 70-100 CLEANED METERMeter ID: [id number]: [id number] PRIYA UBAY-UBAY [id number] 07:37:00* Test Item Value Reference Range Comments TRIGLYCERI (test code=42B) 2016 mg/dL <=149 GLUCOMETER GLUCOSE- LAB USE [id number] 06:24:00* Test Item Value Reference Range Comments GLUCOMETER (test code=GMG) 201 mg/dL 70-100 CLEANED METERDAILY MAINTENANCEMeter ID: [id number]: [id number] SERA CHASE BASIC METABOLIC [id number] 04:19:00* Test Item Value Reference Range Comments GLUCOSE (test code=06D) 229 mg/dL 75-100 SODIUM (test code=01A) 135 mmol/L 136-145 POTASSIUM (test code=01B) 3.3 mmol/L 3.6-5.1 CHLORIDE (test code=04A) 102 mmol/L 98-107 CO2 (test code=02A) 25 mmol/L 22-32 ANION GAP (test code=ANG) 11.3 mmol/L BUN (test code=05D) 7 mg/dL 7-18 CREATININE (test code=03E) 0.7 mg/dL 0.4-1.1 BUN/CREA (test code=BCR) 11 12-20 CALCIUM (test code=09D) 7.2 mg/dL 8.3-9.5 CBC (INCLUDES AUTOMATED DIFFERENTIAL)2016-10-29 04:16:00* Test Item Value Reference Range Comments WBC (test code=WBC) 8.9 10\S\3/uL 4.5-11.0 RBC (test code=RBC) 4.24 10\S\6/uL 4.30-5.70 HGB (test code=HBG) 13.1 g/dL 12.0-15.5 HCT (test code=HCT) 37.7 % 35.0-44.0 MCV (test code=MCV) 88.9 fL 81.0-99.0 MCH (test code=MCH) 30.9 pg 27.0-31.0 MCHC (test code=MCHC) 34.7 g/dL 32.0-36.0 RDW (test code=RDW) 14.5 % 11.5-14.5 PLT (test code=PLT) 251 10\S\3/uL 130-400 MPV (test code=MPV) 11.0 fL 9.4-12.4 NEUTROP # (test code=NE#) 6.1 10\S\3/uL 1.6-8.0 LYMPH # (test code=LY#) 1.9 10\S\3/uL 1.1-3.5 MONOCYTE # (test code=MO#) 0.5 10\S\3/uL 0.0-1.1 EOSINOPH # (test code=EO#) 0.3 10\S\3/uL 0.0-0.7 BASOPHIL # (test code=BA#) 0.0 10\S\3/uL 0.0-0.3 IG # (test code=IG#) 0.05 10\S\3/uL 0.00-0.06 NRBC # (test code=NRBC#) 0.00 10\S\3/uL 0.00-0.01 NEUTROPH % (test code=NE%) 69.1 % 35.0-73.0 LYMPH % (test code=LY%) 21.2 % 20.0-55.0 MONO % (test code=MO%) 5.9 % 2.5-10.0 EOSINOPH % (test code=EO%) 2.9 % 0.0-5.0 BASOPHIL % (test code=BA%) 0.3 % 0.0-2.0 IG % (test code=IG%) 0.6 % 0.0-0.8 NRBC% (test code=NRBC%) 0.0 % 0.0-0.2 MANDIFF (test code=MDIFF) NO NO RBC MORPH (test code=RBCMOR) NORMAL GLUCOMETER GLUCOSE- LAB USE [id number] 19:45:00* Test Item Value Reference Range Comments GLUCOMETER (test code=GMG) 143 mg/dL 70-100 CLEANED METERDAILY MAINTENANCEMeter ID: [id number]: [id number] SERA CHASE GLUCOMETER GLUCOSE- LAB USE [id number] 15:28:00* Test Item Value Reference Range Comments GLUCOMETER (test code=GMG) 194 mg/dL 70-100 Meter ID: [id number]: [id number] ANGEL MONACOIYAMPALLIL GLUCOMETER GLUCOSE- LAB USE [id number] 11:14:00* Test Item Value Reference Range Comments GLUCOMETER (test code=GMG) 177 mg/dL 70-100 CLEANED METERMeter ID: [id number]: [id number] ANGEL PULIYAMPALLIL CBC WITH MANUAL [id number] 10:05:00* Test Item Value Reference Range Comments WBC (test code=WBC) 9.9 10\S\3/uL 4.5-11.0 RBC (test code=RBC) 4.23 10\S\6/uL 4.30-5.70 HGB (test code=HBG) 13.5 g/dL 12.0-15.5 HCT (test code=HCT) 37.3 % 35.0-44.0 MCV (test code=MCV) 88.2 fL 81.0-99.0 MCH (test code=MCH) 31.9 pg 27.0-31.0 MCHC (test code=MCHC) 36.2 g/dL 32.0-36.0 RDW (test code=RDW) 14.4 % 11.5-14.5 PLT (test code=PLT) 284 10\S\3/uL 130-400 MPV (test code=MPV) 11.2 fL 9.4-12.4 NEUTROP # (test code=NE#) 7.5 10\S\3/uL 1.6-8.0 LYMPH # (test code=LY#) 1.8 10\S\3/uL 1.1-3.5 MONOCYTE # (test code=MO#) 0.4 10\S\3/uL 0.0-1.1 EOSINOPH # (test code=EO#) 0.2 10\S\3/uL 0.0-0.7 BASOPHIL # (test code=BA#) 0.0 10\S\3/uL 0.0-0.3 IG # (test code=IG#) 0.05 10\S\3/uL 0.00-0.06 NRBC # (test code=NRBC#) 0.00 10\S\3/uL 0.00-0.01 NEUTROPH % (test code=NE%) 75.2 % 35.0-73.0 LYMPH % (test code=LY%) 17.9 % 20.0-55.0 MONO % (test code=MO%) 4.4 % 2.5-10.0 EOSINOPH % (test code=EO%) 1.7 % 0.0-5.0 BASOPHIL % (test code=BA%) 0.3 % 0.0-2.0 IG % (test code=IG%) 0.5 % 0.0-0.8 NRBC% (test code=NRBC%) 0.0 % 0.0-0.2 MAN DIFF (test code=HMDIFF) MANUAL DIFFERENTIAL SEG (test code=SEG) 76 % 42-75 BAND (test code=BAND) 1 % 0-8 LYMPH (test code=LYMPH) 18 % 20-51 MONO (test code=MONO) 5 % 3-11 EOS (test code=EOS) 0 % 0-10 BASO (test code=BASO) 0 % 0-2 RBC MORPH (test code=RBCMORN) NORMAL NORMAL PLT EST (test code=PLTEST) ADEQUATE ADEQUATE PLT MORPH (test code=PLTMOR) NORMAL (1.5-3 um) NORMAL BASIC METABOLIC [id number] 09:19:00* Test Item Value Reference Range Comments GLUCOSE (test code=06D) 256 mg/dL 75-100 SODIUM (test code=01A) 136 mmol/L 136-145 POTASSIUM (test code=01B) 4.1 mmol/L 3.6-5.1 CHLORIDE (test code=04A) 103 mmol/L 98-107 CO2 (test code=02A) 22 mmol/L 22-32 ANION GAP (test code=ANG) 15.1 mmol/L BUN (test code=05D) 15 mg/dL 7-18 CREATININE (test code=03E) 0.9 mg/dL 0.4-1.1 BUN/CREA (test code=BCR) 17 12-20 CALCIUM (test code=09D) 8.0 mg/dL 8.3-9.5 LIPASE [id number] 09:19:00* Test Item Value Reference Range Comments LIPASE (test code=60A) 279 IU/L 73-393 GLUCOMETER GLUCOSE- LAB USE [id number] 06:21:00* Test Item Value Reference Range Comments GLUCOMETER (test code=GMG) 241 mg/dL 70-100 DAILY MAINTENANCECLEANED METERMeter ID: [id number]: [id number] GLUCOMETER GLUCOSE- LAB USE [id number] 01:06:00* Test Item Value Reference Range Comments GLUCOMETER (test code=GMG) 199 mg/dL 70-100 CLEANED METERDAILY MAINTENANCEMeter ID: [id number]: [id number] ABDOMEN AND PELVIS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 masses: None Stones: None Hydronephrosis: None Echogenicity: Normal LEFT KIDNEY: 12.4 cm, cortex 2.4 cm Cysts: N one Solid masses: None Stones: None Hydronephrosis: None Echogenicity: N ormal Bladder: Decompressed, with Chavez catheter in place. Incidenta l note is made of diffusely decreased echogenicity of the visualized hepatic parenchyma, consistent with steatosis. CONCLUSION: 1. Normal bilatera l renal size and echogenicity. No hydronephrosis, stones, or solid masses. 2. Hepatic steatosis. Jason Lacey M.D. Dictated by: Gabrielle Lacey M.D. on 09/22/2016 at 11:53 Electronically approved by: Jason Lacey M.D. on 09/22/2016 at 11:53 Dictated By: ESTEPHANIA LACEY MD [id number] Tr anscribed By: ARIE on 09/22/16 [id number] COPY TO: ESPERANZA VUONG MD
[2018-03-17 16:39] LABS: BASOPHILS % 0.4 % (0.0-1.0); EOSINOPHILS # (AUTO) 0.2 (0.0-0.4); EOSINOPHILS % 2.1 % (0.0-6.0); HEMATOCRIT 44.8 % (34.2-44.1); HEMOGLOBIN 15.4 g/dL (12.0-16.0); LYMPHOCYTES # (AUTO) 2.8 (1.0-3.2); LYMPHOCYTES % 28.8 % (18.0-39.1); MEAN CORPUSCULAR HGB CONC 34.4 g/dL (31-35); MEAN CORPUSCULAR VOLUME 87.2 fL (81-99); MONOCYTES # (AUTO) 0.4 (0.2-0.8); MONOCYTES % 4.4 % (4.4-11.3); NEUTROPHILS # (AUTO) 6.1 (2.1-6.9); NEUTROPHILS % 63.7 % (38.7-80.0); PLATELET COUNT 282 x10e3/uL (140-360); RED BLOOD COUNT 5.14 x10e6/uL (3.6-5.1); RED CELL DISTRIBUTION WIDTH 13.7 % (11.7-14.4)
[2018-03-17 16:46] LABS: CLARITY,URINE CLEAR (CLEAR); COLOR,URINE YELLOW (YELLOW)
[2018-03-17 16:47] LABS: AMPHETAMINES SCREEN,URINE NEGATIVE (NEGATIVE); BENZODIAZEPINES SCREEN,URINE NEGATIVE (NEGATIVE); BILIRUBIN,URINE NEGATIVE (NEGATIVE); KETONES,URINE NEGATIVE (NEGATIVE); LEUKOCYTE ESTERASE ,URINE NEGATIVE (NEGATIVE); NITRITE,URINE NEGATIVE (NEGATIVE); PROTEIN,URINE DIPSTICK 2+ (NEGATIVE); URINE UROBILINOGEN 0.2 mg/dL (0.2 - 1)
[2018-03-17 16:48] LABS: PHENCYCLIDINE SCREEN,URINE NEGATIVE (NEGATIVE)
[2018-03-17 16:54] LABS: ALANINE AMINOTRANSFERASE 12 IU/L (0-55); ALBUMIN 3.4 g/dL (3.5-5.0); ALBUMIN/GLOBULIN RATIO 0.7 (0.8-2.0); ALKALINE PHOSPHATASE 88 IU/L (40-150); AMYLASE 31 U/L (25-125); ANION GAP 24.7 mmol/L (8-16); BLOOD UREA NITROGEN 17 mg/dL (7-26); BUN/CREATININE RATIO 18 (6-25); CALCIUM 8.9 mg/dL (8.4-10.2); CARBON DIOXIDE 10 mmol/L (22-29); CHLORIDE 101 mmol/L (98-107); CREATININE, SERUM 0.97 mg/dL (0.57-1.11); EST GLOMERULAR FILTRATION RATE > 60 ML/MIN (60-); GLUCOSE 244 mg/dL (74-118); LIPASE 45 U/L (8-78); POTASSIUM 3.7 mmol/L (3.5-5.1); SODIUM 132 mmol/L (136-145)
[2018-03-17 16:54] LABS: EPITHELIAL CELLS,URINE MANY /LPF
[2018-03-17 16:58] LABS: BACTERIA,URINE RARE /HPF; RBC,URINE 0-5 /HPF (0-5); WBC,URINE (MAN) 0-5 /HPF (0-5)
[2018-03-17] MEDS ORDERED: KETOROLAC TROMETHAMINE 30 MG/ML VIAL IV NR (17:00)
[2018-03-17] MEDS ORDERED: ONDANSETRON HCL INJ 2MG/ML 2ML 2 MG/ML VIAL IV NR ×2 (17:16)
--- NOTE | 2018-03-17 17:30 | NUR ---
LACTIC ACID DRAWN, PLACED ON ICE. TAKEN TO LAB R.T. AT BEDSIDE DRAWING BLOOD GAS
[2018-03-17 17:48] LABS: ABG HCO3 20 mmol/L (23-28); ABG PCO2 35 mmHg (41-51); ABG PH 7.36 (7.31-7.41); ABG PO2 95 mmHg (80-105)
[2018-03-17] MEDS ORDERED: MORPHINE SULFATE 2 MG/ML SYR 1ML IV STA (18:14)
[2018-03-17] MEDS ORDERED: MORPHINE SULFATE INJ 4 MG/ML INJ 1ML IV NR (18:30)
[2018-03-17] MEDS ORDERED: LACTATED RINGER'S 2,000 ML ONE (18:56)
[2018-03-17] MEDS ORDERED: LACTATED RINGER'S 1,000 ML IV ONE (19:00)
[2018-03-17] MEDS ORDERED: LACTATED RINGER'S 1,000 ML IV SCH (19:00)
[2018-03-17] MEDS ORDERED: DEXTROSE 50% SYRINGE 50 ML IV PRN (19:15)
--- OUTSIDE RECORDS SUMMARY | 2018-03-17 19:17 | XMS REPORT | Clinical Summary ---
Author Author [place] [facility] Organization [facility] [facility] Address Unknown Phone Unavailable Care Team Providers Care Cartridge Assembling Machine Adjuster Name Role Phone Asked, No Pcp PCP [...] Taken Vital Sign Reading 03/12/2018 11:19 PM CHEMICAL ETCHING PROCESSOR Blood Pressure 171/91 03/12/2018 11:19 PM CHEMICAL ETCHING PROCESSOR Pulse 75 03/12/2018 2:47 PM CHEMICAL ETCHING PROCESSOR Temperature 36.7 C (98 F) 03/12/2018 11:19 PM CHEMICAL ETCHING PROCESSOR Respiratory Rate 18 03/12/2018 11:19 PM CHEMICAL ETCHING PROCESSOR Oxygen Saturation 96% - Inhaled Oxygen - Concentration 11/08/2017 4:04 AM CDT Weight 119 kg (262 lb 12.8 oz) 03/12/2018 3:06 PM CHEMICAL ETCHING PROCESSOR Height 160 cm (5' 3") 11/08/2017 4:04 AM CDT Body Mass Index 46.55 Plan of Treatment Health Maintenance Due Date Last Done Comments CERVICAL CANCER SCREENING 1994 INFLUENZA VACCINE 09/05/2017 Implants Device Identifier Shelf Expiration Date Model / Serial / Lot Implanted Type Area Manufactur er 08/29/2021 [id number] / [id number] / [id number] Mini Open Kit Implant, Cannula, And Arthroscop Right: Shoulder BIOMET, Drill Bit y [employer] Implanted: Qty: 1 on 04/06/2017 by Joby Up MD s 01/10/2019 [id number] / / [id number] Iconix 2 Tape With Intellibrai - IPM Right: Shoulder JAIRON [id number] IMPLANT ORTHOPEDIC Implanted: 04/06/2017 (Quantity not DEVICES S on file) 02/19/2019 [id number] / / [id number] 4.5 Reelx Peek Menard - [id number] IPM Right: Shoulder JAIRON Implanted: 04/06/2017 (Quantity not IMPLANT ORTHOPEDIC on file) DEVICES S 02/19/2019 [id number] / / [id number] 4.5 Reelx Peek Menard - [id number] IPM Right: Shoulder JAIRON Implanted: 04/06/2017 (Quantity not IMPLANT ORTHOPEDIC on file) DEVICES S Procedures Comments Procedure Name Priority Date/Time Associated Diagnosis ED REFERRAL TO CONCEPCION Routine 03/12/2018 TAOISM PHYSICIAN 10:54 PM CHEMICAL ETCHING PROCESSOR ORGANIZATION CT RENAL STONE PROTOCOL STAT 03/12/2018 9:19 PM CHEMICAL ETCHING PROCESSOR HCG QUALITATIVE, URINE STAT 03/12/2018 SCREEN 6:26 PM CHEMICAL ETCHING PROCESSOR URINALYSIS SCREEN AND STAT 03/12/2018 MICROSCOPY, WITH REFLEX 6:26 PM CHEMICAL ETCHING PROCESSOR TO CULTURE URINE CULTURE STAT 03/12/2018 6:23 PM CHEMICAL ETCHING PROCESSOR ESTIMATED GFR STAT 03/12/2018 4:57 PM CHEMICAL ETCHING PROCESSOR LIPASE LEVEL STAT 03/12/2018 4:57 PM CHEMICAL ETCHING PROCESSOR COMPREHENSIVE METABOLIC STAT 03/12/2018 PANEL 4:57 PM CHEMICAL ETCHING PROCESSOR HC COMPLETE BLD COUNT STAT 03/12/2018 W/AUTO DIFF 4:57 [address] ABDOMEN PELVIS W STAT 01/03/2018 CONTRAST 3:42 PM CHEMICAL ETCHING PROCESSOR ECG 12-LEAD STAT 01/03/2018 12:07 PM CHEMICAL ETCHING PROCESSOR ECG ED PRELIMINARY Routine 01/03/2018 INTERPRETATION 11:48 AM CHEMICAL ETCHING PROCESSOR TROPONIN STAT 01/03/2018 11:30 AM CHEMICAL ETCHING PROCESSOR ESTIMATED GFR STAT 01/03/2018 11:30 AM CHEMICAL ETCHING PROCESSOR LIPASE LEVEL STAT 01/03/2018 11:30 AM CHEMICAL ETCHING PROCESSOR AMYLASE LEVEL STAT 01/03/2018 11:30 AM CHEMICAL ETCHING PROCESSOR COMPREHENSIVE METABOLIC STAT 01/03/2018 PANEL 11:30 AM CHEMICAL ETCHING PROCESSOR HC COMPLETE BLD COUNT STAT 01/03/2018 W/AUTO DIFF 11:30 AM CHEMICAL ETCHING PROCESSOR HCG QUALITATIVE, URINE STAT 01/03/2018 SCREEN 10:32 AM CHEMICAL ETCHING PROCESSOR URINALYSIS SCREEN AND STAT 01/03/2018 MICROSCOPY, WITH REFLEX 10:32 AM CHEMICAL ETCHING PROCESSOR TO CULTURE GRAM STAIN ONLY STAT 01/03/2018 10:32 AM CHEMICAL ETCHING PROCESSOR URINE CULTURE STAT 01/03/2018 10:32 AM CHEMICAL ETCHING PROCESSOR ECG ED PRELIMINARY Routine 12/04/2017 INTERPRETATION 1:02 [...] CDT POC GLUCOSE Routine 04/09/2017 11:49 AM CHEMICAL ETCHING PROCESSOR POC GLUCOSE Routine 04/09/2017 7:09 AM CHEMICAL ETCHING PROCESSOR POC GLUCOSE Routine 04/08/2017 8:14 PM CHEMICAL ETCHING PROCESSOR POC GLUCOSE Routine 04/08/2017 5:47 PM CHEMICAL ETCHING PROCESSOR POC GLUCOSE Routine 04/08/2017 11:00 AM CHEMICAL ETCHING PROCESSOR MRI LUMBAR SPINE WO Routine 04/08/2017 CONTRAST 9:47 AM CHEMICAL ETCHING PROCESSOR POC GLUCOSE Routine 04/08/2017 7:57 AM CHEMICAL ETCHING PROCESSOR POC GLUCOSE Routine 04/07/2017 5:47 PM CHEMICAL ETCHING PROCESSOR POC GLUCOSE Routine 04/07/2017 11:29 AM CHEMICAL ETCHING PROCESSOR POC GLUCOSE Routine 04/07/2017 8:00 AM CHEMICAL ETCHING PROCESSOR HC COMPLETE BLD COUNT Routine 04/07/2017 W/AUTO DIFF 5:15 AM CHEMICAL ETCHING PROCESSOR ZZESTIMATED GFR Routine 04/07/2017 4:00 AM CHEMICAL ETCHING PROCESSOR BASIC METABOLIC PANEL Routine 04/07/2017 4:00 AM CHEMICAL ETCHING PROCESSOR POC GLUCOSE Routine 04/06/2017 8:00 PM CHEMICAL ETCHING PROCESSOR XR CHEST 1 VW PORTABLE Routine 04/06/2017 7:22 PM CHEMICAL ETCHING PROCESSOR POC GLUCOSE Routine 04/06/2017 6:32 PM CHEMICAL ETCHING PROCESSOR REPAIR, ROTATOR CUFF, 04/06/2017 RIGHT SHOULDER ROTATOR ARTHROSCOPIC 2:35 PM CHEMICAL ETCHING PROCESSOR CUFF TEAR M75.101, ROTATOR CUFF IMPINGEMENT Special Needs EST 1.5HRS, INTERSCALE NE BLOCK WITH PAIN PUMP, BEACH CHAIR POSITION, SHOULDER ULTRASLING Jose texted-MR WY AN PERIPHERAL BLOCK Routine 04/06/2017 POST-OP PAIN 12:27 PM CHEMICAL ETCHING PROCESSOR Procedure Note - Marlene Mccallum MD - 04/06/2017 12:27 PM CHEMICAL ETCHING PROCESSOR Peripheral Block Performed by: MARLENE MCCALLUM Authorized [...] TYPE AND SCREEN Routine 04/06/2017 10:10 AM CHEMICAL ETCHING PROCESSOR POC GLUCOSE Routine 04/06/2017 10:07 AM CHEMICAL ETCHING PROCESSOR PARTIAL THROMBOPLASTIN Routine 03/23/2017 Preop testing TIME (PTT) 2:30 PM CHEMICAL ETCHING PROCESSOR PROTHROMBIN TIME WITH INR Routine 03/23/2017 Preop testing 2:30 PM CHEMICAL ETCHING PROCESSOR HC COMPLETE BLD COUNT Routine 03/23/2017 Preop testing W/AUTO DIFF 2:30 PM CHEMICAL ETCHING PROCESSOR URINALYSIS SCREEN AND Routine 03/23/2017 Preop testing MICROSCOPY, WITH REFLEX 2:25 PM CHEMICAL ETCHING PROCESSOR TO CULTURE URINE CULTURE Routine 03/23/2017 2:25 PM CHEMICAL ETCHING PROCESSOR ECG 12-LEAD Routine 03/23/2017 Preop testing 2:23 PM CHEMICAL ETCHING PROCESSOR ZZESTIMATED GFR Routine 03/23/2017 2:05 PM CHEMICAL ETCHING PROCESSOR COMPREHENSIVE METABOLIC Routine 03/23/2017 Preop testing PANEL 2:05 PM CHEMICAL ETCHING PROCESSOR after 03/16/2017 Results * CT Renal Stone Protocol (03/12/2018 9:19 PM CHEMICAL ETCHING PROCESSOR) Narrative Performed At EXAMINATION:CT RENAL STONE PROTOCOL [...] be better assessed with dedicated pelvic ultrasound. [facility]-[id number] Procedure Note Interface, Radiology Results Incoming - 03/12/2018 9:30 PM CHEMICAL ETCHING PROCESSOR EXAMINATION: CT RENAL STONE PROTOCOL CLINICAL HISTORY: [...] be better assessed with dedicated pelvic ultrasound. [facility]-[id number] Performing Organization Address City/State/Zipcode Phone Number [employer] [address] [place] [address] * Urinalysis screen and microscopy, with reflex to culture (03/12/2018 6:26 PM CHEMICAL ETCHING PROCESSOR) Only the most recent of 6 results within the time period is included. Specimen site Clean catch [facility] Color, UA Straw [facility] Appearance, UA Clear [facility] Specific gravity, UA 1.028 1.001 - 1.035 [facility] pH, UA 6.0 5.0 - 8.5 [facility] Protein, UA 2+ (A) Negative [facility] Glucose, UA 3+ (A) Negative [facility] Ketones, UA Negative Negative [facility] Bilirubin, UA Negative Negative [facility] Blood, UA Negative Negative [facility] Nitrite, UA Negative Negative [facility] Urobilinogen, UA <2.0 <2.0 [facility] Leukocyte esterase, UA Negative Negative [facility] Epithelial cells, UA 10 /HPF [facility] WBC, UA 2 0 - 4 /HPF [facility] RBC, UA 2 0 - 5 /HPF [facility] Bacteria, UA None seen None seen [facility] Yeast, UA None seen [facility] Yeast with pseudohyphae, None seen [facility] Specimen Urine Performing Organization Address City/[facility]/Zipcode Phone Number [facility] [place] [address] PATHOLOGY AND [facility] [address] * hCG qualitative, urine screen (03/12/2018 6:26 PM CHEMICAL ETCHING PROCESSOR) Only the most recent of 5 results within the time period is included. hCG qualitative, urine NegativeComment: Sensitivity [facility] of HCG test: 25 mIU/mL HOSPITAL Specimen Urine Performing Organization Address City/[facility] Cent[facility]ode Phone Number [facility] [place] [address] PATHOLOGY [address] * Urine culture (03/12/2018 6:23 PM CHEMICAL ETCHING PROCESSOR) Only the most recent of 6 results within the time period is included. Urine culture SEE COMMENTComment: [facility] Bacteriuria screen negative. HOSPITAL Performing Organization Address [facility] Phone Number [facility] [place] [address] PATHOLOGY [address] * Estimated GFR (03/12/2018 4:57 PM CHEMICAL ETCHING PROCESSOR) Only the most recent of 6 results within the time period is included. Estimated GFR 67 mL/min/1.73 m2 [facility] Comment: HOSPITAL CatergoryUnitsInte rpretation G1 >=90 Normal or high G2 60-89Mildly decreased O1o01-12 Mildly to moderately decreased [id number] Moderately to severely decreased G4 15-29Severely decreased G5 <15Kidney failure The eGFR was calculated using the Chronic Kidney Disease Epidemiology Collaboration (CKD-EPI) equation. Interpretation is based on recommendations of the National Kidney Foundation-Kidney Disease Outcomes Quality Initiative (NKF-KDOQI) published in 2014. Specimen Plasma specimen Performing Organization Address City/[facility] Centercode Phone Number [facility] [place] [address] PATHOLOGY AND GENOMIC MEDICINE [address] * CBC with platelet and differential (03/12/2018 4:57 PM CHEMICAL ETCHING PROCESSOR) Only the most recent of 8 results within the time period is included. WBC 8.23 4.50 - 11.00 k/uL [facility] RBC 4.92 4.20 - 5.50 m/uL [facility] HGB 14.8 12.0 - 16.0 g/dL [facility] HCT 45.4 37.0 - 47.0 % [facility] MCV 92.3 82.0 - 100.0 fL [facility] MCH 30.1 27.0 - 34.0 pg [facility] MCHC 32.6 31.0 - 37.0 g/dL [facility] RDW - SD 45.8 37.0 - 55.0 fL [facility] MPV 10.9 8.8 - 13.2 fL [facility] Platelet count 280 150 - 400 k/uL [facility] Nucleated RBC 0.00 /100 WBC [facility] Neutrophils 66.3 39.0 - 69.0 % [facility] Lymphocytes 27.3 25.0 - 45.0 % [facility] Monocytes 3.9 0.0 - 10.0 % [facility] Eosinophils 1.6 0.0 - 5.0 % [facility] Basophils 0.4 0.0 - 1.0 % [facility] Immature granulocytes 0.5Comment: "Immature 0.0 - 1.0 % [facility] granulocytes" (promyelocytes, HOSPITAL myelocytes, metamyelocytes) Specimen Blood Performing Organization Address City/[facility] Centercode Phone Number [facility] [place] [address] PATHOLOGY AND [facility] [address] * Lipase level (03/12/2018 4:57 PM CHEMICAL ETCHING PROCESSOR) Only the most recent of 6 results within the time period is included. Lipase 31 13 - 60 U/L [facility] Specimen Plasma specimen Performing Organization Address City/State/[facility] Centercode Phone Number [facility] [place] [address] PATHOLOGY AND GENOMIC MEDICINE [address] * Comprehensive metabolic panel (03/12/2018 4:57 PM CHEMICAL ETCHING PROCESSOR) Only the most recent of 6 results within the time period is included. Sodium 136 135 - 148 mEq/L [facility] Potassium 3.7 3.5 - 5.0 mEq/L [facility] Chloride 99 98 - 112 mEq/L [facility] CO2 25 24 - 31 mEq/L [facility] Anion gap 12@ANIO 7 - 15 mEq/L [facility] BUN 21 (H) 6 - 20 mg/dL [facility] Creatinine 1.01 (H) 0.50 - 0.90 mg/dL [facility] Glucose 238 (H) 65 - 99 mg/dL [facility] Calcium 8.7 8.3 - 10.2 mg/dL [facility] Protein 6.7 6.3 - 8.3 g/dL [facility] Comment: HOSPITAL 4.6-7.0 g/dL 1 week 4.4-7.6 g/dL 7 months-1year 5.1-7.3 g/dL 1-2 years5.6-7 .5 g/dL >3 years6.0-8 .0 g/dL 18-150 6.3-8.3 g/dL Albumin 3.1 (L) 3.5 - 5.0 g/dL [facility] A/G ratio 0.9 0.7 - 3.8 [facility] Alkaline phosphatase 85 35 - 104 U/L [facility] AST 15 10 - 35 U/L [facility] ALT 30 5 - 50 U/L [facility] Total bilirubin <0.2 0.0 - 1.2 mg/dL [facility] Specimen Plasma specimen Performing Organization Address City/State/Zipcode Phone Number [facility] DEPARTMENT OF [address] [place] [address] PATHOLOGY AND GENOMIC MEDICINE [address] * CT Abdomen Pelvis W Contrast (01/03/2018 3:42 PM CHEMICAL ETCHING PROCESSOR) Only the most recent of 2 results [...] hepatitic steatosis. Probable small left renal cyst. [id number] Procedure Note Hm Interface, Radiology Results Incoming - 01/03/2018 3:58 PM CHEMICAL ETCHING PROCESSOR EXAMINATION: CT ABDOMEN PELVIS W CONTRAST CLINICAL [...] hepatitic steatosis. Probable small left renal cyst. [facility]-[id number] Performing Organization Address City/State/Zipcode Phone Number [email or web address] [address] [place] [address] * ECG 12 lead (01/03/2018 12:07 PM CHEMICAL ETCHING PROCESSOR) Only the most recent of 3 results within the time period is included. Ventricular rate 80 [facility] Atrial rate 80 [facility] WY interval 154 [facility] QRSD interval 90 [facility] QT interval 398 [facility] QTC interval 459 [facility] P axis 1 0 [facility] QRS axis 1 23 [facility] T wave axis 42 [facility] EKG impression Normal sinus rhythm-Cannot [facility] MUSE rule out Anterior infarct , age undetermined-Abnormal ECG-In automated comparison with ECG of 04-DEC-2017 12:29,-QRS duration has decreased- Narrative Performed At Performing Organization Address City/[facility] Centercode Phone Number [facility] MUSE [address] [place] [address] * ECG ED Preliminary Interpretation - Not an Order (01/03/2018 11:48 AM CHEMICAL ETCHING PROCESSOR) Only the most recent of 2 results within the time period is included. Narrative Performed At Candelaria Callahan PA-C 01/03/20185:08 PM ECG ED Preliminary Interpretation - Not an Order Performed by: Candelaria Callahan PA-C Authorized by: Salvador Ornelas MD ECG reviewed by ED Physician in the absence of a copy reader: yes Rate: ECG rate:80 ECG rate assessment: normal Rhythm: Rhythm: sinus rhythm QRS: QRS intervals:Normal Conduction: Conduction: normal ST segments: ST segments:Normal T waves: T waves: normal * Troponin (01/03/2018 11:30 AM CHEMICAL ETCHING PROCESSOR) Only the most recent of 2 results within the time period is included. Troponin <0.30 0.00 - 0.30 ng/mL [facility] Comment: [facility] 0.11 - 1.49 ng/mlMay indicate increased risk of acute coronary syndrome. >=1.5 ng/ml Consistent with acute myocardial infarction. The diagnostic value of a single normal or non-diagnostic result is questionable.Serial samples at 2-6 hour intervals are required to rule out acute myocardial injury. Specimen Plasma specimen Performing Organization Address City/[facility]/Zipcode Phone Number [place] [address] [place] [address] PATHOLOGY AND GENOMIC MEDICINE [facility] [address] * Amylase level (01/03/2018 11:30 AM CHEMICAL ETCHING PROCESSOR) Only the most recent of 3 results within the time period is included. Amylase 21 13 - 73 U/L [facility] Specimen Plasma specimen Performing Organization Address City/State/Zipcode Phone Number [facility] DEPARTMENT OF [address] [place] [address] PATHOLOGY AND GENOMIC MEDICINE [address] * Gram stain only (01/03/2018 10:32 AM CHEMICAL ETCHING PROCESSOR) Gram stain result Rare Gram negative rods [facility] No WBC's [facility] Comment: Specimen Information Specimen Source: Urine Specimen Site: Clean catch Specimen Urine Performing Organization Address City/[facility] Centercode Phone Number [facility] DEPARTMENT OF [address] [place] [address] PATHOLOGY AND GENOMIC MEDICINE [address] * POC glucose (11/08/2017 12:04 PM CDT) Only the most recent of 19 results within the time period is included. POC glucose 179 (H) 65 - 99 mg/dL [facility] DEPARTMENT OF Comment: PATHOLOGY AND [facility] Notified RN GENOMIC MEDICINE Meter ID: [id number] Dairy Farmer: Anisha Quinteros Performing Organization Address [facility] Centercode Phone Number [facility] [place] [address] PATHOLOGY AND GENOMIC MEDICINE * C-reactive protein (11/08/2017 4:30 AM CDT) CRP 1.77 (H) 0.00 - 0.50 mg/dL [facility] DEPARTMENT OF PATHOLOGY AND GENOMIC MEDICINE Specimen Plasma specimen Performing Organization Address [facility] Centercode Phone Number [facility] [place] [address] PATHOLOGY AND GENOMIC MEDICINE * Phosphorus level (11/08/2017 4:30 AM CDT) Phosphorus 3.7 2.4 - 4.5 mg/dL [facility] DEPARTMENT OF PATHOLOGY AND GENOMIC MEDICINE Specimen Plasma specimen Performing Organization Address City/[facility]/Zipcode Phone Number [facility] [place] [address] PATHOLOGY AND GENOMIC MEDICINE * Magnesium level (11/08/2017 4:30 AM CDT) Magnesium 2.0 1.6 - 2.6 mg/dL [facility] DEPARTMENT OF PATHOLOGY AND GENOMIC MEDICINE Specimen Plasma specimen Performing Organization Address City/[facility]/Zipcode Phone Number [facility] [place] [address] PATHOLOGY AND GENOMIC MEDICINE * Hepatic function panel (11/08/2017 4:30 AM CDT) Albumin 2.8 (L) 3.5 - 5.0 g/dL [facility] DEPARTMENT OF PATHOLOGY AND GENOMIC MEDICINE Total bilirubin <0.2 0.0 - 1.2 mg/dL [facility] DEPARTMENT OF PATHOLOGY AND GENOMIC MEDICINE Bilirubin direct Footnote 0.0 - 0.3 mg/dL [facility] DEPARTMENT OF PATHOLOGY AND GENOMIC MEDICINE Alkaline phosphatase Footnote 35 - 104 U/L [facility] DEPARTMENT OF PATHOLOGY AND GENOMIC MEDICINE Protein 6.5 6.3 - 8.3 g/dL [facility] DEPARTMENT OF Comment: PATHOLOGY AND [place] GENOMIC MEDICINE 4.6-7.0 g/dL 1 week 4.4-7.6 g/dL 7 months-1year 5.1-7.3 g/dL 1-2 years5.6-7 .5 g/dL >3 years6.0-8 .0 g/dL 18-150 6.3-8.3 g/dL ALT Footnote 5 - 50 U/L [facility] DEPARTMENT OF PATHOLOGY AND GENOMIC MEDICINE AST Footnote 10 - 35 U/L [facility] DEPARTMENT OF PATHOLOGY AND GENOMIC MEDICINE Specimen Plasma specimen Performing Organization Address City/State/[place] [address] PATHOLOGY AND GENOMIC MEDICINE * Basic metabolic panel (11/08/2017 4:30 AM CDT) Only the most recent of 2 results within the time period is included. Sodium 130 (L) 135 - 148 mEq/L [facility] DEPARTMENT OF PATHOLOGY AND GENOMIC MEDICINE Potassium Footnote 3.5 - 5.0 mEq/L [facility] DEPARTMENT OF Comment: PATHOLOGY AND _K\\AST\\ALT\\DBILI\\ALP results [facility] called to and read back by RN SHIRIN [email or web address]\\[id number] (name/location) 11/08/201705:58 ___ (date/time) by _STAR. Chloride 95 (L) 98 - 112 mEq/L [facility] DEPARTMENT OF PATHOLOGY AND GENOMIC MEDICINE CO2 19 (L) 24 - 31 mEq/L [facility] DEPARTMENT OF PATHOLOGY AND GENOMIC MEDICINE Anion gap 16@ANIO (H) 7 - 15 mEq/L [facility] DEPARTMENT OF PATHOLOGY AND GENOMIC MEDICINE BUN 23 (H) 6 - 20 mg/dL [facility] DEPARTMENT OF PATHOLOGY AND GENOMIC MEDICINE Creatinine 1.09 (H) 0.50 - 0.90 mg/dL [facility] DEPARTMENT OF PATHOLOGY AND GENOMIC MEDICINE Glucose 266 (H) 65 - 99 mg/dL [facility] DEPARTMENT OF PATHOLOGY AND GENOMIC MEDICINE Calcium 8.5 8.3 - 10.2 mg/dL [facility] DEPARTMENT OF PATHOLOGY AND GENOMIC MEDICINE Specimen Plasma specimen Performing Organization Address City/State/Zipcode Phone Number [facility] [place] [place] [address] PATHOLOGY AND GENOMIC MEDICINE * ALT (SGPT) (11/08/2017 12:30 AM CDT) ALT SEE COMMENTComment: 5 - 50 U/L [facility] DEPARTMENT OF Footnote--------- PATHOLOGY AND GENOMIC MEDICINE Specimen Plasma specimen Narrative Performed At Unable to perform testing, specimen is HEMOLYZED.Recollect [facility] DEPARTMENT OF requested for K/AST/ALT/ALP(tests). CALOS COREAS/Davy(name/location) notified PATHOLOGY AND by 11/08/201707:59 (tech ID) at [email or web address](date/time). Credit issued. GENOMIC MEDICINE Performing Organization Address City/[facility] Centercode Phone Number [facility] [place] [address] PATHOLOGY AND GENOMIC MEDICINE * AST (SGOT) (11/08/2017 12:30 AM CDT) AST SEE COMMENTComment: 10 - 35 U/L [facility] DEPARTMENT OF Footnote--------- PATHOLOGY AND GENOMIC MEDICINE Specimen Plasma specimen Narrative Performed At Unable to perform testing, specimen is HEMOLYZED.Recollect [facility] DEPARTMENT OF requested for K/AST/ALT/ALP(tests). CALOS COREAS/[email or web address](name/location) notified PATHOLOGY AND by 11/08/201707:59 (tech ID) at [email or web address](date/time). Credit issued. GENOMIC MEDICINE Performing Organization Address City/State/Zipcode Phone Number [facility] [place] [address] PATHOLOGY AND GENOMIC MEDICINE * Potassium level (11/08/2017 12:30 AM CDT) Potassium SEE COMMENT 3.5 - 5.0 mEq/L [facility] DEPARTMENT OF Comment: PATHOLOGY AND Footnote--------- GENOMIC MEDICINE Unable to perform testing, specimen is HEMOLYZED.Recollect requested for K/AST/ALT/ALP(tests). CALOS DOSHI(name/location) notified by 11/08/201707:59 (tech ID) at [email or web address](date/time). Credit issued. Specimen Plasma specimen Narrative Performed At Unable to perform testing, specimen is HEMOLYZED.Recollect [facility] DEPARTMENT OF requested for K/AST/ALT/ALP(tests). CALOS DOSHI(name/location) notified PATHOLOGY AND by 11/08/201707:59 (tech ID) at LS2(date/time). Credit issued. GENOMIC MEDICINE Performing Organization Address City/State/Zipcode Phone Number [facility] [place] [place] [address] PATHOLOGY AND GENOMIC MEDICINE * Alkaline phosphatase (11/08/2017 12:30 AM CDT) Alkaline phosphatase SEE COMMENTComment: 35 - 104 U/L [facility] DEPARTMENT OF Footnote--------- PATHOLOGY AND GENOMIC MEDICINE Specimen Plasma specimen Narrative Performed At Unable to perform testing, specimen is HEMOLYZED.Recollect [facility] DEPARTMENT OF requested for K/AST/ALT/ALP(tests). CALOS DOSHI(name/location) notified PATHOLOGY AND by 11/08/201707:59 (tech ID) at LS2(date/time). Credit issued. GENOMIC MEDICINE Performing Organization Address [facility]/Zipcode Phone Number [facility] [place] [address] PATHOLOGY AND GENOMIC MEDICINE * Total bilirubin (11/08/2017 12:30 AM CDT) Total bilirubin <0.2 0.0 - 1.2 mg/dL [facility] DEPARTMENT OF PATHOLOGY AND GENOMIC MEDICINE Specimen Plasma specimen Performing Organization Address City/State/Zipcode Phone Number [facility] [place] [place] [address] PATHOLOGY AND GENOMIC MEDICINE * US Hepatic [...] 7 mm. IMPRESSION: Hepatomegaly with fatty infiltration. [facility]-[id number] Procedure Note Hm Interface, Radiology Results Incoming [...] 7 mm. IMPRESSION: Hepatomegaly with fatty infiltration. [facility]-[id number] Performing Organization Address City/[facility] Centercode Phone Number [facility] [address] [place] [address] * Hepatitis acute panel (11/07/2017 4:00 AM CDT) Hepatitis A IgM Non-reactive Non-reactive [facility] DEPARTMENT OF PATHOLOGY AND GENOMIC MEDICINE Hepatitis B core IgM Non-reactive Non-reactive [facility] DEPARTMENT OF PATHOLOGY AND GENOMIC MEDICINE Hepatitis B surface Ag Non-reactive Non-reactive [facility] DEPARTMENT OF PATHOLOGY AND GENOMIC MEDICINE Hepatitis C Ab Non-reactive Non-reactive [facility] DEPARTMENT OF PATHOLOGY AND GENOMIC MEDICINE Specimen Serum Performing Organization Address [facility] Centerconj Phone Number [facility] DEPARTMENT [facility] [place] [address] PATHOLOGY AND GENOMIC MEDICINE * Hemoglobin A1c (11/07/2017 4:00 AM CDT) Hemoglobin A1C 8.6 (H) 4.0 - 5.6 % [facility] DEPARTMENT OF Comment: PATHOLOGY AND [...] 1 diabetes. Specimen Blood Performing Organization Address City/[facility] Centercode Phone Number [facility] DEPARTMENT OF [address] [place] [address] PATHOLOGY AND GENOMIC MEDICINE * MRI Lumbar Spine Wo Contrast (04/08/2017 9:47 AM CHEMICAL ETCHING PROCESSOR) Narrative Performed At [facility] EXAM:MRI LUMBAR SPINE [...] sac and the left S1 nerve root. [facility]-[id number] Procedure Note Interface, Radiology Results - 04/08/2017 10:52 AM CHEMICAL ETCHING PROCESSOR EXAM: MRI LUMBAR SPINE WO CONTRAST COMPARISON: [...] sac and the left S1 nerve root. [facility]-[id number] Performing Organization Address City/State/Zipcode Phone Number [facility] [address] [place] [address] * Estimated GFR (04/07/2017 4:00 AM CHEMICAL ETCHING PROCESSOR) Only the most recent of 2 results within the time period is included. GFR Non Af Amer 60 mL/min/1.[address] [facility] DEPARTMENT OF PATHOLOGY AND GENOMIC MEDICINE GFR Af Amer 73 mL/min/1.[address] [facility] DEPARTMENT OF Comment: PATHOLOGY AND [...] Americans. Specimen Plasma specimen Performing Organization Address [facility] Centercode Phone Number [facility] [place] [address] PATHOLOGY AND GENOMIC MEDICINE * XR Chest 1 Vw Portable (04/06/2017 7:22 PM CHEMICAL ETCHING PROCESSOR) Narrative Performed At EXAMINATION:XR [facility]ST 1 VW PORTABLE [facility] CL[facility] H[facility]:SHORTNESS OF BREATH COMPARISON:December 04, 2014 chest IMPRESSION: Moderate patchy atelectasis right base with mild elevation right hemidiaphragm Overall hypoinflation compared to previous Cardiac silhouette top normal size. No congestion or effusion. No pneumothorax Single view chest [id number] Procedure Note Interface, Radiology Results Incoming - 04/06/2017 7:39 PM CHEMICAL ETCHING PROCESSOR EXAMINATION: XR CHEST 1 VW PORTABLE CLINICAL HISTORY: SHORTNESS OF BREATH COMPARISON: December 04, 2014 chest IMPRESSION: Moderate patchy atelectasis right base with mild elevation right hemidiaphragm Overall hypoinflation compared to previous Cardiac silhouette top normal size. No congestion or effusion. No pneumothorax Single view chest [facility]-[id number] Performing Organization Address [facility] [place] [address] * Type and screen (04/06/2017 10:10 AM CHEMICAL ETCHING PROCESSOR) ABO grouping O [facility] DEPARTMENT OF PATHOLOGY AND GENOMIC MEDICINE Rh type POS [facility] DEPARTMENT OF PATHOLOGY AND GENOMIC MEDICINE Antibody screen (gel) NEG [facility] DEPARTMENT OF PATHOLOGY AND GENOMIC MEDICINE Specimen Blood Performing Organization Address [facility] Centercode Phone Number [address] [address] PATHOLOGY AND GENOMIC MEDICINE * Partial thromboplastin time, activated (03/23/2017 2:30 PM CHEMICAL ETCHING PROCESSOR) PTT 27.7 23.0 - 36.[address] [facility] DEPARTMENT OF Comment: PATHOLOGY AND PTT therapeutic range for GENOMIC MEDICINE unfractionated heparin is 61.0-112.0 seconds which corresponds to Anti-Xa 0.3-0.7 U/ml. Specimen Blood Performing Organization Address City/State/Zipcode Phone Number [place] [phone] [place] [address] PATHOLOGY AND GENOMIC MEDICINE * Prothrombin time with INR (03/23/2017 2:30 PM CHEMICAL ETCHING PROCESSOR) Prothrombin time 12.7 12.0 - 15.[address] [facility] DEPARTMENT OF PATHOLOGY AND GENOMIC MEDICINE INR 0.[address] [facility] DEPARTMENT OF Comment: PATHOLOGY AND The International Normalized GENOMIC MEDICINE Ratio (INR) is a therapeutic monitoring tool for patients who are stable on oral anticoagulant therapy. An INR of 2.0-3.0 is suggested for deep vein thrombosis/pulmonary embolism. Specimen Blood Performing Organization Address City/[facility]/Zipcode Phone Number [place] [phone] [place] [address] PATHOLOGY AND GENOMIC MEDICINE after 03/16/2017 Insurance Payer Benefit Subscriber ID Type Phone Address Plan / Group [facility] xxxxxxxxx HMO PLAN [facility] ANI WORKERS COMP MISC xxxxxx Workers WORKER'S Comp COMP BCBS ANTHEM xxxxxxxxxxxx PPO BLUE CROSS [id number] Workers Employer 02/05/1902 [address] (Home) [address] [place] [address] Advance Directives Patient has advance care planning documents on file. For more information, best bansal contact: Eran Zamora [address] [place] [address]
--- NOTE | 2018-03-17 19:22 | NUR ---
DR DEWEY SPOKE WITH UPPER LINING CEMENTER, CHANGED LR TO BICARB DRIP, PHARMACY NOTIFIED, DC'D LR @ 125ML/H. PHARMACY TO BRING DRIP TO ER WHEN MIXED
[2018-03-17] MEDS: SODIUM BICARBONATE 8.4% SYRING 150 ML in STERILE WATER IV SOLN 1,000 ML IV SCH (19:50)
[2018-03-17] MEDS ORDERED: SODIUM CHLORIDE 0.9% 50ML 50 ML ONE (19:55)
[2018-03-17] MEDS ORDERED: IOPAMIDOL 370 MG/ML 200 ML INFUS..BTL INJ ONE (19:55)
[2018-03-17 20:22] VITALS: BP 153/97
[2018-03-17] MEDS: INSULIN REGULAR, HUMAN 100 UNIT/1 ML 3ML VIAL SQ SCH (20:46)
--- NOTE | 2018-03-17 20:54 | Diagnostic Imaging Report ---
EXAM: CT ABDOMEN/PELVIS W DATE: 03/17/2018 7:06 PM INDICATION: Right upper quadrant pain, pancreatitis COMPARISON: None TECHNIQUE: The abdomen and pelvis were scanned using a multidetector helical scanner. Coronal and sagittal reformations were obtained. CT low dose techniques were utilized, as applicable. IV Contrast: 100 ml Isovue 300/370 FINDINGS: LOWER THORAX: No consolidations LIVER/BILIARY: Hepatic steatosis. Hepatomegaly. No ductal dilatation. GALLBLADDER: Removed SPLEEN: Unremarkable PANCREAS: Unremarkable ADRENALS: No nodules KIDNEYS: Subcentimeter too small to characterize left renal hypodensity. No masses seen. No hydronephrosis. GI TRACT: No wall thickening or evidence of obstruction. No evidence of appendicitis. VESSELS: Scattered mild to moderate atherosclerotic changes. PERITONEUM/RETROPERITONEUM: No free air or fluid LYMPH NODES: No lymphadenopathy REPRODUCTIVE ORGANS/BLADDER: 3.3 cm simple appearing left adnexal cystic structure which may be physiologic. Bladder is decompressed. SOFT TISSUES: Fat-containing ventral hernia. BONES: No suspicious bone lesions. IMPRESSION: 1. No acute abnormality. Specifically, no CT evidence of acute pancreatitis. 2. Hepatomegaly and hepatic steatosis. Signed by: Dr Kiki Maher MD on 03/17/2018 8:51 PM
[2018-03-17] MEDS: ONDANSETRON HCL INJ 2MG/ML 2ML 2 MG/ML VIAL IV PRN (22:47)
[2018-03-17] MEDS: MORPHINE SULFATE INJ 4 MG/ML INJ 1ML IV PRN (22:47)
[2018-03-18] VITALS (7 sets, daily range): BP systolic 140–165; BP diastolic 65–96
[2018-03-18] MEDS: ONDANSETRON HCL INJ 2MG/ML 2ML 2 MG/ML VIAL IV PRN ×4 (04:00→21:46)
[2018-03-18] MEDS: MORPHINE SULFATE INJ 4 MG/ML INJ 1ML IV PRN ×4 (04:00→21:46)
[2018-03-18] MEDS: SODIUM BICARBONATE 8.4% SYRING 150 ML in STERILE WATER IV SOLN 1,000 ML IV SCH (04:00)
[2018-03-18 05:21] LABS: BASOPHILS % 0.6 % (0.0-1.0); EOSINOPHILS # (AUTO) 0.3 (0.0-0.4); EOSINOPHILS % 3.8 % (0.0-6.0); HEMATOCRIT 40.7 % (34.2-44.1); HEMOGLOBIN 13.7 g/dL (12.0-16.0); LYMPHOCYTES # (AUTO) 2.5 (1.0-3.2); LYMPHOCYTES % 38.1 % (18.0-39.1); MEAN CORPUSCULAR HEMOGLOBIN 29.8 pg (28-32); MEAN CORPUSCULAR HGB CONC 33.7 g/dL (31-35); MEAN CORPUSCULAR VOLUME 88.7 fL (81-99); MONOCYTES # (AUTO) 0.4 (0.2-0.8); MONOCYTES % 6.5 % (4.4-11.3); NEUTROPHILS # (AUTO) 3.3 (2.1-6.9); NEUTROPHILS % 50.4 % (38.7-80.0); PLATELET COUNT 244 x10e3/uL (140-360); RED BLOOD COUNT 4.59 x10e6/uL (3.6-5.1); RED CELL DISTRIBUTION WIDTH 13.8 % (11.7-14.4)
[2018-03-18] MEDS: INSULIN REGULAR, HUMAN 100 UNIT/1 ML 3ML VIAL SQ SCH ×4 (07:50→22:16)
[2018-03-18 08:14] LABS: ALANINE AMINOTRANSFERASE 39 IU/L (0-55); ALBUMIN 2.8 g/dL (3.5-5.0); ALBUMIN/GLOBULIN RATIO 0.8 (0.8-2.0); ALKALINE PHOSPHATASE 84 IU/L (40-150); AMYLASE 31 U/L (25-125); ANION GAP 20.6 mmol/L (8-16); BLOOD UREA NITROGEN 14 mg/dL (7-26); BUN/CREATININE RATIO 17 (6-25); CALCIUM 8.3 mg/dL (8.4-10.2); CARBON DIOXIDE 21 mmol/L (22-29); CHLORIDE 97 mmol/L (98-107); CREATININE, SERUM 0.83 mg/dL (0.57-1.11); EST GLOMERULAR FILTRATION RATE > 60 ML/MIN (60-); GLUCOSE 128 mg/dL (74-118); LIPASE 36 U/L (8-78); POTASSIUM 3.6 mmol/L (3.5-5.1); SODIUM 135 mmol/L (136-145)
--- NOTE | 2018-03-18 08:33 | NUR ---
History and PHysical cc: abdominal pain HPI: 42yoF, PCP [facility], developed abdominal pain with nausea; no vomiting/diarrhea. Found to have pancreatitis. No EGD in past. PAST MEDICAL HISTORY: Acute pancreatitis. Splenic abscess in August 2016. Diabetes mellitus type 2. Hypertension. Morbid obesity. Ventral hernia. PAST SURGICAL HISTORY: Cholecystectomy in 2015. C-sec x2; rotator cuff ALLERGIES: TO SHELLFISH. FAMILY HISTORY: Diabetes mellitus and hypertension. Also lupus in her mother. SOCIAL HISTORY: This patient is . She has 2 children. Denies any alcohol, illicit, or cigarettes. She works as a mental health ordnance technician. MEDICATION: Per electronic medical record. REVIEW OF SYSTEMS: No f/c/s/BRAGG/leg pain/backpain/dizziness/vision changes/skin rash V/S: rev'd PE: tired appearing anicteric ns1s2 mod bs Epigastric pain; no rebound no e/t a&ox3; loredo skin dry flat affect Labs/Meds; rev'd A/P: Metabolic Acidosis Lactic acidemia Hyponatremia Dehydration DM2 HTN Morbid obesity BMI 45.7 Hepatomegaly Hepatic steatosis PLAN IVF; bicarbs; NPO hab1c/lipids needs f/u outpatient with endoscopy. Ayaan Baker MD, PhD.
[2018-03-18] MEDS ORDERED: METOPROLOL SUCCINATE 50 MG TAB XL PO SCH (09:00)
[2018-03-18] MEDS ORDERED: LOSARTAN POTASSIUM 100 MG TAB PO SCH (09:00)
[2018-03-18] MEDS: DULOXETINE HCL 30 MG DELAYED RELEASE PO SCH (09:00)
[2018-03-18 09:28] LABS: TRIGLYCERIDES 1622 MG/DL (0-149)
[2018-03-18] MEDS ORDERED: FAMOTIDINE 20 MG TAB PO ONE (09:30)
[2018-03-18 09:31] LABS: CHOLESTEROL 265 MD/DL (0-199); HDL CHOLESTEROL 10.6 MG/DL (40-60)
[2018-03-18] MEDS: INSULIN GLARGINE 100 UNITS/ML VIAL SQ SCH (09:40)
[2018-03-18] MEDS ORDERED: POTASSIUM CHLORIDE 20 MEQ TAB CR PO ONE (10:00)
--- NOTE | 2018-03-18 10:05 | Consultation ---
DATE OF CONSULTATION: RENAL CONSULTATION Thank you for this consultation. Ms. Wilber Patel is a 42-year-old female patient with past medical history significant for diabetes mellitus, history of hypertension, no known chronic kidney disease, also history of anxiety, depression and GERD. She came into the hospital apparently with what appears to be abdominal pain, nausea, vomiting, pancreatitis, and UTI as well. Also found to have profound metabolic acidosis without any evidence of diabetic ketoacidosis. The patient had a similar presentation back in 2017. At this time, the patient was placed on a bicarbonate drip. Bicarb has come up to 21. The patient has had normal kidney function. The patient of note was on metformin. Lactic acid was slightly elevated. No current fever, chills, nausea, vomiting, diarrhea at this time. Abdominal pain is improved also. Renal consultation has been asked for the management of her metabolic acidosis. PAST MEDICAL HISTORY: As outlined above. MEDICATIONS AT HOME: Have been Cymbalta, Pepcid, losartan, lovastatin, metoprolol, nifedipine, pantoprazole, insulin and metformin. ALLERGIES: SHELLFISH AND GRAPEFRUIT. SOCIAL HISTORY: No tobacco. No alcohol use. FAMILY HISTORY: Noncontributory. REVIEW OF SYSTEMS: See HPI. Otherwise, all systems are negative. PHYSICAL EXAMINATION VITALS: Blood pressure 155/87, 66 pulse, 20 respirations, afebrile. HEENT: No cervical lymphadenopathy. The neck is supple without masses. No obvious JVD. Moist-appearing oral mucosa. SKIN: Moist, with good skin turgor. CHEST WALL: Good expansion. No chest wall tenderness. LUNGS: Clear to auscultation bilaterally. CARDIOVASCULAR: S1 and S2. No obvious gallop, rub or murmur. ABDOMEN: Soft. Positive bowel sounds. Nontender. No organomegaly. EXTREMITIES: No evidence of lower extremity edema. No clubbing or cyanosis. NEUROLOGIC: Awake, alert, oriented x3. Grossly otherwise nonfocal exam. LABS: On admission on presentation, sodium 132, potassium 3.7, chloride 101, bicarb 10, BUN 17, creatinine 0.97. Lactic acid was elevated at 25.3. Magnesium 2.4. Today, sodium has come up to 135. Glucose is better controlled. Bicarb has come up to 21 after bicarbonate drip was started last night after discussion with the emergency room physician. Amylase and lipase are within range. IMPRESSION AND PLAN 1. Renal insufficiency has largely resolved with intravenous fluid hydration. Likely, the patient had prerenal azotemia. Will repeat labs in the morning including basic metabolic panel, mag, phos, and urine electrolytes and will make further recommendations. Will check baseline urine protein to urine creatinine ratio to see whether or not she has early-onset chronic kidney disease, stage 1. 2. Hypertension. The blood pressure is stable. Continue current medications. 3. Metabolic acidosis with elevated anion gap and lactic acid. One would have to suspect this may be related to the metformin. The patient has had a similar presentation previously. Would discontinue any metformin. Would recommend to keep the bicarbonate drip going for now until the bicarb is normalized. Then at this time, I would decrease the rate from 150 mL per hour to 75 mL per hour and likely will stop the bicarbonate drip in the next 24 hours. Will also give oral potassium 20 mEq x1 since the potassium will likely drop as the metabolic acidosis is corrected and the patient stays on the bicarbonate drip. Thank you, once again, for this consultation. Will follow the patient closely with you and make further recommendations. Job#: [id number] cc:ESPERANZA VUONG MD
--- NOTE | 2018-03-18 10:57 | NUR ---
SOCIAL WORK INITIAL ASSESSMENT Contract Consultant to bedside to discuss plan of care with patient/family. CM/SW role and care transitions discussed. Anticipated discharge plan discussed along with duration of care. CM/SW discussed patients right to make decisions in care. CM/SW work hours given. 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 Referral Needs: NONE Education Needs: NONE IMM/MCGEE given and signed (if applicable): NA Goal for discharge: RETURN HOME CM/SW left business card at the bedside with contact information. Name and number was also written on the patients whiteboard. Patient verbalized understanding of discussion. CM will follow-up with ongoing discharge and transition of care needs.
--- NOTE | 2018-03-18 12:08 | NUR ---
GAVE PACKET OF INFORMATION WITH COMMUNITY RESOURCES FOR ASSISTANCE WITH LOW TO NO INCOME TO PATIENT. RESOURCES THAT PATIENT MAY BE ABLE TO FOLLOW UP UPON DISCHARGE. PT EDUCATED ON EACH RESOURCE AND UNDERSTANDING HOW TO FOLLOW UP TO SEE IF QUALIFIED FOR EACH RESOURCE.
[2018-03-18] MEDS: SODIUM CHLORIDE 0.9% 1000ML 1,000 ML IV SCH (14:15)
[2018-03-18] MEDS ORDERED: HYDROXYZINE HCL25 MG PO (16:09)
[2018-03-18] MEDS ORDERED: FENOFIBRATE145 MG PO (16:09)
[2018-03-18] MEDS ORDERED: PAXIL10 MG PO (16:12)
[2018-03-18] MEDS: NIFEDIPINE CR 30 MG TAB PO SCH (17:01)
--- NOTE | 2018-03-18 19:00 | NUR ---
received report from day nurse. patient is resting comfortably in bed. bed is in lowest position and call haji is within reach. will continue to monitor patient.
[2018-03-18] MEDS: PRAVASTATIN 20 MG TAB PO SCH (21:46)
[2018-03-19] VITALS (7 sets, daily range): BP systolic 119–159; BP diastolic 66–92
--- NOTE | 2018-03-19 01:00 | NUR ---
patient is complaining of pain around the IV site. IV fluids have been stopped and a new 22gauge IV has been started in patients left writs. patient tolerated procedure well. will continue to monitor patient.
[2018-03-19] MEDS: ONDANSETRON HCL INJ 2MG/ML 2ML 2 MG/ML VIAL IV PRN ×2 (02:39→08:05)
[2018-03-19] MEDS: MORPHINE SULFATE INJ 4 MG/ML INJ 1ML IV PRN ×6 (02:39→23:02)
[2018-03-19] MEDS: SODIUM CHLORIDE 0.9% 1000ML 1,000 ML IV SCH (02:39)
--- NOTE | 2018-03-19 05:37 | NUR ---
IM- Progress note o/N; no events REVIEW OF SYSTEMS: No f/c/s/BRAGG/leg pain/backpain/dizziness/vision changes/skin rash V/S: rev'd PE: tired appearing anicteric ns1s2 mod bs Epigastric pain; no rebound no e/t a&ox3; loredo skin dry flat affect Labs/Meds; rev'd A/P: Metabolic Acidosis Lactic acidemia Hyponatremia Dehydration DM2 HTN Morbid obesity BMI 45.7 Hepatomegaly Hepatic steatosis PLAN IVF; bicarbs; NPO hab1c/lipids needs f/u outpatient with endoscopy. HyperTG- >1000. fibrate; f/u labs; d/c planning; Ayaan Baker MD, PhD.
--- NOTE | 2018-03-19 07:00 | NUR ---
report given to day nurse. patient is resting comfortably in bed. bed is in lowest position and call haji is within reach.
--- NOTE | 2018-03-19 07:22 | NUR ---
Patient resting in bed, Alert with no distress, call light in reach, rating pain 6/10 on right sided abdomen
[2018-03-19] MEDS: INSULIN REGULAR, HUMAN 100 UNIT/1 ML 3ML VIAL SQ SCH ×4 (08:02→21:41)
[2018-03-19] MEDS: FENOFIBRATE 145 MG TAB PO SCH (08:20)
[2018-03-19] MEDS: PANTOPRAZOLE SOD 40 MG TABEC PO SCH (08:20)
[2018-03-19] MEDS: NIFEDIPINE CR 30 MG TAB PO SCH ×2 (08:20→17:12)
[2018-03-19] MEDS: INSULIN GLARGINE 100 UNITS/ML VIAL SQ SCH (08:56)
[2018-03-19] MEDS: DULOXETINE HCL 30 MG DELAYED RELEASE PO SCH (09:00)
[2018-03-19 10:53] LABS: ANION GAP 24.6 mmol/L (8-16); BLOOD UREA NITROGEN 9 mg/dL (7-26); BUN/CREATININE RATIO 12 (6-25); CARBON DIOXIDE 12 mmol/L (22-29); CHLORIDE 98 mmol/L (98-107); CREATININE, SERUM 0.77 mg/dL (0.57-1.11); EST GLOMERULAR FILTRATION RATE > 60 ML/MIN (60-); GLUCOSE 132 mg/dL (74-118); MAGNESIUM 2.5 MG/DL (1.3-2.1); PHOSPHORUS 2.6 MG/DL (2.3-4.7); POTASSIUM 3.6 mmol/L (3.5-5.1); SODIUM 131 mmol/L (136-145)
[2018-03-19] MEDS: SODIUM BICARBONATE 8.4% 50 ML in SODIUM CHLORIDE 0.45% 1,000 ML IV SCH (13:39)
[2018-03-19] MEDS: SODIUM BICARBONATE 650 MG TAB PO SCH ×2 (13:39→21:41)
--- NOTE | 2018-03-19 18:30 | NUR ---
patient resting in bed, Alert with no distress, had shower tolerated with dinner,
--- NOTE | 2018-03-19 19:46 | NUR ---
RECEIVED REPORT FROM NURSE. PATIENT IS IN BED LYING DOWN.
[2018-03-19] MEDS: ATORVASTATIN 20 MG TAB PO SCH (21:34)
[2018-03-19] MEDS: PRAVASTATIN 20 MG TAB PO SCH (21:34)
--- NOTE | 2018-03-19 23:40 | NUR ---
PATIENT REFUSED BED ALARM TO BE ON. CHARGE NURSE WAS TOLD THAT PATIENT REFUSED THE BED ALARM. PATIENT WAS TOLD TO CALL BEFORE GETTING UP. CALL GUEVARA WITHIN REACH.
[2018-03-20] VITALS (9 sets, daily range): BP systolic 120–142; BP diastolic 66–85
[2018-03-20] MEDS: MORPHINE SULFATE INJ 4 MG/ML INJ 1ML IV PRN ×4 (02:47→21:51)
[2018-03-20] MEDS: SODIUM BICARBONATE 8.4% 50 ML in SODIUM CHLORIDE 0.45% 1,000 ML IV SCH (02:56)
--- NOTE | 2018-03-20 05:30 | NUR ---
Received report from obs nurse.
--- NOTE | 2018-03-20 05:31 | NUR ---
IM- Progress note o/N; no events REVIEW OF SYSTEMS: No f/c/s/BRAGG/leg pain/backpain/dizziness/vision changes/skin rash V/S: rev'd PE: tired appearing anicteric ns1s2 mod bs Epigastric pain; no rebound no e/t a&ox3; loredo skin dry flat affect Labs/Meds; rev'd A/P: Metabolic Acidosis Lactic acidemia Hyponatremia Dehydration DM2 HTN Morbid obesity BMI 45.7 Hepatomegaly Hepatic steatosis PLAN IVF; bicarbs; NPO hab1c/lipids needs f/u outpatient with endoscopy. HyperTG- >1000. fibrate; f/u labs; d/c planning; Metabolic acidosis- PO bicarbs; f/u labs this am Ayaan Baker MD, PhD.
[2018-03-20] MEDS: SODIUM BICARBONATE 650 MG TAB PO SCH ×3 (05:44→21:03)
--- NOTE | 2018-03-20 06:14 | NUR ---
Patient arrived to floor via s/c.
--- NOTE | 2018-03-20 06:20 | NUR ---
PATIENT WAS TRANSFERRED TO ROOM 207 VIA WHEELCHAIR WILL ALL HER BELONGINGS. REPORT WAS GIVEN TO THE NURSE. PATIENT WAS IN NO PAIN OR DISTRESS.
--- NOTE | 2018-03-20 07:09 | NUR ---
Change of shift report given to incoming nurse.
[2018-03-20 08:16] LABS: ANION GAP 24.2 mmol/L (8-16); CALCIUM 8.4 mg/dL (8.4-10.2); CARBON DIOXIDE 13 mmol/L (22-29); CHLORIDE 97 mmol/L (98-107); CREATININE, SERUM 0.84 mg/dL (0.57-1.11); EST GLOMERULAR FILTRATION RATE > 60 ML/MIN (60-); GLUCOSE 167 mg/dL (74-118); POTASSIUM 3.2 mmol/L (3.5-5.1); SODIUM 131 mmol/L (136-145)
[2018-03-20 08:32] LABS: BLOOD UREA NITROGEN 14 mg/dL (7-26); BUN/CREATININE RATIO 17 (6-25)
[2018-03-20] MEDS: PANTOPRAZOLE SOD 40 MG TABEC PO SCH (08:50)
[2018-03-20] MEDS: NIFEDIPINE CR 30 MG TAB PO SCH ×2 (08:50→17:54)
[2018-03-20] MEDS: FENOFIBRATE 145 MG TAB PO SCH (08:50)
[2018-03-20] MEDS: DULOXETINE HCL 30 MG DELAYED RELEASE PO SCH (08:51)
[2018-03-20] MEDS: INSULIN REGULAR, HUMAN 100 UNIT/1 ML 3ML VIAL SQ SCH ×4 (09:17→21:04)
[2018-03-20] MEDS: INSULIN GLARGINE 100 UNITS/ML VIAL SQ SCH (09:17)
[2018-03-20] MEDS ORDERED: POTASSIUM CHLORIDE 10MEQ/100ML 400 ML IV ONE (16:00)
--- NOTE | 2018-03-20 16:20 | Progress Note ---
DATE: March 20, 2018 RENAL PROGRESS NOTE SUBJECTIVE: Followed for metabolic acidosis, which is current despite having the patient on bicarb drip initially. She responded well to sterile water with 3 amps of bicarb at 150 mL per hour. Bicarb went up to 21 yesterday. Bicarb drip was changed to half NS with 75 mEq of sodium bicarb to run at 75 mL per hour. However, bicarb has dropped again to 13. Patient has also been placed on oral bicarb. No nausea. No vomiting. No shortness of breath. OBJECTIVE VITAL SIGNS: Noted and are stable. LUNGS: Clear to auscultation bilaterally. CARDIOVASCULAR: S1 and S2. No rubs. ABDOMEN: Soft and nontender. EXTREMITIES: No edema. LABS: Reviewed. As follows: Hemoglobin 13.7. Sodium 131, potassium 3.2, BUN is 14, creatinine 0.8, and bicarb of 13. Anion gap of 24. IMPRESSION AND PLAN 1. High anion gap metabolic acidosis: Lactic acid was elevated initially. Will recheck a lactic acid level in the morning. Would keep her off any metformin. Will place the patient back on D5 water with 3 amps of sodium bicarb. Will add 20 mEq of potassium chloride per liter and run it at 150 mL per hour. Will continue with oral sodium bicarbonate. If also required, will replace oral potassium supplement. 2. Hypertension, stable. 3. Hyponatremia: Likely from hypovolemia. Will place back on isotonic bicarb drip as outlined above. Job#: [id number] ND
[2018-03-20] MEDS: [UNRECOGNIZED DRUG - OTHER] IV SCH (17:55)
[2018-03-20] MEDS: SODIUM BICARBONATE IV SCH (17:55)
[2018-03-20] MEDS: POTASSIUM CHLORIDE IV SCH (17:55)
[2018-03-20] MEDS: POTASSIUM CHLORIDE 20 MEQ TAB CR PO SCH (17:55)
[2018-03-20] MEDS: ATORVASTATIN 20 MG TAB PO SCH (21:03)
[2018-03-20] MEDS: PRAVASTATIN 20 MG TAB PO SCH (21:03)
[2018-03-20] MEDS: ONDANSETRON HCL INJ 2MG/ML 2ML 2 MG/ML VIAL IV PRN (21:51)
[2018-03-21] VITALS (7 sets, daily range): BP systolic 114–163; BP diastolic 69–97
[2018-03-21] MEDS: POTASSIUM CHLORIDE IV SCH ×5 (01:59→21:30)
[2018-03-21] MEDS: ONDANSETRON HCL INJ 2MG/ML 2ML 2 MG/ML VIAL IV PRN ×2 (01:59→06:02)
[2018-03-21] MEDS: [UNRECOGNIZED DRUG - OTHER] IV SCH ×2 (01:59→08:14)
[2018-03-21] MEDS: SODIUM BICARBONATE IV SCH ×5 (01:59→21:30)
[2018-03-21] MEDS: MORPHINE SULFATE INJ 4 MG/ML INJ 1ML IV PRN ×6 (01:59→22:45)
[2018-03-21 05:30] LABS: BASOPHILS % 0.6 % (0.0-1.0); EOSINOPHILS # (AUTO) 0.2 (0.0-0.4); EOSINOPHILS % 3.4 % (0.0-6.0); HEMATOCRIT 39.9 % (34.2-44.1); HEMOGLOBIN 13.2 g/dL (12.0-16.0); LYMPHOCYTES # (AUTO) 2.3 (1.0-3.2); LYMPHOCYTES % 35.8 % (18.0-39.1); MEAN CORPUSCULAR HEMOGLOBIN 29.5 pg (28-32); MEAN CORPUSCULAR HGB CONC 33.1 g/dL (31-35); MEAN CORPUSCULAR VOLUME 89.3 fL (81-99); MONOCYTES # (AUTO) 0.3 (0.2-0.8); MONOCYTES % 5.3 % (4.4-11.3); NEUTROPHILS # (AUTO) 3.5 (2.1-6.9); NEUTROPHILS % 54.3 % (38.7-80.0); PLATELET COUNT 242 x10e3/uL (140-360); RED BLOOD COUNT 4.47 x10e6/uL (3.6-5.1); RED CELL DISTRIBUTION WIDTH 13.5 % (11.7-14.4)
[2018-03-21 06:01] LABS: ANION GAP 18.7 mmol/L (8-16); BLOOD UREA NITROGEN 11 mg/dL (7-26); BUN/CREATININE RATIO 14 (6-25); CALCIUM 8.4 mg/dL (8.4-10.2); CARBON DIOXIDE 22 mmol/L (22-29); CHLORIDE 96 mmol/L (98-107); CREATININE, SERUM 0.79 mg/dL (0.57-1.11); EST GLOMERULAR FILTRATION RATE > 60 ML/MIN (60-); GLUCOSE 190 mg/dL (74-118); MAGNESIUM 1.9 MG/DL (1.3-2.1); PHOSPHORUS 2.6 MG/DL (2.3-4.7); POTASSIUM 3.7 mmol/L (3.5-5.1); SODIUM 133 mmol/L (136-145)
[2018-03-21] MEDS: SODIUM BICARBONATE 650 MG TAB PO SCH ×3 (06:02→22:00)
--- NOTE | 2018-03-21 07:14 | NUR ---
IM- Progress note o/N; no events REVIEW OF SYSTEMS: No f/c/s/BRAGG/leg pain/backpain/dizziness/vision changes/skin rash V/S: rev'd PE: tired appearing anicteric ns1s2 mod bs Epigastric pain; no rebound no e/t a&ox3; loredo skin dry flat affect Labs/Meds; rev'd A/P: Metabolic Acidosis Lactic acidemia Hyponatremia Dehydration DM2 HTN Morbid obesity BMI 45.7 Hepatomegaly Hepatic steatosis PLAN IVF; bicarbs; NPO hab1c/lipids needs f/u outpatient with endoscopy. HyperTG- >1000. fibrate; f/u labs; d/c planning; Metabolic acidosis- PO bicarbs; f/u labs this am 2/14 bicarbs; lactic acidemia; fluids. Ayaan Baker MD, PhD.
[2018-03-21] MEDS: PANTOPRAZOLE SOD 40 MG TABEC PO SCH (08:13)
[2018-03-21] MEDS: NIFEDIPINE CR 30 MG TAB PO SCH ×2 (08:14→16:39)
[2018-03-21] MEDS: FENOFIBRATE 145 MG TAB PO SCH (08:14)
[2018-03-21] MEDS: POTASSIUM CHLORIDE 20 MEQ TAB CR PO SCH (08:14)
[2018-03-21] MEDS: DULOXETINE HCL 30 MG DELAYED RELEASE PO SCH (08:15)
[2018-03-21] MEDS: HYDROXYZINE HCL 25 MG TAB PO PRN (09:00)
[2018-03-21] MEDS: INSULIN REGULAR, HUMAN 100 UNIT/1 ML 3ML VIAL SQ SCH ×4 (09:10→21:00)
[2018-03-21] MEDS: INSULIN GLARGINE 100 UNITS/ML VIAL SQ SCH (09:11)
[2018-03-21] MEDS: [UNRECOGNIZED DRUG - OTHER] IV SCH ×3 (09:28→21:30)
--- NOTE | 2018-03-21 09:38 | Progress Note ---
DATE: March 21, 2018 RENAL PROGRESS NOTE SUBJECTIVE: Followed for acute kidney injury, which has resolved. Patient also has persistent metabolic acidosis. Bicarb is better today. Sodium is better today after I resumed isotonic IV fluids. Apparently, patient's bicarb had dropped again yesterday. Patient's lactic acid still remains on the higher side at 22.7. No nausea, no vomiting, no shortness of breath. OBJECTIVE: VITAL SIGNS: Have been noted and are stable. LUNGS: Clear to auscultation bilaterally. CARDIOVASCULAR: S1 and S2. No rub. ABDOMEN: Soft, nontender. EXTREMITIES: No edema. LABS: Sodium 132, potassium 3.7, bicarb now is 22, BUN 11, creatinine 0.79. Glucose is going up now. IMPRESSION AND PLAN: 1. Acute kidney injury, resolved. 2. Metabolic acidosis. Will change fluids to half normal saline plus 75 mEq of sodium bicarb plus 20 mEq of potassium chloride per liter, run at 150 mL per hour and check daily labs. 3. Hypertension. Blood pressure is stable. Continue to monitor. 4. Hypokalemia has resolved now. Will continue potassium and intravenous fluids, also oral potassium to prevent the hypokalemia from happening again. Thank you once again. Job#: [id number]
[2018-03-21] MEDS: PRAVASTATIN 20 MG TAB PO SCH (21:00)
[2018-03-21] MEDS: ATORVASTATIN 20 MG TAB PO SCH (21:00)
[2018-03-22 00:19] VITALS: BP 165/89
[2018-03-22] MEDS: ONDANSETRON HCL INJ 2MG/ML 2ML 2 MG/ML VIAL IV PRN (02:45)
[2018-03-22] MEDS: MORPHINE SULFATE INJ 4 MG/ML INJ 1ML IV PRN ×4 (02:45→15:37)
[2018-03-22 04:25] VITALS: BP 136/90
[2018-03-22] MEDS: SODIUM BICARBONATE IV SCH (05:17)
[2018-03-22] MEDS: [UNRECOGNIZED DRUG - OTHER] IV SCH (05:17)
[2018-03-22] MEDS: POTASSIUM CHLORIDE IV SCH (05:17)
[2018-03-22 05:43] LABS: ANION GAP 16.8 mmol/L (8-16); BLOOD UREA NITROGEN 9 mg/dL (7-26); BUN/CREATININE RATIO 11 (6-25); CALCIUM 8.6 mg/dL (8.4-10.2); CARBON DIOXIDE 25 mmol/L (22-29); CHLORIDE 101 mmol/L (98-107); CREATININE, SERUM 0.84 mg/dL (0.57-1.11); EST GLOMERULAR FILTRATION RATE > 60 ML/MIN (60-); GLUCOSE 136 mg/dL (74-118); MAGNESIUM 1.9 MG/DL (1.3-2.1); PHOSPHORUS 2.9 MG/DL (2.3-4.7); POTASSIUM 3.8 mmol/L (3.5-5.1); SODIUM 139 mmol/L (136-145)
--- NOTE | 2018-03-22 06:24 | NUR ---
IM- Progress note o/N; no events REVIEW OF SYSTEMS: No f/c/s/BRAGG/leg pain/backpain/dizziness/vision changes/skin rash V/S: rev'd PE: tired appearing anicteric ns1s2 mod bs Epigastric pain; no rebound no e/t a&ox3; loredo skin dry flat affect Labs/Meds; rev'd A/P: Metabolic Acidosis Lactic acidemia Hyponatremia Dehydration DM2 HTN Morbid obesity BMI 45.7 Hepatomegaly Hepatic steatosis PLAN IVF; bicarbs; NPO hab1c/lipids needs f/u outpatient with endoscopy. HyperTG- >1000. fibrate; f/u labs; d/c planning; Metabolic acidosis- PO bicarbs; f/u labs this am 03/21 bicarbs; lactic acidemia; fluids. 03/22 acidosis resolved with bicarbs; Ayaan Baker MD, PhD.
[2018-03-22] MEDS: SODIUM BICARBONATE 650 MG TAB PO SCH ×2 (06:51→14:18)
[2018-03-22] MEDS: INSULIN REGULAR, HUMAN 100 UNIT/1 ML 3ML VIAL SQ SCH ×3 (08:00→16:36)
[2018-03-22 08:08] VITALS: BP 144/80
[2018-03-22] MEDS: DULOXETINE HCL 30 MG DELAYED RELEASE PO SCH (08:55)
[2018-03-22] MEDS: INSULIN GLARGINE 100 UNITS/ML VIAL SQ SCH (09:00)
[2018-03-22] MEDS: NIFEDIPINE CR 30 MG TAB PO SCH ×2 (09:03→15:37)
[2018-03-22] MEDS: FENOFIBRATE 145 MG TAB PO SCH (09:03)
[2018-03-22] MEDS: POTASSIUM CHLORIDE 20 MEQ TAB CR PO SCH (09:03)
[2018-03-22] MEDS: HYDROXYZINE HCL 25 MG TAB PO PRN (09:03)
[2018-03-22] MEDS: PANTOPRAZOLE SOD 40 MG TABEC PO SCH (09:03)
--- NOTE | 2018-03-22 10:24 | NUR ---
PER DR. JOYCE HENSON TO D/C HOME FROM HIS STANDPOINT.
--- NOTE | 2018-03-22 10:32 | NUR ---
CALLED DR. VUONG FOR D/C ORDERS. NO ANSWER "MAILBOX FULL".
--- NOTE | 2018-03-22 10:34 | Progress Note ---
DATE: March 22, 2018 RENAL PROGRESS NOTE SUBJECTIVE: Followed for metabolic acidosis, which has resolved now and bicarb is 25 and anion gap is 16.8, slightly high. Lactic acid has normalized now. No nausea. No vomiting. No shortness of breath. OBJECTIVE VITAL SIGNS: Have been noted and are stable. LUNGS: Clear to auscultation bilaterally. CARDIOVASCULAR: S1 and S2. No rub. ABDOMEN: Soft and nontender. EXTREMITIES: No edema. LABS: Potassium 3.8, BUN is 9, creatinine 0.8, and CO2 is 25. Lactic acid is normal at 14.8. IMPRESSION AND PLAN 1. Azotemia, resolved: Will likely stop the intravenous fluids and continue oral sodium bicarbonate. 2. Hypertension, stable: Blood pressure is normal. 3. Metabolic acidosis: Lactic acid is normal now. Bicarb is 25. Will discontinue the bicarb drip now. Continue the oral sodium bicarbonate and monitor. Would keep the patient off metformin. Job#: [id number] MD
[2018-03-22 11:50] VITALS: BP 115/60
--- NOTE | 2018-03-22 12:04 | NUR ---
SPOKE WITH DR. VUONG REGARDING D/C ORDERS. STATES TO DRAW BMP AT 1400 AND CALL WITH RESULTS.
[2018-03-22 15:08] LABS: ANION GAP 17.1 mmol/L (8-16); BLOOD UREA NITROGEN 10 mg/dL (7-26); BUN/CREATININE RATIO 12 (6-25); CALCIUM 8.7 mg/dL (8.4-10.2); CARBON DIOXIDE 22 mmol/L (22-29); CHLORIDE 101 mmol/L (98-107); CREATININE, SERUM 0.86 mg/dL (0.57-1.11); EST GLOMERULAR FILTRATION RATE > 60 ML/MIN (60-); GLUCOSE 195 mg/dL (74-118); POTASSIUM 4.1 mmol/L (3.5-5.1); SODIUM 136 mmol/L (136-145)
--- NOTE | 2018-03-22 15:30 | NUR ---
REVIEWED BMP RESULTS WITH DR. VUONG STATES WILL SEE PT TOMORROW.
[2018-03-22 15:42] VITALS: BP 148/89
--- NOTE | 2018-03-22 16:24 | NUR ---
RECEIVED CALL FROM DR. VUONG PT CAN D/C HOME TODAY. HE WILL CALL IN RX TO [facility]. PHONE NUMBER PROVIDED PER PATIENT [phone].
--- NOTE | 2018-03-22 17:38 | NUR ---
SPOKE WITH DR. VUONG PT REQUESTING RX FOR MEDICATION FOR BLOOD SUGAR. PER DR. VUONG HE WILL CALL IN RX FOR LANTUS AND PT NEEDS TO FOLLOW UP ON SUNDAY IN HIS OFFICE. PT NOTIFIED AND VERBALIZED UNDERSTANDING.
== END 2018-03-22 17:47 | disposition home or self-care (01) | DRG 683 ==
LOC: ER 16:12 → ERHOLD 19:14 → IMCU 20:23 → OBSVTOIN 03-19 15:50 → MED/SURG2 03-20 06:39
PROVIDERS: ADMIT Internal Medicine; ATTEND Internal Medicine
DX: N17.9 Acute kidney failure, unspecified (principal); E87.2 Acidosis; E87.1 Hypo-osmolality and hyponatremia; I10 Essential (primary) hypertension; E87.6 Hypokalemia; E86.1 Hypovolemia; E11.65 Type 2 diabetes mellitus with hyperglycemia; Z79.84 Long term (current) use of oral hypoglycemic drugs
CPT/HCPCS: 36415; 36600; 74177; 80048; 80053; 80061; 80307; 81001; 81025; 82150; 82570; 82805; 82948; 83036; 83605; 83690; 83735; 84100; 84156; 84300; 85025; 99284; G0378; J1815; J1885; J2270; J2405; J3410; J3480; J7030; J7070; J7121; Q9967

== ENCOUNTER 2018-05-27 13:53 | Emergency (ER) | payer MEDICARE, OTHER ==
[~2018-05-27] VITALS: Ht 157.5 cm; Wt 121.1 kg
[~2018-05-27 13:53] MED LIST changes: +FENOFIBRATE145 MG PO; +HYDROXYZINE HCL25 MG PO; +PAXIL10 MG PO
--- OUTSIDE RECORDS SUMMARY | 2018-05-27 13:56 | XMS REPORT | Clinical Summary ---
Author Author [facility] Organization [facility] Address Unknown Phone Unavailable Care Team Providers Care Lpn Rn Name Role Phone Asked, No Pcp PCP [...] by 0 25 mg tablet mouth daily. 11/08/2017 Discontinued NIFEdipine CC (ADALAT CC) Take [...] 3 (three) times a day before meals. 05/28/2017 Discontinued acetaminophen-codeine Take 2 60 tablet [...] 1 Take 1 tablet 120 tablet 0 10/04/201 gram tablet (1 g total) 8 by [...] moderate pain for up to 5 days. 03/17/2018 ondansetron (ZOFRAN) 4 MG Take 1 tablet 20 tablet 0 tablet (4 mg total) 9 by mouth every 6 (six) hours for 5 days. 03/17/2018 ibuprofen (ADVIL,MOTRIN) Take 1 tablet 20 tablet 0 600 MG tablet (600 mg 9 total) by mouth every 6 (six) hours as needed for mild pain for up to 5 days. Active [...] Surgery Joby Ramos MD 07/30/2017 Telephone Orthopedic Surgery Joby Ramos MD 07/17/2017 Abstract Orthopedic Surgery Amy Ocasio [...] right shoulder 05/28/2017 Orders Only Orthopedic Surgery after 05/26/2017 Immunizations Name Dates Previously Given Next Due Pneumococcal 11/07/2017 Polysaccharide Social History Date Tobacco Use Types Packs/Day Years Used Quit: 2009 Former Smoker Cigarettes 2 10 Smokeless Tobacco: Never Used Alcohol Use Drinks/Week oz/Week Comments No Sex Assigned at Date Recorded Not on file Industry Job Start Date Occupation Not on file Not on file Not on file Travel End Travel History Travel Start No recent travel history available. Last Filed Vital Signs Time Taken Vital Sign Reading 03/12/2018 11:19 PM SCREW MACHINE SET UP OPERATOR TOOL Blood Pressure 171/91 03/12/2018 11:19 PM SCREW MACHINE SET UP OPERATOR TOOL Pulse 75 03/12/2018 2:47 PM SCREW MACHINE SET UP OPERATOR TOOL Temperature 36.7 C (98 F) 03/12/2018 11:19 PM SCREW MACHINE SET UP OPERATOR TOOL Respiratory Rate 18 03/12/2018 11:19 PM SCREW MACHINE SET UP OPERATOR TOOL Oxygen Saturation 96% - Inhaled Oxygen - Concentration 11/08/2017 4:04 AM CDT Weight 119 kg (262 lb 12.8 oz) 03/12/2018 3:06 PM SCREW MACHINE SET UP OPERATOR TOOL Height 160 cm (5' 3") 11/08/2017 4:04 AM CDT Body Mass Index 46.55 Plan of Treatment Health Maintenance Due Date Last Done Comments CERVICAL CANCER SCREENING 1994 INFLUENZA VACCINE 09/05/2018 Implants Device Identifier Shelf Expiration Date Model / Serial / Lot Implanted Type Area Manufactur er 08/29/2021 [id number] / [id number] / [id number] Mini Open Kit Implant, Cannula, And Arthroscop Right: Shoulder BIOMET, Dr[employer] Implanted: Qty: 1 on 04/06/2017 by Joby Up MD s 01/10/2019 [id number] / / [id number] Iconix 2 Tape With Intellibrai - IPM Right: Shoulder JAIRON [id number] IMPLANT ORTHOPEDIC Implanted: 04/06/2017 (Quantity not DEVICES S on file) 02/19/2019 [id number] / / [id number] 4.5 [employer] [place] - [id number] IPM Right: Shoulder JAIRON Implanted: 04/06/2017 (Quantity not IMPLANT ORTHOPEDIC on file) DEVICES S 02/19/2019 [id number] / / [id number] 4.5 [employer] [place] - [id number] IPM Right: Shoulder JAIRON Implanted: 04/06/2017 (Quantity not IMPLANT ORTHOPEDIC on file) DEVICES S Procedures Comments Procedure Name Priority Date/Time Associated Diagnosis ED REFERRAL TO COMPTON Routine 03/12/2018 YARSANISM PHYSICIAN 10:54 PM SCREW MACHINE SET UP OPERATOR TOOL ORGANIZATION CT RENAL STONE PROTOCOL STAT 03/12/2018 9:19 PM SCREW MACHINE SET UP OPERATOR TOOL HCG QUALITATIVE, URINE STAT 03/12/2018 SCREEN 6:26 PM SCREW MACHINE SET UP OPERATOR TOOL URINALYSIS SCREEN AND STAT 03/12/2018 MICROSCOPY, WITH REFLEX 6:26 PM SCREW MACHINE SET UP OPERATOR TOOL TO CULTURE URINE CULTURE STAT 03/12/2018 6:23 PM SCREW MACHINE SET UP OPERATOR TOOL ESTIMATED GFR STAT 03/12/2018 4:57 PM SCREW MACHINE SET UP OPERATOR TOOL LIPASE LEVEL STAT 03/12/2018 4:57 PM SCREW MACHINE SET UP OPERATOR TOOL COMPREHENSIVE METABOLIC STAT 03/12/2018 PANEL 4:57 PM SCREW MACHINE SET UP OPERATOR TOOL HC COMPLETE BLD COUNT STAT 03/12/2018 W/AUTO DIFF 4:57 PM SCREW MACHINE SET UP OPERATOR TOOL CT ABDOMEN PELVIS W STAT 01/03/2018 CONTRAST 3:42 PM SCREW MACHINE SET UP OPERATOR TOOL ECG 12-LEAD STAT 01/03/2018 12:07 PM SCREW MACHINE SET UP OPERATOR TOOL ECG ED PRELIMINARY Routine 01/03/2018 INTERPRETATION 11:48 AM SCREW MACHINE SET UP OPERATOR TOOL TROPONIN STAT 01/03/2018 11:30 AM SCREW MACHINE SET UP OPERATOR TOOL ESTIMATED GFR STAT 01/03/2018 11:30 AM SCREW MACHINE SET UP OPERATOR TOOL LIPASE LEVEL STAT 01/03/2018 11:30 AM SCREW MACHINE SET UP OPERATOR TOOL AMYLASE LEVEL STAT 01/03/2018 11:30 AM SCREW MACHINE SET UP OPERATOR TOOL COMPREHENSIVE METABOLIC STAT 01/03/2018 PANEL 11:30 AM SCREW MACHINE SET UP OPERATOR TOOL HC COMPLETE BLD COUNT STAT 01/03/2018 W/AUTO DIFF 11:30 AM SCREW MACHINE SET UP OPERATOR TOOL HCG QUALITATIVE, URINE STAT 01/03/2018 SCREEN 10:32 AM SCREW MACHINE SET UP OPERATOR TOOL URINALYSIS SCREEN AND STAT 01/03/2018 MICROSCOPY, WITH REFLEX 10:32 AM SCREW MACHINE SET UP OPERATOR TOOL TO CULTURE GRAM STAIN ONLY STAT 01/03/2018 10:32 AM SCREW MACHINE SET UP OPERATOR TOOL URINE CULTURE STAT 01/03/2018 10:32 AM SCREW MACHINE SET UP OPERATOR TOOL ECG ED PRELIMINARY Routine 12/04/2017 INTERPRETATION 1:02 [...] STAT 11/06/2017 W/AUTO DIFF 9:32 PM CDT after 05/26/2017 Results * CT Renal Stone Protocol (03/12/2018 9:19 PM SCREW MACHINE SET UP OPERATOR TOOL) Narrative Performed At EXAMINATION:CT RENAL STONE PROTOCOL [facility] CLINICAL HISTORY:L flank and LLQ pain [...] better assessed with dedicated pelvic ultrasound. [facility]-[id number] Procedure Note Hm Interface, Radiology Results Incoming - 03/12/2018 9:30 PM SCREW MACHINE SET UP OPERATOR TOOL EXAMINATION: CT RENAL STONE PROTOCOL CLINICAL HISTORY: [...] better assessed with dedicated pelvic ultrasound. [facility]-[id number] Performing Organization Address City/State/Zipcode Phone Number [facility] [address] [place] [address] * Urinalysis screen and microscopy, with reflex to culture (03/12/2018 6:26 PM SCREW MACHINE SET UP OPERATOR TOOL) Only the most recent of 5 results within the time period is included. Specimen site Clean catch [facility] Color, UA Straw [facility] Appearance, UA Clear [facility] Specific gravity, UA 1.028 1.001 - 1.035 [facility] pH, UA 6.0 5.0 - 8.5 [facility] Protein, UA 2+ (A) Negative [facility] Glucose, UA 3+ (A) Negative [facility] Ketones, UA Negative Negative [facility] Bilirubin, UA Negative Negative [facility] Blood, UA Negative Negative [facility] Nitrite, UA Negative Negative [facility] Urobilinogen, UA <2.0 <2.0 [facility] Leukocyte esterase, UA Negative Negative [facility] Epithelial cells, UA 10 /HPF [facility] WBC, UA 2 0 - 4 /HPF [facility] RBC, UA 2 0 - 5 /HPF [facility] Bacteria, UA None seen None seen [facility] Yeast, UA None seen [facility] Yeast with pseudohyphae, None seen [facility] Specimen Urine Performing Organization Address City/[facility] Phone Number [facility] [place] [address] PATHOLOGY AND GENOMIC MEDICINE [address] * hCG qualitative, urine screen (03/12/2018 6:26 PM SCREW MACHINE SET UP OPERATOR TOOL) Only the most recent of 5 results within the time period is included. hCG qualitative, urine NegativeComment: Sensitivity [facility] of HCG test: 25 mIU/mL HOSPITAL Specimen Urine Performing Organization Address [facility] Phone Number [facility] DEPARTMENT OF [address] [place] [address] PATHOLOGY AND GENOMIC MEDICINE [address] * Urine culture (03/12/2018 6:23 PM SCREW MACHINE SET UP OPERATOR TOOL) Only the most recent of 5 results within the time period is included. Urine culture SEE COMMENTComment: [facility] Bacteriuria screen negative. HOSPITAL Performing Organization Address [facility] Phone Number [facility] [place] [address] PATHOLOGY AND GENOMIC MEDICINE [address] * Estimated GFR (03/12/2018 4:57 PM SCREW MACHINE SET UP OPERATOR TOOL) Only the most recent of 6 results within the time period is included. Estimated GFR 67 mL/min/1.73 m2 [facility] Comment: HOSPITAL CatergoryUnitsInte rpretation G1 >=90 Normal or high G2 60-89Mildly decreased F4w83-51 Mildly to moderately decreased A6t16-90 Moderately to severely decreased G4 15-29Severely decreased G5 <15Kidney failure The eGFR was calculated using the Chronic Kidney Disease Epidemiology Collaboration (CKD-EPI) equation. Interpretation is based on recommendations of the National Kidney Foundation-Kidney Disease Outcomes Quality Initiative (NKF-KDOQI) published in 2014. Specimen Plasma specimen Performing Organization Address City/State/Zipcode Phone Number [facility] DEPARTMENT OF [address] [place] [address] PATHOLOGY AND GENOMIC MEDICINE [address] * CBC with platelet and differential (03/12/2018 4:57 PM SCREW MACHINE SET UP OPERATOR TOOL) Only the most recent of 6 results within the time period is included. WBC 8.23 4.50 - 11.00 k/uL [facility] RBC 4.92 4.20 - 5.50 m/uL [facility] HGB 14.8 12.0 - 16.0 g/dL [facility] HCT 45.4 37.0 - 47.0 % [facility] MCV 92.3 82.0 - 100.0 fL [facility] MCH 30.1 27.0 - 34.0 pg [facility] MCHC 32.6 31.0 - 37.0 g/dL [facility] RDW - SD 45.8 37.0 - 55.0 fL [facility] MPV 10.9 8.8 - 13.2 fL [facility] Platelet count 280 150 - 400 k/uL [facility] Nucleated RBC 0.00 /100 WBC [facility] Neutrophils 66.3 39.0 - 69.0 % [facility] Lymphocytes 27.3 25.0 - 45.0 % [facility] Monocytes 3.9 0.0 - 10.0 % [facility] Eosinophils 1.6 0.0 - 5.0 % [facility] Basophils 0.4 0.0 - 1.0 % [facility] Immature granulocytes 0.5Comment: "Immature 0.0 - 1.0 % [facility] granulocytes" (promyelocytes, HOSPITAL myelocytes, metamyelocytes) Specimen Blood Performing Organization Address City/[facility]/Zipcode Phone Number [facility] [place] [address] PATHOLOGY AND GENOMIC MEDICINE [address] * Lipase level (03/12/2018 4:57 PM SCREW MACHINE SET UP OPERATOR TOOL) Only the most recent of 6 results within the time period is included. Lipase 31 13 - 60 U/L [facility] Specimen Plasma specimen Performing Organization Address City/[facility] Phone Number [facility] DEPARTMENT OF [address] [place] [address] PATHOLOGY AND GENOMIC MEDICINE [address] * Comprehensive metabolic panel (03/12/2018 4:57 PM SCREW MACHINE SET UP OPERATOR TOOL) Only the most recent of 5 results within the time period is included. Sodium 136 135 - 148 mEq/L [facility] Potassium 3.7 3.5 - 5.0 mEq/L [facility] Chloride 99 98 - 112 mEq/L [facility] CO2 25 24 - 31 mEq/L [facility] Anion gap 12@ANIO 7 - 15 mEq/L [facility] BUN 21 (H) 6 - 20 mg/dL [facility] Creatinine 1.01 (H) 0.50 - 0.90 mg/dL [facility] Glucose 238 (H) 65 - 99 mg/dL [facility] Calcium 8.7 8.3 - 10.2 mg/dL [facility] Protein 6.7 6.3 - 8.3 g/dL [facility] Comment: HOSPITAL [place] 4.6-7.0 g/dL 1 week 4.4-7.6 g/dL 7 months-1year 5.1-7.3 g/dL 1-2 years5.6-7 .5 g/dL >3 years6.0-8 .0 g/dL 18-150 6.3-8.3 g/dL Albumin 3.1 (L) 3.5 - 5.0 g/dL [facility] A/G ratio 0.9 0.7 - 3.8 [facility] Alkaline phosphatase 85 35 - 104 U/L [facility] AST 15 10 - 35 U/L [facility] ALT 30 5 - 50 U/L [facility] Total bilirubin <0.2 0.0 - 1.2 mg/dL [facility] Specimen Plasma specimen Performing Organization Address City/[facility] Phone Number [facility] DEPARTMENT OF [address] [place] [address] PATHOLOGY AND GENOMIC MEDICINE [address] * CT Abdomen Pelvis W Contrast (01/03/2018 3:42 PM SCREW MACHINE SET UP OPERATOR TOOL) Only the most recent of 2 results [...] hepatitic steatosis. Probable small left renal cyst. [id number] Procedure Note Hm Interface, Radiology Results Incoming - 01/03/2018 3:58 PM SCREW MACHINE SET UP OPERATOR TOOL EXAMINATION: CT ABDOMEN PELVIS W CONTRAST CLINICAL [...] hepatitic steatosis. Probable small left renal cyst. [id number] Performing Organization Address City/State/Zipcode Phone Number [facility] [address] [place] [address] * ECG 12 lead (01/03/2018 12:07 PM SCREW MACHINE SET UP OPERATOR TOOL) Only the most recent of 2 results within the time period is included. Ventricular rate 80 [facility] Atrial rate 80 [facility] NM interval 154 [facility] QRSD interval 90 [...] decreased- Narrative Performed At Performing Organization Address [facility] Phone Number [facility] MUSE [address] [place] [address] * ECG ED Preliminary Interpretation - Not an Order (01/03/2018 11:48 AM SCREW MACHINE SET UP OPERATOR TOOL) Only the most recent of 2 results within the time period is included. Narrative Performed At Candelaria Callahan PA-C 01/03/20185:08 PM ECG ED Preliminary Interpretation - Not an Order Performed by: Candelaria Callahan PA-C Authorized by: Salvador Ornelas MD ECG reviewed by ED Physician in the absence of a semiconductor packages tester: yes Rate: ECG rate:80 ECG rate assessment: normal Rhythm: Rhythm: sinus rhythm QRS: QRS intervals:Normal Conduction: Conduction: normal ST segments: ST segments:Normal T waves: T waves: normal * Troponin (01/03/2018 11:30 AM SCREW MACHINE SET UP OPERATOR TOOL) Only the most recent of 2 results within the time period is included. Troponin <0.30 0.00 - 0.30 ng/mL ERAN YARSANISM Comment: [facility] 0.11 - 1.49 ng/mlMay indicate increased risk of acute coronary syndrome. >=1.5 ng/ml Consistent with acute myocardial infarction. The diagnostic value of a single normal or non-diagnostic result is questionable.Serial samples at 2-6 hour intervals are required to rule out acute myocardial injury. Specimen Plasma specimen Performing Organization Address City/[facility] Phone Number [facility] [place] [address] PATHOLOGY AND GENOMIC MEDICINE [address] * Amylase level (01/03/2018 11:30 AM SCREW MACHINE SET UP OPERATOR TOOL) Only the most recent of 3 results within the time period is included. Amylase 21 13 - 73 U/L [facility] Specimen Plasma specimen Performing Organization Address [facility] Phone Number [facility] [place] [address] PATHOLOGY AND GENOMIC MEDICINE [address] * Gram stain only (01/03/2018 10:32 AM SCREW MACHINE SET UP OPERATOR TOOL) Gram stain result Rare Gram negative rods [facility] WBC's [facility] Comment: Specimen Information Specimen Source: Urine Specimen Site: Clean catch Specimen Urine Performing Organization Address [facility] Phone Number [facility] [place] [address] PATHOLOGY AND GENOMIC MEDICINE [address] * POC glucose (11/08/2017 12:04 PM CDT) Only the most recent of 7 results within the time period is included. POC glucose 179 (H) 65 - 99 mg/dL [facility] DEPARTMENT OF Comment: PATHOLOGY AND [facility] Notified RN GENOMIC MEDICINE Meter ID: [id number] Truck Driver: Anisha Quinteros Performing Organization Address [facility] Phone Number [facility] [place] [address] PATHOLOGY AND GENOMIC MEDICINE * C-reactive protein (11/08/2017 4:30 AM CDT) CRP 1.77 (H) 0.00 - 0.50 mg/dL [facility] DEPARTMENT OF PATHOLOGY AND GENOMIC MEDICINE Specimen Plasma specimen Performing Organization Address [facility] [place] [address] PATHOLOGY AND GENOMIC MEDICINE * Phosphorus level (11/08/2017 4:30 AM CDT) Phosphorus 3.7 2.4 - 4.5 mg/dL [facility] DEPARTMENT OF PATHOLOGY AND GENOMIC MEDICINE Specimen Plasma specimen Performing Organization Address [facility] Phone Number [facility] DEPARTMENT [address] [address] PATHOLOGY AND GENOMIC MEDICINE * Magnesium level (11/08/2017 4:30 AM CDT) Magnesium 2.0 1.6 - 2.6 mg/dL [facility] DEPARTMENT OF PATHOLOGY AND GENOMIC MEDICINE Specimen Plasma specimen Performing Organization Address [facility] Phone Number [address] [address] PATHOLOGY AND GENOMIC MEDICINE * Hepatic function panel (11/08/2017 4:30 AM CDT) Albumin 2.8 (L) 3.5 - 5.0 g/dL [facility] DEPARTMENT OF PATHOLOGY AND GENOMIC MEDICINE Total bilirubin <0.2 0.0 - 1.2 mg/dL [facility] DEPARTMENT OF PATHOLOGY AND GENOMIC MEDICINE Bilirubin direct Footnote 0.0 - 0.3 mg/dL [facility] DEPARTMENT OF PATHOLOGY AND GENOMIC MEDICINE Alkaline phosphatase Footnote 35 - 104 U/L [facility] DEPARTMENT OF PATHOLOGY AND GENOMIC MEDICINE Protein 6.5 6.3 - 8.3 g/dL [facility] DEPARTMENT OF Comment: PATHOLOGY AND [place] GENOMIC MEDICINE 4.6-7.0 g/dL 1 week 4.4-7.6 g/dL 7 months-1year 5.1-7.3 g/dL 1-2 years5.6-7 .5 g/dL >3 years6.0-8 .0 g/dL 18-150 6.3-8.3 g/dL ALT Footnote 5 - 50 U/L [facility] DEPARTMENT OF PATHOLOGY AND GENOMIC MEDICINE AST Footnote 10 - 35 U/L [facility] DEPARTMENT OF PATHOLOGY AND GENOMIC MEDICINE Specimen Plasma specimen Performing Organization Address [facility] Phone Number [facility] DEPARTMENT OF [address] [place] [id number] PATHOLOGY AND GENOMIC MEDICINE * Basic metabolic panel (11/08/2017 4:30 AM CDT) Sodium 130 (L) 135 - 148 mEq/L [facility] DEPARTMENT OF PATHOLOGY AND GENOMIC MEDICINE Potassium Footnote 3.5 - 5.0 mEq/L [facility] DEPARTMENT OF Comment: PATHOLOGY AND _K\\AST\\ALT\\DBILI\\ALP results [facility] called to and read back by SAMINA [email or web address]\\[id number] (name/location) at105:58 ___ (date/time) by _LSB. Chloride 95 (L) 98 - 112 mEq/L [facility] DEPARTMENT OF PATHOLOGY AND GENOMIC MEDICINE CO2 19 (L) 24 - 31 mEq/L [facility] DEPARTMENT OF PATHOLOGY AND GENOMIC MEDICINE Anion gap 16@ANIO (H) 7 - 15 mEq/L [facility] DEPARTMENT OF PATHOLOGY AND GENOMIC MEDICINE BUN 23 (H) 6 - 20 mg/dL [facility] DEPARTMENT OF PATHOLOGY AND GENOMIC MEDICINE Creatinine 1.09 (H) 0.50 - 0.90 mg/dL [facility] DEPARTMENT OF PATHOLOGY AND GENOMIC MEDICINE Glucose 266 (H) 65 - 99 mg/dL [facility] DEPARTMENT OF PATHOLOGY AND GENOMIC MEDICINE Calcium 8.5 8.3 - 10.2 mg/dL [facility] DEPARTMENT OF PATHOLOGY AND GENOMIC MEDICINE Specimen Plasma specimen Performing Organization Address City/State/[place] [address] PATHOLOGY AND GENOMIC MEDICINE * ALT (SGPT) (11/08/2017 12:30 AM CDT) ALT SEE COMMENTComment: 5 - 50 U/L [facility] DEPARTMENT OF Footnote--------- PATHOLOGY AND GENOMIC MEDICINE Specimen Plasma specimen Narrative Performed At Unable to perform testing, specimen is HEMOLYZED.Recollect [facility] DEPARTMENT OF requested for K/AST/ALT/ALP(tests). CALOS COREAS/Davy(name/location) notified PATHOLOGY AND by 11/08/201707:59 (tech ID) at LS2(date/time). Credit issued. GENOMIC MEDICINE Performing Organization Address City/[facility]/Zipcode Phone Number [facility] DEPARTMENT OF [address] [place] [address] PATHOLOGY AND GENOMIC MEDICINE * AST (SGOT) (11/08/2017 12:30 AM CDT) AST SEE COMMENTComment: 10 - 35 U/L [facility] DEPARTMENT OF Footnote--------- PATHOLOGY AND GENOMIC MEDICINE Specimen Plasma specimen Narrative Performed At Unable to perform testing, specimen is HEMOLYZED.Recollect [facility] DEPARTMENT OF requested for K/AST/ALT/ALP(tests). CALOS COREAS/Davy(name/location) notified PATHOLOGY AND by 11/08/201707:59 (tech ID) at LS2(date/time). Credit issued. GENOMIC MEDICINE Performing Organization Address [facility]/Zipcode Phone Number [facility] [place] [address] PATHOLOGY AND GENOMIC MEDICINE * Potassium level (11/08/2017 12:30 AM CDT) Potassium SEE COMMENT 3.5 - 5.0 mEq/L [facility] DEPARTMENT OF Comment: PATHOLOGY AND Footnote--------- GENOMIC MEDICINE Unable to perform testing, specimen is HEMOLYZED.Recollect requested for K/AST/ALT/ALP(tests). CALOS COREAS/Davy(name/location) notified by 11/08/201707:59 (tech ID) at LS2(date/time). Credit issued. Specimen Plasma specimen Narrative Performed At Unable to perform testing, specimen is HEMOLYZED.Recollect [facility] DEPARTMENT OF requested for K/AST/ALT/ALP(tests). CALOS COREAS/Davy(name/location) notified PATHOLOGY AND by 11/08/201707:59 (tech ID) at LS2(date/time). Credit issued. GENOMIC MEDICINE Performing Organization Address [facility] Phone Number [facility] [place] [address] PATHOLOGY AND GENOMIC MEDICINE * Alkaline phosphatase (11/08/2017 12:30 AM CDT) Alkaline phosphatase SEE COMMENTComment: 35 - 104 U/L [facility] DEPARTMENT OF Footnote--------- PATHOLOGY AND GENOMIC MEDICINE Specimen Plasma specimen Narrative Performed At Unable to perform testing, specimen is HEMOLYZED.Recollect [facility] DEPARTMENT OF requested for K/AST/ALT/ALP(tests). CALOS COREAS/JazzElza(name/location) notified PATHOLOGY AND by 11/08/201707:59 (tech ID) at LS2(date/time). Credit issued. GENOMIC MEDICINE Performing Organization Address City/State/[place] [address] PATHOLOGY AND GENOMIC MEDICINE * Total bilirubin (11/08/2017 12:30 AM CDT) Total bilirubin <0.2 0.0 - 1.2 mg/dL [facility] DEPARTMENT OF PATHOLOGY AND GENOMIC MEDICINE Specimen Plasma specimen Performing Organization Address City/State/[place] [address] PATHOLOGY AND GENOMIC MEDICINE * US Hepatic (11/07/2017 8:15 PM CDT) Narrative Performed At EXAMINATION:[facility] CLINICAL HISTORY:acute pancreatitis COMPARISON:None. FINDINGS: 1.Liver is enlarged measuring 21 cm in length and appears somewhat heterogeneous and increasing echogenicity. No definite focal hepatic lesions are seen. Portal vein is patent measuring 1 cm with antegrade flow. Status post cholecystectomy. Common duct is 7 mm. IMPRESSION: Hepatomegaly with fatty infiltration. [facility]-[id number] Procedure Note Interface, Radiology Results Incoming - [...] mm. IMPRESSION: Hepatomegaly with fatty infiltration. [facility]-[id number] Performing Organization Address [facility] [facility] Phone Number [facility] [address] [place] [phone] * Hepatitis acute panel (11/07/2017 4:00 AM CDT) Hepatitis A IgM Non-reactive Non-reactive [facility] DEPARTMENT OF PATHOLOGY AND GENOMIC MEDICINE Hepatitis B core IgM Non-reactive Non-reactive [facility] DEPARTMENT OF PATHOLOGY AND GENOMIC MEDICINE Hepatitis B surface Ag Non-reactive Non-reactive [facility] DEPARTMENT OF PATHOLOGY AND GENOMIC MEDICINE Hepatitis C Ab Non-reactive Non-reactive [facility] DEPARTMENT OF PATHOLOGY AND GENOMIC MEDICINE Specimen Serum Performing Organization Address [facility] [place] [place] [address] PATHOLOGY AND GENOMIC MEDICINE * Hemoglobin A1c (11/07/2017 4:00 AM CDT) Hemoglobin A1C 8.6 (H) 4.0 - 5.6 % [facility] DEPARTMENT OF Comment: PATHOLOGY AND HbA1c [...] Blood Performing Organization Address City/State/Zipcode Phone Number [facility] DEPARTMENT OF [address] [place] [address] PATHOLOGY AND GENOMIC MEDICINE after 05/26/2017 Insurance Payer Benefit Subscriber ID Type Phone Address Plan / Group [facility] xxxxxxxxx HMO PLAN [facility] [employer] WORKERS COMP MISC xxxxxx Workers WORKER'S Comp COMP BCBS ANTHEM xxxxxxxxxxxx PPO [facility] [id number] Workers Employer 02/05/1902 [id number] [place] [address] Advance Directives Patient has advance care planning documents on file. For more information, best bansal contact: Eran Zamora [phone] [place] [address]
--- NOTE | 2018-05-27 14:26 | NUR ---
"just went" to restroom. no ua collected. pt given specimen cup and will void soon
--- NOTE | 2018-05-27 15:30 | NUR ---
2nd call for treatment no answer in lobby.
[2018-05-27 16:18] LABS: BASOPHILS % 0.3 % (0.0-1.0); EOSINOPHILS # (AUTO) 0.1 (0.0-0.4); EOSINOPHILS % 0.6 % (0.0-6.0); HEMATOCRIT 42.3 % (34.2-44.1); HEMOGLOBIN 14.9 g/dL (12.0-16.0); LYMPHOCYTES # (AUTO) 2.1 (1.0-3.2); LYMPHOCYTES % 16.8 % (18.0-39.1); MEAN CORPUSCULAR HEMOGLOBIN 30.9 pg (28-32); MEAN CORPUSCULAR HGB CONC 35.2 g/dL (31-35); MEAN CORPUSCULAR VOLUME 87.8 fL (81-99); MONOCYTES # (AUTO) 0.5 (0.2-0.8); NEUTROPHILS # (AUTO) 9.9 (2.1-6.9); NEUTROPHILS % 77.8 % (38.7-80.0); PLATELET COUNT 257 x10e3/uL (140-360); RED BLOOD COUNT 4.82 x10e6/uL (3.6-5.1); RED CELL DISTRIBUTION WIDTH 13.2 % (11.7-14.4)
[2018-05-27 16:24] LABS: COLOR,URINE YELLOW (YELLOW)
[2018-05-27 16:25] LABS: BILIRUBIN,URINE NEGATIVE (NEGATIVE); CLARITY,URINE SL CLOUDY (CLEAR); KETONES,URINE NEGATIVE (NEGATIVE); LEUKOCYTE ESTERASE ,URINE NEGATIVE (NEGATIVE); NITRITE,URINE NEGATIVE (NEGATIVE); PREGNANCY TEST, URINE NEGATIVE (NEGATIVE); PROTEIN,URINE DIPSTICK 1+ (NEGATIVE); URINE UROBILINOGEN 0.2 mg/dL (0.2 - 1)
[2018-05-27 16:30] LABS: ALBUMIN/GLOBULIN RATIO 0.7 (0.8-2.0); CALCIUM 8.7 mg/dL (8.4-10.2); CREATININE, SERUM 1.41 mg/dL (0.57-1.11)
[2018-05-27 16:42] LABS: AMYLASE 20 U/L (25-125); CREATINE KINASE 168 IU/L (29-168); LIPASE 35 U/L (8-78)
[2018-05-27 16:42] LABS: BACTERIA,URINE MODERATE /HPF; EPITHELIAL CELLS,URINE FEW /LPF
[2018-05-27 16:43] LABS: AMPHETAMINES SCREEN,URINE NEGATIVE (NEGATIVE); BENZODIAZEPINES SCREEN,URINE NEGATIVE (NEGATIVE); PHENCYCLIDINE SCREEN,URINE NEGATIVE (NEGATIVE)
[2018-05-27] MEDS ORDERED: SODIUM CHLORIDE 0.9% 1000ML 1,000 ML IV STA (19:45)
[2018-05-27] MEDS ORDERED: POTASSIUM CHLORIDE 20 MEQ TAB CR PO ONE (21:27)
[2018-05-27] MEDS ORDERED: INSULIN REGULAR, HUMAN 100 UNIT/1 ML 3ML VIAL IV ONE (21:30)
[2018-05-27] MEDS ORDERED: SODIUM CHLORIDE 0.9% 1000ML 1,000 ML IV SCH (21:30)
[2018-05-27] MEDS ORDERED: HYDROCODONE/APAP 10MG-325MG TAB PO ONE (21:30)
--- NOTE | 2018-05-27 22:57 | Diagnostic Imaging Report ---
CHEST SINGLE (PORTABLE), Technique: CHEST SINGLE (PORTABLE) Comparison: 01/09/2018 Clinical history: Chest pain. DISCUSSION: Normal cardiomediastinal silhouette. Low lung volumes without consolidation or edema. No effusion or pneumothorax. Right humeral head anchor screws again noted. IMPRESSION: No acute thoracic abnormality Signed by: Dr. Juan Francisco Cardenas M.D. on 05/27/2018 10:54 PM
--- NOTE | 2018-05-28 | Diagnostic Imaging Report ---
EXAM: CT Abdomen and Pelvis WITHOUT contrast INDICATION: Right flank pain. COMPARISON: 03/17/2018. TECHNIQUE: Abdomen and pelvis were scanned utilizing a multidetector helical scanner from the lung base to the pubic symphysis without administration of IV contrast. Absence of intravenous contrast decreases sensitivity for detection of focal lesions and vascular pathology. Coronal and sagittal reformations were obtained. Renal stone protocol was performed. IV CONTRAST: None. ORAL CONTRAST: Water RADIATION DOSE: Total DLP: 1564 mGy*cm Estimated effective dose: (DLP x 0.015 x size factor) mSv COMPLICATIONS: None FINDINGS: LINES and TUBES: None. LOWER THORAX: Mild bibasilar dependent atelectasis. HEPATOBILIARY: Diffuse hepatic steatosis. No focal hepatic lesions. No biliary ductal dilation. GALLBLADDER: There are cholecystectomy clips. No wall thickening. SPLEEN: No splenomegaly. PANCREAS: No focal masses or ductal dilatation. ADRENALS: No adrenal nodules KIDNEYS/URETERS: No hydronephrosis. No cystic or solid mass lesions. No stones. GI TRACT: No abnormal distention, wall thickening, or evidence of bowel obstruction. Appendix is normal. PELVIC ORGANS/BLADDER: Unremarkable. LYMPH NODES: No lymphadenopathy. VESSELS: There is mild atherosclerotic disease in the aorta and major arterial branches. PERITONEUM / RETROPERITONEUM: No free air or fluid. BONES: Lower thoracic DISH. SOFT TISSUES: Moderate sized ventral incisional periumbilical hernia containing a moderate volume of mesenteric fat. No herniated bowel loops. IMPRESSION: 1. No acute abdominal pelvic abnormality. 2. Hepatomegaly and hepatic steatosis. 3. Moderate sized fat-containing ventral abdominal hernia. Signed by: Dr. Juan Francisco Cardenas M.D. on 05/27/2018 11:57 PM
[2018-05-28 00:58] VITALS: BP 121/64
== END 2018-05-28 01:08 | disposition home or self-care (01) ==
LOC: ER 13:53
DX: R10.11 Right upper quadrant pain (principal); R10.13 Epigastric pain; R11.2 Nausea with vomiting, unspecified; M54.5 Low back pain; K29.00 Acute gastritis without bleeding
CPT/HCPCS: 36415; 71045; 74176; 80053; 80307; 81001; 81025; 82150; 82550; 82553; 82948; 83690; 84484; 85025; 93005; 99284; J1817; J7030

== ENCOUNTER 2018-09-14 18:11 | Emergency (ER) | payer BC, OTHER ==
[~2018-09-14] VITALS: Ht 157.5 cm; Wt 121.1 kg
--- OUTSIDE RECORDS SUMMARY | 2018-09-14 18:14 | XMS REPORT | Clinical Summary ---
Author Author [facility] Address Unknown Phone Unavailable Care Team Providers Care Director [employer] Name Role Phone Asked, No Pcp PCP Unavailable Allergies Comments Active Allergy Reactions Severity Noted Date itching Fish Containing Products Hives, Rash Low 03/23/2017 Tongue and body swelling and shortness of breath Grapefruit Anaphylaxis High 03/23/2017 Shellfish Derived Hives 01/10/2017 Tomato sauce, tongue and lips swelling Tomato Swelling 11/24/2017 Medications End Date Status Medication Sig Dispensed Refills Start Date Active losartan (COZAAR) 100 MG Take 100 mg 0 tablet by mouth daily. Active lovastatin (MEVACOR) 20 Take 60 mg by 0 MG tablet mouth daily. Active FLUoxetine (PROzac) 10 MG Take 20 mg by 0 capsule mouth nightly. Active empagliflozin (JARDIANCE) Take 25 mg by 0 25 mg tablet mouth daily. Active NIFEdipine CC (ADALAT CC) Take 60 mg by 0 60 MG 24 hr tablet mouth 2 (two) times a day. Active diphenhydrAMINE Take 25 mg by 0 (BENADRYL) 25 mg tablet mouth nightly as needed for sleep. 08/04/2018 Discontinued metoprolol succinate XL Take 50 mg by 0 (TOPROL-XL) 50 mg 24 hr mouth daily. tablet 11/08/2017 Discontinued NIFEdipine CC (ADALAT CC) Take [...] 3 (three) times a day before meals. 09/30/2017 acetaminophen-codeine Take 2 60 tablet 0 06/27/201 (TYLENOL WITH CODEINE #3) tablets by 8 300-30 mg per mouth every 4 tabletIndications: Acute (four) hours pain of right shoulder as needed for moderate pain for up to 60 days. 10/06/2017 traMADol (ULTRAM) 50 mg Take 1 tablet 70 tablet 0 tabletIndications: Acute (50 mg total) 8 pain of right shoulder by mouth every 4 (four) hours as needed for moderate pain for up to 30 days. 08/05/2018 Discontinued metFORMIN (GLUCOPHAGE) Take 500 mg 0 500 mg tablet by mouth 2 (two) times a day with meals. 12/08/2017 insulin detemir U-100 Inject 15 9 [...] mild pain for up to 5 days. 08/05/2018 Discontinued hydroCHLOROthiazide Take 50 mg by 0 (HYDRODIURIL) 25 MG mouth daily. tablet 08/05/2018 Discontinued insulin detemir U-100 Inject 18 0 (LEVEMIR) 100 unit/mL Units under injection the skin 2 (two) times a day. 09/04/2018 insulin detemir U-100 Inject 18 10.8 mL 0 (LEVEMIR) 100 unit/mL Units under 9 injection the skin 2 (two) times a day for 30 days. 09/04/2018 metFORMIN (GLUCOPHAGE) Take 1 tablet 60 tablet 0 500 mg tablet (500 mg 9 total) by mouth 2 (two) times a day with meals for 30 days. 09/05/2018 fenofibrate (LOFIBRA) 54 Take 1 tablet 30 tablet 1 MG tablet (54 mg total) 9 by mouth daily for 30 days. 08/05/2018 Discontinued acetaminophen-codeine Take 1 tablet 30 tablet 0 (TYLENOL WITH CODEINE #3) by mouth 9 300-30 mg per tablet every 6 (six) hours as needed for moderate pain for up to 7 days. 08/12/2018 acetaminophen-codeine Take 1 tablet 30 tablet 0 (TYLENOL WITH CODEINE #3) by mouth 9 300-30 mg per tablet every 6 (six) hours as needed for moderate pain for up to 7 days. Active Problems Problem Noted Date Hypertension 11/07/2017 Dyspnea 04/06/2017 Resolved Problems Problem Noted Date Resolved Date Acute pancreatitis 08/03/2018 08/05/2018 Encounters Care Team Description Date Type Specialty Kirti Saba MD Thai, Ryan T., MD Acute pancreatitis, unspecified complication status, unspecified pancreatitis type (Primary Dx); Generalized abdominal pain; Non-intractable vomiting with nausea, unspecified vomiting type; Acute hyperglycemia; Abnormal LFTs (liver function tests) 08/03/2018 [facility] General Internal Medicine - Encounter 08/05/2018 08/03/2018 Travel Jett Booth MD Acute left flank pain [...] 11/06/2017 Emergency General Internal Medicine - 11/08/2017 after 09/13/2017 Immunizations Name Dates Previously Given Next Due [...] Vital Signs Time Taken Vital Sign Reading 08/05/2018 7:19 PM CDT Blood Pressure 103/56 08/05/2018 7:19 PM CDT Pulse 67 08/05/2018 7:19 PM CDT Temperature 36.3 C (97.3 F) 08/05/2018 7:19 PM CDT Respiratory Rate 18 08/05/2018 7:19 PM CDT Oxygen Saturation 95% - Inhaled Oxygen - Concentration 08/05/2018 9:29 AM CDT Weight 117 kg (257 lb 3.2 oz) 08/03/2018 8:34 PM CDT Height 160 cm (5' 3") 08/03/2018 8:34 PM CDT Body Mass Index 45.56 Plan of Treatment Health Maintenance Due Date Last Done Comments INFLUENZA VACCINE 09/05/2018 Implants Device Identifier Shelf Expiration Date Model / Serial / Lot Implanted Type Area Manufactur er 08/29/2021 [id number] / [id number] / [id number] Mini Open Kit Implant, Cannula, And Arthroscop Right: Shoulder BIOMET, Drill Bit [employer] Implanted: Qty: 1 on 04/06/2017 by Joby Up MD s 01/10/2019 [id number] / / [id number] Iconix 2 Tape With Intellibrai - IPM Right: Shoulder JAIRON [id number] IMPLANT ORTHOPEDIC Implanted: 04/06/2017 (Quantity not DEVICES S on file) 02/19/2019 [id number] / / [id number] 4.5 Reelx Peek [place] - [id number] IPM Right: Shoulder JAIRON Implanted: 04/06/2017 (Quantity not IMPLANT ORTHOPEDIC on file) DEVICES S 02/19/2019 [id number] / / [id number] 4.5 Reelx Peek [place] - [id number] IPM Right: Shoulder JAIRON Implanted: 04/06/2017 (Quantity not IMPLANT ORTHOPEDIC on file) DEVICES S Procedures Comments Procedure Name Priority Date/Time Associated Diagnosis POC GLUCOSE Routine 08/05/2018 12:29 PM CDT POC GLUCOSE Routine 08/05/2018 7:31 AM CDT ESTIMATED GFR Routine 08/05/2018 4:50 AM CDT LIPASE LEVEL Routine 08/05/2018 4:50 AM CDT MAGNESIUM LEVEL Routine 08/05/2018 4:50 AM CDT PHOSPHORUS LEVEL Routine 08/05/2018 4:50 AM CDT BASIC METABOLIC PANEL Routine 08/05/2018 4:50 AM CDT POC GLUCOSE Routine 08/04/2018 8:54 PM CDT POC GLUCOSE Routine 08/04/2018 4:46 PM CDT POC GLUCOSE Routine 08/04/2018 12:56 PM CDT POC GLUCOSE Routine 08/04/2018 7:18 AM CDT ESTIMATED GFR Routine 08/04/2018 4:50 AM CDT LIPASE LEVEL Routine 08/04/2018 4:50 AM CDT AMYLASE LEVEL Routine 08/04/2018 4:50 AM CDT THYROID STIMULATING Routine 08/04/2018 HORMONE 4:50 AM CDT PHOSPHORUS LEVEL Routine 08/04/2018 4:50 AM CDT OSMOLALITY, SERUM Routine 08/04/2018 4:50 AM CDT MAGNESIUM LEVEL Routine 08/04/2018 4:50 AM CDT LIPID PANEL Routine 08/04/2018 4:50 AM CDT HEMOGLOBIN A1C Routine 08/04/2018 4:50 AM CDT BASIC METABOLIC PANEL Routine 08/04/2018 4:50 AM CDT HC COMPLETE BLD COUNT Routine 08/04/2018 W/AUTO DIFF 4:50 AM CDT POC GLUCOSE Routine 08/04/2018 12:04 AM CDT POC GLUCOSE Routine 08/03/2018 9:42 PM CDT POC GLUCOSE Routine 08/03/2018 9:06 PM CDT US HEPATIC STAT 08/03/2018 8:[address] ABDOMEN PELVIS W STAT 08/03/2018 CONTRAST 6:18 PM CDT ESTIMATED GFR STAT 08/03/2018 4:23 PM CDT LIPASE LEVEL STAT 08/03/2018 4:23 PM CDT COMPREHENSIVE METABOLIC STAT 08/03/2018 PANEL 4:23 PM CDT GRAM STAIN STAT 08/03/2018 3:35 PM CDT URINE CULTURE STAT 08/03/2018 3:35 PM CDT LIPASE LEVEL STAT 08/03/2018 3:00 PM CDT COMPREHENSIVE METABOLIC STAT 08/03/2018 PANEL 3:00 PM CDT HCG QUALITATIVE, URINE Routine 08/03/2018 SCREEN 3:00 PM CDT URINALYSIS SCREEN AND STAT 08/03/2018 MICROSCOPY, WITH REFLEX 3:00 PM CDT TO CULTURE PARTIAL THROMBOPLASTIN STAT 08/03/2018 TIME (PTT) 3:00 PM CDT PROTHROMBIN TIME WITH INR STAT 08/03/2018 3:00 PM CDT HC COMPLETE BLD COUNT STAT 08/03/2018 W/AUTO DIFF 3:00 PM CDT ED REFERRAL TO [facility] Routine 03/12/2018 [facility] PHYSICIAN 10:54 PM [address]DER ORGANIZATION CT RENAL STONE PROTOCOL STAT 03/12/2018 9:19 PM SWATCH FOLDER HCG QUALITATIVE, URINE STAT 03/12/2018 SCREEN 6:26 PM SWATCH FOLDER URINALYSIS SCREEN AND STAT 03/12/2018 MICROSCOPY, WITH REFLEX 6:26 PM SWATCH FOLDER TO CULTURE URINE CULTURE STAT 03/12/2018 6:23 PM SWATCH FOLDER ESTIMATED GFR STAT 03/12/2018 4:57 PM SWATCH FOLDER LIPASE LEVEL STAT 03/12/2018 4:57 PM SWATCH FOLDER COMPREHENSIVE METABOLIC STAT 03/12/2018 PANEL 4:57 PM SWATCH FOLDER HC COMPLETE BLD COUNT STAT 03/12/2018 W/AUTO DIFF 4:[address] ABDOMEN PELVIS W STAT 01/03/2018 CONTRAST 3:42 PM SWATCH FOLDER ECG 12-LEAD STAT 01/03/2018 12:07 PM SWATCH FOLDER ECG ED PRELIMINARY Routine 01/03/2018 INTERPRETATION 11:48 AM SWATCH FOLDER TROPONIN STAT 01/03/2018 11:30 AM SWATCH FOLDER ESTIMATED GFR STAT 01/03/2018 11:30 AM SWATCH FOLDER LIPASE LEVEL STAT 01/03/2018 11:30 AM SWATCH FOLDER AMYLASE LEVEL STAT 01/03/2018 11:30 AM SWATCH FOLDER COMPREHENSIVE METABOLIC STAT 01/03/2018 PANEL 11:30 AM SWATCH FOLDER HC COMPLETE BLD COUNT STAT 01/03/2018 W/AUTO DIFF 11:30 AM SWATCH FOLDER HCG QUALITATIVE, URINE STAT 01/03/2018 SCREEN 10:32 AM SWATCH FOLDER URINALYSIS SCREEN AND STAT 01/03/2018 MICROSCOPY, WITH REFLEX 10:32 AM SWATCH FOLDER TO CULTURE GRAM STAIN ONLY STAT 01/03/2018 10:32 AM SWATCH FOLDER URINE CULTURE STAT 01/03/2018 10:32 AM SWATCH FOLDER ECG ED PRELIMINARY Routine 12/04/2017 INTERPRETATION 1:02 [...] 11/06/2017 W/AUTO DIFF 9:32 PM CDT after 09/13/2017 Results * POC glucose (08/05/2018 12:29 PM CDT) Only the most recent of 16 results within the time period is included. [facility] POC glucose 208 (H) 65 - 99 mg/dL [facility] Comment: [facility] Notified RN HOSPITAL Meter ID: [id number] Balance Wheel Hand Filer: Vicente Vaughn Specimen Performing Organization Address [facility] Phone Number [facility] [address] * Estimated GFR (08/05/2018 4:50 AM CDT) Only the most recent of 9 results within the time period is included. [facility] Estimated GFR 84 mL/min/1.73 m2 [facility] Comment: [facility] rpretation G1 >=90 Normal or high G2 60-89Mildly decreased [id number] Mildly to moderately decreased [id number] Moderately to severely decreased G4 15-29Severely decreased G5 <15Kidney failure The eGFR was calculated using the Chronic Kidney Disease Epidemiology Collaboration (CKD-EPI) equation. Interpretation is based on recommendations of the National Kidney Foundation-Kidney Disease Outcomes Quality Initiative (NKF-KDOQI) published in 2014. Specimen Plasma specimen Performing Organization Address City/[facility] Phone Number [facility] [address] * Phosphorus level (08/05/2018 4:50 AM CDT) Only the most recent of 3 results within the time period is included. [facility] Phosphorus 2.4 2.4 - 4.5 mg/dL [facility] Specimen Plasma specimen Performing Organization Address City/[facility]/Zipcode Phone Number [facility] DEPART[facility] OF [address] [place] [address] PATHOLOGY AND GENOMIC MEDICINE [address] * Magnesium level (08/05/2018 4:50 AM CDT) Only the most recent of 3 results within the time period is included. Magnesium 2.5 1.6 - 2.6 mg/dL [facility] Specimen Plasma specimen Performing Organization Address City/[facility] Phone Number [facility] DEPART[facility] OF [address] [place] [address] PATHOLOGY AND GENOMIC MEDICINE [address] * Lipase level (08/05/2018 4:50 AM CDT) Only the most recent of 10 results within the time period is included. Lipase 51 13 - 60 U/L [facility] Specimen Plasma specimen Performing Organization Address [facility] Phone Number [facility] [place] [address] PATHOLOGY AND [facility] MEDICINE [address] * Basic metabolic panel (08/05/2018 4:50 AM CDT) Only the most recent of 3 results within the time period is included. Sodium 135 135 - 148 mEq/L [facility] Potassium 3.3 (L) 3.5 - 5.0 mEq/L [facility] Chloride 99 98 - 112 mEq/L [facility] CO2 24 24 - 31 mEq/L [facility] Anion gap 12@ANIO 7 - 15 mEq/L [facility] BUN 14 6 - 20 mg/dL [facility] Creatinine 0.84 0.50 - 0.90 mg/dL [facility] Glucose 171 (H) 65 - 99 mg/dL [facility] Calcium 7.6 (L) 8.3 - 10.2 mg/dL [facility] Specimen Plasma specimen Performing Organization Address City/[facility] Phone Number [facility] [place] [address] PATHOLOGY AND GENOMIC MEDICINE [address] * CBC with platelet and differential (08/04/2018 4:50 AM CDT) Only the most recent of 8 results within the time period is included. WBC 7.35 4.50 - 11.00 k/uL [facility] RBC 4.33 4.20 - 5.50 m/uL [facility] HGB 13.4 12.0 - 16.0 g/dL [facility] HCT 40.0 37.0 - 47.0 % [facility] MCV 92.4 82.0 - 100.0 fL [facility] MCH 30.9 27.0 - 34.0 pg [facility] MCHC 33.5 31.0 - 37.0 g/dL [facility] RDW - SD 43.4 37.0 - 55.0 fL [facility] MPV 11.5 8.8 - 13.2 fL [facility] Platelet count 188 150 - 400 k/uL [facility] Nucleated RBC 0.00 /100 WBC [facility] Neutrophils 59.1 39.0 - 69.0 % [facility] Lymphocytes 32.4 25.0 - 45.0 % [facility] Monocytes 3.9 0.0 - 10.0 % [facility] Eosinophils 3.5 0.0 - 5.0 % [facility] Basophils 0.7 0.0 - 1.0 % [facility] Immature 0.4Comment: "Immature 0.0 - 1.0 % [facility] granulocytes granulocytes" (promyelocytes, YAZIDI myelocytes, metamyelocytes) [facility] Specimen Blood Performing Organization Address [facility] [place] [address] PATHOLOGY AND GENOMIC MEDICINE [address] * Thyroid stimulating hormone (08/04/2018 4:50 AM CDT) TSH 1.16 0.27 - 4.20 uIU/mL [facility] Specimen Plasma specimen Performing Organization Address [facility] [place] [address] PATHOLOGY AND GENOMIC MEDICINE [address] * Osmolality, serum (08/04/2018 4:50 AM CDT) Osmolality 301 (H) 275 - 295 mOsm/kg [facility] Specimen Blood Performing Organization Address City/State/Zipcode Phone Number [facility] DEPARTMENT OF [address] [place] [address] PATHOLOGY AND GENOMIC MEDICINE [address] * Hemoglobin A1c (08/04/2018 4:50 AM CDT) Only the most recent of 2 results within the time period is included. Hemoglobin A1C 11.6 (H) 4.0 - 5.6 % [facility] Comment: [facility] HbA1c cutoffs for diagnosing HOSPITAL diabetes: 4.0% - 5.6%=normal 5.7% - 6.4%=increased risk for diabetes (prediabetes) >=6.5%=diabetes Goals for glycemic control (ADA 2016) < 7.0%Target for non adults with diabetes. More or less stringent targets may be appropriate for individual patients. <7.5% Target for Children and adolescents with type 1 diabetes. Specimen Blood Narrative Performed At ____TRIG results called to and read back by ASHLEY QUINONES(name/location) [facility] OF at08/04/201806:25 (date/time) by SAMI_. PATHOLOGY AND Unable to perform testing, specimen is HEMOLYZED.[facility]lect [facility] MEDICINE requested for K___ (tests).ASHLEY Dejesus (name/location) notified by SAMI_ (tech ID) at08/04/201806:25 ____ (date/time).Credit issued. Performing Organization Address City/[facility]/Zipcode Phone Number [facility] DEPART[facility] OF [address] [place] [address] PATHOLOGY AND GENOMIC MEDICINE [address] * Amylase level (08/04/2018 4:50 AM CDT) Only the most recent of 4 results within the time period is included. Amylase 32 28 - 100 U/L [facility] Specimen Plasma specimen Performing Organization Address City/State/Zipcode Phone Number [facility] [place] [address] PATHOLOGY AND GENOMIC MEDICINE [address] * Lipid panel (08/04/2018 4:50 AM CDT) Cholesterol 348 (H) <200 mg/dL [facility] Triglycerides 2,298 (A) <150 mg/dL [facility] HDL cholesterol 11 (L) >40 mg/dL [facility] LDL cholesterol 17Comment: Result obtained by <100 mg/dL [facility] direct LDL measurement [facility]id [facility] interpretation Comment: YAZ[facility]I Total Cholesterol HOSPITAL (mg/dL) <200 Desirable 200-239Borderline -high >=240High Triglycerides (mg/dL) <150 Normal 150-199Borderline -high 200-499High >=500Very high HDL Cholesterol (mg/dL) <40Low (male) <40Low (female) LDL Cholesterol (mg/dL) <100 Optimal 100-129Near or above optimal 130-159Borderline -high 160-189High >=190Very high Risk Catergories that modify LDL goals. Risk Catergories LDL goal (mg/dL) CHD and CHD risk equivalent<100 (10-year risk >20%) Multiple (2+) risk factors <130 (10-year risk=<20%) 0-1 risk factors <160 (<10-year risk) Defining levels of lipids in metabolic syndrome Triglycerides >=150 mg/dL HDL Cholesterol Men <40 mg/dL Women <40 mg/dL Non-HDL cholesterol is a second target for therapy in persons with high triglycerides (>=200 mg/dL) Specimen Plasma specimen Performing Organization Address City/State/Zipcode Phone Number [facility] DEPART[facility] OF [address] [place] [address] PATHOLOGY AND GENOMIC MEDICINE [address] [address] [facility] * US Hepatic (08/03/2018 8:25 PM CDT) Only the most recent of 2 results within the time period is included. Specimen Narrative Performed At EXAMINATION:US HEPATIC RADIANT CLINICAL HISTORY:Acute pancreatitis COMPARISON:None. IMPRESSION: 1.Heterogeneous increased echogenicity of the liver compatible with fatty infiltration or liver parenchymal disease. No focal mass. No cirrhotic morphology. The liver is not enlarged. Status post cholecystectomy. The main portal vein is patent. The common bile duct is nondilated measures 4.1 mm. No ascites. Limited assessment due to patient's body habitus. [facility]-[id number] Procedure Note Interface, Radiology Results Incoming - 08/03/2018 9:01 PM CDT EXAMINATION: US HEPATIC CLINICAL HISTORY: Acute pancreatitis COMPARISON: None. IMPRESSION: 1. Heterogeneous increased echogenicity of the liver compatible with fatty infiltration or liver parenchymal disease. No focal mass. No cirrhotic morphology. The liver is not enlarged. Status post cholecystectomy. The main portal vein is patent. The common bile duct is nondilated measures 4.1 mm. No ascites. Limited assessment due to patient's body habitus. [facility]-[id number] Performing Organization Address City/State/Zipcode Phone Number [facility] [address] [place] [address] * CT Abdomen Pelvis W Contrast (08/03/2018 6:18 PM CDT) Only the most recent of 3 results within the time period is included. Specimen Narrative Performed At EXAMINATION:CT ABDOMEN PELVIS W CONTRAST [facility] CLINICAL HISTORY:Abd painunspecified, Nauseavomiting TECHNIQUE: Multiple axial images of the abdomen and pelvis were obtained following intravenous administration of iodinated contrast. Sagittal and coronal computerized reformatted images were also obtained.Automatic exposure control and iterative reconstruction techniques used to reduce dose. COMPARISON:March 12, 2018 FINDINGS: Diffuse fatty infiltration of the liver without evidence of focal mass The gallbladder has been removed. No intra or extrahepatic ductal dilatation present There is fullness of the pancreatic head with stranding in the adjacent fat. Finding is worrisome for mild pancreatitis. There is diffuse uniform enhancement throughout the pancreas. No pseudocyst. The pancreatic duct is not dilated The spleen kidneys and adrenals are within normal limits No significant lymphadenopathy. No free fluid Pelvis: No significant lymphadenopathy, solid masses or free fluid present. Small follicles in the left ovary A fat-containing ventral hernia is again present and unchanged from prior IMPRESSION: Findings compatible with mild pancreatitis of the pancreatic head Stable fat-containing ventral hernia Small cyst in the left ovary has decreased from March 12, 2018 [facility]-[id number] Procedure Note Interface, Radiology Results Incoming - 08/03/2018 6:23 PM CDT EXAMINATION: CT ABDOMEN PELVIS W CONTRAST CLINICAL HISTORY: Abd pain unspecified, Nausea vomiting TECHNIQUE: Multiple axial images of the abdomen and pelvis were obtained following intravenous administration of iodinated contrast. Sagittal and coronal computerized reformatted images were also obtained.Automatic exposure control and iterative reconstruction techniques used to reduce dose. COMPARISON: March 12, 2018 FINDINGS: Diffuse fatty infiltration of the liver without evidence of focal mass The gallbladder has been removed. No intra or extrahepatic ductal dilatation present There is fullness of the pancreatic head with stranding in the adjacent fat. Finding is worrisome for mild pancreatitis. There is diffuse uniform enhancement throughout the pancreas. No pseudocyst. The pancreatic duct is not dilated The spleen kidneys and adrenals are within normal limits No significant lymphadenopathy. No free fluid Pelvis: No significant lymphadenopathy, solid masses or free fluid present. Small follicles in the left ovary A fat-containing ventral hernia is again present and unchanged from prior IMPRESSION: Findings compatible with mild pancreatitis of the pancreatic head Stable fat-containing ventral hernia Small cyst in the left ovary has decreased from March 12, 2018 [id number] Performing Organization Address City/State/Zipcode Phone Number [facility] [address] [place] [address] * Comprehensive metabolic panel (08/03/2018 4:23 PM CDT) Only the most recent of 7 results within the time period is included. Sodium 130 (L) 135 - 148 mEq/L [facility] Potassium 4.4 3.5 - 5.0 mEq/L [facility] Comment: [facility] Specimen is slightly HOSPITAL hemolyzed.Interpret results accordingly. Specimen is moderately lipemic Chloride 93 (L) 98 - 112 mEq/L [facility] CO2 22 (L) 24 - 31 mEq/L [facility] Anion gap 15@ANIO 7 - 15 mEq/L [facility] BUN 25 (H) 6 - 20 mg/dL [facility] Creatinine 0.92 (H) 0.50 - 0.90 mg/dL [facility] Glucose 374 (H) 65 - 99 mg/dL [facility] Calcium 8.5 8.3 - 10.2 mg/dL [facility] Protein 6.4 6.3 - 8.3 g/dL [facility] Comment: [facility] 4.6-7.0 g/dL 1 week 4.4-7.6 g/dL 7 months-1year 5.1-7.3 g/dL 1-2 years5.6-7 .5 g/dL >3 years6.0-8 .0 g/dL 18-150 6.3-8.3 g/dL Albumin 2.7 (L) 3.5 - 5.0 g/dL [facility] A/G ratio 0.7 0.7 - 3.8 [facility] Alkaline 113 (H) 35 - 104 U/L [facility] phosphatase [facility] AST 64 (H) 10 - 35 U/L [facility] ALT 56 (H) 5 - 50 U/L [facility] Total bilirubin <0.2 0.0 - 1.2 mg/dL [facility] Specimen Plasma specimen Performing Organization Address [facility] Phone Number [facility] [place] [address] PATHOLOGY AND GENOMIC MEDICINE [address] * Gram stain (08/03/2018 3:35 PM CDT) Gram stain No WBC's [facility] result Few Gram positive rods YAZIDI Few Gram negative rods [facility] Comment: Specimen Information Specimen Source: Urine Specimen Site: Clean catch Specimen Urine Performing Organization Address [facility] Phone Number [facility] DEPARTMENT OF [address] [place] [address] PATHOLOGY AND GENOMIC MEDICINE [address] * Urine culture (08/03/2018 3:35 PM CDT) Only the most recent of 6 results within the time period is included. Urine culture Mixed isiah 10-5 col/cc [facility] isolate Comment: [facility] Specimen Information [facility] Specimen Source: Urine Specimen Site: Clean catch Specimen Urine Performing Organization Address [facility] Phone Number [facility] [place] [address] PATHOLOGY AND GENOMIC MEDICINE [address] * Urinalysis screen and microscopy, with reflex to culture (08/03/2018 3:00 PM CDT) Only the most recent of 6 results within the time period is included. Specimen site Clean catch [facility] Color, UA Straw [facility] Appearance, UA Clear [facility] Specific 1.027 1.001 - 1.035 SHARON gravity, [facility] pH, UA 6.0 5.0 - 8.5 [facility] Protein, UA 1+ (A) Negative [facility] Glucose, UA 3+ (A) Negative [facility] Ketones, UA Negative Negative [facility] Bilirubin, UA Negative Negative [facility] Blood, UA Negative Negative [facility] Nitrite, UA Negative Negative [facility] Urobilinogen, <2.0 <2.0 [facility] Leukocyte Negative Negative [facility]ARON esterase, [facility] Epithelial 3 /HPF [facility]ON cells, UA [facility] WBC, UA <1 0 - 4 /HPF [facility] RBC, UA 1 0 - 5 /HPF [facility] Bacteria, UA Moderate (A) None seen [facility] Yeast, UA None seen [facility] Yeast with None seen [facility] Specimen Urine Performing Organization Address [facility] Phone Number [facility] [place] [address] PATHOLOGY AND GENOMIC MEDICINE [address] * hCG qualitative, urine screen (08/03/2018 3:00 PM CDT) Only the most recent of 6 results within the time period is included. Pathologist [facility] hCG NegativeComment: Sensitivity SHARON qualitative, of HCG test: 25 mIU/mL [facility] Specimen Urine Performing Organization Address [facility] Phone Number [facility] [place] [address] PATHOLOGY AND GENOMIC MEDICINE [address] * Partial thromboplastin time, activated (08/03/2018 3:00 PM CDT) [facility] PTT 30.9 23.0 - 36.0 sec SHARON Comment: YAZIDI PTT therapeutic range for HOSPITAL unfractionated heparin is 61.0-112.0 seconds which corresponds to Anti-Xa 0.3-0.7 U/ml. Specimen Blood Performing Organization Address [facility] Phone Number [facility] [place] [address] PATHOLOGY AND GENOMIC MEDICINE [address] * Prothrombin time with INR (08/03/2018 3:00 PM CDT) Pathologist [facility] Prothrombin 11.6 11.5 - 14.5 sec [facility] INR 0.9 SHARON Comment: YAZIDI The International Normalized HOSPITAL Ratio (INR) is a therapeutic monitoring tool for patients who are stable on oral anticoagulant therapy. An INR of 2.0-3.0 is suggested for deep vein thrombosis/pulmonary embolism. Specimen Blood Performing Organization Address City/State/Zipcode Phone Number [facility] DEPARTMENT OF [address] [place] [address] PATHOLOGY AND GENOMIC MEDICINE SHARON YAZIDI [address] [place] [address] HOSPITAL * CT Renal Stone Protocol (03/12/2018 9:19 PM SWATCH FOLDER) Specimen Narrative Performed At EXAMINATION:CT RENAL STONE PROTOCOL [...] be better assessed with dedicated pelvic ultrasound. [facility]-[id number] Procedure Note Interface, Radiology Results Incoming - 03/12/2018 9:30 PM SWATCH FOLDER EXAMINATION: CT RENAL STONE PROTOCOL CLINICAL HISTORY: [...] be better assessed with dedicated pelvic ultrasound. [facility]-[id number] Performing Organization Address City/[facility] Phone Number [facility] [address] [place] [address] * ECG 12 lead (01/03/2018 12:07 PM SWATCH FOLDER) Only the most recent of 2 results within the time period is included. Ventricular 80 [facility] rate Atrial rate 80 [facility] OH interval 154 [facility] QRSD interval 90 [facility] QT interval 398 [facility] QTC interval 459 [facility] P axis 1 0 [facility] QRS axis 1 23 [facility] T wave axis 42 [facility] EKG impression Normal sinus rhythm-Cannot [facility] rule out Anterior infarct , age undetermined-Abnormal ECG-In automated comparison with ECG of 04-DEC-2017 12:29,-QRS duration has decreased- Specimen Narrative Performed At Performing Organization Address [facility] Phone Number [facility] [address] [place] [address] * ECG ED Preliminary Interpretation - Not an Order (01/03/2018 11:48 AM SWATCH FOLDER) Only the most recent of 2 results within the time period is included. Narrative Performed At Candelaria Callahan PA-C 01/03/20185:08 PM ECG ED Preliminary Interpretation - Not an Order Performed by: Candelaria Callahan PA-C Authorized by: Salvador Ornelas MD ECG reviewed by ED Physician in the absence of a tourist cabin keeper: yes Rate: ECG rate:80 ECG rate assessment: normal Rhythm: Rhythm: sinus rhythm QRS: QRS intervals:Normal Conduction: Conduction: normal ST segments: ST segments:Normal T waves: T waves: normal * Troponin (01/03/2018 11:30 AM SWATCH FOLDER) Only the most recent of 2 results within the time period is included. Troponin <0.30 0.00 - 0.30 ng/mL [facility]ARON Comment: YAZIDI SUGAR 0.11 - 1.49 [facility] [place] [facility] ng/mlMay indicate increased risk of acute coronary syndrome. >=1.5 ng/ml Consistent with acute myocardial infarction. The diagnostic value of a single normal or non-diagnostic result is questionable.Serial samples at 2-6 hour intervals are required to rule out acute myocardial injury. Specimen Plasma specimen Performing Organization Address City/[facility] Phone Number [facility] DEPARTMENT [id number] [place] [address] PATHOLOGY AND [facility] MEDICINE [address] * Gram stain only (01/03/2018 10:32 AM SWATCH FOLDER) Pathologist [facility] Gram stain Rare Gram negative rods SHARON result No WBC's [facility] Comment: [facility] [place] [facility] Specimen Information Specimen Source: Urine Specimen Site: Clean catch Specimen Urine Performing Organization Address [facility] Phone Number [facility] [place] [id number] [place] [address] PATHOLOGY AND [facility] MEDICINE [address] * C-reactive protein (11/08/2017 4:30 AM CDT) Pathologist [facility] CRP 1.77 (H) 0.00 - 0.50 mg/dL [facility] DEPARTMENT OF PATHOLOGY AND GENOMIC MEDICINE Specimen Plasma specimen Performing Organization Address City/State/Zipcode Phone Number [facility] [address] [place] [address] PATHOLOGY AND GENOMIC MEDICINE * Hepatic function panel (11/08/2017 4:30 AM CDT) Albumin 2.8 (L) 3.5 - 5.0 g/dL [facility] DEPARTMENT OF PATHOLOGY AND GENOMIC MEDICINE Total bilirubin <0.2 0.0 - 1.2 mg/dL [facility] DEPARTMENT OF PATHOLOGY AND GENOMIC MEDICINE Bilirubin Footnote 0.0 - 0.3 mg/dL [facility] DEPART[facility] direct OF PATHOLOGY AND GENOMIC MEDICINE Alkaline Footnote 35 - 104 U/L [facility] DE[facility] phosphatase OF PATHOLOGY AND GENOMIC MEDICINE Protein 6.5 6.3 - 8.3 g/dL [facility] Comment: OF PATHOLOGY AND GENOMIC 4.6-7.0 g/dL MEDICINE 1 week 4.4-7.6 g/dL 7 months-1year 5.1-7.3 g/dL 1-2 years5.6-7 .5 g/dL >3 years6.0-8 .0 g/dL 18-150 6.3-8.3 g/dL ALT Footnote 5 - 50 U/L [facility] DEPARTMENT OF PATHOLOGY AND GENOMIC MEDICINE AST Footnote 10 - 35 U/L [facility] DEPARTMENT OF PATHOLOGY AND GENOMIC MEDICINE Specimen Plasma specimen Performing Organization Address City/[facility]/Zipcode Phone Number [facility] OF [address] [place] [address] PATHOLOGY AND GENOMIC MEDICINE * ALT (SGPT) (11/08/2017 12:30 AM CDT) ALT SEE COMMENTComment: 5 - 50 U/L [facility] DEPART[facility] Footnote--------- OF PATHOLOGY AND GENOMIC MEDICINE Specimen Plasma specimen Narrative Performed At Unable to perform testing, specimen is HEMOLYZED.Recollect [facility] DEPARTMENT OF requested for K/AST/ALT/ALP(tests). CALOS DOSHI(name/location) notified PATHOLOGY AND by 11/08/201707:59 (tech ID) at LS2(date/time). Credit issued. GENOMIC MEDICINE Performing Organization Address City/State/Zipcode Phone Number [facility] DEPARTMENT OF [address] [place] [address] PATHOLOGY AND GENOMIC MEDICINE * AST (SGOT) (11/08/2017 12:30 AM CDT) AST SEE COMMENTComment: 10 - 35 U/L [facility] DE[facility] Footnote--------- OF PATHOLOGY AND GENOMIC MEDICINE Specimen Plasma specimen Narrative Performed At Unable to perform testing, specimen is HEMOLYZED.Recollect [facility] DEPARTMENT OF requested for K/AST/ALT/ALP(tests). CALOS DOSHI(name/location) notified PATHOLOGY AND by 11/08/201707:59 (tech ID) at LS2(date/time). Credit issued. GENOMIC MEDICINE Performing Organization Address City/State/Zipcode Phone Number [facility] [place] [address] PATHOLOGY AND GENOMIC MEDICINE * Potassium level (11/08/2017 12:30 AM CDT) Pathologist [facility] Potassium SEE COMMENT 3.5 - 5.0 mEq/L [facility] Comment: OF PATHOLOGY Footnote--------- AND GENOMIC Unable to perform testing, MEDICINE specimen is HEMOLYZED.Recollect requested for K/AST/ALT/ALP(tests). CALOS DOSHI(name/location) notified by 11/08/201707:59 (tech ID) at LS2(date/time). Credit issued. Specimen Plasma specimen Narrative Performed At Unable to perform testing, specimen is HEMOLYZED.Recollect [facility] DEPARTMENT OF requested for K/AST/ALT/ALP(tests). CALOS COREASBhavya(name/location) notified PATHOLOGY AND by 11/08/201707:59 (tech ID) at LS2(date/time). Credit issued. GENOMIC MEDICINE Performing Organization Address City/State/Zipcode Phone Number [facility] [place] [address] PATHOLOGY AND GENOMIC MEDICINE * Alkaline phosphatase (11/08/2017 12:30 AM CDT) [facility] Alkaline SEE COMMENTComment: 35 - 104 U/L [facility] DE[facility] phosphatase Footnote--------- OF PATHOLOGY AND GENOMIC MEDICINE Specimen Plasma specimen Narrative Performed At Unable to perform testing, specimen is HEMOLYZED.Recollect [facility] DEPARTMENT OF requested for K/AST/ALT/ALP(tests). CALOS DOSHI(name/location) notified PATHOLOGY AND by 11/08/201707:59 (tech ID) at LS2(date/time). Credit issued. GENOMIC MEDICINE Performing Organization Address City/State/Zipcode Phone Number [facility] [place] [address] PATHOLOGY AND GENOMIC MEDICINE * Total bilirubin (11/08/2017 12:30 AM CDT) [facility] Total bilirubin <0.2 0.0 - 1.2 mg/dL [facility] DEPARTMENT OF PATHOLOGY AND GENOMIC MEDICINE Specimen Plasma specimen Performing Organization Address City/State/Zipcode Phone Number [facility] [address] [place] [address] PATHOLOGY AND [facility] * Hepatitis acute panel (11/07/2017 4:00 AM CDT) [facility] Hepatitis A IgM Non-reactive Non-reactive [facility] DEPARTMENT OF PATHOLOGY AND GENOMIC MEDICINE Hepatitis B Non-reactive Non-reactive [facility] DE[facility] core IgM OF PATHOLOGY AND GENOMIC MEDICINE Hepatitis B Non-reactive Non-reactive [facility] surface Ag OF PATHOLOGY AND GENOMIC MEDICINE Hepatitis C Ab Non-reactive Non-reactive [facility] DEPARTMENT OF PATHOLOGY AND GENOMIC MEDICINE Specimen Serum Performing Organization Address City/State/[facility] Phone Number [place] [id number] [place] [address] PATHOLOGY AND GENOMIC MEDICINE after 09/13/2017 Insurance Type Payer Benefit Subscriber ID Effective Phone Address Plan / Dates Group PPO BCBS BCBS OUT xxxxxxxxxxxx 2018-P OF STATE resent [id number] Workers Employer 02/05/1902 [address] [facility]] (Home) [address] [place] [address] Advance Directives Patient has advance care planning documents, and code status on file. For more i nformation, please contact: Eran Zamora [address] [place] [address] Date Inactivated Comments Code Status Date Activated 08/06/2018 12:52 AM Full Code 08/03/2018 10:35 PM Code Status decision reached by: Patient
[2018-09-14] MEDS ORDERED: KETOROLAC TROMETHAMINE 30 MG/ML VIAL IV NR (20:00)
[2018-09-14] MEDS ORDERED: SODIUM CHLORIDE 0.9% 1000ML 1,000 ML IV SCH (20:00)
[2018-09-14] MEDS ORDERED: DIAZEPAM 2 MG TAB PO NR (20:00)
[2018-09-14] MEDS ORDERED: DICYCLOMINE HCL 20 MG/2 ML VIAL IM ONE (20:00)
[2018-09-14] MEDS ORDERED: PANTOPRAZOLE 40 MG 10ML VIAL IV NR (20:00)
[2018-09-14 20:21] LABS: BASOPHILS % 0.4 % (0.0-1.0); EOSINOPHILS # (AUTO) 0.2 (0.0-0.4); HEMATOCRIT 38.7 % (34.2-44.1); HEMOGLOBIN 13.4 g/dL (12.0-16.0); LYMPHOCYTES # (AUTO) 2.3 (1.0-3.2); LYMPHOCYTES % 28.9 % (18.0-39.1); MEAN CORPUSCULAR HEMOGLOBIN 31.3 pg (28-32); MEAN CORPUSCULAR HGB CONC 34.6 g/dL (31-35); MEAN CORPUSCULAR VOLUME 90.4 fL (81-99); MONOCYTES # (AUTO) 0.4 (0.2-0.8); MONOCYTES % 4.4 % (4.4-11.3); NEUTROPHILS % 62.7 % (38.7-80.0); PLATELET COUNT 237 x10e3/uL (140-360); RED BLOOD COUNT 4.28 x10e6/uL (3.6-5.1); RED CELL DISTRIBUTION WIDTH 13.4 % (11.7-14.4)
[2018-09-14 20:38] LABS: CLARITY,URINE CLEAR (CLEAR); COLOR,URINE YELLOW (YELLOW)
[2018-09-14 20:39] LABS: BILIRUBIN,URINE NEGATIVE (NEGATIVE); KETONES,URINE NEGATIVE (NEGATIVE); LEUKOCYTE ESTERASE ,URINE NEGATIVE (NEGATIVE); NITRITE,URINE NEGATIVE (NEGATIVE); PROTEIN,URINE DIPSTICK 1+ (NEGATIVE); URINE UROBILINOGEN 0.2 mg/dL (0.2 - 1)
[2018-09-14 20:40] LABS: ALANINE AMINOTRANSFERASE 14 IU/L (0-55); ALBUMIN 2.9 g/dL (3.5-5.0); ALBUMIN/GLOBULIN RATIO 0.7 (0.8-2.0); ALKALINE PHOSPHATASE 99 IU/L (40-150); ANION GAP 22.6 mmol/L (8-16); BLOOD UREA NITROGEN 17 mg/dL (7-26); BUN/CREATININE RATIO 19 (6-25); CALCIUM 9.4 mg/dL (8.4-10.2); CARBON DIOXIDE 15 mmol/L (22-29); CHLORIDE 100 mmol/L (98-107); CREATINE KINASE 32 IU/L (29-168); CREATININE, SERUM 0.89 mg/dL (0.57-1.11); EST GLOMERULAR FILTRATION RATE > 60 ML/MIN (60-); GLUCOSE 283 mg/dL (74-118); POTASSIUM 3.6 mmol/L (3.5-5.1); SODIUM 134 mmol/L (136-145)
[2018-09-14 20:48] LABS: EPITHELIAL CELLS,URINE FEW /LPF
--- NOTE | 2018-09-15 00:11 | NUR ---
RAD CALLED FOR UPDATE ON RAD REPORT, WILL CALL RADIOLOGIST
[2018-09-15 00:20] LABS: ANION GAP 21.7 mmol/L (8-16); BLOOD UREA NITROGEN 15 mg/dL (7-26); BUN/CREATININE RATIO 18 (6-25); CALCIUM 8.6 mg/dL (8.4-10.2); CARBON DIOXIDE 13 mmol/L (22-29); CHLORIDE 103 mmol/L (98-107); CREATININE, SERUM 0.83 mg/dL (0.57-1.11); EST GLOMERULAR FILTRATION RATE > 60 ML/MIN (60-); GLUCOSE 188 mg/dL (74-118); POTASSIUM 3.7 mmol/L (3.5-5.1); SODIUM 134 mmol/L (136-145)
--- NOTE | 2018-09-15 00:29 | Diagnostic Imaging Report ---
EXAM: CT Abdomen and Pelvis WITHOUT contrast INDICATION: Back and flank pain. COMPARISON: 05/27/18. TECHNIQUE: Abdomen and pelvis were scanned utilizing a multidetector helical scanner from the lung base to the pubic symphysis without administration of IV contrast. Absence of intravenous contrast decreases sensitivity for detection of focal lesions and vascular pathology. Coronal and sagittal reformations were obtained. Renal stone protocol was performed. IV CONTRAST: None. ORAL CONTRAST: Water RADIATION DOSE: Total DLP: 1282.85 mGy*cm Estimated effective dose: (DLP x 0.015 x size factor) mSv COMPLICATIONS: None FINDINGS: LINES and TUBES: None. LOWER THORAX: Mild bibasilar dependent atelectasis. HEPATOBILIARY: Diffuse hepatic steatosis. No focal hepatic lesions. No biliary ductal dilation. GALLBLADDER: There are cholecystectomy clips. No wall thickening. SPLEEN: No splenomegaly. PANCREAS: No ductal dilatation. Mild stranding of the fat anterior to the lower pancreatic head on image 75 series 3 is nonspecific. ADRENALS: No adrenal nodules KIDNEYS/URETERS: No hydronephrosis. No cystic or solid mass lesions. No stones. GI TRACT: No abnormal distention, wall thickening, or evidence of bowel obstruction. Appendix is normal. PELVIC ORGANS/BLADDER: Unremarkable. LYMPH NODES: No lymphadenopathy. VESSELS: There is mild atherosclerotic disease in the aorta and major arterial branches. PERITONEUM / RETROPERITONEUM: No free air or fluid. BONES: There are degenerative changes in the lumbar spine. SOFT TISSUES: Moderate sized ventral incisional periumbilical hernia containing a moderate volume of mesenteric fat. No herniated bowel loops. IMPRESSION: 1. Mild stranding of the peripancreatic head fat is nonspecific, and also present on the prior CT examination of May 2018. No abdominopelvic abnormality. 2. Hepatomegaly and hepatic steatosis. 3. Moderate sized fat-containing ventral abdominal hernia. No herniated bowel loops evidence of bowel obstruction. Signed by: Dr. Juan Francisco Cardenas M.D. on 09/15/2018 12:26 AM
== END 2018-09-15 01:00 | disposition home or self-care (01) ==
LOC: ER 18:11
DX: M54.5 Low back pain (principal); X50.0XXA Overexertion from strenuous movement or load, initial encounter; Y99.0 Civilian activity done for income or pay; I10 Essential (primary) hypertension; E11.9 Type 2 diabetes mellitus without complications; F41.9 Anxiety disorder, unspecified; K21.9 Gastro-esophageal reflux disease without esophagitis; E78.5 Hyperlipidemia, unspecified
CPT/HCPCS: 36415; 74176; 80048; 80053; 81001; 82550; 82553; 83690; 84484; 85025; 96374; 99284; C9113; J0500; J1885; J7030

== ENCOUNTER 2018-10-03 09:49 | Inpatient (IN) | payer BC ==
[~2018-10-03] VITALS: Ht 160 cm; Wt 120.4 kg
--- OUTSIDE RECORDS SUMMARY | 2018-10-03 09:52 | XMS REPORT | Clinical Summary ---
Author Author Eran Hindu Organization [facility] Address Unknown Phone Unavailable Care Team Providers Care City Editor Name Role Phone Asked, No Pcp PCP Unavailable Allergies Comments Active Allergy Reactions Severity Noted Date itching Fish Containing Products Hives, Rash Low 03/23/2017 Tongue and body swelling and shortness of breath Grapefruit Anaphylaxis High 03/23/2017 Shellfish Derived Hives 01/10/2017 Tomato sauce, tongue and lips swelling Tomato Swelling 11/24/2017 Medications End Date Status Medication Sig Dispensed Refills Start Date Active lovastatin (MEVACOR) 20 Take 60 mg by 0 MG tablet mouth daily. Active FLUoxetine (PROzac) 10 MG Take 20 mg by 0 capsule mouth nightly. Active NIFEdipine CC (ADALAT CC) Take 60 mg by 0 60 MG 24 hr tablet mouth 2 (two) times a day. Active diphenhydrAMINE Take 25 mg by 0 (BENADRYL) 25 mg tablet mouth nightly as needed for sleep. 10/21/2018 Active pantoprazole (PROTONIX) Take 1 tablet 30 tablet 0 40 MG EC tablet (40 mg total) 9 by mouth daily for 30 days. 08/04/2018 Discontinued (Patient Reported) metoprolol succinate XL Take 50 mg by 0 (TOPROL-XL) 50 mg 24 hr mouth daily. tablet 09/21/2018 Discontinued (Stop Taking at Discharge) losartan (COZAAR) 100 MG Take 100 mg 0 tablet by mouth daily. 11/08/2017 Discontinued (Stop Taking at Discharge) NIFEdipine CC (ADALAT CC) Take 60 mg by 0 60 MG 24 hr tablet mouth daily. 11/08/2017 Discontinued insulin detemir (LEVEMIR) Inject 12 0 100 unit/mL injection Units under the skin 2 (two) times a day. Morning and night 12/04/2017 Discontinued insulin regular Infuse 10 0 (HumuLIN-R, NovoLIN-R) Units into a 100 unit/mL injection venous catheter 3 (three) times a day before meals. 10/06/2017 traMADol (ULTRAM) 50 mg Take 1 tablet 70 tablet 0 tabletIndications: Acute (50 mg total) 8 pain of right shoulder by mouth every 4 (four) hours as needed for moderate pain for up to 30 days. 08/05/2018 Discontinued (Reorder) metFORMIN (GLUCOPHAGE) Take 500 mg 0 500 [...] moderate pain for up to 20 days. 09/21/2018 Discontinued (Stop Taking at Discharge) empagliflozin (JARDIANCE) Take 25 mg by 0 25 mg tablet mouth daily. 01/03/2018 metoclopramide (REGLAN) Take 1 tablet 30 [...] for up to 5 days. 08/05/2018 Discontinued (Stop Taking at Discharge) hydroCHLOROthiazide Take 50 mg by 0 (HYDRODIURIL) 25 MG mouth daily. tablet 08/05/2018 Discontinued (Reorder) insulin detemir U-100 Inject 18 0 (LEVEMIR) [...] mouth daily for 30 days. 08/05/2018 Discontinued (Reorder) acetaminophen-codeine Take 1 tablet 30 tablet 0 [...] moderate pain for up to 7 days. 09/21/2018 Discontinued (Stop Taking at Discharge) insulin detemir U-100 Inject 30 0 (LEVEMIR) 100 unit/mL Units under injection the skin 2 (two) times a day. Active Problems Problem Noted Date Hypertensive urgency 09/20/2018 Hypertension 11/07/2017 Dyspnea 04/06/2017 Resolved Problems Problem Noted Date Resolved Date Acute pancreatitis 08/03/2018 08/05/2018 Encounters Care Team Description Date Type Specialty Kirti Sbaa MD Samani, Kaveh, MD Thai, Ryan T., MD Hypertensive urgency (Primary Dx); Acute pancreatitis, unspecified complication status, unspecified pancreatitis type; High anion gap metabolic acidosis; Hyperglycemia; Hyponatremia 09/20/2018 Emergency General Internal Medicine - 09/21/2018 Kirti Saba MD Thai, Ryan T., MD Acute pancreatitis, unspecified complication status, unspecified pancreatitis type (Primary Dx); Generalized abdominal pain; Non-intractable vomiting with nausea, unspecified vomiting type; Acute hyperglycemia; Abnormal LFTs (liver function tests) 08/03/2018 [facility] General Internal Medicine - Encounter 08/05/2018 08/03/2018 Travel Jett Booth MD Acute left flank pain (Primary Dx); Hyperglycemia; Dehydration 03/12/2018 Emergency Emergency Medicine Salvador Ornelas MD Abdominal pain, unspecified abdominal location (Primary Dx); Elevated blood pressure reading 01/03/2018 Emergency Emergency Medicine 01/03/2018 Travel Kirti Saba MD Gastroparesis (Primary Dx) 12/04/2017 Emergency Emergency Medicine Senthil Mcgrath, DO 11/24/2017 Emergency Emergency Medicine Jett Booth MD Arriaga, Michael, MD Thai, Ryan T., MD Hypertension, unspecified type (Primary Dx); Epigastric pain 11/06/2017 Emergency General Internal Medicine - 11/08/2017 after 10/02/2017 Immunizations Name Administration Dates Next Due Pneumococcal 11/07/2017 Polysaccharide Social History Date Tobacco Use Types Packs/Day Years Used Quit: 2009 Former Smoker Cigarettes 2 10 Smokeless Tobacco: Never Used Drinks/Week oz/Week Comments Alcohol Use No Sex Assigned at Date Recorded Not on file Industry Job Start Date Occupation Not on file Not on file Not on file Travel End Travel History Travel Start No recent travel history available. Last Filed Vital Signs Reading Time Taken Comments Vital Sign 129/62 09/21/2018 11:27 AM CDT Blood Pressure 79 09/21/2018 11:27 AM CDT Pulse 36.4 C (97.6 F) 09/21/2018 11:27 AM CDT Temperature 16 09/21/2018 11:27 AM CDT Respiratory Rate 97% 09/21/2018 11:27 AM CDT Oxygen Saturation - - Inhaled Oxygen Concentration 117 kg (257 lb 3.2 oz) 08/05/2018 9:29 AM CDT Weight 160 cm (5' 3") 09/20/2018 4:18 PM CDT Height 45.56 08/03/2018 8:34 PM CDT Body Mass Index Plan of Treatment Health Maintenance Due Date Last Done Comments CERVICAL CANCER SCREENING 1994 INFLUENZA VACCINE 09/05/2018 Implants Device Identifier Shelf Expiration Date Model / Serial / Lot Implanted Type Area Manufactur er 08/29/2021 [id number] / [id number] / [id number] Mini Open Kit Implant, Cannula, And Arthroscop Right: Shoulder BIOMET, Dr[employer] Implanted: Qty: 1 on 04/06/2017 by Joby Up MD at [facility] s 01/10/2019 [id number] / / [id number] Iconix 2 Tape With Intellibrai - IPM Right: Shoulder JAIRON [id number] IMPLANT ORTHOPEDIC Implanted: 04/06/2017 at [facility] DEVICES [facility]PITAL (Quantity not on file) 02/19/2019 [id number] / / [id number] 4.5 Reelx Peek Orosi - [id number] IPM Right: Shoulder JAIRON Implanted: 04/06/2017 at [facility] (Quantity not on file) DEVICES S 02/19/2019 [id number] / / [id number] 4.5 Reelx Peek Orosi - [id number] IPM Right: Shoulder JAIRON Implanted: 04/06/2017 at [facility] (Quantity not on file) DEVICES S Procedures Comments Procedure Name Priority Date/Time Associated Diagnosis POC GLUCOSE Routine 09/21/2018 11:27 AM CDT TROPONIN Routine 09/21/2018 10:10 AM CDT LIPASE LEVEL Routine 09/21/2018 10:[address] ABDOMEN PELVIS WO STAT 09/21/2018 CONTRAST 8:48 AM CDT POC GLUCOSE Routine 09/21/2018 7:10 AM CDT POC GLUCOSE Routine 09/20/2018 11:59 PM CDT XR ABDOMEN 1 VW STAT 09/20/2018 10:55 PM CDT TROPONIN Routine 09/20/2018 10:00 PM CDT XR CHEST 1 VW PORTABLE Routine 09/20/2018 9:06 PM CDT GRAM STAIN STAT 09/20/2018 8:43 PM CDT URINE CULTURE STAT 09/20/2018 8:43 PM CDT HCG QUALITATIVE, SERUM STAT 09/20/2018 SCREEN 8:18 PM CDT ALT (SGPT) STAT 09/20/2018 8:18 PM CDT AST (SGOT) STAT 09/20/2018 8:18 PM CDT POTASSIUM LEVEL STAT 09/20/2018 8:18 PM CDT HCG QUALITATIVE, URINE STAT 09/20/2018 SCREEN 8:18 PM CDT URINALYSIS SCREEN AND STAT 09/20/2018 MICROSCOPY, WITH REFLEX 8:18 PM CDT TO CULTURE VENOUS BLOOD GAS Routine 09/20/2018 7:54 PM CDT ND CRITICAL CARE, E/M Routine 09/20/2018 30-74 MINUTES 7:20 PM CDT ESTIMATED GFR STAT 09/20/2018 4:31 PM CDT LIPASE LEVEL STAT 09/20/2018 4:31 PM CDT COMPREHENSIVE METABOLIC STAT 09/20/2018 PANEL 4:31 PM CDT HC COMPLETE BLD COUNT STAT 09/20/2018 W/AUTO DIFF 4:31 PM CDT POC GLUCOSE Routine 08/05/2018 12:29 PM CDT [...] DIFF 3:00 PM CDT ED REFERRAL TO CONCEPCION Routine 03/12/2018 [facility] PHYSICIAN 10:54 PM [address] [address] RENAL STONE PROTOCOL STAT 03/12/2018 9:19 PM BR[employer]HER [employer]ENDER HCG QUALITATIVE, URINE STAT 03/12/2018 SCREEN 6:26 PM [employer]HER [employer]ENDER URINALYSIS SCREEN AND STAT 03/12/2018 MICROSCOPY, WITH REFLEX 6:26 PM BRUSHER TENDER TO CULTURE URINE CULTURE STAT 03/12/2018 6:23 PM BRUSHER TENDER ESTIMATED GFR STAT 03/12/2018 4:57 PM BR[employer]HER TENDER LIPASE LEVEL STAT 03/12/2018 4:57 PM [employer]ER COMPREHENSIVE METABOLIC STAT 03/12/2018 PANEL 4:57 PM BRUSHER TENDER HC COMPLETE BLD COUNT STAT 03/12/2018 W/AUTO DIFF 4:[address] ABDOMEN PELVIS W STAT 01/03/2018 CONTRAST 3:42 PM BRUSHER TENDER ECG 12-LEAD STAT 01/03/2018 12:07 PM BRUSHER TENDER ECG ED PRELIMINARY Routine 01/03/2018 INTERPRETATION 11:48 AM BRUSHER TENDER TROPONIN STAT 01/03/2018 11:30 AM BRUSHER TENDER ESTIMATED GFR STAT 01/03/2018 11:30 AM [employer]HER TENDER LIPASE LEVEL STAT 01/03/2018 11:30 AM BRUSHER TENDER AMYLASE LEVEL STAT 01/03/2018 11:30 AM [employer]HER TENDER COMPREHENSIVE METABOLIC STAT 01/03/2018 PANEL 11:30 AM BRUSHER TENDER HC COMPLETE BLD COUNT STAT 01/03/2018 W/AUTO DIFF 11:30 AM BRUSHER TENDER HCG QUALITATIVE, URINE STAT 01/03/2018 SCREEN 10:32 AM BRUSHER TENDER URINALYSIS SCREEN AND STAT 01/03/2018 MICROSCOPY, WITH REFLEX 10:32 AM BRUSHER TENDER TO CULTURE GRAM STAIN ONLY STAT 01/03/2018 10:32 AM BRUSHER TENDER URINE CULTURE STAT 01/03/2018 10:32 AM BRUSHER TENDER ECG ED PRELIMINARY Routine 12/04/2017 INTERPRETATION 1:02 [...] 11/06/2017 W/AUTO DIFF 9:32 PM CDT after 10/02/2017 Results * POC glucose (09/21/2018 11:27 AM CDT) Only the most recent of 19 results within the time period is included. POC glucose 294 (H) 65 - 99 mg/dL [place] Comment: [facility] Notified RN HOSPITAL Meter ID: [id number] Pattern Marker: Gabby Gomez Specimen Performing Organization Address City/State/Zipcode Phone Number [facility] DEPARTMENT OF [address] [place] [address] PATHOLOGY AND GENOMIC MEDICINE [place] BUDDH[facility] [address] [place], [place] [id number] HOSPITAL * Troponin (09/21/2018 10:10 AM CDT) Only the most recent of 4 results within the time period is included. Troponin <0.006 0.000 - 0.040 ng/mL [place] Comment: [facility] changed methodology effective: 06/11/2018 at 10:00 am The new method has a 99th percentile cutoff of 0.040 ng/mL Specimen Plasma specimen Performing Organization Address City/[facility] Phone Number [facility] [place] [address] PATHOLOGY AND GENOMIC MEDICINE [address] * Lipase level (09/21/2018 10:10 AM CDT) Only the most recent of 12 results within the time period is included. Lipase 93 (H) 13 - 60 U/L [facility] Specimen Plasma specimen Performing Organization Address [facility] Phone Number [facility] [place] [address] PATHOLOGY AND GENOMIC MEDICINE [address] * CT Abdomen Pelvis Wo Contrast (09/21/2018 8:48 AM CDT) Specimen Narrative Performed At EXAMINATION:CT ABDOMEN PELVIS WO CONTRAST [facility] CLINICAL HISTORY:Abd painappendicitis suspected TECHNIQUE:Multiple axial images of the abdomen and pelvis were obtained without intravenous administration of iodinated contrast. Sagittal and coronal computerized reformatted images were also obtained. The lack of intravenous contrast reduces the sensitivity of detecting solid organ disease. CT imaging was performed with iterative reconstruction techniques and/or automated exposure control to reduce radiation dose. COMPARISON:To previous study from 08/03/2018 IMPRESSION: Abdomen: 1. No parenchymal abnormality is noted in the lung bases. 2.The liver is enlarged with moderate fatty infiltration present, without evidence of a focal mass. Patient status post cholecystectomy, without evidence of biliary ductal dilatation. 3.The pancreas and both adrenal glands are normal in appearance, and both kidneys are normal in appearance. Pelvis: 1. The appendix is normal in appearance. 2.The a 4 cm right ovarian cyst is present. A 4.8 cm left ovarian cyst is present. 3.A moderate sized periumbilical hernia is noted with peritoneal fat present. 4.No bowel distention is appreciated. 5.There is no evidence of pelvic mass, or fluid collection. 6.No bony abnormality is appreciated. [facility]-[id number] Procedure Note Interface, Radiology Results [facility] - 09/21/2018 8:57 AM CDT EXAMINATION: CT ABDOMEN PELVIS WO CONTRAST CLINICAL HISTORY: Abd pain appendicitis suspected TECHNIQUE: Multiple axial images of the abdomen and pelvis were obtained without intravenous administration of iodinated contrast. Sagittal and coronal computerized reformatted images were also obtained. The lack of intravenous contrast reduces the sensitivity of detecting solid organ disease. CT imaging was performed with iterative reconstruction techniques and/or automated exposure control to reduce radiation dose. COMPARISON: To previous study from 08/03/2018 IMPRESSION: Abdomen: 1. No parenchymal abnormality is noted in the lung bases. 2. The liver is enlarged with moderate fatty infiltration present, without evidence of a focal mass. Patient status post cholecystectomy, without evidence of biliary ductal dilatation. 3. The pancreas and both adrenal glands are normal in appearance, and both kidneys are normal in appearance. Pelvis: 1. The appendix is normal in appearance. 2. The a 4 cm right ovarian cyst is present. A 4.8 cm left ovarian cyst is present. 3. A moderate sized periumbilical hernia is noted with peritoneal fat present. 4. No bowel distention is appreciated. 5. There is no evidence of pelvic mass, or fluid collection. 6. No bony abnormality is appreciated. [facility]-[id number] Performing Organization Address [facility] Phone Number [facility] [employer] [address] [place] [address] * XR Abdomen 1 Vw (09/20/2018 10:55 PM CDT) Specimen Narrative Performed At EXAMINATION:XR ABDOMEN 1 VW [facility] CLINICAL HISTORY:Abd painunspecified COMPARISON:None. IMPRESSION: Nonobstructive bowel gas pattern. No pathologic calcification over the kidneys or expected course of the ureters. No acute osseous abnormalities. [facility]-[id number] Procedure Note [facility], Radiology Results [facility] - 09/20/2018 10:59 PM CDT EXAMINATION: XR ABDOMEN 1 VW CLINICAL HISTORY: Abd pain unspecified COMPARISON: None. IMPRESSION: Nonobstructive bowel gas pattern. No pathologic calcification over the kidneys or expected course of the ureters. No acute osseous abnormalities. [facility]-[id number] Performing Organization Address [facility] Phone Number [employer] [address] [place] [address] * XR Chest 1 Vw Portable (09/20/2018 9:06 PM CDT) Specimen Narrative Performed At EXAMINATION:XR CHEST 1 VW PORTABLE HM [facility] CLINICAL HISTORY:cxr COMPARISON:April 06, 2017 IMPRESSION: 1. The heart and pulmonary vasculature are within normal limits. 2. No infiltrate or effusion is demonstrated. 3. There is no acute osseous pathology. 4. If suspicion persists, follow-up nonportable PA and lateral imaging may be helpful. [facility]-[id number] Procedure Note Hm Interface, Radiology Results Incoming - 09/20/2018 9:10 PM CDT EXAMINATION: XR CHEST 1 VW PORTABLE CLINICAL HISTORY: cxr COMPARISON: April 06, 2017 IMPRESSION: 1. The heart and pulmonary vasculature are within normal limits. 2. No infiltrate or effusion is demonstrated. 3. There is no acute osseous pathology. 4. If suspicion persists, follow-up nonportable PA and lateral imaging may be helpful. [facility]-[id number] Performing Organization Address [facility] Cliniccode Phone Number [facility] [address] [place] [address] * Gram stain (09/20/2018 8:43 PM CDT) Only the most recent of 2 results within the time period is included. Gram stain No WBC's [place] result Occasional Gram positive rods [facility] Comment: HOSPITAL Specimen Information Specimen Source: Urine Specimen Site: Clean catch Specimen Urine Performing Organization Address [facility] Phone Number [facility] [place] [address] PATHOLOGY AND [facility] [address] [place] [address] HOSPITAL * Urine culture (09/20/2018 8:43 PM CDT) Only the most recent of 7 results within the time period is included. Pathologist [facility] Urine culture Mixed isiah 10-4 col/cc [place] isolate Comment: [facility] Specimen Information HOSPITAL Specimen Source: Urine Specimen Site: Clean catch Specimen Urine Performing Organization Address [facility]/Zipcode Phone Number [facility] DEPARTMENT OF [address] [place] [address] PATHOLOGY AND [facility] MEDICINE [place] BUDDHISM [address] [place] [address] * Urinalysis screen and microscopy, with reflex to culture (09/20/2018 8:18 PM CDT) Only the most recent of 7 results within the time period is included. Specimen site [facility] catch [facility] Color, UA Yellow [facility] Appearance, UA Hazy [facility] Specific 1.025 1.001 - 1.035 [place] gravity, [facility] pH, UA 6.0 5.0 - 8.5 [facility] Protein, UA 2+ (A) Negative [facility] Glucose, UA 3+ (A) Negative [facility] Ketones, UA Negative Negative [facility] Bilirubin, UA Negative Negative [facility] Blood, UA Small (A) Negative [facility] Nitrite, UA Negative Negative [facility] Urobilinogen, <2.0 <2.0 [facility] Leukocyte Negative Negative [place] esterase, [facility] Epithelial 5 /HPF [place] cells, [facility] WBC, UA 6 (H) 0 - 4 /HPF [facility] RBC, UA 4 0 - 5 /HPF [facility] Bacteria, UA None seen None seen [facility] Yeast, UA None seen [facility] Yeast with None seen [place] [facility] Hyaline casts, 1 /LPF [facility] Specimen Urine Performing Organization Address [facility] Phone Number [facility] [place] [address] PATHOLOGY AND GENOMIC MEDICINE [address] * hCG qualitative, urine screen (09/20/2018 8:18 PM CDT) Only the most recent of 7 results within the time period is included. [facility] hCG NegativeComment: Sensitivity [place] qualitative, of HCG test: 25 mIU/mL [facility] urine [facility] Specimen Urine Performing Organization Address City/[facility] Phone Number [facility] [place] [address] PATHOLOGY AND GENOMIC MEDICINE [address] * hCG qualitative, serum screen (09/20/2018 8:18 PM CDT) [facility] hCG NegativeComment: Sensitivity [place] qualitative, of HCG test: 25 mIU/mL [facility] serum [facility] Specimen Blood Performing Organization Address [facility] Phone Number [facility] [place] [address] PATHOLOGY AND GENOMIC MEDICINE [address] * ALT (SGPT) (09/20/2018 8:18 PM CDT) Only the most recent of 2 results within the time period is included. ALT 18 5 - 50 U/L [facility] Specimen Plasma specimen Performing Organization Address City/[facility] Phone Number [facility] [place] [address] PATHOLOGY AND [facility] MEDICINE [address] * AST (SGOT) (09/20/2018 8:18 PM CDT) Only the most recent of 2 results within the time period is included. AST 13 10 - 35 U/L [facility] Specimen Plasma specimen Performing Organization Address City/[facility] Phone Number [facility] [place] [address] PATHOLOGY AND [facility] MEDICINE [address] * Potassium level (09/20/2018 8:18 PM CDT) Only the most recent of 2 results within the time period is included. Potassium 4.0 3.5 - 5.0 mEq/L [facility] Specimen Plasma specimen Performing Organization Address [facility] Phone Number [facility] [place] [address] PATHOLOGY AND [facility] MEDICINE [address] * Venous blood gas (09/20/2018 7:54 PM CDT) pH, venous 7.38 7.32 - 7.42 [facility] pCO2, venous 44 (L) 45 - 51 mmHg [facility] pO2, venous 34 25 - 40 mmHg [facility] Base excess, 1 -2 - 2 meq/L [facility] O2 saturation, 63 40 - 70 % [facility] Bicarbonate, 25.5 21.0 - 28.0 mmol/L [facility] Specimen Blood Performing Organization Address [facility] Phone Number [facility] [place] [address] PATHOLOGY AND [facility] MEDICINE [address] * CRITICAL CARE (09/20/2018 7:20 PM CDT) Narrative Performed At Kirti Saba MD 09/21/2018 10:26 AM Critical Care Performed by: Rossana Granados NP Authorized by: Kirti Saba MD Critical care provider statement: Critical care time (minutes):35 Critical care start time:09/20/2018 7:50 PM Critical care end time:09/20/2018 8:25 PM Critical care time was exclusive of:Separately billable procedures and treating other patients and teaching time Critical care was necessary to treat or prevent imminent or life-threatening deterioration of the following conditions:Cardiac failure Critical care was time spent personally by me on the following activities:Ordering and review of laboratory studies, ordering and review of radiographic studies, pulse oximetry, re-evaluation of patient's condition, examination of patient and evaluation of patient's response to treatment Comments: Critical care time for intravenous antihypertensive medication given to treat hypertension. * Estimated GFR (09/20/2018 4:31 PM CDT) Only the most recent of 10 results within the time period is included. [facility] Estimated GFR 83 mL/min/1.73 m2 [place] Comment: [facility] rpretation G1 >=90 Normal or high G2 60-89Mildly decreased [id number] Mildly to moderately decreased [id number] Moderately to severely decreased G4 15-29Severely decreased G5 <15Kidney failure The eGFR was calculated using the Chronic Kidney Disease Epidemiology Collaboration (CKD-EPI) equation. Interpretation is based on recommendations of the National Kidney Foundation-Kidney Disease Outcomes Quality Initiative (NKF-KDOQI) published in 2014. Specimen Plasma specimen Performing Organization Address City/State/Zipcode Phone Number [facility] DEPARTMENT OF [address] [place] [address] PATHOLOGY AND GENOMIC MEDICINE [address] * CBC with platelet and differential (09/20/2018 4:31 PM CDT) Only the most recent of 9 results within the time period is included. [facility] WBC 8.16 4.50 - 11.00 k/uL [facility] RBC 4.91 4.20 - 5.50 m/uL [facility] HGB 15.0 12.0 - 16.0 g/dL [facility] HCT 44.8 37.0 - 47.0 % [facility] MCV 91.2 82.0 - 100.0 fL [facility] MCH 30.5 27.0 - 34.0 pg [facility] MCHC 33.5 31.0 - 37.0 g/dL [facility] RDW - SD 43.9 37.0 - 55.0 fL [facility] MPV 11.0 8.8 - 13.2 fL [facility] Platelet count 280 150 - 400 k/uL [facility] Nucleated RBC 0.00 /100 WBC [facility] Neutrophils 67.8 39.0 - 69.0 % [facility] Lymphocytes 25.1 25.0 - 45.0 % [facility] Monocytes 3.7 0.0 - 10.0 % [facility] Eosinophils 2.3 0.0 - 5.0 % [facility] Basophils 0.5 0.0 - 1.0 % [facility] Immature 0.6Comment: "Immature 0.0 - 1.0 % [place] granulocytes granulocytes" (promyelocytes, BUDDHISM myelocytes, metamyelocytes) [facility] Specimen Blood Performing Organization Address City/State/Zipcode Phone Number [facility] DEPARTMENT OF [address] [place] [address] PATHOLOGY AND GENOMIC MEDICINE [address] * Comprehensive metabolic panel (09/20/2018 4:31 PM CDT) Only the most recent of 8 results within the time period is included. Sodium 132 (L) 135 - 148 mEq/L [facility] Potassium SEE COMMENT 3.5 - 5.0 mEq/L [place] Comment: BUDDHISM Footnote--------- HOSPITAL Unable to perform testing, specimen is HEMOLYZED.Recollect requested for K. Chloride 94 (L) 98 - 112 mEq/L [facility] CO2 22 (L) 24 - 31 mEq/L [facility] Anion gap 16@ANIO (H) 7 - 15 mEq/L [facility] BUN 15 6 - 20 mg/dL [facility] Creatinine 0.85 0.50 - 0.90 mg/dL [facility] Glucose 273 (H) 65 - 99 mg/dL [facility] Calcium 9.0 8.3 - 10.2 mg/dL [facility] Protein 7.3 6.3 - 8.3 g/dL [place] Comment: [facility] 4.6-7.0 g/dL 1 week 4.4-7.6 g/dL 7 months-1year 5.1-7.3 g/dL 1-2 years5.6-7 .5 g/dL >3 years6.0-8 .0 g/dL 18-150 6.3-8.3 g/dL Albumin 3.0 (L) 3.5 - 5.0 g/dL [facility] A/G ratio 0.7 0.7 - 3.8 [facility] Alkaline 94 35 - 104 U/L [place] phosphatase [facility] AST SEE COMMENTComment: 10 - 35 U/L [place] Footnote--------- [facility] ALT SEE COMMENTComment: 5 - 50 U/L [place] Footnote--------- [facility] Total bilirubin <0.2 0.0 - 1.2 mg/dL [facility] Specimen Plasma specimen Performing Organization Address City/[facility] Phone Number [facility] [place] [address] PATHOLOGY AND GENOMIC MEDICINE [address] * Phosphorus level (08/05/2018 4:50 AM CDT) Only the most recent of 3 results within the time period is included. Phosphorus 2.4 2.4 - 4.5 mg/dL [facility] Specimen Plasma specimen Performing Organization Address [facility] Phone Number [facility] [place] [address] PATHOLOGY AND GENOMIC MEDICINE [address] * Magnesium level (08/05/2018 4:50 AM CDT) Only the most recent of 3 results within the time period is included. Magnesium 2.5 1.6 - 2.6 mg/dL [facility] Specimen Plasma specimen Performing Organization Address [facility] Phone Number [facility] [place] [address] PATHOLOGY AND GENOMIC MEDICINE [address] * Basic metabolic panel (08/05/2018 4:50 AM CDT) Only the most recent of 3 results within the time period is included. Sodium 135 135 - 148 mEq/L [facility] Potassium 3.3 (L) 3.5 - 5.0 mEq/L [facility] Chloride 99 98 - 112 mEq/L [facility] CO2 24 24 - 31 mEq/L [facility] Anion gap 12@ANIO 7 - 15 mEq/L [facility] BUN 14 6 - 20 mg/dL [facility] Creatinine 0.84 0.50 - 0.90 mg/dL [facility] Glucose 171 (H) 65 - 99 mg/dL [facility] Calcium 7.6 (L) 8.3 - 10.2 mg/dL [facility] Specimen Plasma specimen Performing Organization Address City/[facility] Phone Number [facility] [place] [address] PATHOLOGY AND [facility] MEDICINE [address] * Thyroid stimulating hormone (08/04/2018 4:50 AM CDT) Pathologist [facility] TSH 1.16 0.27 - 4.20 uIU/mL [facility] Specimen Plasma specimen Performing Organization Address City/[facility] Phone Number [facility] [place] [address] PATHOLOGY AND [facility] MEDICINE [address] * Osmolality, serum (08/04/2018 4:50 AM CDT) Osmolality 301 (H) 275 - 295 mOsm/kg [facility] Specimen Blood Performing Organization Address [facility] Phone Number [facility] [place] [address] PATHOLOGY AND GENOMIC MEDICINE [address] * Hemoglobin A1c (08/04/2018 4:50 AM CDT) Only the most recent of 2 results within the time period is included. Hemoglobin A1C 11.6 (H) 4.0 - 5.6 % [place] Comment: BUDDHISM HbA1c cutoffs for diagnosing HOSPITAL diabetes: 4.0% [...] to and read back by ASHLEY QUINONES(name/location) [facility] DEPARTMENT OF at08/04/201806:25 (date/time) by SAMI_. PATHOLOGY AND Unable to perform testing, specimen is HEMOLYZED.Recollect GENOMIC MEDICINE requested for K___ (tests).ASHLEY Dejesus (name/location) notified by SAMI_ (tech ID) at08/04/201806:25 ____ (date/time).Credit issued. Performing Organization Address City/State/Zipcode Phone Number [facility] DEPARTMENT OF [address] [place] [address] PATHOLOGY AND GENOMIC MEDICINE [address] * Amylase level (08/04/2018 4:50 AM CDT) Only the most recent of 4 results within the time period is included. Amylase 32 28 - 100 U/L [facility] Specimen Plasma specimen Performing Organization Address City/State/Zipcode Phone Number [facility] DEPARTMENT OF [address] [place] [address] PATHOLOGY AND GENOMIC MEDICINE [address] * Lipid panel (08/04/2018 4:50 AM CDT) Cholesterol 348 (H) <200 mg/dL [facility] Triglycerides 2,298 (A) <150 mg/dL [facility] HDL cholesterol 11 (L) >40 mg/dL [facility] LDL cholesterol 17Comment: Result obtained by <100 mg/dL [place] direct LDL measurement [facility] Comment: BUDDHISM Total Cholesterol HOSPITAL (mg/dL) <200 Desirable 200-239Borderline [...] mg/dL) Specimen Plasma specimen Performing Organization Address City/[facility] Phone Number [facility] DEPARTMENT OF [address] [place] [address] PATHOLOGY AND GENOMIC MEDICINE [place] [address] [address] HOSPITAL * US Hepatic (08/03/2018 8:25 PM CDT) Only the most recent of 2 results within the time period is included. Specimen Narrative Performed At EXAMINATION:[facility] CLINICAL HISTORY:Acute pancreatitis COMPARISON:None. IMPRESSION: 1.Heterogeneous increased echogenicity of the liver compatible with fatty infiltration or liver parenchymal disease. No focal mass. No cirrhotic morphology. The liver is not enlarged. Status post cholecystectomy. The main portal vein is patent. The common bile duct is nondilated measures 4.1 mm. No ascites. Limited assessment due to patient's body habitus. [facility]-[id number] Procedure Note Interface, Radiology Results Incoming - [...] Limited assessment due to patient's body habitus. [facility]-[id number] Performing Organization Address City/[facility]/Zipcode Phone Number [facility] [address] [place] [address] * CT Abdomen Pelvis W Contrast (08/03/2018 6:18 PM CDT) Only the most recent of 3 results within the time period is included. Specimen Narrative Performed At EXAMINATION:CT ABDOMEN PELVIS W CONTRAST RADIANT CLINICAL HISTORY:Abd painunspecified, Nauseavomiting TECHNIQUE: Multiple axial [...] ovary has decreased from March 12, 2018 [facility]-[id number] Procedure Note Interface, Radiology Results Incoming - [...] ovary has decreased from March 12, 2018 [facility]-[id number] Performing Organization Address City/State/[place] Phone Number [facility] [address] [place] [address] * Partial thromboplastin time, activated (08/03/2018 3:00 PM CDT) PTT 30.9 23.0 - 36.0 sec [place] Comment: BUDDHISM PTT therapeutic range for HOSPITAL unfractionated heparin is 61.0-112.0 seconds which corresponds to Anti-Xa 0.3-0.7 U/ml. Specimen Blood Performing Organization Address City/[facility]/Zipcode Phone Number [facility] DEPARTMENT OF [address] [place] [address] PATHOLOGY AND [facility] MEDICINE [address] * Prothrombin time with INR (08/03/2018 3:00 PM CDT) Prothrombin 11.6 11.5 - 14.5 sec [place] time [facility] INR 0.9 [place] Comment: BUDDHISM The International Normalized HOSPITAL Ratio (INR) is a therapeutic monitoring tool for patients who are stable on oral anticoagulant therapy. An INR of 2.0-3.0 is suggested for deep vein thrombosis/pulmonary embolism. Specimen Blood Performing Organization Address [facility] Phone Number [facility] [place] [address] PATHOLOGY AND [facility] MEDICINE [address] * CT Renal Stone Protocol (03/12/2018 9:19 PM BRUSHER TENDER) Specimen Narrative Performed At EXAMINATION:CT RENAL STONE PROTOCOL [facility] CLINICAL HISTORY:L flank and LLQ pain TECHNIQUE: [...] be better assessed with dedicated pelvic ultrasound. [facility]-[id number] Procedure Note [facility], Radiology Results Incoming - 03/12/2018 9:30 PM BRUSHER TENDER EXAMINATION: CT RENAL STONE PROTOCOL CLINICAL HISTORY: [...] be better assessed with dedicated pelvic ultrasound. [facility]-[id number] Performing Organization Address City/State/Zipcode Phone Number [facility] [address] [place] [address] * ECG 12 lead (01/03/2018 12:07 PM BRUSHER TENDER) Only the most recent of 2 results within the time period is included. Ventricular 80 [facility] MUSE rate Atrial rate 80 [facility] MUSE ND interval 154 [facility] MUSE QRSD interval 90 [...] Specimen Narrative Performed At Performing Organization Address [facility] Phone Number [facility] [address] [place] [address] * ECG ED Preliminary Interpretation - Not an Order (01/03/2018 11:48 AM BRUSHER TENDER) Only the most recent of 2 results within the time period is included. Narrative Performed At Candelaria Callahan PA-C 01/03/20185:08 PM ECG ED Preliminary Interpretation - Not an Order Performed by: Candelaria Callahan PA-C Authorized by: Salvador Ornelas MD ECG reviewed by ED Physician in the absence of a traffic checker: yes Rate: ECG rate:80 ECG rate assessment: normal Rhythm: Rhythm: sinus rhythm QRS: QRS intervals:Normal Conduction: Conduction: normal ST segments: ST segments:Normal T waves: T waves: normal * Gram stain only (01/03/2018 10:32 AM BRUSHER TENDER) Gram stain Rare Gram negative rods [place] result No WBC's BUDDHISM SUGAR Comment: [facility] Specimen Information Specimen Source: Urine Specimen Site: Clean catch Specimen Urine Performing Organization Address City/[facility] Phone Number [facility] DEPARTMENT [address] [place] [address] PATHOLOGY AND GENOMIC MEDICINE [place] BUDDHISM SUGAR [address] * C-reactive protein (11/08/2017 4:30 AM CDT) CRP 1.77 (H) 0.00 - 0.50 mg/dL [facility] DEPARTMENT OF PATHOLOGY AND GENOMIC MEDICINE Specimen Plasma specimen Performing Organization Address City/[facility] Phone Number [facility] DEPARTMENT [address] [place] [address] PATHOLOGY AND GENOMIC MEDICINE * Hepatic function panel (11/08/2017 4:30 AM CDT) Pathologist [facility] Albumin 2.8 (L) 3.5 - 5.0 g/dL [facility] DEPARTMENT OF PATHOLOGY AND GENOMIC MEDICINE Total bilirubin <0.2 0.0 - 1.2 mg/dL [facility] DEPARTMENT OF PATHOLOGY AND GENOMIC MEDICINE Bilirubin Footnote 0.0 - 0.3 mg/dL [facility] DEPARTMENT direct OF PATHOLOGY AND GENOMIC MEDICINE Alkaline Footnote 35 - 104 U/L [facility] DEPARTMENT phosphatase OF PATHOLOGY AND GENOMIC MEDICINE Protein 6.5 6.3 - 8.3 g/dL [facility] DEPARTMENT Comment: OF PATHOLOGY AND GENOMIC 4.6-7.0 g/dL MEDICINE 1 week 4.4-7.6 g/dL 7 months-1year 5.1-7.3 g/dL 1-2 years5.6-7 .5 g/dL >3 years6.0-8 .0 g/dL 18-150 6.3-8.3 g/dL ALT Footnote 5 - 50 U/L [facility] DEPARTMENT OF PATHOLOGY AND GENOMIC MEDICINE AST Footnote 10 - 35 U/L [facility] DEPARTMENT OF PATHOLOGY AND GENOMIC MEDICINE Specimen Plasma specimen Performing Organization Address City/State/Zipcode Phone Number [facility] DEPARTMENT OF [address] [place] [address] PATHOLOGY AND GENOMIC MEDICINE * Alkaline phosphatase (11/08/2017 12:30 AM CDT) [facility] Alkaline SEE COMMENTComment: 35 - 104 U/L [facility] DEPARTMENT phosphatase Footnote--------- OF PATHOLOGY AND GENOMIC MEDICINE Specimen Plasma specimen Narrative Performed At Unable to perform testing, specimen is HEMOLYZED.Recollect [facility] DEPARTMENT OF requested for K/AST/ALT/ALP(tests). CALOS COREAS/J11(name/location) notified PATHOLOGY AND by 11/08/201707:59 (tech ID) at [email or web address](date/time). Credit issued. GENOMIC MEDICINE Performing Organization Address City/State/Zipcode Phone Number [facility] DEPARTMENT OF [address] [place] [address] PATHOLOGY AND GENOMIC MEDICINE * Total bilirubin (11/08/2017 12:30 AM CDT) [facility] Total bilirubin <0.2 0.0 - 1.2 mg/dL [facility] DEPARTMENT OF PATHOLOGY AND GENOMIC MEDICINE Specimen Plasma specimen Performing Organization Address City/[facility]/Zipcode Phone Number [facility] [address] [place] [address] PATHOLOGY AND [facility] MEDICINE * Hepatitis acute panel (11/07/2017 4:00 AM CDT) Hepatitis A IgM Non-reactive Non-reactive [facility] DEPARTMENT OF PATHOLOGY AND GENOMIC MEDICINE Hepatitis B Non-reactive Non-reactive [facility] DEPARTMENT core IgM OF PATHOLOGY AND GENOMIC MEDICINE Hepatitis B Non-reactive Non-reactive [facility] DEPARTMENT surface Ag OF PATHOLOGY AND GENOMIC MEDICINE Hepatitis C Ab Non-reactive Non-reactive [facility] DEPARTMENT OF PATHOLOGY AND GENOMIC MEDICINE Specimen Serum Performing Organization Address [facility] Phone Number [address] [address] PATHOLOGY AND GENOMIC MEDICINE after 10/02/2017 Insurance Type Payer Benefit Subscriber ID Effective Phone Address Plan / Dates Group PPO BCBS BCBS OUT xxxxxxxxxxxx 2018-P OF STATE resent [facility] xxxxxxxxx 2015-P [facility] [id number] Workers Employer 02/05/1902 [address] [facility] Comp (Home) [address] [place] [address] Advance Directives For more information, please contact: [phone] Patient Offset Pressman Explanation Type Date Recorded Advance Directives, 04/06/2017 8:29 AM Living Will and Medical Power of Electronic Bench Technician Advance Directives, 01/03/2018 12:34 PM Living Will and Medical Power of Electronic Bench Technician Date Inactivated Comments Code Status Date Activated 08/06/2018 12:52 AM Full Code 08/03/2018 10:35 PM Code Status decision reached by: Patient
[2018-10-03] MEDS ORDERED: SODIUM CHLORIDE 0.9% 1000ML 1,000 ML IV STA ×3 (10:17→10:50)
[2018-10-03 10:22] LABS: BASOPHILS % 0.3 % (0.0-1.0); EOSINOPHILS # (AUTO) 0.2 (0.0-0.4); EOSINOPHILS % 2.4 % (0.0-6.0); HEMATOCRIT 39.8 % (34.2-44.1); HEMOGLOBIN 14.6 g/dL (12.0-16.0); LYMPHOCYTES # (AUTO) 2.6 (1.0-3.2); LYMPHOCYTES % 25.9 % (18.0-39.1); MEAN CORPUSCULAR HEMOGLOBIN 32.3 pg (28-32); MEAN CORPUSCULAR HGB CONC 36.7 g/dL (31-35); MEAN CORPUSCULAR VOLUME 88.1 fL (81-99); MONOCYTES # (AUTO) 0.4 (0.2-0.8); MONOCYTES % 3.7 % (4.4-11.3); NEUTROPHILS # (AUTO) 6.6 (2.1-6.9); NEUTROPHILS % 67.3 % (38.7-80.0); PLATELET COUNT 250 x10e3/uL (140-360); RED BLOOD COUNT 4.52 x10e6/uL (3.6-5.1); RED CELL DISTRIBUTION WIDTH 13.1 % (11.7-14.4)
[2018-10-03 10:26] LABS: BILIRUBIN,URINE NEGATIVE (NEGATIVE); CLARITY,URINE CLEAR (CLEAR); COLOR,URINE YELLOW (YELLOW); KETONES,URINE NEGATIVE (NEGATIVE); LEUKOCYTE ESTERASE ,URINE NEGATIVE (NEGATIVE); NITRITE,URINE NEGATIVE (NEGATIVE); PROTEIN,URINE DIPSTICK 2+ (NEGATIVE); URINE UROBILINOGEN 0.2 mg/dL (0.2 - 1)
[2018-10-03] MEDS ORDERED: SODIUM CHLORIDE 0.9% 1000ML 1,000 ML IV SCH (10:34)
[2018-10-03 10:43] LABS: BENZODIAZEPINES SCREEN,URINE POSITIVE (NEGATIVE)
[2018-10-03 10:44] LABS: ALBUMIN 3.3 g/dL (3.5-5.0); ALBUMIN/GLOBULIN RATIO 0.7 (0.8-2.0); ANION GAP 32.3 mmol/L (8-16); CALCIUM 9.1 mg/dL (8.4-10.2); CREATININE, SERUM 1.63 mg/dL (0.57-1.11); POTASSIUM 3.3 mmol/L (3.5-5.1)
[2018-10-03 10:45] LABS: AMPHETAMINES SCREEN,URINE NEGATIVE (NEGATIVE); PHENCYCLIDINE SCREEN,URINE NEGATIVE (NEGATIVE)
[2018-10-03] MEDS ORDERED: DEXTROSE 50% SYRINGE 50 ML IV PRN (10:45)
[2018-10-03] MEDS ORDERED: FAMOTIDINE 20 MG/2 ML VIAL IV ONE (11:00)
[2018-10-03] MEDS ORDERED: KCL 20MEQ/.9 SOD CHL 1,000 ML IV ONE (11:00)
[2018-10-03] MEDS ORDERED: MORPHINE SULFATE INJ 4 MG/ML INJ 1ML IV ONE (11:00)
[2018-10-03] MEDS ORDERED: DIATRIZOATE MEGL/DIATRIZOA SOD 30 ML BTL PO ONE (11:00)
[2018-10-03] MEDS ORDERED: ONDANSETRON HCL INJ 2MG/ML 2ML 2 MG/ML VIAL IV ONE (11:00)
[2018-10-03 11:01] LABS: RBC,URINE 21-50 /HPF (0-5); WBC,URINE (MAN) 21-50 /HPF (0-5)
[2018-10-03 11:02] LABS: BACTERIA,URINE FEW /HPF; EPITHELIAL CELLS,URINE FEW /LPF
--- OUTSIDE RECORDS SUMMARY | 2018-10-03 11:03 | XMS REPORT | Clinical Summary ---
Author Author Eran Islam Organization [facility] Address Unknown Phone Unavailable Care Team Providers Care Brake Holder Name Role Phone Asked, No Pcp PCP [...] Description Date Type Specialty Kirti Saba MD Samani, Kaveh, MD Thai, Ryan T., [...] hyperglycemia; Abnormal LFTs (liver function tests) 08/03/2018 [facility] General Internal Medicine - Encounter 08/05/2018 08/03/2018 [...] Lot Implanted Type Area Manufactur er 08/29/2021 [id number] / [id number] Mini Open Kit Implant, Cannula, And Arthroscop Right: Shoulder BIOMET, Drill Bit y [employer] Implanted: Qty: 1 on 04/06/2017 by Joby Up MD at [facility] s 01/10/2019 [id number] / / [id number] Iconix 2 Tape With Intellibrai - IPM Right: Shoulder JAIRON [id number] IMPLANT ORTHOPEDIC Implanted: 04/06/2017 at [facility] (Quantity not on file) 02/19/2019 [id number] / / [id number] 4.5 [employer] Peek [place] - [id number] IPM Right: Shoulder JAIRON Implanted: 04/06/2017 at [facility] (Quantity not on file) DEVICES S 02/19/2019 [id number] / / [id number] 4.5 [employer] [place] - [id number] IPM Right: Shoulder JAIRON Implanted: 04/06/2017 at [facility] (Quantity not on [...] BLOOD GAS Routine 09/20/2018 7:54 PM CDT MO CRITICAL CARE, E/M Routine 09/20/2018 30-74 MINUTES [...] CDT ED REFERRAL TO CONCEPCION Routine 03/12/2018 [facility] PHYSICIAN 10:54 PM SNOWBOARD DESIGNER ORGANIZATION CT RENAL STONE PROTOCOL STAT 03/12/2018 9:19 PM SNOWBOARD DESIGNER HCG QUALITATIVE, URINE STAT 03/12/2018 SCREEN 6:26 PM SNOWBOARD DESIGNER URINALYSIS SCREEN AND STAT 03/12/2018 MICROSCOPY, WITH REFLEX 6:26 PM SNOWBOARD DESIGNER TO CULTURE URINE CULTURE STAT 03/12/2018 6:23 PM SNOWBOARD DESIGNER ESTIMATED GFR STAT 03/12/2018 4:57 PM SNOWBOARD DESIGNER LIPASE LEVEL STAT 03/12/2018 4:57 PM SNOWBOARD DESIGNER COMPREHENSIVE METABOLIC STAT 03/12/2018 PANEL 4:57 PM SNOWBOARD DESIGNER HC COMPLETE BLD COUNT STAT 03/12/2018 W/AUTO DIFF 4:[address] ABDOMEN PELVIS W STAT 01/03/2018 CONTRAST 3:42 PM SNOWBOARD DESIGNER ECG 12-LEAD STAT 01/03/2018 12:07 PM SNOWBOARD DESIGNER ECG ED PRELIMINARY Routine 01/03/2018 INTERPRETATION 11:48 AM SNOWBOARD DESIGNER TROPONIN STAT 01/03/2018 11:30 AM SNOWBOARD DESIGNER ESTIMATED GFR STAT 01/03/2018 11:30 AM SNOWBOARD DESIGNER LIPASE LEVEL STAT 01/03/2018 11:30 AM SNOWBOARD DESIGNER AMYLASE LEVEL STAT 01/03/2018 11:30 AM SNOWBOARD DESIGNER COMPREHENSIVE METABOLIC STAT 01/03/2018 PANEL 11:30 AM SNOWBOARD DESIGNER HC COMPLETE BLD COUNT STAT 01/03/2018 W/AUTO DIFF 11:30 AM SNOWBOARD DESIGNER HCG QUALITATIVE, URINE STAT 01/03/2018 SCREEN 10:32 AM SNOWBOARD DESIGNER URINALYSIS SCREEN AND STAT 01/03/2018 MICROSCOPY, WITH REFLEX 10:32 AM SNOWBOARD DESIGNER TO CULTURE GRAM STAIN ONLY STAT 01/03/2018 10:32 AM SNOWBOARD DESIGNER URINE CULTURE STAT 01/03/2018 10:32 AM SNOWBOARD DESIGNER ECG ED PRELIMINARY Routine 12/04/2017 INTERPRETATION 1:02 [...] glucose 294 (H) 65 - 99 mg/dL [place] Comment: CHRISTIAN [facility] Notified RN HOSPITAL Meter ID: [id number] Gluer Machine Setup Operator: Gabby Gomez Specimen Performing Organization Address City/State/Zipcode Phone Number [facility] DEPARTMENT OF [address] [place] [address] PATHOLOGY AND GENOMIC MEDICINE [place] CHRISTIAN [address] [place], [place] [id number] HOSPITAL * Troponin (09/21/2018 10:10 AM CDT) Only the most recent of 4 results within the time period is included. Troponin <0.006 0.000 - 0.040 ng/mL [place] Comment: [facility] changed methodology effective: 06/11/2018 at 10:00 am The new method has a 99th percentile cutoff of 0.040 ng/mL Specimen Plasma specimen Performing Organization Address City/[facility] Cent[facility] Phone Number [facility] [place] [address] PATHOLOGY AND GENOMIC MEDICINE [address] * Lipase level (09/21/2018 10:10 AM CDT) Only the most recent of 12 results within the time period is included. Lipase 93 (H) 13 - 60 U/L [facility] Specimen Plasma specimen Performing Organization Address [facility] Phone Number [facility] [place] [address] PATHOLOGY AND GENOMIC MEDICINE [address] * CT Abdomen Pelvis Wo Contrast [...] fluid collection. 6.No bony abnormality is appreciated. [facility]-[id number] Procedure Note Interface, Radiology Results [facility] - 09/21/2018 8:57 AM CDT EXAMINATION: CT [...] collection. 6. No bony abnormality is appreciated. [facility]-[id number] Performing Organization Address [facility] Phone Number [facility] [address] [place] [address] * XR Abdomen 1 Vw (09/20/2018 10:55 PM CDT) Specimen Narrative Performed At EXAMINATION:XR ABDOMEN 1 VW [facility] CLINICAL HISTORY:Abd painunspecified COMPARISON:None. IMPRESSION: Nonobstructive bowel gas pattern. No pathologic calcification over the kidneys or expected course of the ureters. No acute osseous abnormalities. [facility]-[id number] Procedure Note [facility], Radiology Results [facility] - 09/20/2018 10:59 PM CDT EXAMINATION: XR ABDOMEN 1 VW CLINICAL HISTORY: Abd pain unspecified COMPARISON: None. IMPRESSION: Nonobstructive bowel gas pattern. No pathologic calcification over the kidneys or expected course of the ureters. No acute osseous abnormalities. [facility]-[id number] Performing Organization Address [facility] Phone Number [employer] [address] [place] [address] * XR Chest 1 Vw Portable (09/20/2018 [...] PA and lateral imaging may be helpful. [facility]-[id number] Procedure Note Hm Interface, Radiology Results Incoming - 09/20/2018 9:10 PM CDT EXAMINATION: XR CHEST 1 VW PORTABLE CLINICAL HISTORY: cxr COMPARISON: April 06, 2017 IMPRESSION: 1. The heart and pulmonary vasculature are within normal limits. 2. No infiltrate or effusion is demonstrated. 3. There is no acute osseous pathology. 4. If suspicion persists, follow-up nonportable PA and lateral imaging may be helpful. [facility]-[id number] Performing Organization Address [facility] Centercode Phone Number [facility] [address] [place] [address] * Gram stain (09/20/2018 8:43 PM CDT) Only the most recent of 2 results within the time period is included. Gram stain No WBC's [place] result Occasional Gram positive rods CHRISTIAN Comment: HOSPITAL Specimen Information Specimen Source: Urine Specimen Site: Clean catch Specimen Urine Performing Organization Address [facility] Phone Number [facility] [place] [address] PATHOLOGY AND [facility] CHRISTIAN [address] [place] [address] HOSPITAL * Urine culture (09/20/2018 8:43 PM CDT) Only the most recent of 7 results within the time period is included. Pathologist [facility] Urine culture Mixed isiah 10-4 col/cc [place] isolate Comment: CHRISTIAN Specimen Information HOSPITAL Specimen Source: Urine Specimen Site: Clean catch Specimen Urine Performing Organization Address [facility]/Zipcode Phone Number [facility] DEPARTMENT OF [address] [place] [address] PATHOLOGY AND [facility] MEDICINE [place] CHRISTIAN [address] [place] [address] * Urinalysis screen and microscopy, with reflex to culture (09/20/2018 8:18 PM CDT) Only the most recent of 7 results within the time period is included. Specimen site [facility] catch [facility] Color, UA Yellow [facility] Appearance, UA Hazy [facility] Specific 1.025 1.001 - 1.035 [place] gravity, [facility] pH, UA 6.0 5.0 - 8.5 [facility] Protein, UA 2+ (A) Negative [facility] Glucose, UA 3+ (A) Negative [facility] Ketones, UA Negative Negative [facility] Bilirubin, UA Negative Negative [facility] Blood, UA Small (A) Negative [facility] Nitrite, UA Negative Negative [facility] Urobilinogen, <2.0 <2.0 [facility] Leukocyte Negative Negative [place] esterase, [facility] Epithelial 5 /HPF [place] cells, [facility] WBC, UA 6 (H) 0 - 4 /HPF [facility] RBC, UA 4 0 - 5 /HPF [facility] Bacteria, UA None seen None seen [facility] Yeast, UA None seen [facility] Yeast with None seen [place] [facility] Hyaline casts, 1 /LPF [facility] Specimen Urine Performing Organization Address [facility] Phone Number [facility] [place] [address] PATHOLOGY AND GENOMIC MEDICINE [address] * hCG qualitative, urine screen (09/20/2018 8:18 PM CDT) Only the most recent of 7 results within the time period is included. [facility] hCG NegativeComment: Sensitivity [place] qualitative, of HCG test: 25 mIU/mL CHRISTIAN urine [facility] Specimen Urine Performing Organization Address City/[facility] Phone Number [facility] [place] [address] PATHOLOGY AND GENOMIC MEDICINE [address] * hCG qualitative, serum screen (09/20/2018 8:18 PM CDT) [facility] hCG NegativeComment: Sensitivity [place] qualitative, of HCG test: 25 mIU/mL CHRISTIAN serum [facility] Specimen Blood Performing Organization Address [facility] Phone Number [facility] [place] [address] PATHOLOGY AND GENOMIC MEDICINE [address] * ALT (SGPT) (09/20/2018 8:18 PM CDT) Only the most recent of 2 results within the time period is included. ALT 18 5 - 50 U/L [facility] Specimen Plasma specimen Performing Organization Address City/[facility] Centercode Phone Number [facility] [place] [address] PATHOLOGY AND [facility] MEDICINE [address] * AST (SGOT) (09/20/2018 8:18 PM CDT) Only the most recent of 2 results within the time period is included. AST 13 10 - 35 U/L [facility] Specimen Plasma specimen Performing Organization Address City/[facility] Phone Number [facility] [place] [address] PATHOLOGY AND [facility] MEDICINE [address] * Potassium level (09/20/2018 8:18 PM CDT) Only the most recent of 2 results within the time period is included. Potassium 4.0 3.5 - 5.0 mEq/L [facility] Specimen Plasma specimen Performing Organization Address [facility] Phone Number [facility] [place] [address] PATHOLOGY AND [facility] MEDICINE [address] * Venous blood gas (09/20/2018 7:54 PM CDT) pH, venous 7.38 7.32 - 7.42 [facility] pCO2, venous 44 (L) 45 - 51 mmHg [facility] pO2, venous 34 25 - 40 mmHg [facility] Base excess, 1 -2 - 2 meq/L [facility] O2 saturation, 63 40 - 70 % [facility] Bicarbonate, 25.5 21.0 - 28.0 mmol/L [facility] Specimen Blood Performing Organization Address [facility] Phone Number [facility] [place] [address] PATHOLOGY AND [facility] MEDICINE [address] * CRITICAL CARE (09/20/2018 7:20 PM [...] results within the time period is included. [facility] Estimated GFR 83 mL/min/1.73 m2 [place] Comment: [facility] rpretation G1 >=90 Normal or high G2 60-89Mildly decreased [id number] Mildly to moderately decreased [id number] Moderately to severely decreased G4 15-29Severely decreased G5 <15Kidney failure The eGFR was calculated using the Chronic Kidney Disease Epidemiology Collaboration (CKD-EPI) equation. Interpretation is based on recommendations of the National Kidney Foundation-Kidney Disease Outcomes Quality Initiative (NKF-KDOQI) published in 2014. Specimen Plasma specimen Performing Organization Address City/State/Zipcode Phone Number [facility] DEPARTMENT OF [address] [place] [address] PATHOLOGY AND GENOMIC MEDICINE [address] * CBC with platelet and differential (09/20/2018 4:31 PM CDT) Only the most recent of 9 results within the time period is included. [facility] WBC 8.16 4.50 - 11.00 k/uL [facility] RBC 4.91 4.20 - 5.50 m/uL [facility] HGB 15.0 12.0 - 16.0 g/dL [facility] HCT 44.8 37.0 - 47.0 % [facility] MCV 91.2 82.0 - 100.0 fL [facility] MCH 30.5 27.0 - 34.0 pg [facility] MCHC 33.5 31.0 - 37.0 g/dL [facility] RDW - SD 43.9 37.0 - 55.0 fL [facility] MPV 11.0 8.8 - 13.2 fL [facility] Platelet count 280 150 - 400 k/uL [facility] Nucleated RBC 0.00 /100 WBC [facility] Neutrophils 67.8 39.0 - 69.0 % [facility] Lymphocytes 25.1 25.0 - 45.0 % [facility] Monocytes 3.7 0.0 - 10.0 % [facility] Eosinophils 2.3 0.0 - 5.0 % [facility] Basophils 0.5 0.0 - 1.0 % [facility] Immature 0.6Comment: "Immature 0.0 - 1.0 % [place] granulocytes granulocytes" (promyelocytes, CHRISTIAN myelocytes, metamyelocytes) [facility] Specimen Blood Performing Organization Address City/State/Zipcode Phone Number [facility] DEPARTMENT OF [address] [place] [address] PATHOLOGY AND GENOMIC MEDICINE [address] * Comprehensive metabolic panel (09/20/2018 4:31 PM CDT) Only the most recent of 8 results within the time period is included. Sodium 132 (L) 135 - 148 mEq/L [facility] Potassium SEE COMMENT 3.5 - 5.0 mEq/L [place] Comment: [facility]RISTIAN Footnote--------- HOSPITAL Unable to perform testing, specimen is HEMOLYZED.Recollect requested for K. Chloride 94 (L) 98 - 112 mEq/L [facility] CO2 22 (L) 24 - 31 mEq/L [facility] Anion gap 16@ANIO (H) 7 - 15 mEq/L [facility] BUN 15 6 - 20 mg/dL [facility] Creatinine 0.85 0.50 - 0.90 mg/dL [facility] Glucose 273 (H) 65 - 99 mg/dL [facility] Calcium 9.0 8.3 - 10.2 mg/dL [facility] Protein 7.3 6.3 - 8.3 g/dL [place] Comment: [facility] 4.6-7.0 g/dL 1 week 4.4-7.6 g/dL 7 months-1year 5.1-7.3 g/dL 1-2 years5.6-7 .5 g/dL >3 years6.0-8 .0 g/dL 18-150 6.3-8.3 g/dL Albumin 3.0 (L) 3.5 - 5.0 g/dL [facility] A/G ratio 0.7 0.7 - 3.8 [facility] Alkaline 94 35 - 104 U/L [place] phosphatase [facility] AST SEE COMMENTComment: 10 - 35 U/L [place] Footnote--------- [facility] ALT SEE COMMENTComment: 5 - 50 U/L [place] Footnote--------- [facility] Total bilirubin <0.2 0.0 - 1.2 mg/dL [facility] Specimen Plasma specimen Performing Organization Address City/[facility] Phone Number [facility] [place] [address] PATHOLOGY AND GENOMIC MEDICINE [address] * Phosphorus level (08/05/2018 4:50 AM CDT) Only the most recent of 3 results within the time period is included. Phosphorus 2.4 2.4 - 4.5 mg/dL [facility] Specimen Plasma specimen Performing Organization Address [facility] Phone Number [facility] [place] [address] PATHOLOGY AND GENOMIC MEDICINE [address] * Magnesium level (08/05/2018 4:50 AM CDT) Only the most recent of 3 results within the time period is included. Magnesium 2.5 1.6 - 2.6 mg/dL [facility] Specimen Plasma specimen Performing Organization Address [facility] Phone Number [facility] [place] [address] PATHOLOGY AND GENOMIC MEDICINE [address] * Basic metabolic panel (08/05/2018 4:50 AM CDT) Only the most recent of 3 results within the time period is included. Sodium 135 135 - 148 mEq/L [facility] Potassium 3.3 (L) 3.5 - 5.0 mEq/L [facility] Chloride 99 98 - 112 mEq/L [facility] CO2 24 24 - 31 mEq/L [facility] Anion gap 12@ANIO 7 - 15 mEq/L [facility] BUN 14 6 - 20 mg/dL [facility] Creatinine 0.84 0.50 - 0.90 mg/dL [facility] Glucose 171 (H) 65 - 99 mg/dL [facility] Calcium 7.6 (L) 8.3 - 10.2 mg/dL [facility] Specimen Plasma specimen Performing Organization Address City/[facility] Phone Number [facility] [place] [address] PATHOLOGY AND [facility] MEDICINE [address] * Thyroid stimulating hormone (08/04/2018 4:50 AM CDT) Pathologist [facility] TSH 1.16 0.27 - 4.20 uIU/mL [facility] Specimen Plasma specimen Performing Organization Address City/[facility] Cent[facility]ode Phone Number [facility] [place] [address] PATHOLOGY AND [facility] MEDICINE [address] * Osmolality, serum (08/04/2018 4:50 AM CDT) Osmolality 301 (H) 275 - 295 mOsm/kg [facility] Specimen Blood Performing Organization Address [facility] Phone Number [facility] [place] [address] PATHOLOGY AND GENOMIC MEDICINE [address] * Hemoglobin A1c (08/04/2018 4:50 AM CDT) Only the most recent of 2 results within the time period is included. Hemoglobin A1C 11.6 (H) 4.0 - 5.6 % [place] Comment: CHRISTIAN HbA1c cutoffs for diagnosing HOSPITAL diabetes: 4.0% [...] to and read back by ASHLEY QUINONES(name/location) [facility] DEPARTMENT OF at08/04/201806:25 (date/time) by SAMI_. PATHOLOGY AND Unable to perform testing, specimen is HEMOLYZED.Recollect GENOMIC MEDICINE requested for K___ (tests).ASHLEY Dejesus (name/location) notified by SAMI_ (tech ID) at08/04/201806:25 ____ (date/time).Credit issued. Performing Organization Address City/State/Zipcode Phone Number [facility] DEPARTMENT OF [address] [place] [address] PATHOLOGY AND GENOMIC MEDICINE [address] * Amylase level (08/04/2018 4:50 AM CDT) Only the most recent of 4 results within the time period is included. Amylase 32 28 - 100 U/L [facility] Specimen Plasma specimen Performing Organization Address City/State/Zipcode Phone Number [facility] DEPARTMENT OF [address] [place] [address] PATHOLOGY AND GENOMIC MEDICINE [address] * Lipid panel (08/04/2018 4:50 AM CDT) Cholesterol 348 (H) <200 mg/dL [facility] Triglycerides 2,298 (A) <150 mg/dL [facility] HDL cholesterol 11 (L) >40 mg/dL [facility] LDL cholesterol 17Comment: Result obtained by <100 mg/dL [place] direct LDL measurement [facility] Comment: CHRISTIAN Total Cholesterol HOSPITAL (mg/dL) <200 Desirable 200-239Borderline [...] mg/dL) Specimen Plasma specimen Performing Organization Address City/[facility] Cent[facility]ode Phone Number [facility] DEPARTMENT OF [address] [place] [id number] PATHOLOGY AND GENOMIC MEDICINE [place] CHRISTIAN[address] [address] HOSPITAL * US Hepatic (08/03/2018 8:25 PM CDT) Only the most recent of 2 results within the time period is included. Specimen Narrative Performed At EXAMINATION:[facility] CLINICAL HISTORY:Acute pancreatitis COMPARISON:None. IMPRESSION: 1.Heterogeneous increased echogenicity of the liver compatible with fatty infiltration or liver parenchymal disease. No focal mass. No cirrhotic morphology. The liver is not enlarged. Status post cholecystectomy. The main portal vein is patent. The common bile duct is nondilated measures 4.1 mm. No ascites. Limited assessment due to patient's body habitus. [facility]-[id number] Procedure Note Interface, Radiology Results Incoming - [...] Limited assessment due to patient's body habitus. [facility]-[id number] Performing Organization Address City/[facility]/Zipcode Phone Number [facility] [address] [place] [address] * CT Abdomen Pelvis W Contrast (08/03/2018 [...] ovary has decreased from March 12, 2018 [facility]-[id number] Procedure Note Interface, Radiology Results Incoming - [...] ovary has decreased from March 12, 2018 [facility]-[id number] Performing Organization Address City/State/[place]ak Phone Number [facility] [address] [place] [address] * Partial thromboplastin time, activated (08/03/2018 3:00 PM CDT) PTT 30.9 23.0 - 36.0 sec [place] Comment: CHRISTIAN PTT therapeutic range for HOSPITAL unfractionated heparin is 61.0-112.0 seconds which corresponds to Anti-Xa 0.3-0.7 U/ml. Specimen Blood Performing Organization Address City/[facility]/Zipcode Phone Number [facility] DEPARTMENT OF [address] [place] [address] PATHOLOGY AND [facility] MEDICINE [address] * Prothrombin time with INR (08/03/2018 3:00 PM CDT) Prothrombin 11.6 11.5 - 14.5 sec [place] time [facility] INR 0.9 [place] Comment: CHRISTIAN The International Normalized HOSPITAL Ratio (INR) is a therapeutic monitoring tool for patients who are stable on oral anticoagulant therapy. An INR of 2.0-3.0 is suggested for deep vein thrombosis/pulmonary embolism. Specimen Blood Performing Organization Address [facility] Phone Number [facility] [place] [address] PATHOLOGY AND [facility] MEDICINE [address] * CT Renal Stone Protocol (03/12/2018 9:19 PM SNOWBOARD DESIGNER) Specimen Narrative Performed At EXAMINATION:CT RENAL STONE PROTOCOL [facility] CLINICAL HISTORY:L flank and LLQ pain TECHNIQUE: [...] be better assessed with dedicated pelvic ultrasound. [facility]-[id number] Procedure Note [facility] [facility], Radiology Results Incoming - 03/12/2018 9:30 PM SNOWBOARD DESIGNER EXAMINATION: CT RENAL STONE PROTOCOL CLINICAL HISTORY: [...] be better assessed with dedicated pelvic ultrasound. [facility]-[id number] Performing Organization Address City/State/Zipcode Phone Number [facility]ON[facility] [address] [place] [address] * ECG 12 lead (01/03/2018 12:07 PM SNOWBOARD DESIGNER) Only the most recent of 2 results within the time period is included. Ventricular 80 [facility] MUSE rate Atrial rate 80 [facility] MUSE MO interval 154 [facility] MUSE QRSD interval 90 [...] Specimen Narrative Performed At Performing Organization Address [facility] Phone Number [facility] [address] [place] [phone] * ECG ED Preliminary Interpretation - Not an Order (01/03/2018 11:48 AM SNOWBOARD DESIGNER) Only the most recent of 2 results within the time period is included. Narrative Performed At Candelaria Callahan PA-C 01/03/20185:08 PM ECG ED Preliminary Interpretation - Not an Order Performed by: Candelaria Callahan PA-C Authorized by: Salvador Ornelas MD ECG reviewed by ED Physician in the absence of a convertible sofa bedspring tester: yes Rate: ECG rate:80 ECG rate assessment: normal Rhythm: Rhythm: sinus rhythm QRS: QRS intervals:Normal Conduction: Conduction: normal ST segments: ST segments:Normal T waves: T waves: normal * Gram stain only (01/03/2018 10:32 AM SNOWBOARD DESIGNER) Gram stain Rare Gram negative rods [place] result No WBC's CHRISTIAN SUGAR Comment: [facility] Specimen Information Specimen Source: Urine Specimen Site: Clean catch Specimen Urine Performing Organization Address City/[facility] Phone Number [facility] [address] [place] [address] PATHOLOGY AND GENOMIC MEDICINE [place] CHRISTIAN SUGAR [address] * C-reactive protein (11/08/2017 4:30 AM CDT) CRP 1.77 (H) 0.00 - 0.50 mg/dL [facility] DEPARTMENT OF PATHOLOGY AND GENOMIC MEDICINE Specimen Plasma specimen Performing Organization Address City/[facility] Phone Number [facility] [address] [place] [address] PATHOLOGY AND GENOMIC MEDICINE * Hepatic function panel (11/08/2017 4:30 AM CDT) Pathologist [facility] Albumin 2.8 (L) 3.5 - 5.0 g/dL [facility] DEPARTMENT OF PATHOLOGY AND GENOMIC MEDICINE Total bilirubin <0.2 0.0 - 1.2 mg/dL [facility] DEPARTMENT OF PATHOLOGY AND GENOMIC MEDICINE Bilirubin Footnote 0.0 - 0.3 mg/dL [facility] DEPART[facility] direct OF PATHOLOGY AND GENOMIC MEDICINE Alkaline Footnote 35 - 104 U/L [facility] DEPART[facility] phosphatase OF PATHOLOGY AND GENOMIC MEDICINE Protein 6.5 6.3 - 8.3 g/dL [facility] DEPART[facility] Comment: OF PATHOLOGY AND GENOMIC 4.6-7.0 g/dL MEDICINE 1 week 4.4-7.6 g/dL 7 months-1year 5.1-7.3 g/dL 1-2 years5.6-7 .5 g/dL >3 years6.0-8 .0 g/dL 18-150 6.3-8.3 g/dL ALT Footnote 5 - 50 U/L [facility] DEPARTMENT OF PATHOLOGY AND GENOMIC MEDICINE AST Footnote 10 - 35 U/L [facility] DEPARTMENT OF PATHOLOGY AND GENOMIC MEDICINE Specimen Plasma specimen Performing Organization Address City/State/Zipcode Phone Number [facility] DEPARTMENT OF [address] [place] [address] PATHOLOGY AND GENOMIC MEDICINE * Alkaline phosphatase (11/08/2017 12:30 AM CDT) [facility] Alkaline SEE COMMENTComment: 35 - 104 U/L [facility] DEPART[facility] phosphatase Footnote--------- OF PATHOLOGY AND GENOMIC MEDICINE Specimen Plasma specimen Narrative Performed At Unable to perform testing, specimen is HEMOLYZED.Recollect [facility] DEPARTMENT OF requested for K/AST/ALT/ALP(tests). CALOS COREAS/J11(name/location) notified PATHOLOGY AND by 11/08/201707:59 (tech ID) at LS2(date/time). Credit issued. GENOMIC MEDICINE Performing Organization Address City/State/Zipcode Phone Number [facility] DEPARTMENT OF [address] [place] [address] PATHOLOGY AND GENOMIC MEDICINE * Total bilirubin (11/08/2017 12:30 AM CDT) [facility] Total bilirubin <0.2 0.0 - 1.2 mg/dL [facility] DEPARTMENT OF PATHOLOGY AND GENOMIC MEDICINE Specimen Plasma specimen Performing Organization Address City/[facility]/Zipcode Phone Number [facility] [address] [place] [address] PATHOLOGY AND [facility] MEDICINE * Hepatitis acute panel (11/07/2017 4:00 AM CDT) Hepatitis A IgM Non-reactive Non-reactive [facility] DEPARTMENT OF PATHOLOGY AND GENOMIC MEDICINE Hepatitis B Non-reactive Non-reactive [facility] DEPARTMENT core IgM OF PATHOLOGY AND GENOMIC MEDICINE Hepatitis B Non-reactive Non-reactive [facility] DEPART[facility] surface Ag OF PATHOLOGY AND GENOMIC MEDICINE Hepatitis C Ab Non-reactive Non-reactive [facility] DEPARTMENT OF PATHOLOGY AND GENOMIC MEDICINE Specimen Serum Performing Organization Address [facility] Phone Number [address] [address] PATHOLOGY AND GENOMIC MEDICINE after 10/02/2017 Insurance Type Payer Benefit Subscriber ID Effective Phone Address Plan / Dates Group PPO BCBS BCBS OUT xxxxxxxxxxxx 2018-P OF STATE resent [facility] xxxxxxxxx 2015-P [employer] [id number] Workers Employer 02/05/1902 [address] (Home) [address] [place] [address] Advance Directives For more information, please contact: [phone] Patient Volunteer Services Specialist Explanation Type Date Recorded Advance Directives, 04/06/2017 8:29 AM Living Will and Medical Power of Mrb Engineer Advance Directives, 01/03/2018 12:34 PM Living Will and Medical Power of Mrb Engineer Date Inactivated Comments Code Status Date Activated 08/06/2018 12:52 AM Full Code 08/03/2018 10:35 PM Code Status decision reached by: Patient
--- NOTE | 2018-10-03 11:17 | Diagnostic Imaging Report ---
Exam: Chest radiograph Clinical History: Epigastric pain Comparison: May 27, 2018 Findings: The cardiomediastinal silhouette and lungs are normal. The regional skeleton and soft tissue are unremarkable. There is no evidence of pleural effusion or pneumothorax. Impression: No radiographic evidence of acute cardiopulmonary disease. Signed by: Dr. Braxton Gonzalez MD on 10/03/2018 11:14 AM
[2018-10-03 11:22] LABS: AMYLASE 33 U/L (25-125); LIPASE 43 U/L (8-78)
[2018-10-03] MEDS ORDERED: METRONIDAZOLE 500MG/NS 100ML 100 ML IV ONE (11:30)
[2018-10-03] MEDS ORDERED: LEVOFLOXACIN 500MG/D5W 100ML 100 ML IV ONE (11:30)
[2018-10-03] MEDS: INSULIN REGULAR, HUMAN 100 UNIT/1 ML 3ML VIAL SQ SCH ×3 (11:51→22:00)
[2018-10-03] MEDS: MORPHINE SULFATE 2 MG/ML SYR 1ML IV PRN ×2 (11:52→17:32)
[2018-10-03 11:59] LABS: ABG PCO2 40 mmHg (41-51); ABG PH 7.37 (7.31-7.41)
[2018-10-03 12:00] LABS: ABG HCO3 23 mmol/L (23-28); ABG PO2 96 mmHg (80-105)
[2018-10-03] MEDS ORDERED: LEVOFLOXACIN 500MG/D5W 100ML 100 ML IV SCH (12:45)
[2018-10-03] MEDS ORDERED: METRONIDAZOLE 500MG/NS 100ML 100 ML IV SCH (12:45)
[2018-10-03 12:55] LABS: ANION GAP 26.2 mmol/L (8-16); CALCIUM 8.2 mg/dL (8.4-10.2); CREATININE, SERUM 1.32 mg/dL (0.57-1.11); POTASSIUM 3.2 mmol/L (3.5-5.1)
--- NOTE | 2018-10-03 14:55 | Diagnostic Imaging Report ---
Exam: CT abdomen and pelvis Clinical history: Abdominal pain Comparison: September 14, 2018 Technique: Helical images of the abdomen and pelvis were obtained without contrast DOSE REDUCTION: The exams was performed according to the departmental dose-optimization program which includes automated exposure control, adjustment of the mA and/or kV according to patient size and/or use of iterative reconstruction technique. Findings: The lung bases are clear. There is no evidence of pleural effusion. The cardiac size is within normal limits. The liver, spleen, pancreas, adrenal glands, and kidneys are unremarkable. The gallbladder has been removed. The small and large bowels are normal in caliber without evidence of obstruction. The appendix is visualized and unremarkable. The uterus and right ovary are unremarkable. In the left adnexa, a 5.1 x 5.2 cm hypodense lesion is noted likely ovarian in origin. A moderate-sized fat-containing ventral hernia is again noted without interval change in size. Impression: 1. Interval development of a left adnexal lesion measuring up to 5.2 cm which may represent an ovarian cyst. If indicated, pelvic ultrasound is recommended for further characterization. 2. Status post cholecystectomy. 3. Stable appearing fat-containing ventral hernia. Signed by: Dr. Braxton Gonzalez MD on 10/03/2018 2:52 PM
--- NOTE | 2018-10-03 16:59 | Diagnostic Imaging Report ---
Pelvic ultrasound and Doppler Clinical History: Ovarian cyst Comparison: CT abdomen and pelvis, October 03, 2018 Discussion: Sonographic evaluation of the pelvis is performed transabdominally and transvaginally including color Doppler and spectral waveform analysis The uterus is 8.4 x 4.3 x 6.5 and demonstrates homogeneous echotexture, without focal mass. The endometrial echocomplex is homogeneous and measures 4mm. The right ovary measures 3.2 x 2.1 x 2.0 cm. The left ovary measures 5.7 x 4.4 x 5.7 cm. The right ovary demonstrates normal arterial and venous Doppler waveforms. In the left ovary, a 5.4 x 3.7 x 5.2 cm anechoic lesion is noted within internal septation. The left ovary demonstrates normal arterial waveform. The venous waveform was not detectable likely due to cystic changes of the ovary. No free fluid is identified in the area scanned. Impression: 1. Septated cyst in the left ovary measuring up to 5.4 cm. This is almost certainly benign. Annual follow-up ultrasound is recommended. Signed by: Dr. Braxton Gonzalez MD on 10/03/2018 4:56 PM
[2018-10-03] MEDS ORDERED: LEVEMIR100 UNIT/1 SQ (17:00)
[2018-10-03] MEDS ORDERED: FAMOTIDINE 20 MG/2 ML VIAL IV SCH (17:00)
[2018-10-03] MEDS ORDERED: LIPITOR20 MG PO (17:01)
[2018-10-03] MEDS ORDERED: HYDROCHLOROTHIA25 MG PO (17:01)
[2018-10-03] MEDS: METRONIDAZOLE 500MG/NS 100ML 100 ML IV SCH (17:32)
--- NOTE | 2018-10-03 18:35 | NUR ---
PT REFUSING TELE FOR ROOM ADMISSION. DR FORRESTER NOTIFIED OF PT REFUSING AND IS AWARE. NO FURTHER ORDERS.
--- NOTE | 2018-10-03 19:16 | NUR ---
pt refused telemetry. pt states that allergic to leads and causes severe rash. informed.
--- NOTE | 2018-10-03 19:22 | NUR ---
received patient to unit, aaox4, amb, resp even and unlabored. no needs voiced at this time. bed locked and in lowest position, call light within reach. updated patient on plan of care, updated on npo status at midnight, patient agrees.
[2018-10-03 19:39] VITALS: BP 155/63
[2018-10-03 19:44] VITALS: BP 155/63
[2018-10-03 20:00] VITALS: BP 155/63
[2018-10-03] MEDS: MORPHINE SULFATE INJ 4 MG/ML INJ 1ML IV PRN (22:16)
--- NOTE | 2018-10-03 22:37 | Consultation ---
DATE OF CONSULTATION: 10/03/2018 CHIEF COMPLAINT: Abdominal pain. HISTORY OF PRESENT ILLNESS: This patient is a 43-year-old female with 1-day history of pain in epigastric area radiating to the back with nausea, vomiting. No fever, chills, or diarrhea. PAST MEDICAL HISTORY: Chronic pancreatitis secondary to hyperlipidemia, hypertension, diabetes, and morbid obesity. PAST SURGICAL HISTORY: Positive for and rotator cuff repair. ALLERGIES: SHE HAS NO DRUG ALLERGIES. SOCIAL HABITS: No smoking or alcohol abuse. REVIEW OF SYSTEMS: No chest pain or shortness of breath. PHYSICAL EXAMINATION: VITAL SIGNS: Stable, afebrile. GENERAL: She is awake and alert, in mild to moderate discomfort. HEENT: Sclerae nonicteric. NECK: Supple. LUNGS: Clear. HEART: Regular rate and rhythm. ABDOMEN: Soft with a reducible infraumbilical hernia approximately 6 cm in size with mild guarding in the area. Abdomen otherwise soft with mild guarding in the epigastrium. No rebound. EXTREMITIES: No cyanosis or edema. LABORATORY DATA: White cell count is 9, hemoglobin of 14.6, and platelet count 250. Creatinine 1.3. Liver function tests within normal limits. Serum lipase and amylase are within normal limits. Abdominal CT shows fat containing ventral hernia. ASSESSMENT: Abdominal pain, recurrent, likely secondary to umbilical hernia. PLAN: Recommend repair of umbilical hernia. MD MUNIR Martin/WILFREDL /[id number]
[2018-10-04] VITALS (10 sets, daily range): BP systolic 127–171; BP diastolic 71–97
[2018-10-04] MEDS ORDERED: SODIUM CHLORIDE 0.9% 250ML 250 ML ONE (00:26)
[2018-10-04] MEDS: METRONIDAZOLE 500MG/NS 100ML 100 ML IV SCH ×5 (00:44→23:00)
[2018-10-04 02:31] LABS: ANION GAP 29.7 mmol/L (8-16); CALCIUM 8.4 mg/dL (8.4-10.2); CREATININE, SERUM 1.1 mg/dL (0.57-1.11); POTASSIUM 3.7 mmol/L (3.5-5.1)
[2018-10-04] MEDS: MORPHINE SULFATE INJ 4 MG/ML INJ 1ML IV PRN ×5 (02:31→21:03)
[2018-10-04] MEDS: LACTATED RINGER'S 1,000 ML IV SCH ×2 (03:11→07:55)
[2018-10-04] MEDS: PANTOPRAZOLE 40 MG 10ML VIAL IV SCH ×2 (06:32→18:47)
--- NOTE | 2018-10-04 07:00 | NUR ---
BEDSIDE SHIFT REPORT RECEIVED FROM NIGHT RN. PT DENIES NEEDS AT THIS TIME.
[2018-10-04 07:06] LABS: ALANINE AMINOTRANSFERASE 15 IU/L (0-55); ALBUMIN 2.8 g/dL (3.5-5.0); ALBUMIN/GLOBULIN RATIO 0.6 (0.8-2.0); ALKALINE PHOSPHATASE 101 IU/L (40-150); ANION GAP 29.7 mmol/L (8-16); BLOOD UREA NITROGEN 16 mg/dL (7-26); BUN/CREATININE RATIO 17 (6-25); CALCIUM 8.6 mg/dL (8.4-10.2); CHLORIDE 99 mmol/L (98-107); CREATININE, SERUM 0.95 mg/dL (0.57-1.11); EST GLOMERULAR FILTRATION RATE > 60 ML/MIN (60-); GLUCOSE 205 mg/dL (74-118); LIPASE 43 U/L (8-78); POTASSIUM 3.7 mmol/L (3.5-5.1); SODIUM 134 mmol/L (136-145)
[2018-10-04 07:08] LABS: CARBON DIOXIDE 9 mmol/L (22-29)
[2018-10-04] MEDS: INSULIN REGULAR, HUMAN 100 UNIT/1 ML 3ML VIAL SQ SCH ×4 (07:30→21:00)
[2018-10-04 07:42] LABS: BASOPHILS % 0.3 % (0.0-1.0); EOSINOPHILS # (AUTO) 0.2 (0.0-0.4); EOSINOPHILS % 3.9 % (0.0-6.0); HEMATOCRIT 38.5 % (34.2-44.1); HEMOGLOBIN 13.9 g/dL (12.0-16.0); LYMPHOCYTES # (AUTO) 2.3 (1.0-3.2); LYMPHOCYTES % 37.8 % (18.0-39.1); MEAN CORPUSCULAR HEMOGLOBIN 32.7 pg (28-32); MEAN CORPUSCULAR HGB CONC 36.1 g/dL (31-35); MEAN CORPUSCULAR VOLUME 90.6 fL (81-99); MONOCYTES # (AUTO) 0.3 (0.2-0.8); MONOCYTES % 5.1 % (4.4-11.3); NEUTROPHILS # (AUTO) 3.2 (2.1-6.9); NEUTROPHILS % 52.6 % (38.7-80.0); PLATELET COUNT 233 x10e3/uL (140-360); RED BLOOD COUNT 4.25 x10e6/uL (3.6-5.1); RED CELL DISTRIBUTION WIDTH 13.4 % (11.7-14.4)
[2018-10-04] MEDS ORDERED: SODIUM BICARBONATE 8.4% 100 ML in DEXTROSE 5% 1,000 ML IV SCH ×4 (08:00)
[2018-10-04] MEDS ORDERED: DEXTROSE 5% 1,000 ML IV SCH (08:00)
[2018-10-04] MEDS ORDERED: HYDROXYZINE HCL 25 MG TAB PO PRN (09:00)
[2018-10-04] MEDS: NIFEDIPINE CR 30 MG TAB PO SCH ×2 (09:00→18:47)
[2018-10-04] MEDS: INSULIN GLARGINE 100 UNITS/ML VIAL SQ SCH ×2 (09:30→16:20)
[2018-10-04 09:45] LABS: EOSINOPHILS % (MANUAL) 3 % (0-7); LYMPHOCYTES % (MANUAL) 20 % (19-48); MONOCYTES % (MANUAL) 6 % (3.4-9.0); NEUTROPHILS % (MANUAL) 68 % (40-74)
[2018-10-04] MEDS ORDERED: POTASSIUM CHLORIDE 10MEQ EA PO ONE (09:45)
[2018-10-04 09:46] LABS: PLATELET ESTIMATE ADEQUATE; PLATELET MORPHOLOGY COMMENT NORMAL; RBC MORPHOLOGY COMMENT NORMAL
[2018-10-04] MEDS: LEVOFLOXACIN 500MG/D5W 100ML 100 ML IV SCH (12:00)
[2018-10-04] MEDS ORDERED: INSULIN REGULAR, HUMAN 3ML VL 100 UNIT in SODIUM CHLORIDE 0.45% 100 ML 100 ML IV SCH ×2 (14:01)
[2018-10-04] MEDS ORDERED: DEXTROSE 50% SYRINGE 50 ML IV PRN (14:15)
[2018-10-04 14:25] LABS: CHOL/HDL RATIO 23.2 (3.0-3.6)
[2018-10-04] MEDS ORDERED: DEXTROSE 5%/0.45% SOD CHL 1,000 ML IV ONE (14:30)
[2018-10-04 14:45] LABS: FREE T4 (FREE THYROXINE) 0.85 ng/dL (0.8-1.8); THYROID STIMULATING HORMONE 0.738 uIU/mL (0.350-4.940)
[2018-10-04 15:11] LABS: ANION GAP 27.7 mmol/L (8-16); BLOOD UREA NITROGEN 13 mg/dL (7-26); BUN/CREATININE RATIO 15 (6-25); CALCIUM 8.5 mg/dL (8.4-10.2); CARBON DIOXIDE 11 mmol/L (22-29); CHLORIDE 98 mmol/L (98-107); CREATININE, SERUM 0.86 mg/dL (0.57-1.11); EST GLOMERULAR FILTRATION RATE > 60 ML/MIN (60-); GLUCOSE 201 mg/dL (74-118); POTASSIUM 3.7 mmol/L (3.5-5.1); SODIUM 133 mmol/L (136-145)
--- NOTE | 2018-10-04 16:00 | NUR ---
REPORT ON PT GIVEN TO ICU.
--- NOTE | 2018-10-04 16:30 | NUR ---
Patient transferred to ICU Room 189 via bed. All belongings with patient.
[2018-10-04] MEDS: ONDANSETRON HCL INJ 2MG/ML 2ML 2 MG/ML VIAL IV PRN (17:03)
--- NOTE | 2018-10-04 19:00 | NUR ---
Bedside report received from Jose Barrios RN. Pt reports no pain or discomfort at this time, care plan reviewed, no family present, pt is aaox4.
--- NOTE | 2018-10-04 20:15 | Consultation ---
DATE OF CONSULTATION: 10/04/2018 Endocrine Consultation The patient of Dr. Hewitt. Thank you very much for referring this patient. HISTORY OF PRESENT ILLNESS: This is a 43-year-old female, who is referred to me for evaluation of uncontrolled diabetes mellitus and diabetic ketoacidosis. The patient came to the hospital with history of abdominal pain, which is getting progressively worse, associated nausea and vomiting. She is a known diabetic for last 10 plus years, has multiple complications from diabetes including diabetic sensory motor neuropathy. She takes a combination of the Lantus and the NovoLog insulin at home. She also has history of hypertension. She is on nifedipine and hydralazine. She has history of pancreatitis in the past. PHYSICAL EXAMINATION: GENERAL: Today, the patient is alert and awake, little bit apprehensive. She is moderately overweight. VITAL SIGNS: Heart rate is around 100 and blood pressure 130/80 mmHg. HEENT: Essentially unremarkable. Thyroid is palpable. Clinically, she is near euthyroid. CHEST: Bilateral vesicular breathing. She has mild bronchospasm. CARDIAC: First and second heart sounds. There is no third or fourth with the systolic grade 2/6. ABDOMEN: The patient has evidence of distended abdomen and tenderness in the right upper quadrant area. LABORATORY DATA: At the time of admission, her blood sugar was 300, sodium was 129, and anion gap was 32.3. Presently, the anion gap is around 29.7 and blood sugars are between range of 254 and 205. CLINICAL IMPRESSION: 1. Diabetes mellitus type 2, uncontrolled with complication. 2. Diabetic ketoacidosis. 3. Abdominal pain. 4. History of pancreatitis. 5. Hypertension. 6. Abdominal hernia. PLAN: At this time is to start the IV fluids, insulin drip. Monitor her blood sugars closely and we will also do a hemoglobin A1c and thyroid function and lipid profile. Thank you again for referring this patient. I will be following this patient with you. MD CAROLYN Pfeiffer/ROSENDA /[id number]
--- NOTE | 2018-10-04 20:25 | NUR ---
Dr. Williamson present and seeing the pt. He stated it is okay for pt to return to her regular diet if okay with Dr. Gandhi.
--- NOTE | 2018-10-04 20:30 | NUR ---
Called Dr. Gandhi and he ordered to restated pt on diet. Refer to order management specialist for further details.
[2018-10-04] MEDS: PAROXETINE HCL 20 MG TAB PO SCH (21:03)
--- NOTE | 2018-10-04 23:10 | NUR ---
Report given to Keagan HAAS.
[2018-10-05] VITALS (24 sets, daily range): BP systolic 96–133; BP diastolic 59–82
[2018-10-05] MEDS: MORPHINE SULFATE INJ 4 MG/ML INJ 1ML IV PRN ×6 (01:11→23:15)
[2018-10-05] MEDS: DEXTROSE 5%/0.45% SOD CHL 1,000 ML IV SCH ×4 (01:37→20:00)
[2018-10-05] MEDS: PANTOPRAZOLE 40 MG 10ML VIAL IV SCH ×2 (05:10→17:01)
[2018-10-05] MEDS: ONDANSETRON HCL INJ 2MG/ML 2ML 2 MG/ML VIAL IV PRN ×4 (05:11→18:25)
[2018-10-05 05:24] LABS: BASOPHILS % 0.6 % (0.0-1.0); EOSINOPHILS # (AUTO) 0.2 (0.0-0.4); EOSINOPHILS % 3.5 % (0.0-6.0); HEMATOCRIT 37.7 % (34.2-44.1); HEMOGLOBIN 13.1 g/dL (12.0-16.0); LYMPHOCYTES # (AUTO) 2.1 (1.0-3.2); LYMPHOCYTES % 30.4 % (18.0-39.1); MEAN CORPUSCULAR HEMOGLOBIN 31.6 pg (28-32); MEAN CORPUSCULAR HGB CONC 34.7 g/dL (31-35); MEAN CORPUSCULAR VOLUME 90.8 fL (81-99); MONOCYTES # (AUTO) 0.4 (0.2-0.8); NEUTROPHILS % 59.1 % (38.7-80.0); PLATELET COUNT 211 x10e3/uL (140-360); RED BLOOD COUNT 4.15 x10e6/uL (3.6-5.1); RED CELL DISTRIBUTION WIDTH 13.3 % (11.7-14.4)
[2018-10-05] MEDS: METRONIDAZOLE 500MG/NS 100ML 100 ML IV SCH ×3 (06:07→17:01)
[2018-10-05 07:08] LABS: ANION GAP 21.7 mmol/L (8-16); BLOOD UREA NITROGEN 8 mg/dL (7-26); BUN/CREATININE RATIO 10 (6-25); CALCIUM 8.3 mg/dL (8.4-10.2); CARBON DIOXIDE 15 mmol/L (22-29); CHLORIDE 102 mmol/L (98-107); CREATININE, SERUM 0.81 mg/dL (0.57-1.11); EST GLOMERULAR FILTRATION RATE > 60 ML/MIN (60-); GLUCOSE 184 mg/dL (74-118); POTASSIUM 3.7 mmol/L (3.5-5.1); SODIUM 135 mmol/L (136-145)
[2018-10-05] MEDS: INSULIN GLARGINE 100 UNITS/ML VIAL SQ SCH ×2 (08:00→20:53)
[2018-10-05] MEDS: INSULIN REGULAR, HUMAN 100 UNIT/1 ML 3ML VIAL SQ SCH ×4 (08:00→20:56)
[2018-10-05] MEDS: NIFEDIPINE CR 30 MG TAB PO SCH ×2 (08:37→17:12)
--- NOTE | 2018-10-05 09:30 | NUR ---
CALLED AND SPOKE TO ADRIEL REGARDING PEG TUBE PLACEMENT, DAUGHTER STATES SHE WILL DISCUSS WITH REST OF FAMILY. Addendum: 10/06/18 at 1416 by Tracie Ocasio RN INCORRECT PATIENT. DISREGARD ENTRY
[2018-10-05] MEDS: LEVOFLOXACIN 500MG/D5W 100ML 100 ML IV SCH (11:14)
--- NOTE | 2018-10-05 12:45 | NUR ---
FAMILY HERE IN ROOM THIS RN EXPLAINED PT POC, FAMILY STATES THEY NEED TO DISCUSS FURTHER WITH REST OF FAMILY AND WILL NOTIFY RN WHEN READY TO MAKE DECISION. WILL CALL MD WHEN FAMILY IS READY PER THEIR REQUEST. Addendum: 10/06/18 at 1416 by Tracie Ocasio RN INCORRECT PATIENT. DISREGARD ENTRY
--- NOTE | 2018-10-05 14:32 | Progress Note ---
DATE: 10/05/2018 Medicine Progress Note I am covering for Dr. Hewitt. SUBJECTIVE: The patient was apparently admitted for an umbilical hernia that needed to be repaired, but was found to be in DKA according to the records. She is now currently in the ICU, on insulin DKA protocol, being managed by Endocrinology. In relation to her umbilical hernia, according to the notes, the patient will likely have surgery as an outpatient, according to Dr. Williamson's General Surgery note. The patient was seen and evaluated at bedside with the nurse present and discussed overall plan of care. Currently, she is doing well. She is eager to be discharged, but despite that she still is on insulin drip. PHYSICAL EXAMINATION: VITAL SIGNS: Temperature is 98.3, pulse 79, respiratory rate is 16, blood pressure is 110/59, pulse ox 97% on room air. GENERAL: No acute distress, alert, and oriented x3. Cooperative on examination. HEENT: Head is normocephalic and atraumatic. Eyes; pupils are equal, round, and reactive to light bilaterally. Extraocular movements intact bilaterally. Neck is supple, good range of motion. Throat, no evidence of erythema or exudates in the posterior pharynx. Has poor dentition. PULMONARY: Clear to auscultation bilaterally. No wheezing, rales, or rhonchi. No crackles appreciated. CARDIOVASCULAR: Positive S1, S2. No murmurs, rubs, or gallops appreciated. ABDOMEN: Soft, nondistended, nontender to palpation. Bowel sounds present. MUSCULOSKELETAL: Strength is 5/5 throughout. No evidence of any muscle deficits on examination. No weakness appreciated. NEURO: Cranial nerves II through XII are grossly intact. No evidence of any neurological deficits on exam. SKIN: Intact. Warm to touch. Good cap refill. PSYCHIATRIC: Normal affect and mood. EXTREMITIES: No edema. Good range of motion throughout. LAB FINDINGS: Show white count 6.8, hemoglobin 13, hematocrit 37, and platelets of 211. Chemistries; sodium 135, potassium 3.7, chloride 102, bicarb is 15, anion gap of 21.7, BUN is 8, and creatinine is 0.81, glucose is 184, calcium is 8.3, and lipase was 43. Troponins were negative. Urine drug screen positive for opioids, benzos and cocaine. MICROBIOLOGY: Urine culture was negative. IMAGING STUDIES: CT abdomen and pelvis performed on 10/03/2018, shows interval development of left adnexal lesion, measuring 5.2 cm, which may represent ovarian cyst. She needs to follow up as an outpatient. I discussed this with her very closely. IMPRESSION: 1. Diabetic ketoacidosis, still with anion gap metabolic acidosis. 2. Periumbilical hernia, reducible. 3. Left adnexal cyst, needs outpatient followup with an CLOSING SPECIALIST. 4. Morbidly obese. 5. Probable urinary tract infection. PLAN: At this time, she continues to be on a DKA protocol, being managed by Endocrinology. In relation to her periumbilical hernia, according to Dr. Williamson's General Surgery's note, the patient will need to follow up as an outpatient in his office. No need for any surgical intervention at this time. So, it seems like once her DKA has improved and she is off the protocol, she will be stable to be discharged to home once cleared by all consultants. We will continue same plan of care. Get a.m. labs. MD ANAHI Tellez/MODLala /[id number]
[2018-10-05] MEDS ORDERED: ALBUTEROL/IPRATROPIUM 3 ML NEB ONE (16:14)
[2018-10-05] MEDS: PAROXETINE HCL 20 MG TAB PO SCH (20:51)
[2018-10-06] VITALS (16 sets, daily range): BP systolic 109–132; BP diastolic 67–96
[2018-10-06] MEDS: MORPHINE SULFATE INJ 4 MG/ML INJ 1ML IV PRN ×6 (03:14→23:57)
[2018-10-06] MEDS: DEXTROSE 5%/0.45% SOD CHL 1,000 ML IV SCH (03:14)
--- NOTE | 2018-10-06 03:19 | NUR ---
Medicated for c/o pain.
[2018-10-06] MEDS: PANTOPRAZOLE 40 MG 10ML VIAL IV SCH ×2 (05:00→17:56)
[2018-10-06] MEDS: METRONIDAZOLE 500MG/NS 100ML 100 ML IV SCH ×5 (05:52→23:57)
[2018-10-06 06:22] LABS: BASOPHILS % 0.4 % (0.0-1.0); EOSINOPHILS # (AUTO) 0.3 (0.0-0.4); EOSINOPHILS % 4.2 % (0.0-6.0); HEMATOCRIT 38.8 % (34.2-44.1); HEMOGLOBIN 13.2 g/dL (12.0-16.0); LYMPHOCYTES # (AUTO) 2.4 (1.0-3.2); LYMPHOCYTES % 32.2 % (18.0-39.1); MEAN CORPUSCULAR HEMOGLOBIN 30.8 pg (28-32); MEAN CORPUSCULAR VOLUME 90.4 fL (81-99); MONOCYTES # (AUTO) 0.4 (0.2-0.8); MONOCYTES % 4.8 % (4.4-11.3); NEUTROPHILS # (AUTO) 4.3 (2.1-6.9); NEUTROPHILS % 57.9 % (38.7-80.0); PLATELET COUNT 224 x10e3/uL (140-360); RED BLOOD COUNT 4.29 x10e6/uL (3.6-5.1); RED CELL DISTRIBUTION WIDTH 13.4 % (11.7-14.4)
--- NOTE | 2018-10-06 07:00 | NUR ---
Pt received resting in bed. Alert and oriented x4, on insulin drip at 2 units per hour & IV fluid as per Dr. Gandhi's DKA protocol. Oriented to staff and surroundings. Encouraged to press call haji if help needed. Pt verbalized understanding of teaching. Call haji within reach. Will monitor
[2018-10-06 07:03] LABS: ANION GAP 11.6 mmol/L (8-16); BLOOD UREA NITROGEN 8 mg/dL (7-26); BUN/CREATININE RATIO 10 (6-25); CALCIUM 8.4 mg/dL (8.4-10.2); CARBON DIOXIDE 27 mmol/L (22-29); CHLORIDE 102 mmol/L (98-107); CREATININE, SERUM 0.83 mg/dL (0.57-1.11); EST GLOMERULAR FILTRATION RATE > 60 ML/MIN (60-); GLUCOSE 144 mg/dL (74-118); POTASSIUM 3.6 mmol/L (3.5-5.1); SODIUM 137 mmol/L (136-145)
[2018-10-06] MEDS: ONDANSETRON HCL INJ 2MG/ML 2ML 2 MG/ML VIAL IV PRN ×2 (07:23→11:25)
--- NOTE | 2018-10-06 07:23 | NUR ---
Pt refusing to put on Telemetry leads stating that she's allergic to it. Vitals stable. Will monitor
[2018-10-06] MEDS: NIFEDIPINE CR 30 MG TAB PO SCH ×2 (07:30→17:57)
[2018-10-06] MEDS: INSULIN REGULAR, HUMAN 100 UNIT/1 ML 3ML VIAL SQ SCH ×2 (07:30→12:42)
--- NOTE | 2018-10-06 08:15 | NUR ---
Pt requesting to take a shower. Advised regarding surroundings. Will call Dr. Gandhi for update.
[2018-10-06] MEDS: LEVOFLOXACIN 500MG/D5W 100ML 100 ML IV SCH (12:05)
--- NOTE | 2018-10-06 13:40 | NUR ---
Pt transferred to [facility] room 197 with all belongings
[2018-10-06] MEDS ORDERED: INSULIN REGULAR IV SCH ×2 (14:15)
[2018-10-06] MEDS ORDERED: INSULIN REGULAR, HUMAN 3ML VL 100 UNIT in SODIUM CHLORIDE 0.9% 99 ML IV SCH ×2 (14:15)
[2018-10-06] MEDS ORDERED: [UNRECOGNIZED DRUG - OTHER] IV SCH ×2 (14:15)
[2018-10-06] MEDS ORDERED: HUMAN IV SCH ×2 (14:15)
[2018-10-06] MEDS ORDERED: SODIUM CHLORIDE 0.9% IV SCH ×2 (14:15)
--- NOTE | 2018-10-06 14:40 | NUR ---
Pt showered. Handoff given to nurse.
--- NOTE | 2018-10-06 14:45 | NUR ---
Received patient from ICU patient in able to ambulate independently, non- compliant with telemetry. Adamantly refuses to library monitor leads and to be connected. MD aware, per ICU nurse, patient took herself off the library monitor.
[2018-10-06] MEDS: INSULIN LISPRO 100 UNIT/1 ML 3ML VIAL SQ SCH ×3 (16:30→20:53)
--- NOTE | 2018-10-06 18:14 | Progress Note ---
DATE: 10/06/2018 SUBJECTIVE: The patient is doing well today with no complaints. Transfer from ICU to [facility]. Insulin drip has been discontinued by Endocrinology. PHYSICAL EXAMINATION: VITAL SIGNS: Temperature is 98, pulse 72, respiratory rate is 20, blood pressure 122/89, pulse ox 98% on room air. GENERAL: Not in acute distress, alert, and oriented x3. Cooperative on examination. HEENT: Head; normocephalic and atraumatic. Eyes; pupils are equal, round, and reactive to light bilaterally. Extraocular movements are intact bilaterally. Throat; no evidence of erythema or exudates in the posterior pharynx. Has poor dentition. NECK: Supple. Good range of motion. PULMONARY: Clear to auscultation bilaterally. No wheezing, rales, or rhonchi. No crackles appreciated. CARDIOVASCULAR: Positive S1, S2. No murmurs, rubs, or gallops appreciated. ABDOMEN: Soft, nondistended, nontender to palpation. Bowel sounds present. MUSCULOSKELETAL: Strength is 5/5 throughout. No evidence of any muscle deficits on examination. No weakness appreciated. NEURO: Cranial nerves II through XII are grossly intact. No evidence of any neurological deficits on exam. SKIN: Intact. Warm to touch. Good cap refill. PSYCHIATRIC: Normal affect and mood. EXTREMITIES: No edema. Good range of motion throughout. LABORATORY DATA: Labs show white count 7.4, hemoglobin 13, hematocrit is 38, platelets of 224. Chemistry; sodium 137, potassium 3.6, chloride 102, bicarb 27, anion gap is 11, glucose is 144, calcium is 8.4. IMPRESSION: 1. Diabetic ketoacidosis-resolved. 2. Periumbilical hernia, reducible, outpatient followup. 3. Left adnexal cyst. Needs outpatient followup with CALIBRATION CHECKER. 4. Morbid obesity. 5. Probable urinary tract infection. PLAN: At this time, she is off the insulin protocol drip. Her anion gap is closed. Her sugars are much controlled. She is now transferred to [facility] floor. Insulin regimen per Endocrinology. Her labs reviewed and stable. In terms of her surgery per Dr. Williamson's note, she can follow up as an outpatient. It seems she can be discharged home tomorrow. MD ANAHI Tellez/ROSENDA /[id number]
--- NOTE | 2018-10-06 18:45 | NUR ---
Walking rounds done and report received. Patient is currently on 2units/hr of insulin IVPB as ordered by Dr. Gandhi. Patient is awake, alert, and able to make needs known. Patient continues to refuse wearing Tele monitor. Per day nurse patient has being refusing to wear it and MD is aware. POC discussed. Patient instructed to call for assistance as needed and verbalized understanding. Call haji within reach.
[2018-10-06] MEDS: PAROXETINE HCL 20 MG TAB PO SCH (21:16)
[2018-10-06] MEDS: INSULIN GLARGINE 100 UNITS/ML VIAL SQ SCH (21:20)
--- NOTE | 2018-10-06 21:30 | NUR ---
Insulin drip stopped as ordered. Patient without any complaints voiced. Call haji within reach.
[2018-10-07] VITALS (7 sets, daily range): BP systolic 104–159; BP diastolic 58–85
--- NOTE | 2018-10-07 01:00 | NUR ---
Patient resting in bed without any complaints voiced. Call haji within reach.
[2018-10-07] MEDS: MORPHINE SULFATE INJ 4 MG/ML INJ 1ML IV PRN ×5 (03:58→21:10)
[2018-10-07] MEDS: PANTOPRAZOLE 40 MG 10ML VIAL IV SCH ×2 (06:00→16:53)
[2018-10-07] MEDS: METRONIDAZOLE 500MG/NS 100ML 100 ML IV SCH ×4 (06:15→23:58)
--- NOTE | 2018-10-07 07:05 | NUR ---
Walking rounds done. Pt without any complaints at this time. call haji within reach.
[2018-10-07] MEDS: INSULIN LISPRO 100 UNIT/1 ML 3ML VIAL SQ SCH ×7 (07:30→20:25)
[2018-10-07] MEDS: NIFEDIPINE CR 30 MG TAB PO SCH ×2 (08:11→16:53)
[2018-10-07] MEDS: LEVOFLOXACIN 500MG/D5W 100ML 100 ML IV SCH (11:58)
--- NOTE | 2018-10-07 18:30 | Diagnostic Imaging Report ---
TECHNIQUE: Ultrasound evaluation of the abdomen. Color doppler was utilized to supplement the evaluation. HISTORY: Right upper quadrant pain, prior cholecystectomy. COMPARISON: CT of the abdomen October 03, 2018. DISCUSSION: Per the technologist performing the exam, regional bowel gas limits the evaluation. LIVER: No focal lesion is identified. The liver measures 18 cm in the right midclavicular line. BILIARY: Status post cholecystectomy. PANCREAS: Incompletely visualized due to overlying bowel gas. SPLEEN: No splenomegaly. PERITONEUM: No free fluid. KIDNEYS: Right: Measures 11 cm in length. No hydronephrosis. Left: Measures 13 cm in length. No hydronephrosis. VASCULATURE: Aorta: Partially obscured by overlying bowel gas. Interior vena cava: Visualized portions appear unremarkable. Portal Vein: Nondilated with hepatopedal flow. IMPRESSION: 1. No acute sonographic abnormality. 2. Status post cholecystectomy. 3. Refer to the recent CT of the abdomen and pelvis for additional details. Signed by: Dr. Randy Jones D.O., M.M.M. on 10/07/2018 6:27 PM
--- NOTE | 2018-10-07 19:16 | NUR ---
Nutrition Screen Note RD Recommendation for Physician: 1.Continue with current ADA diet Plan of Care: RD following, monitoring for tolerance and adequacy Nutrition reason for involvement: Diagnosis Primary Diagnose(s): Abdominal pain, history of pancreatitis, Obesity PMH: Diabetes Type 2 on insulin, HTN, pancreatitis, HLD Ht: 63 in Wt: 265lbs BMI: 46.93kg/m2 IBW: 115lbs +/- 10% RD Assessment: (10/07) Chart reviewed. Labs and meds reviewed. 43 y/o F admitted for epigastric pain with nausea and vomiting found to be in DKA during time of admission. Patient reports hx of diabetes for over 10 years. Reports having dietary education in the past but unable to recall any specific nutrition recommendations. Patient on ADA diet reports fair appetite and intake during time of admission with desire to go home. Denied any current GI issues, significant weight changes or difficulties with chewing or swallowing. Per patient not following any special diet at home, agreeable to brief education. Current Diet: ADA Diet Malnutrition Evaluation (10/07) The patient does not meet criteria for a specified degree of malnutrition at this time. Will re-evaluate at follow-up as appropriate. Diet Education Needs Assessment: Diet education indicated, for diabetes and low fat diet. Learner(s): Patient Barriers: none Cultural/Language Modifications: none, pt speaks Bangladeshi Readiness: acceptance Method: Oral/ verbal Topics: carbohydrate rich foods in diet, portion control and limiting high fat foods Understanding/Compliance: fair, will require reinforcement Nutrition Care Level: LOW Signed: Nettie Brumfield, MS, RDN, LD
[2018-10-07] MEDS: PAROXETINE HCL 20 MG TAB PO SCH (20:24)
[2018-10-07] MEDS: INSULIN GLARGINE 100 UNITS/ML VIAL SQ SCH (20:25)
--- NOTE | 2018-10-07 20:30 | NUR ---
Visitor at bedside. Patient without any complaints voiced at this time. Call haji within reach
[2018-10-08] VITALS: BP 113/67
--- NOTE | 2018-10-08 01:10 | Progress Note ---
DATE: 10/07/2018 Medicine Progress Note SUBJECTIVE: The patient was doing well when I evaluated her early this morning. She had no complaints at all. But later in the day she started complaining of right upper quadrant abdominal pain to the lunch wagon operator and the patient did not want to go home. Otherwise, her sugars were well controlled and managed. She was doing well. Vital signs were stable. OBJECTIVE: VITAL SIGNS: She was afebrile. Normotensive. Respiratory rate is good. GENERAL: No acute distress. Alert and oriented x3. Cooperative on examination. HEENT: Head is normocephalic and atraumatic. Eyes; pupils are equal, round, and reactive to light bilaterally. Extraocular movements are intact. Throat; no evidence of erythema or exudates in the posterior pharynx. Has poor dentition. NECK: Supple. Good range of motion. PULMONARY: Clear to auscultation bilaterally. No wheezing, no rales, no rhonchi, no crackles appreciated. CARDIOVASCULAR: Positive S1 and S2. No murmurs, rubs, or gallops appreciated. ABDOMEN: Soft, nondistended, and nontender to palpation. Bowel sounds present. MUSCULOSKELETAL: Strength is 5/5 throughout. No evidence of any muscle deficits on examination. No weakness appreciated. NEUROLOGIC: Cranial nerves II through XII grossly intact. No evidence of any neurological deficits on exam. SKIN: Intact. Warm to touch. Good cap refill. PSYCHIATRIC: Normal affect and mood. EXTREMITIES: No edema. Good range of motion throughout. LABORATORY DATA: Glucose levels were stable. Labs reviewed and stable. ASSESSMENT: 1. Periumbilical hernia. We will need to follow up as an outpatient with Dr. Williamson. 2. Diabetic ketoacidosis, improved. 3. Uncontrolled type 2 diabetes. 4. New onset of right upper quadrant abdominal pain. PLAN: At this time, her glucose levels are stable. She was being managed by Endocrinology. She was cleared by General Surgery to follow up as an outpatient with Dr. Williamson for periumbilical hernia. Currently, it is not causing any symptoms. But today after I saw her and she was in the process of being discharged, she started complaining of right upper quadrant abdominal pain. The nurse called me. So at this time, we will get morning labs. I ordered a right upper quadrant ultrasound. She did not want to leave and she told lunch wagon operator despite she was ready to leave this morning. I will see with the results of the right upper quadrant ultrasound and will go from there. There are prescriptions in the chart for pain control. Insulin will be written by Endocrinology. Dr. Hewitt will be covering tomorrow. Otherwise, no other complaints. We will continue with same plan of care. MD ANAHI Tellez/ROSENDA /[id number]
[2018-10-08] MEDS: MORPHINE SULFATE INJ 4 MG/ML INJ 1ML IV PRN ×3 (01:14→09:19)
--- NOTE | 2018-10-08 02:20 | NUR ---
Dr. Frandy Sánchez making rounds. POC discussed and all questions answered by MD at this time. Call haji within reach.
[2018-10-08 05:00] VITALS: BP 154/94
[2018-10-08] MEDS: PANTOPRAZOLE 40 MG 10ML VIAL IV SCH (05:00)
[2018-10-08] MEDS: METRONIDAZOLE 500MG/NS 100ML 100 ML IV SCH (05:22)
[2018-10-08 05:44] LABS: ALANINE AMINOTRANSFERASE 22 IU/L (0-55); ALBUMIN 2.9 g/dL (3.5-5.0); ALBUMIN/GLOBULIN RATIO 0.9 (0.8-2.0); ALKALINE PHOSPHATASE 128 IU/L (40-150); ANION GAP 13.5 mmol/L (8-16); BLOOD UREA NITROGEN 9 mg/dL (7-26); BUN/CREATININE RATIO 10 (6-25); CALCIUM 8.4 mg/dL (8.4-10.2); CARBON DIOXIDE 27 mmol/L (22-29); CHLORIDE 101 mmol/L (98-107); CREATININE, SERUM 0.86 mg/dL (0.57-1.11); EST GLOMERULAR FILTRATION RATE > 60 ML/MIN (60-); GLUCOSE 133 mg/dL (74-118); LIPASE 10 U/L (8-78); POTASSIUM 3.5 mmol/L (3.5-5.1); SODIUM 138 mmol/L (136-145)
[2018-10-08] MEDS: INSULIN LISPRO 100 UNIT/1 ML 3ML VIAL SQ SCH ×4 (07:30→11:44)
[2018-10-08 08:15] VITALS: BP 126/88
[2018-10-08] MEDS: NIFEDIPINE CR 30 MG TAB PO SCH (08:20)
[2018-10-08 08:25] VITALS: BP 126/88
[2018-10-08 12:16] VITALS: BP 124/80
[2018-10-08] MEDS ORDERED: METRONIDAZOLE 500 MG TAB PO SCH (14:00)
[2018-10-08] MEDS ORDERED: CIPROFLOXACIN 500 MG TAB PO SCH (17:00)
== END 2018-10-08 13:05 | disposition home or self-care (01) | DRG 638 ==
LOC: ER 09:49 → OBSVTOIN 10:57 → ERHOLD 10:57 → INTOOBSV 10:57 → MED/SURG 19:22 → ICU 10-04 16:24 → IMCU 10-06 13:43
PROVIDERS: ADMIT Internal Medicine; ATTEND Internal Medicine
DX: E11.10 Type 2 diabetes mellitus with ketoacidosis without coma (principal); N39.0 Urinary tract infection, site not specified; Z68.42 Body mass index [BMI] 45.0-49.9, adult; K86.1 Other chronic pancreatitis; E27.8 Other specified disorders of adrenal gland; K43.9 Ventral hernia without obstruction or gangrene; Z91.013 Allergy to seafood; Z91.018 Allergy to other foods; I10 Essential (primary) hypertension; E66.01 Morbid (severe) obesity due to excess calories; Z90.49 Acquired absence of other specified parts of digestive tract; R10.11 Right upper quadrant pain; K21.9 Gastro-esophageal reflux disease without esophagitis; E78.5 Hyperlipidemia, unspecified; Z79.4 Long term (current) use of insulin
CPT/HCPCS: 36415; 36600; 71045; 74176; 76700; 76830; 80048; 80053; 80061; 80307; 81001; 82150; 82550; 82553; 82805; 82948; 83036; 83690; 83735; 84439; 84443; 84484; 84702; 85025; 87086; 93005; 93976; 96361; 99284; J1815; J1817; J1956; J2270; J2405; J7030; J7050; J7070; J7121

== ENCOUNTER 2018-11-05 12:27 | Inpatient (IN) | payer BC ==
[~2018-11-05] VITALS: Ht 157.5 cm; Wt 120.2 kg
[2018-11-05] VITALS (7 sets, daily range): BP systolic 125–163; BP diastolic 64–113
[~2018-11-05 12:27] MED LIST changes: +HYDROCHLOROTHIA25 MG PO; +LEVEMIR100 UNIT/1 SQ; +LIPITOR20 MG PO
[2018-11-05 13:34] LABS: BASOPHILS # (AUTO) 0.1 (0.0-0.1); BASOPHILS % 0.6 % (0.0-1.0); EOSINOPHILS # (AUTO) 0.2 (0.0-0.4); EOSINOPHILS % 1.7 % (0.0-6.0); HEMATOCRIT 43.6 % (34.2-44.1); HEMOGLOBIN 15.5 g/dL (12.0-16.0); LYMPHOCYTES # (AUTO) 2.4 (1.0-3.2); LYMPHOCYTES % 28.3 % (18.0-39.1); MEAN CORPUSCULAR HEMOGLOBIN 31.9 pg (28-32); MEAN CORPUSCULAR HGB CONC 35.6 g/dL (31-35); MEAN CORPUSCULAR VOLUME 89.7 fL (81-99); MONOCYTES # (AUTO) 0.3 (0.2-0.8); MONOCYTES % 3.8 % (4.4-11.3); NEUTROPHILS # (AUTO) 5.6 (2.1-6.9); NEUTROPHILS % 65.1 % (38.7-80.0); PLATELET COUNT 248 x10e3/uL (140-360); RED BLOOD COUNT 4.86 x10e6/uL (3.6-5.1); RED CELL DISTRIBUTION WIDTH 13.1 % (11.7-14.4)
[2018-11-05 13:43] LABS: BILIRUBIN,URINE NEGATIVE (NEGATIVE); CLARITY,URINE CLEAR (CLEAR); COLOR,URINE YELLOW (YELLOW); KETONES,URINE NEGATIVE (NEGATIVE); LEUKOCYTE ESTERASE ,URINE NEGATIVE (NEGATIVE); NITRITE,URINE NEGATIVE (NEGATIVE); PROTEIN,URINE DIPSTICK 1+ (NEGATIVE); URINE UROBILINOGEN 0.2 mg/dL (0.2 - 1)
[2018-11-05 13:47] LABS: PREGNANCY TEST, URINE NEGATIVE (NEGATIVE)
[2018-11-05 13:52] LABS: ALBUMIN 3.2 g/dL (3.5-5.0); ALBUMIN/GLOBULIN RATIO 0.6 (0.8-2.0); ANION GAP 32.7 mmol/L (8-16); CALCIUM 9.5 mg/dL (8.4-10.2); CREATININE, SERUM 1.25 mg/dL (0.57-1.11); POTASSIUM 3.7 mmol/L (3.5-5.1)
[2018-11-05] MEDS ORDERED: SODIUM CHLORIDE 0.9% 1000ML 2,000 ML IV STA (13:59)
[2018-11-05 14:01] LABS: EPITHELIAL CELLS,URINE RARE /LPF; RBC,URINE 0-5 /HPF (0-5)
[2018-11-05 14:02] LABS: YEAST,URINE FEW
--- NOTE | 2018-11-05 14:25 | NUR ---
[place].Juan. CALLED FOR ABG FOR THIS PT.
--- NOTE | 2018-11-05 14:40 | Diagnostic Imaging Report ---
EXAM: CT Abdomen and Pelvis WITHOUT intravenous contrast INDICATION: Right upper quadrant abdominal pain COMPARISON: Abdominal ultrasound of 10/07/2018, abdomen and pelvis CT of 10/03/2018 TECHNIQUE: Abdomen and pelvis were scanned utilizing a multidetector helical scanner from the lung base to the pubic symphysis without administration of IV contrast. Coronal and sagittal reformations were obtained. IV CONTRAST: None ORAL CONTRAST: Water COMPLICATIONS: None RADIATION DOSE: Total DLP: 790.8 mGy*cm Dose modulation, iterative reconstruction, and/or weight based adjustment of the mA/kV was utilized to reduce the radiation dose to as low as reasonably achievable. FINDINGS: LOWER THORAX: Normal. HEPATOBILIARY: Hepatomegaly to 25 cm. Diffuse hepatic steatosis. No definite focal liver lesion. Status post cholecystectomy. SPLEEN: No splenomegaly. PANCREAS: No focal masses or ductal dilatation. ADRENALS: No adrenal nodules. KIDNEYS/URETERS: No hydronephrosis, stones, or solid mass lesions. PELVIC ORGANS/BLADDER: Unremarkable. PERITONEUM / RETROPERITONEUM: No free air or fluid. LYMPH NODES: No lymphadenopathy. VESSELS: Scattered atherosclerotic calcifications of the nonaneurysmal abdominal aorta and major branches. GI TRACT: No abnormal bowel wall thickening. No bowel obstruction. Normal appendix. BONES AND SOFT TISSUES: Anterior abdominal incisional hernia containing herniated fat measures 7.9 x 5.3 cm. No acute osseous injury. No suspicious lytic or blastic lesions. IMPRESSION: Hepatomegaly and diffuse hepatic steatosis. Otherwise, no acute findings in the abdomen or pelvis. Signed by: Mika Garcia MD on 11/05/2018 2:36 PM
[2018-11-05 15:30] LABS: ABG HCO3 24 mmol/L (23-28); ABG PCO2 36 mmHg (41-51); ABG PH 7.43 (7.31-7.41); ABG PO2 109 mmHg (80-105)
[2018-11-05] MEDS ORDERED: SODIUM CHLORIDE 0.9% 1000ML 1,000 ML IV STA (15:35)
--- NOTE | 2018-11-05 15:54 | NUR ---
pt. c/o right rib pain 09/14.
[2018-11-05] MEDS ORDERED: KETOROLAC TROMETHAMINE 30 MG/ML VIAL IV NR (16:00)
--- NOTE | 2018-11-05 16:16 | NUR ---
medicated with 30mg iv toradol and pt. now requesting; "i need something for my anxiety. it's really bad with all this going on." dr. alvarez informed
--- NOTE | 2018-11-05 16:36 | NUR ---
repeat labs drawn and sent off to the lab. pt. informed of order for iv ativan. pt now asking," are they going to give me some insulin."
[2018-11-05] MEDS ORDERED: LORAZEPAM INJ 2 MG/ML VIAL IV NR (16:45)
[2018-11-05 17:05] LABS: ALANINE AMINOTRANSFERASE 12 IU/L (0-55); ALBUMIN 2.9 g/dL (3.5-5.0); ALBUMIN/GLOBULIN RATIO 0.6 (0.8-2.0); ALKALINE PHOSPHATASE 109 IU/L (40-150); ANION GAP 26.1 mmol/L (8-16); BLOOD UREA NITROGEN 14 mg/dL (7-26); BUN/CREATININE RATIO 15 (6-25); CALCIUM 8.8 mg/dL (8.4-10.2); CARBON DIOXIDE 13 mmol/L (22-29); CHLORIDE 97 mmol/L (98-107); CREATININE, SERUM 0.95 mg/dL (0.57-1.11); EST GLOMERULAR FILTRATION RATE > 60 ML/MIN (60-); GLUCOSE 282 mg/dL (74-118); POTASSIUM 4.1 mmol/L (3.5-5.1); SODIUM 132 mmol/L (136-145)
[2018-11-05] MEDS: DEXTROSE 5%/0.45% SOD CHL 1,000 ML IV SCH ×2 (17:19→23:41)
[2018-11-05] MEDS ORDERED: INSULIN REGULAR, HUMAN 3ML VL 100 UNIT in SODIUM CHLORIDE 0.9% 99 ML IV SCH ×2 (17:30)
[2018-11-05] MEDS ORDERED: MAGNESIUM SULF 1GRAM/DEXTROSE 100 ML IV PRN (17:30)
[2018-11-05] MEDS ORDERED: POTASSIUM CHLORIDE 20MEQ/100ML 200 ML IV PRN (17:30)
[2018-11-05] MEDS ORDERED: SODIUM CHLORIDE 0.9% 1000ML 1,000 ML ONE (17:46)
[2018-11-05] MEDS: SODIUM CHLORIDE 0.9% 1000ML 1,000 ML IV SCH ×3 (17:50→23:41)
--- NOTE | 2018-11-05 18:31 | NUR ---
P MOVING PT TO ICU, PT STATED," I'M NOT GOING TO GET INTO A GOWN AND I'M NOT GOING TO KEEP ALL THIS STUFF ON ALL THE TIME. I'M JUST GONNA LEAVE 'CAUSE I'M NOT STAYING."
[2018-11-05] MEDS: NIFEDIPINE CR 30 MG TAB PO SCH (19:36)
[2018-11-05] MEDS: MORPHINE SULFATE INJ 4 MG/ML INJ 1ML IV PRN ×2 (19:40→23:00)
[2018-11-05] MEDS ORDERED: PAROXETINE HCL 20 MG TAB ONE (20:16)
[2018-11-05] MEDS: ATORVASTATIN 20 MG TAB PO SCH (20:29)
[2018-11-05 21:09] LABS: ANION GAP 24.3 mmol/L (8-16); BLOOD UREA NITROGEN 12 mg/dL (7-26); BUN/CREATININE RATIO 14 (6-25); CALCIUM 8.9 mg/dL (8.4-10.2); CARBON DIOXIDE 15 mmol/L (22-29); CHLORIDE 100 mmol/L (98-107); CREATININE, SERUM 0.88 mg/dL (0.57-1.11); EST GLOMERULAR FILTRATION RATE > 60 ML/MIN (60-); GLUCOSE 165 mg/dL (74-118); MAGNESIUM 1.6 MG/DL (1.3-2.1); POTASSIUM 3.3 mmol/L (3.5-5.1); SODIUM 136 mmol/L (136-145)
[2018-11-06] VITALS (23 sets, daily range): BP systolic 100–154; BP diastolic 70–105
[2018-11-06 01:33] LABS: CALCIUM 8.3 mg/dL (8.4-10.2); CREATININE, SERUM 1.01 mg/dL (0.57-1.11); MAGNESIUM 1.7 MG/DL (1.3-2.1)
[2018-11-06 01:51] LABS: ANION GAP 22.8 mmol/L (8-16)
[2018-11-06 02:09] LABS: POTASSIUM 5.8 mmol/L (3.5-5.1)
[2018-11-06] MEDS ORDERED: MAGNESIUM SULF 1GRAM/DEXTROSE 100 ML IV ONE ×2 (03:40→03:45)
[2018-11-06] MEDS: MORPHINE SULFATE INJ 4 MG/ML INJ 1ML IV PRN ×4 (05:00→19:28)
[2018-11-06] MEDS: SODIUM CHLORIDE 0.9% 1000ML 1,000 ML IV SCH ×4 (05:19→17:10)
[2018-11-06 05:37] LABS: ANION GAP 18.3 mmol/L (8-16); BLOOD UREA NITROGEN 15 mg/dL (7-26); BUN/CREATININE RATIO 15 (6-25); CALCIUM 8.4 mg/dL (8.4-10.2); CARBON DIOXIDE 20 mmol/L (22-29); CHLORIDE 99 mmol/L (98-107); CREATININE, SERUM 0.98 mg/dL (0.57-1.11); EST GLOMERULAR FILTRATION RATE > 60 ML/MIN (60-); GLUCOSE 182 mg/dL (74-118); POTASSIUM 3.3 mmol/L (3.5-5.1); SODIUM 134 mmol/L (136-145)
[2018-11-06] MEDS: HYDROXYZINE HCL 25 MG TAB PO PRN ×2 (06:55→16:38)
--- NOTE | 2018-11-06 07:00 | NUR ---
Consult called to Dr Gandhi.
[2018-11-06] MEDS ORDERED: DEXTROSE 50% SYRINGE 50 ML IV PRN ×2 (07:45→15:00)
[2018-11-06] MEDS ORDERED: INSULIN REGULAR, HUMAN 3ML VL 100 UNIT in SODIUM CHLORIDE 0.9% 99 ML IV SCH ×4 (08:00→09:30)
[2018-11-06 09:37] LABS: ANION GAP 15.5 mmol/L (8-16); BLOOD UREA NITROGEN 13 mg/dL (7-26); BUN/CREATININE RATIO 14 (6-25); CALCIUM 8.3 mg/dL (8.4-10.2); CARBON DIOXIDE 21 mmol/L (22-29); CHLORIDE 99 mmol/L (98-107); CREATININE, SERUM 0.91 mg/dL (0.57-1.11); EST GLOMERULAR FILTRATION RATE > 60 ML/MIN (60-); GLUCOSE 193 mg/dL (74-118); MAGNESIUM 1.8 MG/DL (1.3-2.1); POTASSIUM 3.5 mmol/L (3.5-5.1); SODIUM 132 mmol/L (136-145)
[2018-11-06] MEDS: ONDANSETRON HCL INJ 2MG/ML 2ML 2 MG/ML VIAL IV PRN ×2 (10:22→14:30)
[2018-11-06 14:47] LABS: ANION GAP 13.5 mmol/L (8-16); BLOOD UREA NITROGEN 11 mg/dL (7-26); BUN/CREATININE RATIO 14 (6-25); CALCIUM 8.4 mg/dL (8.4-10.2); CARBON DIOXIDE 23 mmol/L (22-29); CHLORIDE 100 mmol/L (98-107); CREATININE, SERUM 0.78 mg/dL (0.57-1.11); EST GLOMERULAR FILTRATION RATE > 60 ML/MIN (60-); GLUCOSE 134 mg/dL (74-118); MAGNESIUM 1.8 MG/DL (1.3-2.1); POTASSIUM 3.5 mmol/L (3.5-5.1); SODIUM 133 mmol/L (136-145)
[2018-11-06] MEDS ORDERED: INSULIN LISPRO 100 UNIT/1 ML 3ML VIAL SQ ONE (15:00)
[2018-11-06 15:26] LABS: FREE T4 (FREE THYROXINE) 0.86 ng/dL (0.8-1.8); THYROID STIMULATING HORMONE 1.023 uIU/mL (0.350-4.940)
[2018-11-06 15:40] LABS: CHOL/HDL RATIO 14.2 (3.0-3.6); CHOLESTEROL 283 MD/DL (0-199); HDL CHOLESTEROL 20 MG/DL (40-60)
[2018-11-06 15:54] LABS: TRIGLYCERIDES 1671 MG/DL (0-149)
[2018-11-06] MEDS: INSULIN LISPRO 100 UNIT/1 ML 3ML VIAL SQ SCH ×3 (17:09→20:47)
[2018-11-06] MEDS: NIFEDIPINE CR 30 MG TAB PO SCH (17:13)
--- NOTE | 2018-11-06 18:10 | Consultation ---
DATE OF CONSULTATION: 11/05/2018 Endocrine Consult[address] Patient of Dr. Harman. Thank you very much for referring this patient. HISTORY OF PRESENT ILLNESS: This is a 43-year-old lady, who was referred to me for evaluation of uncontrolled diabetes mellitus and diabetic ketoacidosis. The patient is a known diabetic for almost 78 years. She takes Lantus insulin 30 at bedtime and Humalog about 10 to 12 with each meal depending upon the blood sugars. According to the patient, she did not take any insulin for almost 3 to 4 days. She started having some nausea, vomiting, and came to the hospital with a blood sugar was 573 and anion gap was 32.7. The patient was admitted in the hospital for further evaluation. She also has history of longstanding hypertension and pancreatitis in the past. PHYSICAL EXAMINATION: GENERAL: Today, the patient is alert, awake, little bit apprehensive. She wants to go home as soon as possible. VITAL SIGNS: Her heart rate is around 100 and blood pressure 140/80 mmHg. HEENT: Essentially unremarkable. Thyroid is palpable. CHEST: Bilateral vesicular breathing. She has mild bronchospasm. CARDIOVASCULAR: First and second heart sounds. There are no third or fourth heart sounds. There is ejection systolic murmur grade 2/6. EXTREMITIES: The patient has evidence of diabetic sensorimotor neuropathy in both lower extremities. ABDOMEN: She has tenderness in the epigastric and right upper quadrant area. CLINICAL IMPRESSION: Diabetes mellitus, probable type 2; diabetic ketoacidosis, noncompliance with medications, hyperlipidemia, hypertension, and history of pancreatitis. PLAN: The plan at this time is to continue IV fluids, insulin drip. Monitor blood sugars closely. I have reassured the patient and we will start her on the full liquid diet. Thanks for referring this patient. I will be following this patient with you. MD CAROLYN Pfeiffer/ROSENDA /[id number]
[2018-11-06] MEDS: ATORVASTATIN 20 MG TAB PO SCH (20:46)
[2018-11-06] MEDS ORDERED: INSULIN GLARGINE 100 UNITS/ML VIAL SQ SCH ×2 (21:00)
[2018-11-06] MEDS ORDERED: PAROXETINE HCL 20 MG TAB PO SCH (21:00)
[2018-11-07] VITALS (10 sets, daily range): BP systolic 99–146; BP diastolic 65–88
[2018-11-07] MEDS: MORPHINE SULFATE INJ 4 MG/ML INJ 1ML IV PRN ×2 (00:10→10:52)
--- NOTE | 2018-11-07 07:44 | Discharge Summary ---
DISCHARGE DIAGNOSIS: Dabetic ketoacidosis. HISTORY OF PRESENT ILLNESS/HOSPITAL COURSE: See hospital chart for full details. The patient is a lady, who presented with abdominal pain. She was noticed to be in DKA, so she was brought in and placed on insulin drip. She was placed on DKA protocol where she anion gap was able to close, her abdominal pain resolved. The patient stated that she needed to go home to get back to work and she felt great. 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 Since she was eating well, ambulating well and voice normal pain, I felt this was appropriate, so she was discharged home to follow up with her PCP in 1 week. She was given a prescription for insulin Levemir 20 units at night as well as regular insulin 10 units with each meal and then diclofenac p.r.n. for pain and she has all her other home medicines already. Please see hospital chart for full details. MD MARYA Hong/ROSENDA /[id number]
[2018-11-07] MEDS: INSULIN LISPRO 100 UNIT/1 ML 3ML VIAL SQ SCH ×4 (07:46→12:09)
[2018-11-07] MEDS: NIFEDIPINE CR 30 MG TAB PO SCH (07:49)
[2018-11-07] MEDS: ONDANSETRON HCL INJ 2MG/ML 2ML 2 MG/ML VIAL IV PRN (10:52)
--- NOTE | 2018-11-07 14:06 | NUR ---
Dr Gandhi to bedside; patient agrees to follow up with Dr Gandhi within 7 to 10 days; Rx given to patient. Patient en route for discharge.
== END 2018-11-07 15:30 | disposition still patient (30) | DRG 638 ==
LOC: ER 12:27 → ERHOLD 17:39 → ICU 18:20
PROVIDERS: ADMIT Internal Medicine; ATTEND Internal Medicine
DX: E11.10 Type 2 diabetes mellitus with ketoacidosis without coma (principal); Z68.42 Body mass index [BMI] 45.0-49.9, adult; E78.5 Hyperlipidemia, unspecified; E03.9 Hypothyroidism, unspecified; I10 Essential (primary) hypertension; E11.42 Type 2 diabetes mellitus with diabetic polyneuropathy; T38.3X6A Underdosing of insulin and oral hypoglycemic [antidiabetic] drugs, initial encounter; Z91.128 Patient's intentional underdosing of medication regimen for other reason; F41.9 Anxiety disorder, unspecified; E66.01 Morbid (severe) obesity due to excess calories
CPT/HCPCS: 36415; 36600; 74176; 80048; 80053; 80061; 81001; 81025; 82805; 82948; 83036; 83690; 83735; 84439; 84443; 85025; 99284; J1815; J1817; J1885; J2060; J2270; J2405; J3410; J3475; J7030; J7050

== ENCOUNTER 2019-01-08 18:31 | Inpatient (IN) | payer BC ==
[~2019-01-08] VITALS: Ht 160 cm; Wt 113.9 kg
[2019-01-08 19:30] LABS: BASOPHILS % 0.3 % (0.0-1.0); EOSINOPHILS # (AUTO) 0.3 (0.0-0.4); EOSINOPHILS % 2.2 % (0.0-6.0); HEMATOCRIT 41.2 % (34.2-44.1); HEMOGLOBIN 14.8 g/dL (12.0-16.0); LYMPHOCYTES # (AUTO) 2.4 (1.0-3.2); LYMPHOCYTES % 20.1 % (18.0-39.1); MEAN CORPUSCULAR HGB CONC 35.9 g/dL (31-35); MONOCYTES # (AUTO) 0.4 (0.2-0.8); MONOCYTES % 3.6 % (4.4-11.3); NEUTROPHILS # (AUTO) 8.8 (2.1-6.9); NEUTROPHILS % 73.1 % (38.7-80.0); PLATELET COUNT 257 x10e3/uL (140-360); RED BLOOD COUNT 4.63 x10e6/uL (3.6-5.1); RED CELL DISTRIBUTION WIDTH 12.9 % (11.7-14.4)
[2019-01-08 19:45] LABS: ALBUMIN 3.2 g/dL (3.5-5.0); ALBUMIN/GLOBULIN RATIO 0.7 (0.8-2.0); ANION GAP 26.6 mmol/L (8-16); CALCIUM 8.8 mg/dL (8.4-10.2); CREATININE, SERUM 1.25 mg/dL (0.57-1.11); POTASSIUM 3.6 mmol/L (3.5-5.1)
[2019-01-08 20:03] LABS: AMYLASE 43 U/L (25-125); LIPASE 90 U/L (8-78)
[2019-01-08] MEDS ORDERED: DEXTROSE 5%/0.45% SOD CHL 1,000 ML IV SCH (20:59)
[2019-01-08] MEDS ORDERED: POTASSIUM CHLORIDE 20MEQ/100ML 200 ML IV PRN (21:00)
[2019-01-08] MEDS ORDERED: MAGNESIUM SULF 1GRAM/DEXTROSE 100 ML IV PRN (21:00)
[2019-01-08] MEDS ORDERED: INSULIN REGULAR, HUMAN 3ML VL 100 UNIT in SODIUM CHLORIDE 0.9% 100 ML IV SCH ×2 (21:00)
[2019-01-08] MEDS ORDERED: ONDANSETRON HCL INJ 2MG/ML 2ML 2 MG/ML VIAL IV ONE (21:05)
[2019-01-08] MEDS ORDERED: MORPHINE SULFATE 2 MG/ML SYR 1ML IV STA (21:05)
[2019-01-08] MEDS ORDERED: MORPHINE SULFATE INJ 4 MG/ML INJ 1ML IV ONE (21:15)
[2019-01-08] MEDS: SODIUM CHLORIDE 0.9% 1000ML 1,000 ML IV SCH (21:43)
[2019-01-08 21:57] LABS: BILIRUBIN,URINE NEGATIVE (NEGATIVE); CLARITY,URINE SL CLOUDY (CLEAR); COLOR,URINE YELLOW (YELLOW); KETONES,URINE NEGATIVE (NEGATIVE); LEUKOCYTE ESTERASE ,URINE NEGATIVE (NEGATIVE); NITRITE,URINE NEGATIVE (NEGATIVE); PROTEIN,URINE DIPSTICK 1+ (NEGATIVE); URINE UROBILINOGEN 0.2 mg/dL (0.2 - 1)
[2019-01-08 21:59] LABS: PREGNANCY TEST, URINE NEGATIVE (NEGATIVE)
[2019-01-08 22:09] LABS: BACTERIA,URINE MANY /HPF; EPITHELIAL CELLS,URINE MODERATE /LPF
[2019-01-08] MEDS ORDERED: ONDANSETRON HCL INJ 2MG/ML 2ML 2 MG/ML VIAL IV PRN ×2 (22:30→22:45)
[2019-01-08] MEDS ORDERED: DIPHENHYDRAMINE HCL 25 MG CAP PO ONE (22:30)
[2019-01-08 23:59] VITALS: BP 114/73
[2019-01-09] VITALS (12 sets, daily range): BP systolic 106–129; BP diastolic 63–93
--- NOTE | 2019-01-09 00:15 | NUR ---
D/C NS 1000ML AT 250 ML/HR PER DKA PROTOCOL.
[2019-01-09] MEDS: SODIUM CHLORIDE 0.9% 1000ML 1,000 ML IV SCH (00:59)
[2019-01-09] MEDS: MORPHINE SULFATE INJ 4 MG/ML INJ 1ML IV PRN ×2 (02:14→07:15)
--- NOTE | 2019-01-09 02:53 | History and Physical ---
CHIEF COMPLAINT: Abdominal pain, nausea, and hypoglycemia. HISTORY OF PRESENT ILLNESS: The patient is a 43-year-old woman. She has a history of insulin-dependent diabetes mellitus. She has some polyneuropathy with sensory symptoms as a result of her diabetes. She regularly takes Levemir as well as short-acting insulin. She recently was unable to purchase the short-acting insulin because of the cost. Over the past several days, she has noted worsening fatigue as well as some epigastric pain. She complains of nausea. She came to the emergency department and was found to have hypoglycemia and the anion gap acidosis. PAST SURGICAL HISTORY: Status post cholecystectomy. PAST MEDICAL HISTORY: 1. Pancreatitis. 2. Diabetes. 3. Diabetic neuropathy. SOCIAL HISTORY: The patient is not an active smoker or drinker. ALLERGIES: THE PATIENT REPORTS BEING ALLERGIC TO GRAPEFRUIT AND SHELLFISH. FAMILY HISTORY: Family history is noncontributory. REVIEW OF SYSTEMS: She has no headache. She has no fever. She has no neck pain. She has no sore throat. She does not complain of difficulty breathing. She is not having chest pain. She does have some epigastric pain as well as some nausea. She does not complain of any actual vomiting. There is no diarrhea. She has no leg edema. PHYSICAL EXAMINATION: VITAL SIGNS: The patient is afebrile. The blood pressure is 112/93, and the saturation is 98%. The pulse is 79. Respiratory rate is 16. HEENT: Shows no facial swelling or erythema. CARDIAC: Reveals regular rate and rhythm with normal S1, S2. There are no murmurs or rubs. LUNGS: Auscultation of lungs reveals clear breath sounds bilaterally. There is no wheezing. ABDOMEN: Tender. There is no rebound or guarding. EXTREMITIES: Show no leg edema or calf tenderness. There is no cyanosis or clubbing. SKIN: Shows no rashes. NEUROLOGIC: Shows some sensory changes in the lower extremities. LABORATORY DATA: BUN to creatinine ratio is 23 to 1.25 and the carbon dioxide is 11. The anion gap is 23. The lipase is elevated at 90. The serum albumin is 3.2. White blood cell count is 12, and hemoglobin is 14.8. The platelet count is 257. IMPRESSION: 1. Diabetic ketoacidosis. 2. Acute kidney injury. 3. Epigastric discomfort. 4. Hypertension. PLAN: 1. The patient will receive IV fluids as well as IV insulin through the DKA protocol. 2. Monitor potassium, magnesium and electrolytes and replete as needed. 3. Monitor and control blood pressure. 4. Serum ketones. 5. Urinalysis. MD SCOTT Duarte/MODL /[id number]
[2019-01-09 02:56] LABS: ANION GAP 22.3 mmol/L (8-16); CALCIUM 7.9 mg/dL (8.4-10.2); CREATININE, SERUM 1.03 mg/dL (0.57-1.11); MAGNESIUM 1.6 MG/DL (1.3-2.1); POTASSIUM 3.3 mmol/L (3.5-5.1)
[2019-01-09] MEDS ORDERED: MAGNESIUM SULF 1GRAM/DEXTROSE 100 ML IV ONE (03:33)
[2019-01-09] MEDS ORDERED: POTASSIUM CHLORIDE 20MEQ/100ML 100 ML ONE (03:35)
--- NOTE | 2019-01-09 03:42 | NUR ---
PATIENT REFUSING TELEMETRY, STATES SHE IS ALLERGIC TO STICKERS. OFFERED TO GET AN ORDER FOR BENADRYL, PATIENT STATES IT DOES NOT HELP AND SHE ALREADY HAD SOME IN ER AND SHE STILL BROKE OUT IN A RASH AND BLISTERS. KINDLY REINFORCED EDUCATION EXPLAINING NEED FOR TELEMETRY IN ICU ESPECIALLY WITH ELECTROLYTE IMBALANCES. PT STILL REFUSES. ALSO REFUSING SCD'S, STATES SHE KNOWS WHAT THEY ARE FOR, "PREVENTING BLOOD CLOTS" BUT DOES NOT WANT TO WEAR THEM. LATEX SPOOLER EMILIANO AWARE.
[2019-01-09] MEDS ORDERED: POTASSIUM CHLORIDE 20MEQ/100ML 100 ML IV PRN (03:45)
[2019-01-09] MEDS ORDERED: MAGNESIUM SULF 1GRAM/DEXTROSE 100 ML IV PRN (03:45)
[2019-01-09] MEDS ORDERED: POTASSIUM CHLORIDE 20MEQ/100ML 200 ML IV PRN (03:45)
[2019-01-09] MEDS: NIFEDIPINE CR 30 MG TAB PO SCH (06:16)
[2019-01-09] MEDS ORDERED: NIFEDIPINE CR 30 MG TAB PO SCH (09:00)
[2019-01-09] MEDS ORDERED: FLUOXETINE HCL 20 MG CAP PO SCH ×2 (09:00→21:00)
[2019-01-09 09:01] LABS: ANION GAP 17.7 mmol/L (8-16); BLOOD UREA NITROGEN 19 mg/dL (7-26); BUN/CREATININE RATIO 20 (6-25); CALCIUM 8.1 mg/dL (8.4-10.2); CARBON DIOXIDE 18 mmol/L (22-29); CHLORIDE 102 mmol/L (98-107); CREATININE, SERUM 0.97 mg/dL (0.57-1.11); EST GLOMERULAR FILTRATION RATE > 60 ML/MIN (60-); GLUCOSE 155 mg/dL (74-118); POTASSIUM 3.7 mmol/L (3.5-5.1); SODIUM 134 mmol/L (136-145)
[2019-01-09] MEDS ORDERED: ACETAMINOPHEN/CODEINE 300MG - 30MG TAB PO PRN (11:00)
[2019-01-09] MEDS: INSULIN REGULAR, HUMAN 100 UNIT/1 ML 3ML VIAL SQ SCH ×3 (11:30→20:31)
[2019-01-09] MEDS: MORPHINE SULFATE 2 MG/ML SYR 1ML IV PRN ×3 (11:34→20:32)
[2019-01-09] MEDS: FENOFIBRATE 145 MG TAB PO SCH (11:57)
[2019-01-09] MEDS: INSULIN GLARGINE 100 UNITS/ML VIAL SQ SCH (13:11)
[2019-01-09] MEDS ORDERED: MORPHINE SULFATE INJ 4 MG/ML INJ 1ML IV PRN (14:45)
[2019-01-09] MEDS: ENOXAPARIN SOD INJ 40 MG/0.4 ML SYR SC SCH (17:00)
--- NOTE | 2019-01-09 17:55 | Progress Note ---
DATE: SUBJECTIVE: The patient received IV fluids and insulin last night. She is improved but still complains of fatigue. She is off the insulin drip and is awaiting transfer out of the intensive care unit. PHYSICAL EXAMINATION: VITAL SIGNS: The patient is afebrile. The blood pressure is 118/80 and the pulse is 72. CARDIAC: Reveals regular rate and rhythm with normal S1 and S2. There are no murmurs or rubs. LUNGS: Auscultation of lungs reveals clear breath sounds bilaterally. There is no wheezing. ABDOMEN: Soft and nontender. There is no rebound or guarding. EXTREMITIES: Show no leg edema or calf tenderness. There is no cyanosis or clubbing. SKIN: Shows no rashes. NEUROLOGICAL: Shows no focal abnormalities. IMPRESSION: 1. Diabetic ketoacidosis. 2. Acute kidney injury. 3. Hypertension. PLAN: 1. Continue IV fluids. 2. Switch to subcu insulin and monitor blood sugars. 3. Continue to monitor lytes, BUN and creatinine. Rancho Cancino MD [facility]/MODL /[id number]
[2019-01-09] MEDS ORDERED: SODIUM CHLORIDE 0.9% 50ML 50 ML ONE (19:12)
[2019-01-09] MEDS ORDERED: IOPAMIDOL 370 MG/ML 200 ML INFUS..BTL INJ ONE (19:12)
[2019-01-09] MEDS ORDERED: ATORVASTATIN 20 MG TAB PO SCH (21:00)
[2019-01-10] VITALS: BP 128/86
[2019-01-10] MEDS: MORPHINE SULFATE 2 MG/ML SYR 1ML IV PRN ×4 (00:25→12:44)
[2019-01-10 00:27] VITALS: BP 128/86
[2019-01-10 04:00] VITALS: BP 124/87
[2019-01-10] MEDS: NIFEDIPINE CR 30 MG TAB PO SCH (05:20)
[2019-01-10 08:00] VITALS: BP 134/80
[2019-01-10] MEDS: FENOFIBRATE 145 MG TAB PO SCH (08:15)
[2019-01-10] MEDS: INSULIN GLARGINE 100 UNITS/ML VIAL SQ SCH (08:18)
[2019-01-10] MEDS: INSULIN REGULAR, HUMAN 100 UNIT/1 ML 3ML VIAL SQ SCH ×3 (08:18→16:54)
--- NOTE | 2019-01-10 08:50 | Diagnostic Imaging Report ---
CT of the abdomen with contrast History: Chronic pancreatitis Comparison: 11/05/2018, 10/03/2017. Technique: Multidetector CT scanning of the abdomen and pelvis was performed from the level of the lung bases to the crest after the administration of intravenous contrast. DOSE REDUCTION: The examination was performed according to departmental dose-optimization program which includes automated exposure control, adjustment of the mA and/or kV according to patient size and/or use of iterative reconstruction technique. Discussion: The lung bases are clear. The liver is enlarged measuring approximately 25 cm in length. No focal hepatic lesions are identified. The liver is diffusely hypoattenuating compatible with hepatic steatosis. The gallbladder is surgically absent. There is no intrahepatic or extrahepatic biliary dilatation. The spleen is within normal limits. Bilateral adrenal glands are unremarkable. The pancreas is homogeneous in attenuation. There is no pancreatic ductal dilatation. No peripancreatic inflammatory stranding is identified. The stomach, small, and large bowel are nondistended. There is no evidence of obstruction. The appendix is partially visualized and normal. The kidneys are normal in size and enhance symmetrically. There is no hydroureteronephrosis bilaterally. No renal stones are identified. Note is made of a ventral abdominal wall hernia containing fat. There are no acute osseous abnormalities. IMPRESSION: 1. No CT evidence of acute abdominal pathology. 2. Hepatomegaly with hepatic steatosis. 3. Status post cholecystectomy. Signed by: Joshua Arevalo MD on 01/10/2019 8:46 AM
[2019-01-10] MEDS ORDERED: ALPRAZOLAM 0.25 MG TAB PO ONE (10:05)
[2019-01-10 12:00] VITALS: BP 143/87
[2019-01-10] MEDS ORDERED: FENOFIBRATE145 MG PO (14:08)
[2019-01-10] MEDS ORDERED: GLIPIZIDE5 MG PO (14:09)
[2019-01-10] MEDS: ENOXAPARIN SOD INJ 40 MG/0.4 ML SYR SC SCH (16:51)
[2019-01-10 17:00] VITALS: BP 147/98
--- NOTE | 2019-01-10 18:30 | NUR ---
Pt discharged. Await spouse to arrive. SL x2 to right ac and hand dc'd. Cannula intact, pressure held, covered with gauze tape. No complications noted.
--- NOTE | 2019-01-11 10:30 | Discharge Summary ---
FINAL DIAGNOSIS: Acute pancreatitis due to hypertriglyceridemia with mild diabetic ketoacidosis. SECONDARY DIAGNOSES: 1. Morbid obesity. 2. Hypertension. 3. Mild acute kidney injury, resolved. CONSULTANTS: Dr. Cancino, spinneret cleaner. PROCEDURE/STUDIES PERFORMED: CT of the abdomen with IV contrast did not show any pancreatic pathology. HISTORY OF PRESENT ILLNESS: Per dictated H and P. HOSPITAL COURSE: The patient was admitted with recurrent pancreatitis and mild DKA 1-2 months ago. Her triglyceride was more than a 1000. Therefore, most likely this is the etiology. The patient only takes Lipitor for it, I have added TriCor to try to prevent this from happening. Her mild DKA corrected really fast with insulin drip. Currently, the patient is tolerating p.o. and her sugar is doing okay. The patient also states that she cannot take metformin. She takes the Levemir 30 units twice a day. I will supplement with a very low dose of glipizide. The patient knows that she needs to see an audit clerks supervisor. The patient was seen and examined today. It took 31 minutes total to discharge this patient. Of note, CT of the abdomen essentially ruled out chronic pancreatitis. With hydration, her creatinine normalized. CONDITION ON DISCHARGE: Improved. DISCHARGE MEDICATIONS: Please see medication reconciliation form. MD ERLINDA Castañeda/MODL /[id number]
== END 2019-01-10 18:56 | disposition home or self-care (01) | DRG 637 ==
LOC: ER 18:31 → ERHOLD 22:35 → ICU 23:58
PROVIDERS: ADMIT Internal Medicine; ATTEND Internal Medicine
DX: E10.10 Type 1 diabetes mellitus with ketoacidosis without coma (principal); K85.00 Idiopathic acute pancreatitis without necrosis or infection; N17.9 Acute kidney failure, unspecified; E87.1 Hypo-osmolality and hyponatremia; Z68.41 Body mass index [BMI] 40.0-44.9, adult; E78.5 Hyperlipidemia, unspecified; I10 Essential (primary) hypertension; E66.01 Morbid (severe) obesity due to excess calories; Z91.013 Allergy to seafood; Z91.018 Allergy to other foods; Z83.3 Family history of diabetes mellitus; Z82.49 Family history of ischemic heart disease and other diseases of the circulatory system; E10.42 Type 1 diabetes mellitus with diabetic polyneuropathy; Z79.4 Long term (current) use of insulin; T38.3X6A Underdosing of insulin and oral hypoglycemic [antidiabetic] drugs, initial encounter; Z91.120 Patient's intentional underdosing of medication regimen due to financial hardship
CPT/HCPCS: 36415; 74160; 80048; 80053; 81001; 81025; 82150; 82948; 83690; 83735; 85025; 93005; 96372; 99284; J1650; J1815; J1817; J2270; J2405; J3475; J3480; J7030; J7050; Q9967

== ENCOUNTER 2019-08-04 21:11 | Emergency (ER) | payer BC ==
[~2019-08-04] VITALS: Ht 160 cm; Wt 113.9 kg
[~2019-08-04 21:11] MED LIST changes: +GLIPIZIDE5 MG PO
--- NOTE | 2019-08-04 22:26 | Emergency Department Note ---
History of Present Illnes History of Present Illness Chief Complaint: General Medicine Complaints History of Present Illness This is a 43 year old female presents to ED with complaints of cough epigastric abdominal pain, concerned she has covid 19. Patient states she has subjective fevers. Patient states her daughter was tested a few days ago and is awaiting results. Patient states she also had a mechanical fall about 2 weeks ago and is continuing to having over her butt. Director Ship Required: No Onset (how long ago): day(s) Radiation: Reports back Severity: mild Onset quality: gradual Duration (how long): day(s) Timing of current episode: intermittent Progression: unchanged Chronicity: new Relieving factors: none Exacerbating factors: none Associated symptoms: Reports cough, Reports fever/chills Past Medical/Family History Physician Review I have reviewed the patient's past medical and family history. Any updates have been documented here. Past Medical History Past Medical History: Hypertension, Diabetes, Anxiety, Lupus Other Medical History: CHRONIC PANCTEATITIS morbid obesity HERNIA Past Surgical History: Hernia Repair Other Surgery: RIGHT ROTATOR CUFF Social History Smoking Cessation: Current some day smoker Other Last Tetanus: OOD Review of Systems Review of Systems Constitutional: Reports as per HPI, Reports chills, Reports diaphoresis EENTM: Reports no symptoms Cardiovascular: Reports no symptoms Respiratory: Reports as per HPI, Reports chest congestion, Reports cough Gastrointestinal: Reports no symptoms Genitourinary: Reports no symptoms Musculoskeletal: Reports no symptoms, Reports back pain Integumentary: Reports no symptoms Neurological: Reports no symptoms Psychological: Reports no symptoms Endocrine: Reports no symptoms Hematological/Lymphatic: Reports no symptoms Review of other systems: All other systems negative Physical Exam Related Data Allergies: Coded Allergies: grapefruit (Verified Allergy, Unknown, 01/09/18) shellfish derived (Verified Allergy, Unknown, HIVES, 03/18/18) Vital signs reviewed: Yes Physical Exam CONSTITUTIONAL Constitutional: Present well-developed, Present morbidly obese HENT HENT: Present normocephalic, Present atraumatic, Present oropharynx clear/moist, Present nose normal HENT L/R: Present left ext ear normal, Present right ext ear normal EYES Eyes: Reports PERRL, Reports conjunctivae normal NECK Neck: Present ROM normal PULMONARY Pulmonary: Present effort normal, Present breath sounds normal CARDIOVASCULAR Cardiovascular: Present regular rhythm, Present heart sounds normal, Present capillary refill normal, Present normal rate GASTROINTESTINAL Abdominal: Present soft, Present nontender, Present bowel sounds normal GENITOURINARY Genitourinary: Present exam deferred SKIN Skin: Present warm, Present dry MUSCULOSKELETAL Musculoskeletal: Present ROM normal NEUROLOGICAL Neurological: Present alert, Present oriented x 3, Present no gross motor or sensory deficits PSYCHOLOGICAL Psychological: Present mood/affect normal, Present judgement normal Results Imaging Imaging results reviewed: Yes Impressions All x-rays reviewed and normal Assessment & Plan Medical Decision Making MDM 43-year-old female arrives the ED after sustaining a mechanical fall and concerns of Coban 19. Patient clinically appeared well with no evidence of hypoxia or tachypnea noted. Patient indeterminate steady gait and no neuro deficits, normal straight leg raise noted. Patient informed us that on a donut to help alleviate some of the pressure off of her buttocks. No fractures. Assessment & Plan Final Impression: (1) Sacral back pain (2) Obesity Depart Disposition: HOME, SELF-FCI Meds Reported Medications Glipizide (GLIPIZIDE) 5 Mg Tablet, 2.5 MG PO DAILY, TAB 01/10/19 Fenofibrate Nanocrystallized (FENOFIBRATE) 145 Mg Tablet, 145 MG PO DAILY 01/10/19 Hydrochlorothiazide (HYDROCHLOROTHIAZIDE) 25 Mg Tablet, 25 MG PO DAILY, #30 TAB 10/03/18 Atorvastatin Calcium (LIPITOR) 20 Mg Tablet, 20 MG PO HS, #30 TAB 10/03/18 Insulin Detemir (LEVEMIR) 100 Unit/1 Ml Vial, 30 UNIT SQ BID 10/03/18 Paroxetine Hcl (PAXIL) 10 Mg Tablet, 10 MG PO HS 03/18/18 Hydroxyzine Hcl (HYDROXYZINE HCL) 25 Mg Tablet, 50 MG PO Q6H PRN for ALLERGY, #30 TAB 03/18/18 Nifedipine (NIFEDIPINE ER) 30 Mg Tab.er.24, 60 MG PO BID 09/19/16 YUNIOR WELCH, Aug 04, 2019 22:26
--- NOTE | 2019-08-05 00:03 | Diagnostic Imaging Report ---
PELVIS AP 1-2 VIEWS, SACRUM X-RAY - 3 views HISTORY: Pain. COMPARISON: None available. FINDINGS: Bones: No acute displaced fracture. Osseous alignment is within normal limits. Joints: The joint spaces are well-maintained. Soft tissues: The soft tissues appear unremarkable. IMPRESSION: No acute radiographic abnormality. Signed by: Kraig Cotter MD on 08/05/2019 12:00 AM
--- NOTE | 2019-08-05 00:03 | Diagnostic Imaging Report ---
EXAMINATION: CHEST SINGLE (PORTABLE) INDICATION: Cough COMPARISON: None FINDINGS: AP view TUBES and LINES: None. LUNGS: Lungs are well inflated. Lungs are clear. There is no evidence of pneumonia or pulmonary edema. PLEURA: No pleural effusion or pneumothorax. HEART AND MEDIASTINUM: The cardiomediastinal silhouette is unremarkable. BONES AND SOFT TISSUES: No acute osseous lesion. Soft tissues are unremarkable. UPPER ABDOMEN: No free air under the diaphragm. IMPRESSION: No acute thoracic radiographic abnormality. Signed by: Kraig Cotter MD on 08/05/2019 12:00 AM
[2019-08-05] MEDS ORDERED: DIAZEPAM 5 MG TAB PO SCH (01:30)
[2019-08-05] MEDS ORDERED: KETOROLAC TROMETHAMINE 60 MG/2 ML VIAL IM ONE (01:30)
[2019-08-05 01:42] VITALS: BP 166/104
== END 2019-08-05 02:15 | disposition home or self-care (01) ==
LOC: ER 23:22
DX: R10.13 Epigastric pain (principal); R05 Cough; M53.3 Sacrococcygeal disorders, not elsewhere classified; W19.XXXA Unspecified fall, initial encounter; Z03.818 Encounter for observation for suspected exposure to other biological agents ruled out; I10 Essential (primary) hypertension; E11.9 Type 2 diabetes mellitus without complications; M32.9 Systemic lupus erythematosus, unspecified; F41.9 Anxiety disorder, unspecified; E66.9 Obesity, unspecified; F17.210 Nicotine dependence, cigarettes, uncomplicated
CPT/HCPCS: 71045; 72170; 72220; 99283; J1885

== ENCOUNTER 2019-08-17 05:11 | Emergency (ER) | payer BC ==
[~2019-08-17] VITALS: Ht 160 cm; Wt 113.9 kg
[2019-08-17] MEDS ORDERED: ACETAMINOPHEN 325 MG TAB ONE (05:36)
--- NOTE | 2019-08-17 05:39 | Emergency Department Note ---
History of Present Illnes History of Present Illness Chief Complaint: COVID PUI History of Present Illness This is a 43 year old female PRESENTS TO ED WITH REPORT OF FEVER, CHILLS, HEADACHE, COUGH X2 DAYS; PTS SPOUSE, FATHER IN LAW, AND DAUGHTER ARE COVID +; RESP EVEN AND UNLABORED, O2 SAT RA 98%; SKIN WARM, DRY, COLOR WNL FOR PT; ORAL TEMP IN TRIAGE 101.3 F, PT MEDICATED FOR FEVER PER PROTOCOL. Arrival Mode: Car Onset (how long ago): day(s) (2) Location: ALL OVER Quality: FEVER, CHILLS, COUGH, BODY ACHES Severity: mild Onset quality: gradual Duration (how long): day(s) (2) Timing of current episode: constant Progression: worsening Chronicity: new Context: Reports recent illness, Reports other (MULTIPLE FAMILY MEMBERS WITH POSITIVE COVID 19 TESTS) Relieving factors: none Exacerbating factors: none Associated symptoms: Reports cough (DRY, NON PRODUCTIVE), Reports fever/chills Treatments prior to arrival: none Past Medical/Family History Physician Review I have reviewed the patient's past medical and family history. Any updates have been documented here. Past Medical History Recent Fever: Yes Clinical Suspicion of Infectio: Yes New/Unexplained Change in Ment: No Past Medical History: Hypertension, Diabetes, Anxiety, Lupus Other Medical History: CHRONIC PANCTEATITIS MORBID OBESITY HERNIA Past Surgical History: Tubal Ligation, , Hernia Repair Other Surgery: X2 RIGHT ROTATOR CUFF Social History Smoking Cessation: Never Smoker Alcohol Use: None Family History Family history of heart diseas: No Other family history HTN,DM Other Last Tetanus: OOD Review of Systems Review of Systems Constitutional: Reports as per HPI EENTM: Reports no symptoms Cardiovascular: Reports no symptoms Respiratory: Reports as per HPI Gastrointestinal: Reports no symptoms Genitourinary: Reports no symptoms Musculoskeletal: Reports no symptoms Integumentary: Reports no symptoms Neurological: Reports no symptoms Psychological: Reports no symptoms Endocrine: Reports no symptoms Hematological/Lymphatic: Reports no symptoms Physical Exam Related Data Allergies: Coded Allergies: grapefruit (Verified Allergy, Unknown, 01/09/18) shellfish derived (Verified Allergy, Unknown, HIVES, 03/18/18) Triage Vital Signs Vital Signs Date Time Temp Pulse Resp B/P (MAP) Pulse Ox O2 Delivery O2 Flow Rate FiO2 7/12/20 05:21 101.3 96 22 139/92 98 Room Air Vital signs reviewed: Yes Physical Exam CONSTITUTIONAL Constitutional: Present well-developed, Present well-nourished HENT HENT: Present normocephalic, Present atraumatic, Present oropharynx clear/moist, Present nose normal HENT L/R: Present left ext ear normal, Present right ext ear normal EYES Eyes: Reports PERRL, Reports conjunctivae normal NECK Neck: Present ROM normal PULMONARY Pulmonary: Present effort normal, Present rhonchi (MILD AT BASES BILATERAL) CARDIOVASCULAR Cardiovascular: Present regular rhythm, Present heart sounds normal, Present capillary refill normal, Present normal rate GASTROINTESTINAL Abdominal: Present soft, Present nontender, Present bowel sounds normal GENITOURINARY Genitourinary: Present exam deferred SKIN Skin: Present warm, Present dry MUSCULOSKELETAL Musculoskeletal: Present ROM normal NEUROLOGICAL Neurological: Present alert, Present oriented x 3, Present no gross motor or sensory deficits PSYCHOLOGICAL Psychological: Present mood/affect normal, Present judgement normal Assessment & Plan Medical Decision Making MDM PT WITH COVID 19 SYMPTOMS WITH EXPOSURE TO MULTIPLE FAMILY MEMBERS WITH POSITIVE COVID TESTS AND SIMILAR SYMPTOMS PT DISCHARGED WITH [facility], GIVEN INFO FOR [facility] TO OBTAIN A COVID 19 TEST, ALSO GIVEN INSTRUCTIONS ON LAYING/SLEEPING ON SIDES AND STOMACH, NOT ON BACK Assessment & Plan Final Impression: (1) Fever (2) COVID-19 Depart Disposition: HOME, SELF-CARE Last Vital Signs Date Time Temp Pulse Resp B/P (MAP) Pulse Ox O2 Delivery O2 Flow Rate FiO2 08/17/19 05:21 101.3 96 22 139/92 98 Room Air Home Meds Reported Medications Glipizide (GLIPIZIDE) 5 Mg Tablet, 2.5 MG PO DAILY, TAB 01/10/19 Fenofibrate Nanocrystallized (FENOFIBRATE) 145 Mg Tablet, 145 MG PO DAILY 01/10/19 Hydrochlorothiazide (HYDROCHLOROTHIAZIDE) 25 Mg Tablet, 25 MG PO DAILY, #30 TAB 10/03/18 Atorvastatin Calcium (LIPITOR) 20 Mg Tablet, 20 MG PO HS, #30 TAB 10/03/18 Insulin Detemir (LEVEMIR) 100 Unit/1 Ml Vial, 30 UNIT SQ BID 10/03/18 Paroxetine Hcl (PAXIL) 10 Mg Tablet, 10 MG PO HS 03/18/18 Hydroxyzine Hcl (HYDROXYZINE HCL) 25 Mg Tablet, 50 MG PO Q6H PRN for ALLERGY, #30 TAB 03/18/18 Nifedipine (NIFEDIPINE ER) 30 Mg Tab.er.24, 60 MG PO BID 09/19/16 Medications in the ED Acetaminophen 975 mg STK-MED ONCE .ROUTE ; Start 08/17/19 at 05:36; Stop 08/17/19 at 05:31; Status DC PATRIC BERMEO MD Aug 17, 2019 05:39
== END 2019-08-17 05:45 | disposition home or self-care (01) ==
LOC: ER 05:23
DX: U07.1 COVID-19 (principal); R50.9 Fever, unspecified; R05 Cough; R51 Headache; I10 Essential (primary) hypertension; E11.9 Type 2 diabetes mellitus without complications; M32.9 Systemic lupus erythematosus, unspecified; F41.9 Anxiety disorder, unspecified; E66.01 Morbid (severe) obesity due to excess calories
CPT/HCPCS: 99282